=== PATIENT | female | born 1960 | race Caucasian/White ===

== ENCOUNTER 2018-11-13 16:09 | Emergency (ER) | payer MEDICARE, MEDICAID, SELFPAY ==
[2018-11-13 16:17] VITALS: BP 163/100; PULSE 113; RESP 16; TEMP 37.5; O2SAT 97
--- NOTE | 2018-11-13 16:20 | DI.CT_ITS ---
SYMPTOM/DIAGNOSIS: ABDOMINAL DISTENTION CT ABDOMEN AND PELVIS: There are no prior comparison exams. There is a large amount of ascites. The liver has a nodular, cirrhotic appearance. No liver mass or biliary dilatation is seen. The gallbladder is somewhat distended but does not show wall thickening. The spleen is mildly enlarged. The adrenals, kidneys and pancreas are unremarkable. Food is seen in the stomach. The bowel is not well evaluated without IV contrast particularly due to surrounding ascites. Small rounded high density material is seen at the cecum. The appendix appears normal. There is no evidence of bowel obstruction. Colitis and enteritis are not excluded. The uterus, ovaries and bladder are unremarkable. The lung bases are clear. There is a mild T-10 compression fracture which appears unchanged when compared with chest x-ray from 2017. IMPRESSION: Large quantity of ascites secondary to cirrhosis. The bowel is not well evaluated due to surrounding ascites and lack of oral contrast. Colitis and enteritis cannot be excluded.
--- NOTE | 2018-11-13 16:21 | ED.GENADUL_ITS ---
Discharge Plan Disposition Patient Disposition: HOME Condition: Stable Discharge Details Chief Complaint: Abd Prob Clinical Impression: Ascites Primary Care Provider: Danny Livingston ED Provider: Andrew Arenas Home Meds and New Rx's Prescriptions: No Action atenolol 25 MG tablet 25 mg PO DAILY RF: 0 dextroamphetamine-amphetamine [Adderall XR] 30 MG capsule,extended release 24hr 30 mg PO DAILY RF: 0 escitalopram oxalate [Lexapro] 10 mg Tablet 10 mg PO DAILY RF: 0 Medical Decision Making 58 yo female with hx of hep c comes in with complaints of abdominal distention worsening since July. Denies fevers, vomit, diarrhea, constipation. On exam she does have distention, no significant tenderness on exam or guarding. Denies ches tpain or sob. Given her hx of hep c could be ascites vs mass, will obtain imaging to further eval labs show elevated lfts that is chronic for her and ct shows ascites, appendix not visualizes but has absolutely no rlq pain. I recommended performing paracentesis but she declined and has capacity to make her own decisions and understands risk sof missing sbp including and disabilty and is willing to take this risk. She has no severe pain and no fevers so sbp is unlikely but discussed only way to eval for this is by parancetesis. She would rather do this as an outpatient so will refer to gerneral surgery, return precautions given. d/c instructions given on [employer] as computer went down at time of d/c Differential Diagnosis mass, ascites Imaging Data Radiologic Study: Attestation: I personally reviewed and interpreted this imaging study as follows: Imaging: CT Scan Radiologist's impression: 1. Severe ascites most likely related to cirrhosis of liver. There appear to be a few splenic varices. 2. Appendix is not visualized. The expected location is filled with ascitic fluid. If there is a clinical concern for acute appendicitis, decision must be made clinically or a repeat CT of the abdomen with oral contrast could evaluate further. This would also help evaluate the colon especially the descending colon as the hernandez difficult to separate from the ascites especially the ascending colon. Lab Data Lab results reviewed: Yes I reviewed the patient's lab results. HPI General Mode of arrival: ambulatory . Date/Time Provider Initiated Documentation: 11/13/18 16:12 . Limitations to Documentation: no limitations . Information obtained by: patient . History of Present Illness 58 year old F presents to the emergency department with the chief complaint of abdominal distention, described as moderate, Patient started experiencing this month(s) (3) and it has been constant. No relieving factors improve symptom(s), No exacerbating factors reported . Patient did receive the following treatments prior to arrival, none Related Data Home Medications Medication Instructions Recorded Confirmed atenolol 25 mg PO DAILY 09/28/16 11/13/18 dextroamphetamine-amphetamine 30 mg PO DAILY 09/28/16 11/13/18 [Adderall XR] escitalopram oxalate [Lexapro] 10 mg PO DAILY 11/13/18 11/13/18 Allergies Allergy/AdvReac Type Severity Reaction Status Date / Time sulfamethoxazole Allergy Mild Diarrhea Unverified 11/13/18 16:22 [From Bactrim] trimethoprim [From Bactrim] Allergy Mild Diarrhea Unverified 11/13/18 16:22 Review of Systems Review of Systems All systems reviewed & are unremarkable except as noted in HPI and below Constitutional Denies chills, Denies fever(s) and Denies weakness Cardiovascular Denies chest pain and Denies dyspnea Respiratory Denies cough and Denies dyspnea Gastrointestinal Denies nausea and Denies vomiting Musculoskeletal Denies joint swelling Neurologic Denies weakness Endocrine Denies cold intolerance and Denies heat intolerance PFSH Social History Smoking/Tobacco Use Status: Current every day Drug use: Never Do you feel safe in your relationship?: No Exam Const General: no acute distress Orientation: alert HENMT Head: normal to inspection Ears: external ears normal General nose exam: external nose normal Mouth: moist mucous membranes Eyes General: appearance normal, both eyes and all related structures Neck Neck: normal visual inspection Resp Effort & Inspection: normal respiratory effort and able to speak in complete sentences Cardio Rate: regular rate GI Palpation: soft Skin General skin exam: no rashes or lesions noted Neuro General: alert and oriented x3 Extrem General: normal to inspection Psych Mental Status: mental status grossly normal
[2018-11-13 16:43] LABS: Abs Immature Grans 0.02 k/cumm (0.0-0.09); Absolute Basophil Count 0.03 k/cumm (0.0-0.2); Absolute Eosinophil Count 0.05 k/cumm (0.0-0.7); Absolute Lymphocyte Count 1.09 k/cumm (1.2-3.4); Absolute Monocyte Count 0.24 k/cumm (0.11-0.7); Absolute Neutrophil Count 3.03 k/cumm (1.2-6.7); Basophils % 0.7; Eosinophils % 1.1; HCT 30.6 % (36.0-46.0); HGB 10.3 g/dL (12.0-15.5); Immature Grans % 0.4; Lymphocytes % 24.4; Mean Corp. HGB Concentration 33.7 g/dL (32.0-36.0); Mean Corpuscular Hemoglobin 32.9 pg (27.0-33.0); Mean Corpuscular Volume 97.8 fL (80-95); Mean Platelet Volume 11.8 fL (8.0-11.0); Monocytes % 5.4; RBC 3.13 m/cumm (4.00-5.20); RBC Distribution Width 18.3 % (11.7-14.6); White Blood Cell Count 4.46 k/cumm (4.4-10.8)
[2018-11-13 16:48] LABS: Platelet Count 65 x1000/uL (130-400)
[2018-11-13 16:51] LABS: Magnesium 1.5 mg/dL (1.8-2.4)
[2018-11-13 16:53] LABS: Bilirubin, Direct 1.97 mg/dL (0.00-0.20)
[2018-11-13 16:55] LABS: ALT 159 U/L (14-59); AST 372 U/L (15-37); Albumin 2.5 g/dL (3.4-5.0); Alkaline Phosphatase 169 U/L (46-116); Anion Gap 12.4 mmol/L (3-11); BUN 6 mg/dL (7-18); Bilirubin, Total 2.7 mg/dL (0.2-1.0); CO2 20.6 mmol/L (21.0-32.0); CREATININE 0.76 mg/dL (0.55-1.02); Calcium 7.9 mg/dL (8.5-10.1); Chloride 106 mmol/L (98-107); Glucose 200 mg/dL (70-100); Lipase 347 U/L (73-393); Potassium 3.6 mmol/L (3.5-5.1); Sodium 139 mmol/L (136-145); Total Protein 6.8 g/dL (6.4-8.2)
[2018-11-13 17:13] LABS: INR 1.4 (0.9-1.1); PTT Activated 29.6 sec (21.0-31.4); Prothrombin Time 14.4 sec (9.3-11.0)
[2018-11-13 17:16] LABS: Anisocytosis 1+; Macrocytosis 1+; Polychromasia Present
[2018-11-13] MEDS: Omnipaque 350 MG/ML 100 ML BTL IJ (17:27)
--- NOTE | 2018-11-13 17:48 | DI.VRAD_ITS ---
EXAM: CT Abdomen and Pelvis With Contrast EXAM DATE/TIME: 11/13/2018 4:21 PM CLINICAL HISTORY: 58 years old, female; Bloating; Patient HX: PT intoxicated TECHNIQUE: Imaging protocol: Computed tomography of the abdomen and pelvis with intravenous contrast. COMPARISON: No relevant prior studies available. FINDINGS: Lungs: There is minimal scarring at the lung bases. Liver: The liver has slightly nodular contour and is slightly smaller than usual. Gallbladder and bile ducts: The gallbladder is prominently distended there is no gallbladder wall thickening. Pancreas: Normal. No ductal dilation. Spleen: The spleen is within normal limits of size. Adrenals: Normal. No mass. Kidneys and ureters: Normal. No hydronephrosis. Stomach and bowel: There is a prominent amount residual food material in the proximal stomach. There is no dilatation of the small bowel. There is a collection of probably roughly 50 to a 3 mm calcific densities collected in the ascending colon. Appendix: The appendix is not clearly visible. Intraperitoneal space: There is a large amount of ascites around the liver spleen and throughout the mesentery as well as throughout the pelvis. The hernandez of the colon the patient a standing column is somewhat difficult to identify in view of the surrounding ascites and lack of oral contrast. Vasculature: There is minimal atherosclerosis. Lymph nodes: Normal. No enlarged lymph nodes. Bladder: Unremarkable as visualized. Reproductive: Unremarkable as visualized. Bones/joints: There are moderate degenerative changes facet joints in the lower lumbar spine. There minimal degenerative changes lumbar spine. Soft tissues: Unremarkable. IMPRESSION: 1. Severe ascites most likely related to cirrhosis of liver. There appear to be a few splenic varices. 2. Appendix is not visualized. The expected location is filled with ascitic fluid. If there is a clinical concern for acute appendicitis, decision must be made clinically or a repeat CT of the abdomen with oral contrast could evaluate further. This would also help evaluate the colon especially the descending colon as the hernandez difficult to separate from the ascites especially the ascending colon. SIGNIFICANT FINDING REPORT Dictated and Authenticated by: Andrew Monaco MD. Ordering:ROX Morales MD
--- NOTE | 2018-11-14 07:19 | NUR.NOTE ---
Referral faxed to [facility].Nursing Note:
== END 2018-11-13 18:41 | disposition home or self-care (01) ==
LOC: ER 18:54
PROVIDERS: Emergency Provider Emergency Medicine; PCP Nurse Practitioner Family
DX: R18.8 Other ascites (principal); B19.20 Unspecified viral hepatitis C without hepatic coma; Z53.29 Procedure and treatment not carried out because of patient's decision for other reasons
CPT/HCPCS: 36415; 80053; 83690; 99285; 74177; 82248; 83735; 85025; 85610; 85730; 99284

== ENCOUNTER 2018-11-26 13:46 | Outpatient (CLI) | payer MEDICARE, MEDICAID, SELFPAY ==
[2018-11-26 15:07] LABS: INR 1.4 (0.9-1.1); Prothrombin Time 14.5 sec (9.3-11.0)
[2018-11-26 15:15] LABS: Abs Immature Grans 0.01 k/cumm (0.0-0.09); Absolute Basophil Count 0.02 k/cumm (0.0-0.2); Absolute Eosinophil Count 0.08 k/cumm (0.0-0.7); Absolute Lymphocyte Count 1.44 k/cumm (1.2-3.4); Absolute Monocyte Count 0.36 k/cumm (0.11-0.7); Absolute Neutrophil Count 3.39 k/cumm (1.2-6.7); Basophils % 0.4; Eosinophils % 1.5; HCT 32.9 % (36.0-46.0); HGB 10.8 g/dL (12.0-15.5); Immature Grans % 0.2; Lymphocytes % 27.2; Mean Corp. HGB Concentration 32.8 g/dL (32.0-36.0); Mean Corpuscular Hemoglobin 32.1 pg (27.0-33.0); Mean Corpuscular Volume 97.9 fL (80-95); Mean Platelet Volume 12.5 fL (8.0-11.0); Monocytes % 6.8; Neutrophils % 63.9; RBC 3.36 m/cumm (4.00-5.20); RBC Distribution Width 17.1 % (11.7-14.6)
[2018-11-26 15:20] LABS: ALT 120 U/L (14-59); AST 231 U/L (15-37); Albumin 2.7 g/dL (3.4-5.0); Alkaline Phosphatase 187 U/L (46-116); Amylase 119 U/L (25-115); Anion Gap 8.5 mmol/L (3-11); BUN 12 mg/dL (7-18); Bilirubin, Total 2.2 mg/dL (0.2-1.0); CO2 24.5 mmol/L (21.0-32.0); CREATININE 0.64 mg/dL (0.55-1.02); Calcium 8.1 mg/dL (8.5-10.1); Chloride 108 mmol/L (98-107); Glucose 111 mg/dL (70-100); Potassium 3.9 mmol/L (3.5-5.1); Sodium 141 mmol/L (136-145); Total Protein 6.9 g/dL (6.4-8.2)
[2018-11-26 15:33] LABS: GGT 116 U/L (5-55)
[2018-11-26 16:35] LABS: Diff Comment PLT Morph Reviewed; Platelet Count 55 x1000/uL (130-400)
[2018-11-26 16:36] LABS: RBC Morphology Normal
[2018-11-26 18:39] LABS: Clarity CLEAR; Nucleated Cells 140 /MM3 (0-0); Source PERITONEAL
[2018-11-26 19:05] LABS: Mononuclear Cells 85 % (0-0); Polynuclear Cells 15 % (0-0)
[2018-11-26 21:10] LABS: Source: Peritoneal
[2018-11-27 16:51] LABS: Glucose, Fluid 117 mg/dl
[2018-11-28 12:46] LABS: Amylase, BF 47 U/L; Fluid Type PERITONEAL
[2018-11-28 13:04] LABS: Fluid Type PERITONEAL; Protein,Total, BF 0.7 g/dL
[2018-11-28 16:34] LABS: Fluid Type PERITONEAL; Lactate Dehydrogenase (LD), BF 113 U/L
== END 2018-11-26 14:06 ==
PROVIDERS: Nurse Practitioner Family; PCP Nurse Practitioner Family; Visit Provider Nurse Practitioner Family
DX: K72.10 Chronic hepatic failure without coma (principal); Z77.011 Contact with and (suspected) exposure to lead; R10.9 Unspecified abdominal pain; B18.2 Chronic viral hepatitis C; K74.60 Unspecified cirrhosis of liver; R18.8 Other ascites; G93.49 Other encephalopathy; I86.8 Varicose veins of other specified sites; Z92.29 Personal history of other drug therapy
CPT/HCPCS: 36415; 49082; 80053; 99204; 99215; 81373; 82150; 82977; 83615; 83655; 83986; 84157; 85025; 85610; 87070; 87075; 87205; 87522; 89051

== ENCOUNTER 2018-11-26 17:28 | Outpatient (REF) | payer MEDICARE, MEDICAID, SELFPAY ==
--- NOTE | 2018-11-26 17:00 | PAPNONF_PTH ---
PATIENT: SHAUN MÉNDEZ LOC: [facility] U#:[id number] AGE/SX: 58/F ROOM: RE11/26/[address]: Samia Teran : 1960 BED: DIS: 11/26/2018 SPEC #: [id number] RECD: 11/26/18 17:34 STATUS: ADELA REQ #: [id number] DARWIN: 11/26/18 17:[address]: Samia Teran DEPT: [facility] Cytology RECD BY: Maame Schaffer ENTERED: 11/26/18 17:35 SP TYPE: ISAAC ROME DR: Danny Livingston Tissues: 1 - BODY FLUID CYTO(SPUTUM/URINE)[facility] Procedures: BODY FLUID CYTO(URINE/SPUTUM) Comments: [id number] (TOTAL VOLUME = 40 ml's ~ SENT FRESH)
== END 2018-11-26 17:48 ==
LOC: LBN 17:28
PROVIDERS: PCP Nurse Practitioner Family; Visit Provider Surgery
DX: B18.2 Chronic viral hepatitis C (principal); K72.10 Chronic hepatic failure without coma
CPT/HCPCS: 88104

== ENCOUNTER 2019-04-04 10:53 | Emergency (ER) | payer MEDICARE, MEDICAID, SELFPAY ==
[2019-04-04] VITALS (7 sets, daily range): BP systolic 107–172; BP diastolic 56–93; PULSE 96–120; RESP 16–30; TEMP 36.7–37.3; O2SAT 96–100
--- NOTE | 2019-04-04 10:56 | ED.GENADUL_ITS ---
Discharge Plan Disposition Patient Disposition: HOME Condition: Improving Discharge Details Chief Complaint: Abd Prob Clinical Impression: Cirrhosis of liver with ascites Primary Care Provider: Danny Livingston ED Provider: Bowen Moraes Home Meds and New Rx's Prescriptions: Continued clonidine HCl 0.1 mg Tablet 0.1 mg PO BID RF: 0 Discharge Instructions Instructions: Ascites (ED) Additional Instructions: You will need close follow-up with your primary care provider and with a wheat inspector. Care management will work on arranging this for you. Return to the emergency department immediately if you develop any fevers, weakness, passing out, or for any other concerning or worsening symptoms at all. 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 Today she presents with what appears to be tense ascites. 8 L of yellow ascitic fluid was drained. She feels better. Her breathing has improved. I reviewed notes from [facility] Patient states that she cannot go back to see gastroenterology at [facility] She states that she has a lawsuit pending. Her history is quite difficult, possibly due to her psychiatric history. I reviewed multiple notes from [facility] including gastroenterology, psychiatry, emergency department. It was thought that her way of speaking and poor history is not due to hepatic encephalopathy. Today her ammonia level is normal. There is no indication for admission at this time. She will need to follow-up with a new wheat inspector however. Care management will help arrange for home health, gastroenterology follow-up and primary care follow-up. Patient will be provided close follow-up. She will be given return precautions and discharge instructions. She agrees with this outpatient treatment plan. Medical Records Medical records reviewed: Yes I reviewed the patient's medical records. Lab Data Lab results reviewed: Yes I reviewed the patient's lab results. HPI I am uncomfortable. This patient is a 58-year-old female who presents to the emergency department with concerned that she is swollen. About 6 months ago she was diagnosed with liver failure. She has seen gastroenterology at [facility] 2 times. She comes in today because she is concerned that she would not survive the night due to abdominal swelling. She states that it is more swollen than ever before. She denies drinking alcohol, having vomiting or diarrhea. She states she is actually slightly constipated. She complains of pain which is diffuse and throughout her abdomen. She cannot describe the pain. She states that she feels short of breath. She denies fevers. No bloody or black stool. No dysuria. Nothing has made her feel better. Moving around makes her feel worse. She has had a paracentesis a few times in the past 6 months. Her liver failure is due to a combination of hepatitis C and alcohol. She also has some psychiatric disorders for which she was seen in the emergency department at [facility] in December of last year. General Date/Time Provider Initiated Documentation: 04/04/19 10:54 . Related Data Home Medications Medication Instructions Recorded Confirmed clonidine HCl 0.1 mg PO BID 04/04/19 04/04/19 Allergies Allergy/AdvReac Type Severity Reaction Status Date / Time sulfamethoxazole Allergy Mild Diarrhea Verified 04/04/19 11:27 [From Bactrim] trimethoprim [From Bactrim] Allergy Mild Diarrhea Verified 04/04/19 11:27 General LISSA: 3 Review of Systems Narrative: Gen: no fevers. Card: no chest pain. Resp: No cough, difficulty breathing. Abd: no vomiting but does have abdominal pain and swelling.. The rest of the 10 point review of systems is negative except as described in the HPI and above in the ROS. ON LICENSE OF [facility] Medical History Ascites (Acute) Cirrhosis of liver with ascites (Acute) Cirrhosis of liver with ascites (Acute) Dental caries (Acute) Encephalopathy chronic (Acute) Fractured tooth (Acute) Hep C w/o coma, chronic (Acute) Hepatitis C (Chronic) History of hepatitis B vaccination (Acute) Poor dentition (Acute) Splenic varices (Acute) Varices of other sites (Acute) liver Social History Smoking/Tobacco Use Status: Current every day Tobacco Type: cigarettes Alcohol Intake: former Drug use: Never Substance use type: does not use Do you feel safe at home: Yes Do you feel safe in your relationship?: Yes Exam Narrative Exam Narrative: Gen: no acute distress, alert. Eyes: Pupils equal, reactive to light, EOMs intact. ENT: nose and ears normal, posterior pharynx without injection or swelling. Neck: normal ROM. Lung: Clear to auscultation bilaterally, no respiratory distress. Card: tachycardic, normal S1, S2, no M/R/G. 2+ radial pulses bilaterally. Abd: tense, firm, fluid filled abdomen. diffusely tender, no peritoneal signs. Upper extremity: no evidence of trauma. Lower extremity: 2+ pitting edema. Neuro: speech normal, no gross motor deficits. Psych: alert and oriented to person, place time, normal affect. Skin: warm, intact. Procedures Paracentesis Local Anesthetic: Lidocaine 1% Amount of anesthesia used (mL): 5 Fluid: cloudy Post Procedure Exam: awake, alert (after using chlorhexidine to clean the site, using sterile procedure, the catheter over the needle technique was used. 8 L of fluid was drained. Patient tolerated it well.) Patient Tolerated Procedure: well Complications: none
[2019-04-04 11:25] LABS: Abs Immature Grans 0.02 k/cumm (0.0-0.09); Absolute Basophil Count 0.02 k/cumm (0.0-0.2); Absolute Eosinophil Count 0.12 k/cumm (0.0-0.7); Absolute Lymphocyte Count 1.31 k/cumm (1.2-3.4); Absolute Monocyte Count 0.72 k/cumm (0.11-0.7); Absolute Neutrophil Count 3.95 k/cumm (1.2-6.7); Basophils % 0.3; HCT 28.5 % (36.0-46.0); HGB 9.4 g/dL (12.0-15.5); Immature Grans % 0.3 %; Lymphocytes % 21.3; Mean Corpuscular Hemoglobin 29.5 pg (27.0-33.0); Mean Corpuscular Volume 89.3 fL (80-95); Mean Platelet Volume 11.3 fL (8.0-11.0); Monocytes % 11.7; Neutrophils % 64.4; RBC 3.19 m/cumm (4.00-5.20); RBC Distribution Width 19.3 % (11.7-14.6); White Blood Cell Count 6.14 k/cumm (4.4-10.8)
[2019-04-04 11:33] LABS: INR 1.4 (0.9-1.1)
[2019-04-04 11:37] LABS: Ammonia 18 umol/L (11-32)
[2019-04-04 11:40] LABS: ALT 55 U/L (14-59); AST 103 U/L (15-37); Albumin 2.4 g/dL (3.4-5.0); Alkaline Phosphatase 179 U/L (46-116); Anion Gap 8.3 mmol/L (3-11); BUN 5 mg/dL (7-18); Bilirubin, Total 1.6 mg/dL (0.2-1.0); CO2 24.7 mmol/L (21.0-32.0); Calcium 7.9 mg/dL (8.5-10.1); Chloride 104 mmol/L (98-107); Glucose 94 mg/dL (74-106); Magnesium 1.5 mg/dL (1.8-2.4); Potassium 3.3 mmol/L (3.5-5.1); Sodium 137 mmol/L (136-145); Total Protein 6.6 g/dL (6.4-8.2)
--- NOTE | 2019-04-04 11:57 | NUR.NOTE ---
Paricentesis done by Dr. Moraes, pt tolerated fairly well. gross edema noted in bilateral lower extremities from torso down. pt reports edema groin area. pt is talkative, rapidly changing subject. reports she lives alone and does not have assistance.
--- NOTE | 2019-04-04 12:20 | NUR.NOTE ---
pt unable to quantify pain level at this time. reports I don't know yet.:
[2019-04-04 12:24] LABS: Diff Comment Diff Reviewed; Hypochromasia 2+; Platelet Count 92 x1000/uL (130-400); Polychromasia Present
[2019-04-04 12:25] LABS: Poikilocytes 2+
[2019-04-04] MEDS: ALBUMIN HUMAN 25 GM/100 ML BTL IV ×2 (12:41→13:05)
[2019-04-04 12:54] LABS: Source PERITONEAL
[2019-04-04 12:55] LABS: Clarity CLEAR
[2019-04-04 12:56] LABS: Nucleated Cells 69 /MM3 (0-0)
[2019-04-04 12:57] LABS: Mononuclear Cells 80 % (0-0); Polynuclear Cells 20 % (0-0)
[2019-04-04 13:16] LABS: ETHANOL BLOOD < 3.0 mg/dL (<3)
[2019-04-04] MEDS: Ibuprofen 200 MG TAB PO (13:58)
--- NOTE | 2019-04-04 19:43 | CMPROGNOTE_ITS ---
- If Service Date Differs Date of service: 04/04/19 Time of Service: 19:43 Care Management Progress Note CM was consulted to meet with Argenis while she was being treated in the ED for abdominal pain. CM verified and updated Argenis's demographics, as she moved to another apartment in her building. She reported that her phone is not reliable, but it can be called as it works some of the time. Argenis reported that she needs to take better care of herself, as she often cares for others and does not attend to her own needs. CM provided MD with HH referral worksheet for face to face encounter. CM faxed referral with demographics and documentation to for consideration. CM also faxed referral to [facility] for M[facility]. CM will contact gastroenterology at [facility] (Dr. Muniz- [phone]) on Saturday, as the office is not available for scheduling on the weekend. CM will also contact Argenis's PCP [facility] to inform them of the plan of care in the community. Argenis expressed having a good relationship with her PCP, Danny Livingston. Argenis was agreeable to the plan. She reported that her landlord will transport her home. CM will continue to follow and support discharge plan of care.
--- NOTE | 2019-04-05 22:34 | W.ED.FU ---
Date of service: 04/05/19 Time of Service: 22:35 Follow Up Plan: Patient contacted me in the emergency department at 10:35 PM. She states that she feels that the swelling is slightly increasing from when she had her paracentesis. She still does have mild abdominal pain. She is requesting recommendations. I did recommend that she contact EMS and come back in for further assessment. She states that she would rather not come back and at this time would like to stay home. I did give my recommendations for potential treatments to pain and or swelling, but that my recommendation was certainly that she come in to be reevaluated. She states that she will contact us if her symptoms worsen or continue. I made it very clear that we are always available to discuss this, and the EMS would be happy to pick her up for further evaluation. I have addressed all patient concerns at this time. The patient was made aware of what symptoms to monitor for that would warrant a return to the emergency department. Discussed the plan with the patient, they demonstrate verbal understanding and agreement with our assessment and plan at this time.
== END 2019-04-04 14:20 | disposition home or self-care (01) ==
LOC: ER 14:35
PROVIDERS: Emergency Provider Emergency Medicine; PCP Nurse Practitioner Family
DX: K74.60 Unspecified cirrhosis of liver (principal); R18.8 Other ascites
CPT/HCPCS: 49082; 80053; 96365; 99284; 80320; 82140; 83735; 85025; 85610; 87070; 87205; 89051

== ENCOUNTER 2019-04-19 13:16 | Inpatient (IN) | payer MEDICARE, MEDICAID, SELFPAY ==
[2019-04-19] VITALS (53 sets, daily range): BP systolic 133–188; BP diastolic 57–96; PULSE 90–109; RESP 13–33; TEMP 37.2–37.3; O2SAT 98–100
--- NOTE | 2019-04-19 13:47 | ED.GENADUL_ITS ---
Discharge Plan Disposition Patient Disposition: HOME Condition: Improving Discharge Details Chief Complaint: Abd Prob Clinical Impression: Ascites, S/P abdominal paracentesis Admit Date/Time: 04/19/19 18:40 Admit Provider: Melchor Jefferson Attending Provider: Melchor Jefferson Primary Care Provider: Danny Livingston ED Provider: Christiane oMbley Discharge Data Discharge Date/Time-TO BE ENTERED AT DEPARTURE: 04/19/19 19:28 Discharge Physician: Christiane Mobley Medical Decision Making 58-year-old female with a history of hepatitis C, cirrhosis, ascites with previous history of paracentesis, who presents for abdominal distention and pain for the past 2 weeks. She denies any recent alcohol use. Stopped drinking in November 2018. Patient was seen here 2 weeks ago for similar symptoms and had 8 L of fluid drained. Fluid culture was negative. Patient states her fluid returned the evening of her paracentesis here. She states she ran out of her clonidine 2 days ago. She denies any known fever. Patient had been referred to [facility] hepatology for consideration for Harvoni. H/o failed interferon treatment. Discussed with Dr. Teran and she states that they opted not to treat as they were concerned about noncompliance. Patient has life expectancy of 1-3 years. Labs obtained and note a white blood cell count of 3.76, hemoglobin at 8.3 which is down trended from baseline. Platelets 80 which is baseline. INR 1.4. Discussed with surgery Dr. Teran -agrees with plan for bedside paracentesis. Area assessed with bedside ultrasound. Patient placed in slight right decubitus position. I performed a paracentesis with catheter over needle technique and 8 L of cloudy dark yellow/brown fluid removed. Patient felt significantly better. Discussed with Dr. Teran - no indication for testing fluid at this time. [id number] -- Plan was for patient to be discharged, but just prior to discharge, patient ambulated to the commode in the room and nurse said she was extremely weak. Patient appears clinically improved. Pt states she was concerned about leaving as her landlord was at a [employer] green party. She is asking for an egg sandwich and is smiling and appears more comfortable. Patient may benefit from observation overnight with repeat labs in the morning and physical therapy evaluation with likely plan for home health outpatient. 183 --Case discussed with hospitalist -accepts patient for admission. Medical Records Medical records reviewed: Yes I reviewed the patient's medical records. Lab Data Lab results reviewed: Yes I reviewed the patient's lab results. Labs: Laboratory Tests Range/Units 04/19/19 04/19/19 04/19/19 14:25 14:25 14:25 WBC (4.4-10.8) k/cumm 3.76 L RBC (4.00-5.20) m/cumm 2.90 L Hgb (12.0-15.5) g/dL 8.3 L Hct (36.0-46.0) % 25.5 L MCV (80-95) fL 87.9 MCH (27.0-33.0) pg 28.6 MCHC (32.0-36.0) g/dL 32.5 RDW (11.7-14.6) % 19.4 H Plt Count (130-400) x1000/uL 80 L MPV (8.0-11.0) fL 11.4 H Immature Gran % % 0.5 Neutrophils % 63.9 Lymphocytes % 24.2 Monocytes % 9.6 Eosinophils % 1.3 Basophils % 0.5 Absolute Neutrophils (1.2-6.7) k/cumm 2.40 Absolute Lymphocytes (1.2-3.4) k/cumm 0.91 L Absolute Monocytes (0.11-0.7) k/cumm 0.36 Absolute Eosinophils (0.0-0.7) k/cumm 0.05 Absolute Basophils (0.0-0.2) k/cumm 0.02 Differential Comment Diff reviewed RBC Morphology See below Hypochromasia 2+ Poikilocytosis 1+ Anisocytosis 2+ PT (9.3-11.0) sec INR (0.9-1.1) APTT (21.0-31.4) sec Sodium (136-145) mmol/L 141 Potassium (3.5-5.1) mmol/L 3.6 Chloride (98-107) mmol/L 107 Carbon Dioxide (21.0-32.0) mmol/L 23.7 Anion Gap (3-11) mmol/L 10.3 BUN (7-18) mg/dL 7 Creatinine (0.55-1.02) mg/dL 0.68 Estimated GFR/1.73 m2 (mL/min/1.73m2) >= 60.00 Glucose (74-106) mg/dL 113 H Calcium (8.5-10.1) mg/dL 7.7 L Total Bilirubin (0.2-1.0) mg/dL 1.8 H AST (15-37) U/L 109 H ALT (14-59) U/L 44 Alkaline Phosphatase (46-116) U/L 182 H Ammonia (11-32) umol/L 26 Total Protein (6.4-8.2) g/dL 6.7 Albumin (3.4-5.0) g/dL 2.7 L Range/Units 04/19/19 14:25 WBC (4.4-10.8) k/cumm RBC (4.00-5.20) m/cumm Hgb (12.0-15.5) g/dL Hct (36.0-46.0) % MCV (80-95) fL MCH (27.0-33.0) pg MCHC (32.0-36.0) g/dL RDW (11.7-14.6) % Plt Count (130-400) x1000/uL MPV (8.0-11.0) fL Immature Gran % % Neutrophils % Lymphocytes % Monocytes % Eosinophils % Basophils % Absolute Neutrophils (1.2-6.7) k/cumm Absolute Lymphocytes (1.2-3.4) k/cumm Absolute Monocytes (0.11-0.7) k/cumm Absolute Eosinophils (0.0-0.7) k/cumm Absolute Basophils (0.0-0.2) k/cumm Differential Comment RBC Morphology Hypochromasia Poikilocytosis Anisocytosis PT (9.3-11.0) sec 14.1 H INR (0.9-1.1) 1.4 H APTT (21.0-31.4) sec 25.0 Sodium (136-145) mmol/L Potassium (3.5-5.1) mmol/L Chloride (98-107) mmol/L Carbon Dioxide (21.0-32.0) mmol/L Anion Gap (3-11) mmol/L BUN (7-18) mg/dL Creatinine (0.55-1.02) mg/dL Estimated GFR/1.73 m2 (mL/min/1.73m2) Glucose (74-106) mg/dL Calcium (8.5-10.1) mg/dL Total Bilirubin (0.2-1.0) mg/dL AST (15-37) U/L ALT (14-59) U/L Alkaline Phosphatase (46-116) U/L Ammonia (11-32) umol/L Total Protein (6.4-8.2) g/dL Albumin (3.4-5.0) g/dL HPI General Mode of arrival: ambulatory . Date/Time Provider Initiated Documentation: 04/19/19 13:24 . Limitations to Documentation: no limitations . Information obtained by: patient . History of Present Illness 58 year old F presents to the emergency department with the chief complaint of Abdominal pain and swelling, Quality is described as aching and sharp, and is localized to the abdomen. Patient started experiencing this week(s) (2.5) and it has been constant. No relieving factors improve symptom(s), No exacerbating factors reported . Patient notes denies fever/chills and nausea/vomiting. Related Data Home Medications Medication Instructions Recorded Confirmed clonidine HCl 0.1 mg PO BID 04/04/19 04/19/19 dextroamphetamine-amphetamine 15 mg PO DAILY 04/19/19 04/19/19 [Adderall XR] Allergies Allergy/AdvReac Type Severity Reaction Status Date / Time sulfamethoxazole Allergy Mild Diarrhea Verified 04/19/19 13:39 [From Bactrim] trimethoprim [From Bactrim] Allergy Mild Diarrhea Verified 04/19/19 13:39 General Stated Complaint: Abd Prob LISSA: 3 Review of Systems All systems reviewed & are unremarkable except as noted in HPI and below Constitutional Constitutional: Reports as per HPI, Denies chills and Denies fever(s) Eyes Eyes: Denies blurry vision ENT Ears, Nose, Mouth, and Throat: Denies dizziness, Denies sore throat and Denies throat swelling Cardiovascular Cardiovascular: Denies chest pain and Denies dyspnea Respiratory Respiratory: Denies cough and Denies dyspnea Gastrointestinal Gastrointestinal: Denies abdominal pain, Denies diarrhea and Denies vomiting Genitourinary Genitourinary: Denies hematuria and Denies dysuria Musculoskeletal Musculoskeletal: Denies back pain and Denies numbness Integumentary/Breasts Skin/Breast: Denies lesions and Denies rash Neurologic Neurologic: Denies dizziness, Denies focal weakness and Denies numbness Allergic/Immunologic Allergic/Immunologic: Denies throat swelling [facility] Medical History Ascites (Acute) Cirrhosis of liver with ascites (Acute) Cirrhosis of liver with ascites (Acute) Dental caries (Acute) Encephalopathy chronic (Acute) Fractured tooth (Acute) Hep C w/o coma, chronic (Acute) Hepatitis C (Chronic) History of hepatitis B vaccination (Acute) Poor dentition (Acute) Splenic varices (Acute) Varices of other sites (Acute) liver Social History Smoking/Tobacco Use Status: Current every day Tobacco Type: cigarettes Alcohol Intake: former Drug use: Never Substance use type: does not use Do you feel safe at home: Yes Do you feel safe in your relationship?: Yes Exam Const General: cooperative, anxious and ill appearing chronically HENMT Head: normal to inspection Face and sinus: normal facial exam Eyes General: appearance normal, both eyes and all related structures EOM: EOM intact bilaterally Neck Neck: normal visual inspection and No submandibular swelling Lymphatic: no lymphadenopathy noted Chest Chest: normal inspection of the chest and no tenderness Resp Effort & Inspection: normal respiratory effort and able to speak in complete sentences Auscultation: clear to auscultation bilaterally Cardio Rate: regular rate Rhythm: regular rhythm GI Inspection: distended Palpation: not firm, not rigid and tender (diffuse) Auscultation: hypoactive bowel sounds Skin General skin exam: no rashes or lesions noted Neuro General: alert, awake and oriented x3 Cognition: normal cognition Speech: speech normal Motor: muscle tone normal throughout Sensory Exam: no sensory deficits noted Extrem General: normal to inspection, full ROM, normal capillary refill, no calf tenderness bilaterally and no edema Psych Appearance: grossly normal Mental Status: mental status grossly normal Speech and Movement: speech and movement normal Affect: normal affect Course Vital Signs Vital signs: Vital Signs Temperature 99.1 F 04/19/19 13:32 Pulse 108 H 04/19/19 13:32 Respiratory Rate 16 04/19/19 13:32 Blood Pressure 162/92 H 04/19/19 13:32 Pulse Oximetry 100 04/19/19 13:32 Temperature 99.1 F 04/19/19 13:32 Temperature Source Temporal Artery Scan 04/19/19 13:32 Pulse 108 H 04/19/19 13:32 Respiratory Rate 16 04/19/19 13:32 Respiratory Effort Non-Labored 04/19/19 13:40 Blood Pressure 162/92 H 04/19/19 13:32 Blood Pressure Position Supine 04/19/19 13:32 Pulse Oximetry 100 04/19/19 13:32 Oxygen Delivery Method Room Air 04/19/19 13:32 Oxygen Flow Rate 0 04/19/19 13:32 Pain Level 9 04/19/19 13:32 Procedures Paracentesis Time Out Performed: Yes Local Anesthetic: Lidocaine 1% Amount of anesthesia used (mL): 10 Fluid: cloudy (8 L of cloudy yellow-brown fluid) Post Procedure Exam: awake, alert Patient Tolerated Procedure: well Complications: none
[2019-04-19 14:43] LABS: Abs Immature Grans 0.02 k/cumm (0.0-0.09); Absolute Basophil Count 0.02 k/cumm (0.0-0.2); Absolute Eosinophil Count 0.05 k/cumm (0.0-0.7); Absolute Lymphocyte Count 0.91 k/cumm (1.2-3.4); Absolute Monocyte Count 0.36 k/cumm (0.11-0.7); Basophils % 0.5; Eosinophils % 1.3; HCT 25.5 % (36.0-46.0); HGB 8.3 g/dL (12.0-15.5); Immature Grans % 0.5 %; Lymphocytes % 24.2; Mean Corp. HGB Concentration 32.5 g/dL (32.0-36.0); Mean Corpuscular Hemoglobin 28.6 pg (27.0-33.0); Mean Corpuscular Volume 87.9 fL (80-95); Mean Platelet Volume 11.4 fL (8.0-11.0); Monocytes % 9.6; Neutrophils % 63.9; RBC Distribution Width 19.4 % (11.7-14.6); White Blood Cell Count 3.76 k/cumm (4.4-10.8)
[2019-04-19 14:52] LABS: Ammonia 26 umol/L (11-32)
[2019-04-19 14:54] LABS: ALT 44 U/L (14-59); AST 109 U/L (15-37); Albumin 2.7 g/dL (3.4-5.0); Alkaline Phosphatase 182 U/L (46-116); Anion Gap 10.3 mmol/L (3-11); BUN 7 mg/dL (7-18); Bilirubin, Total 1.8 mg/dL (0.2-1.0); CO2 23.7 mmol/L (21.0-32.0); CREATININE 0.68 mg/dL (0.55-1.02); Calcium 7.7 mg/dL (8.5-10.1); Chloride 107 mmol/L (98-107); Glucose 113 mg/dL (74-106); Potassium 3.6 mmol/L (3.5-5.1); Sodium 141 mmol/L (136-145); Total Protein 6.7 g/dL (6.4-8.2)
[2019-04-19 14:58] LABS: INR 1.4 (0.9-1.1); Prothrombin Time 14.1 sec (9.3-11.0)
[2019-04-19 15:06] LABS: Platelet Count 80 x1000/uL (130-400)
[2019-04-19 15:07] LABS: Anisocytosis 2+; Diff Comment Diff Reviewed; Hypochromasia 2+
[2019-04-19 15:08] LABS: Poikilocytes 1+
[2019-04-19] MEDS: Ibuprofen 600 MG TAB (17:18)
--- NOTE | 2019-04-19 21:44 | W.PM.HP.N ---
Date of service: 04/19/19 Time of Service: 21:44 Assessment and Plan Assessment and plan (1) Cirrhosis of liver with ascites: Status: Acute Assessment and plan: Patient has decompensated hepatic cirrhosis related to history of alcohol use and chronic hepatitis C. I [place] [facility] [place] Her current Child Eduard Gray score is 10, indicating life expectancy of 1 to 3 years. Her meld score is 12. Looking back at the trends, her laboratory exams are roughly stable on today's admission. Large-volume ascites was accomplished. I agree it does not look like she has SBP at this point. I will start her on diuretics to see if we can stabilize her ascites without such frequent paracenteses. Beta-marvel not indicated with decompensated state. (2) Hep C w/o coma, chronic: Status: Acute Assessment and plan: Genotype 1a. Remote history of treatment with interferon and ribavirin that failed. Plan per gastroenterology was to treat her with new direct acting antivirals. She has not wanted to follow-up however. She is confused about hepatitis B, I try to clarify that appears she was exposed at some point but does not have an active infection. (3) Weakness generalized: Status: Acute Assessment and plan: Patient's generalized weakness and inability to ambulate safely his main reason she was kept for observation. Ordered a physical therapy consult to assess her safety. Nutritional status also is likely contributing. Will consult nutrition and emphasize adequate protein in her diet. (4) Hypertension: Status: Chronic Assessment and plan: Patient states she takes clonidine for blood pressure, though appears it may also be for her anxiety. We will continue this as her blood pressure is high. In addition of furosemide and spironolactone should also lower blood pressure. (5) Disorganized thought process: Status: Acute Assessment and plan: Appears the patient is being treated for ADHD, but there is evidence of a thought disorder. This may be also a reflection of hepatic encephalopathy, but her ammonia is not elevated. Could consider treating her lactulose to see if her mental status clears. We will continue outpatient medication, which are lower dose Adderall and clonidine. She states she will follow-up with [facility] services (6) DVT prophylaxis: Status: Acute Assessment and plan: She is at high risk for GI bleed, so we will try to get her up moving with physical therapy rather than treat her with heparin. History of Present Illness History of Present Illness Chief Complaint: Weakness, abdominal swelling Narrative: 58-year-old female with history of alcohol use disorder in remission and chronic hepatitis C with associated decompensated hepatic cirrhosis with ascites present in the emergency room today with generalized weakness and worsening of her chronic ascites. Patient had a very similar presentation on April 04 and 8 L of fluid was removed via paracentesis. Patient states that her swelling reaccumulated the next day after that paracentesis. The distention was causing enough discomfort she came back to emergency room today. Another 8 L was removed by Dr. Teran in the emergency room, which the patient did tolerate well. Previous paracentesis was sent for fluid analysis and culture, which was benign. Dr. Teran and Dr. Mobley in the emergency room did not feel that the concern was high for SBP so the fluid was not sent this time. The plan was for discharge home, but the patient was unable to walk on her own and told the staff she could not take care of herself in her current state of health. For this reason she was admitted for observation and physical therapy evaluation. Patient is not able to give me a coherent history, as she is extremely tangential when attempting to interview her. She does say she has had the ascites since about last July and has had paracentesis 4 times, most recently April 04 as above. She has been considered for hepatitis C treatment at [facility], but has not followed up. She thinks she got infected with hepatitis C as a teenager. She states she stopped drinking around last summer when she first saw Dr. Teran. Review of Systems Narrative: Review of system difficult to obtain given lack of linear thought process. She denies fever or chills. Unclear if recent weight change. She does states she has lost muscle mass. She states she needs new glasses, but no acute vision changes or double vision. She states her teeth have gotten worse, but no acute mouth sore or dental infection. No dysphagia. She is states she has a dull headache if she needs eat. No dizziness. No chest pain or palpitations. No shortness of breath or cough. She does have diffuse abdominal pain as above, improved after paracentesis. No vomiting. No blood in stool or melena. She did have a nosebleed in the past few days, as well as some blood in her urine. No dysuria currently. She is making urine. No other bleeding. No rashes or other skin changes. No focal numbness or weakness. [facility] Medical History Ascites (Acute) Cirrhosis of liver with ascites (Acute) Cirrhosis of liver with ascites (Acute) Dental caries (Acute) Encephalopathy chronic (Acute) Fractured tooth (Acute) Hep C w/o coma, chronic (Acute) Hepatitis C (Chronic) History of hepatitis B vaccination (Acute) Poor dentition (Acute) Splenic varices (Acute) Varices of other sites (Acute) liver Social History (Updated 04/19/19 @ 21:54 by Melchor Jefferson) Smoking/Tobacco Use Status: Current every day Tobacco Type: cigarettes Alcohol Intake: former Drug use: Never Substance use type: does not use Do you feel safe at home: Yes Do you feel safe in your relationship?: Yes Additional Social history: Living apartment on [address] Patient describes concern for lead and mold, but it is unclear if this is an ongoing concern. She gives a grand social history regarding status of her past and her family, but it is hard to interpret the veracity of this history. Meds Home Medications and Allergies Home Medications Medication Instructions Recorded Confirmed Type clonidine HCl 0.1 mg PO BID 04/04/19 04/19/19 History dextroamphetamine-amphetamine 15 mg PO DAILY 04/19/19 04/19/19 History [Adderall XR] Allergies Allergy/AdvReac Type Severity Reaction Status Date / Time sulfamethoxazole Allergy Mild Diarrhea Verified 04/19/19 13:39 [From Bactrim] trimethoprim [From Bactrim] Allergy Mild Diarrhea Verified 04/19/19 13:39 Exam Narrative Exam Narrative: General: Alert extremely talkative and pleasant, but tangential. See psychiatric. HEENT: Normocephalic/atraumatic. Conjunctive are clear with no icterus. Pupils equal round reactive to light with extraocular motion intact. Mucous membranes moist with no oropharyngeal lesions, poor dentition. No nasal or other bleeding noted. Neck is supple with no masses or thyromegaly. Lungs: Clear to auscultation bilaterally normal effort. Cardiovascular: Regular rate and rhythm with no murmurs gallops or rubs. Abdomen: Active bowel sounds, softly distended with some diffuse moderate tenderness palpation. She has a large pressure bandage over her mid lower abdomen that is clean dry and intact (I did not take down the bandages as she just been evaluated emergency room and by surgery) Extremities: No cyanosis or clubbing. 2+ pitting edema to the knees bilaterally. No joint redness or swelling. Skin: Purple nodule at right base of nasal bridge. Few scattered bruises and petechiae. No large bruises or other rashes. Neurologic: Cranial nerves grossly intact. Speech is rapid clear. No tremor. Psychiatric: Mood and affect somewhat elevated. Speaks constantly, difficult to question. Thought process is highly tangential. Expresses grandiose family history including mother and brother with a great deal of wealth and father being a hero in the [place] [employer]. Results Labs Result diagrams: 04/19/19 14:25 04/19/19 14:25 Labs: Laboratory Results - last 24 hr 04/19/19 04/19/19 04/19/19 14:25 14:25 14:25 WBC 3.76 L RBC 2.90 L Hgb 8.3 L Hct 25.5 L MCV 87.9 MCH 28.6 MCHC 32.5 RDW 19.4 H Plt Count 80 L MPV 11.4 H Immature Gran % 0.5 Neutrophils % 63.9 Lymphocytes % 24.2 Monocytes % 9.6 Eosinophils % 1.3 Basophils % 0.5 Absolute Neutrophils 2.40 Absolute Lymphocytes 0.91 L Absolute Monocytes 0.36 Absolute Eosinophils 0.05 Absolute Basophils 0.02 Differential Comment Diff reviewed RBC Morphology See below Hypochromasia 2+ Poikilocytosis 1+ Anisocytosis 2+ PT INR APTT Sodium 141 Potassium 3.6 Chloride 107 Carbon Dioxide 23.7 Anion Gap 10.3 BUN 7 Creatinine 0.68 Estimated GFR/1.73 m2 >= 60.00 Glucose 113 H Calcium 7.7 L Total Bilirubin 1.8 H AST 109 H ALT 44 Alkaline Phosphatase 182 H Ammonia 26 Total Protein 6.7 Albumin 2.7 L 04/19/19 14:25 WBC RBC Hgb Hct MCV MCH MCHC RDW Plt Count MPV Immature Gran % Neutrophils % Lymphocytes % Monocytes % Eosinophils % Basophils % Absolute Neutrophils Absolute Lymphocytes Absolute Monocytes Absolute Eosinophils Absolute Basophils Differential Comment RBC Morphology Hypochromasia Poikilocytosis Anisocytosis PT 14.1 H INR 1.4 H APTT 25.0 Sodium Potassium Chloride Carbon Dioxide Anion Gap BUN Creatinine Estimated GFR/1.73 m2 Glucose Calcium Total Bilirubin AST ALT Alkaline Phosphatase Ammonia Total Protein Albumin Last Vital Signs Temp 37.2 C 04/19/19 19:32 Pulse 97 H 04/19/19 19:32 Resp 22 04/19/19 19:32 BP 167/81 H 04/19/19 19:32 Pulse Ox 99 04/19/19 19:32
[2019-04-20 00:31] VITALS: BP 168/90; PULSE 98; RESP 16; TEMP 37; O2SAT 98
[2019-04-20 06:43] LABS: HCT 26.6 % (36.0-46.0); HGB 8.6 g/dL (12.0-15.5); Mean Corp. HGB Concentration 32.3 g/dL (32.0-36.0); Mean Corpuscular Hemoglobin 28.4 pg (27.0-33.0); Mean Corpuscular Volume 87.8 fL (80-95); RBC 3.03 m/cumm (4.00-5.20); RBC Distribution Width 19.6 % (11.7-14.6); White Blood Cell Count 4.18 k/cumm (4.4-10.8)
[2019-04-20 07:06] LABS: Platelet Count 74 x1000/uL (130-400)
[2019-04-20 07:56] VITALS: BP 143/81; PULSE 93; RESP 20; TEMP 37.2; O2SAT 99
[2019-04-20] MEDS: Furosemide 20 MG TAB PO (08:43)
[2019-04-20] MEDS: Spironolactone 25 MG TAB PO ×2 (08:43→19:50)
[2019-04-20] MEDS: cloNIDine 0.1 MG TAB PO ×2 (08:43→19:51)
[2019-04-20 08:51] LABS: Prothrombin Time 14.4 sec (9.3-11.0)
[2019-04-20 08:58] LABS: INR 1.4 (0.9-1.1)
[2019-04-20 09:25] LABS: Magnesium 1.8 mg/dL (1.8-2.4)
[2019-04-20] MEDS: Acetaminophen 325 MG TAB PO (09:39)
[2019-04-20] MEDS: Normal Saline Flush 10 ML SYR IVP ×2 (10:30→18:31)
[2019-04-20] MEDS: Pantoprazole 40 MG TABCR PO (10:31)
[2019-04-20] MEDS: ALBUMIN HUMAN 25 GM/100 ML BTL IV ×2 (10:32→11:08)
--- NOTE | 2019-04-20 11:41 | INITIAL_ITS ---
- If Service Date Differs Date of service: 04/20/19 Time of Service: 11:42 Care Management Initial Assess REASON FOR HOSPITALIZATION:: Cirrhosis of the liver with ascites PAST MEDICAL HISTORY/PAST SURGICAL HISTORY:: Medical History : Ascites (Acute). Cirrhosis of liver with ascites (Acute). Cirrhosis of liver with ascites (Acute). Dental caries (Acute). Encephalopathy chronic (Acute). Fractured tooth (Acute). Hep C w/o coma, chronic (Acute). Hepatitis C (Chronic). History of hepatitis B vaccination (Acute). Poor dentition (Acute). Splenic varices (Acute). Varices of other sites (Acute). liver PREVIOUS FUNCTIONAL STATUS/SOCIAL/FAMILY SUPPORTS:: Argenis lives alone in an apartment in [place].She is disabled but states shwe worked for 28 years but is unclear about what she did. She stated that she was supposd to get home health services but they went to the wrong apartment. It was difficult to follow the conversation as Argenis changes subjects and stopped mid-sentence when trying to explain things. CURRENT FUNCTIONAL STATUS:: Argenis was sitting up in bed receiving care when CM met with her. She repeatedly stated that she was tired so the conversation was limited. Another visit with CM will take place tomorrow and hopefully more information can be shared. ADVANCE DIRECTIVES:: None on file Has patient been provided with information about the portal?: No Did the patient sign up for the portal?: No CODE STATUS:: Full Code INSURANCE COVERAGE / FINANCIAL ISSUES:: Medicare. Medicaid PRIMARY CARE PHYSICIAN:: Danny Livingston POTENTIAL DISCHARGE NEEDS:: Follow up with PCP and discharge plan of care PATIENT/FAMILY EDUCATION NEEDS:: Discharge and follow up plans, limitations, Ask me Three TRANSPORTATION:: via private vehicle with friends/family PLAN:: The discharge plan for Argenis is unclear at this time; home with services vs rehab. She initially indicated that she was unable to walk however this afternoon she walked to the with 2 assist with PT. CM will continue to follow and support patient and discharge planning needs.
--- NOTE | 2019-04-20 12:17 | PT.INIE ---
Date of service: 04/20/19 Time of Service: 09:40 PT Notes Visit Reasons: GENERALIZED WEAKNESS, ASCITES, H/O CIRRHOSIS, S/P Physical Therapy Inpatient Initial Evaluation Date: 04/20/2019 Referring Doctor: Melchor Jefferson M.D. PT Orders: PT CONSULT: Safety consult for D/C Precautions: Fall. Standard. Activity as tolerated. Patient Profile/Admitting Diagnosis: Pt is a 58-year-old female that presented to the ER 04/19/2019 with abdominal distension and pain x 2 weeks. She was admitted to the hospital with diagnoses of cirrhosis of the liver with ascites, Hep C without coma, generalized weakness, disorganized thought process, and DVT prophylaxis. PMHX: Medical History Ascites (Acute) Cirrhosis of liver with ascites (Acute) Cirrhosis of liver with ascites (Acute) Dental caries (Acute) Encephalopathy chronic (Acute) Fractured tooth (Acute) Hep C w/o coma, chronic (Acute) Hepatitis C (Chronic) History of hepatitis B vaccination (Acute) Poor dentition (Acute) Splenic varices (Acute) Varices of other sites (Acute) liver Social History/Home Situation: Pt lives alone with her cat in an apartment in [facility]. She states that there are 20 steps to enter, but it is unclear if that is for her apartment in [facility] as she continued to side-track and discuss an apartment in [place]. Equipment Owned/DME: none Subjective: Pt complains of abdominal pains. She is not able to get comfortable in bed due to her pains and has to have the bed elevated. Pt reports that she is always taking care of other people and not herself. She continues to state that she is positive for lead and black mold from her apartment. Objective: General Observation: Wound dressing on abdominal area Mental Status: Pt required maximal cueing for redirection and focus to the conversation topic. Tangetial speeech with circumstantial thinking observed. She became emotional at times during the conversation. Pain: 8/10 in abdomen Vital Signs: NT ROM: Right Upper Extremity: Shoulder Flexion WFL. Shoulder abduction WFL. Elbow flexion WFL. Wrist flexion WFL. Opening and closing of hand WFL. Left Upper Extremity: Shoulder Flexion WFL. Shoulder abduction WFL. Elbow flexion WFL. Wrist flexion WFL. Opening and closing of hand WFL. Right Lower Extremity: Hip flexion WFL. Hip abduction WFL. Knee flexion WFL. Ankle dorsiflexion WFL. Ankle plantarflexion WFL. Left Lower Extremity: Hip flexion WFL. Hip abduction WFL. Knee flexion WFL. Ankle dorsiflexion WFL. Ankle plantarflexion WFL. Strength: Right Upper Extremity: Shoulder flexors 3-/5 (c/o pain in back). Shoulder abductors 3-/5. Elbow flexors 4+/5. Elbow extensors 4/5. [employer] Attendant strong. Left Upper Extremity: Shoulder flexors 3-/5 (c/o pain in back). Shoulder abductors 3-/5. Elbow flexors 4+/5. Elbow extensors 4/5. [employer] Attendant strong. Right Lower Extremity: Hip flexors 3-/5. Hip abductors 4/5. Knee flexors 3+/5. Knee extensors 4/5. Ankle dorsiflexors 3/5. Ankle plantarflexors 3/5. Left Lower Extremity: Hip flexors 3-/5. Hip abductors 4/5. Knee flexors 3+/5. Knee extensors 4/5. Ankle dorsiflexors 3/5. Ankle plantarflexors 3/5. Sensation: Intact as to pain and pressure on bilateral lower extremities. Bed Mobility/Transfers: Rolling Min A with HOB at 30 degrees Supine to sit Min A with HOB at 30 degrees Sit to supine Min A with HOB at 30 degrees Sit to stand Mod A x2 Stand to sit Mod A x2 Bed to chair unable to perform due to pain Chair to bed unable to perform due to pain Gait: Patient only tolerated about 15 seconds of semistanding position with the L LE lifted up on the second standing attempt as she complained of abdominal pain. Pt was unable to tolerate standing and take a step due to increased abdominal pain and anxiety. She states that she is afraid of her stomach draining with movement. Balance: Static Sitting: Normal Dynamic Sitting: Good Static Standing: Poor Dynamic Standing: Poor Special Tests: Mobility Limitations Standardized Measure [facility] AM-PAC 6 clicks Basic Mobility Inpatient Short Form: Raw Score: 11 CMS Score: 73% Informed Consent/Education: Patient instructed in purpose of PT consult and plan of care. Assessment: Pt is a 58-year-old female that presented to the ER 04/19/2019 with abdominal distension and pain x 2 weeks. She was admitted to the hospital with diagnoses of cirrhosis of the liver with ascites, Hep C without coma, generalized weakness, disorganized thought process, and DVT prophylaxis. On initial evaluation the pt presented to physical therapy with impairment level findings and functional limitations as listed below. The pt?s mobility is significantly limited by pain, as well as her anxiety and fear of increasing the pain, as she was unable to perform independent bed mobility or stand on the edge of the bed. She tends to be tangential and requires maximal cueing to redirect conversation, making it difficult to gather a patient history. She would continue to benefit from skilled physical therapy one time a day at this time for improved mobility, strength, and balance, and will increase to two times a day once the pt?s pain is managed and does not limit mobility. Patient presents with clinical signs and symptoms consistent with current/admitting diagnoses that have resulted to mobility limitations, gait instability, and generalized weakness as demonstrated by the following impairment level findings: 1. Decreased strength to B LE and UE major muscle groups 2. Impaired sitting/standing balance 3. Impaired activity tolerance Impairments are contributing to the following functional limitations: 1. Dependent bed mobility skills 2. Increased dependence with transfers 3. Inability to safely ambulate without assistive device and physical assistance 4. Increase completion time for mobility ADL performance 5. Increased fall risk 6. Inability to negotiate steps alone safely Patient is assessed as a 40097 high complexity based on the following: History: Pt is a 58-year-old female that presented to the ER 04/19/2019 with abdominal distension and pain x 2 weeks. She was admitted to the hospital with diagnoses of cirrhosis of the liver with ascites, Hep C without coma, generalized weakness, disorganized thought process, and DVT prophylaxis. Pt presented to physical therapy with impairment level findings and functional limitations as listed above. AM-PAC raw score of 11 with 73% deficit. Examination: Demonstrable impairment in strength, balance, and range of motion with underlying impairments and functional limitations as documented above Presentation: Evolving Decision Makin high complexity Goals: Goals X1 week 1. Supine-Sit independent 2. Sit-Supine independent 3. Sit-Stand independent 4. Stand-Sit independent 5. Bed-Chair independent 6. Chair-Bed independent 7. Independent gait on level surface with use of least restrictive device for at least 300 feet without report of pain nor dyspnea 8. Independent stair negotiation while holding onto bilateral rails for at least 20 steps without report of pain nor dyspnea 9. Independent with home exercise program 10. Good static and dynamic standing balance/tolerance Plan of Care/Treatment Plan: 1-2x/day, 7 days/week x 1 week. Plan of care has been reviewed with the LAWN SERVICE MANAGER providing the service under Physical Therapy direction. Initiate Physical Therapy intervention for strengthening, bed mobility, transfers, gait, stairs, balance training, use of assistive device. DISCHARGE RECOMMENDATIONS: Pt would benefit from a alf facility placement for continued skilled physical therapy services for improvements in mobility level, strength, and balance in preparation for a safe discharge to home. TREATMENT CODE/TIME: 00589 x 30 minutes beginning at 9:40 A.M. Thank you very much for this referral. Jing Frias, SPT Doctor of Physical Therapy Student [facility] Supervision provided by Eufemia Kulkarni PT, DPT, CLT [facility] [place], [place]
--- NOTE | 2019-04-20 14:18 | W.NUTCONSULT ---
Date of service: 04/20/19 Time of Service: 14:20 Nutritional Consult ASSESSMENT: 58 year old female admitted with end stage liver disease with ascites, cirrohosis. BMI wnl. Following low sodium diet with poor intake (about 25%). Met with Argenis today but very confused, she reports pain s/p paracentesis. Will visit again tomorrow. Labs indicate low Hgb and Low albumin. To receive IV albumin to assist with trunkal edema. At high nutritional risk. Will educate Argenis on importance of following low salt diet and to avoid excess of fluid intake, high protein foods. Estimated needs: 1400 kcal, 41 g protein- 0.8 g pro/kg in view of liver fx. Not meeting nutrient needs at this time most likely due to pain from procedure. expect improved intake soon. Will monitor. NUTRITIONAL DIAGNOSIS: anemia INTERVENTION: educate on low sodium diet, end stage liver disease MONITORING AND EVALUATION: po intake, weight, labs Time Spent in Nutritional Counseling and Treatment: 15 min spent face to face
--- NOTE | 2019-04-20 14:27 | PHARADMIT ---
Addendum entered by Jose Martin Salcido III 04/24/19 14:36: Pharmacy Note Subjective MD to call [facility] for possible transfer. (bad weather may put hold on this) Objective VS-OK, K+3.9 INR-1.6 Labs-OK Last BM 04/22 Assessment Lactulose failed, trying Rifaximin. Cefepime continues. Plan No MD notes yet.... Addendum entered by Lisa Adan 04/23/19 11:55: Pharmacy Note Subjective disorganized thoughts, ativan given at 2000 Objective VS ok, K+ 4.1, Mag 1.9, H/H 9.8/30.1, Plt 71, INR 1.6, albumin 3.4, Protein 6.3, Blood culture grew E Coli Assessment Rifaximin started today - also on cefepime day 4 - suspicion of SBP is high, developed a small bowel obstruction - was given a fleet enema and did have a bm at 2200 (occult +) Plan Awaiting bed at [facility] GI pt NPO cont to monitor INR cont protonix 80mg IV twice a day Addendum entered by Ana Tillman 04/21/19 12:16: Pharmacy Note Subjective Difficult to talk with, ?Encephalopathic vs Psych component Suspected bacterial peritonitis-did not send paracentesis to Micro for testing Objective VS ok, pain 3/1, K+ 4.2, Mag 1.6, INR 1.6, H/H down 7.4/22.9 Albumin down 2.5, Protein down 4.7, Plt down 61 Assessment Magnesium being repleted w/2gram IV x1 treating possible encephalopathy w/Lactulose....no BM's reported Waiting to heme test stool Protonix increased to 80mg IV Q12h Cefepime ordered empirically Rec'd 50gram Albumin yesterday Infusing 50gram Albumin today Only TEDS for for DVT prophylaxis-Hx of coagulopathy, varies so no anticoagulation Plan Trying to plan paracenthesis in the OR today, watch for Micro of samples Original Note: Admission Pharmacy Clinical Review generalized weakness, ascites, h/o cirrhosis, s/p Code Status Full Code Current Weight 52.8 kg Renally Cleared and Narrow Therapeutic Index Meds Crcl ~57.13 mL/min current meds okay QTc Value / Action Taken none BP Control, Fever BP 143/81 afebrile Electrolytes reviewed within normal limits DVT Prophylaxis none Opiate Usage / Scheduled Bowel Regimen Ordered no/no Plt/SCr for Heparin / Enoxaparin plt 74 SCr 0.68 INR for Warfarin n/a H/H stable, WBC/Bands h/h 8.6/26.6 wbc 4.18 Antibiotic appropriateness none Cultures and Sensitivities none Surgical ABX d/c within 24 hr n/a DM control / Insulin Dosing BG 113 none Heart Failure (Check EF%) (ROSEMARIE's, B-Block, Diuretics) furosemide, spironolactone IV to PO Switch n/a Home Meds Reviewed yes... dosing on adderall XR should be clarified as cannot give 1/2 of a capsule Home Meds Not Ordered adderall ( cancelled order) Comments
[2019-04-20 15:11] VITALS: BP 118/60; PULSE 98; RESP 16; TEMP 37.2; O2SAT 98
--- NOTE | 2019-04-20 16:07 | W.PM.PROGNOT ---
Date of Service Date of service: 04/20/19 Time of Service: 16:10 Assessment and Plan Assessment and plan (1) SBP (spontaneous bacterial peritonitis): Status: Suspected Assessment and plan: Unfortunately, no fluid is available from yesterday's paracenthesis for culture. I do think the patient's thought process is disorganized and that there is a large psychiatric component, but I cannot rule out confusion, and her abdomen is very tender. I have consulted general surgery, but paracenthesis will likely not happen until tomorrow - at this time, it is being planned to happen in the OR. Will start empiric cefepime. Continue aldactone, lasix. (2) S/P abdominal paracentesis: Status: Acute Assessment and plan: s/p albumin infusion today. Will most likely require this again tomorrow post her repeat paracenthesis. (3) Cirrhosis of liver with ascites: Status: Acute Assessment and plan: ESLD/cirrhosis due to history of alcohol use and chronic hepatitis C, with ascites, coagulopathy, encephalopathy, thrombocytopenia, varices. She is a patient of [facility] hepatology. Her current Child -Gray score is 10, indicating life expectancy of 1 to 3 years. Her meld score is 12. As above. Start low sodium diet. (4) Hep C w/o coma, chronic: Status: Acute Assessment and plan: Genotype 1a. s/p treatment with interferon and ribavirin that failed. Patient has failed to follow up for alternative treatment. (5) Weakness generalized: Status: Acute Assessment and plan: PT and nutrition consulted. (6) Hypertension: Status: Chronic Assessment and plan: Continue clonidine, lasix, aldactone. (7) Disorganized thought process: Status: Acute Assessment and plan: I do not see obvious asterexis, but agree that the patient could be encephalopathic and/or manic. I have d/c'ed adderall and started lactulose. I am attempting to get in touch with the patient's outpatient psychiatrist to get any insight on whether she could have Bipolar d/o and what her baseline looks like. Also, this could be part of SBP - treat suspected infection. (8) DVT prophylaxis: Status: Acute Assessment and plan: Avoid chemical DVT ppx due to coagulopathy, varices, thrombocytopenia. Continue TEDs. Add SCDs. Subjective Subjective Interval history since last seen: Ms Jefferson is taking a nap when I came to see her. She states that her abdomen hurts, especially suprapubically. She jumps with me touching her belly anywhere. She denies dizziness, chest pain, shortness of breath, nausea. She says her legs look better. She is very difficult to get answers from - she does not answer the questions I am asking. Exam Narrative Exam Narrative: General: Middle-aged female, A&Ox2 - I believe she is confused, disorganized thoughts, she is difficult to refocus, does not answer questions directly HEENT: EOMI, MMM Heart: RRR, no m/r/ g Lungs: Diminished breath sounds B Abdomen: very distended with tense ascites, tender diffusely, but especially suprapubically Extremities: trace edema at B feet, no c/c Objective Objective Clinical Data: Abnormal lab results 04/20/19 04/20/19 Range/Units 06:06 08:24 WBC 4.18 L (4.4-10.8) k/cumm RBC 3.03 L (4.00-5.20) m/cumm Hgb 8.6 L (12.0-15.5) g/dL Hct 26.6 L (36.0-46.0) % RDW 19.6 H (11.7-14.6) % Plt Count 74 L (130-400) x1000/uL PT 14.4 H (9.3-11.0) sec INR 1.4 H (0.9-1.1) Vital Signs Temperature 37.2 C 04/20/19 15:11 Temperature Source Temporal Artery Scan 04/20/19 15:11 Pulse 98 H 04/20/19 15:11 Pulse Rhythm Regular 04/20/19 15:18 Pulse 109 H 04/19/19 18:24 Respiratory Rate 16 04/20/19 15:11 Respiratory Effort Non-Labored 04/20/19 15:18 Respiratory Depth Normal 04/20/19 15:18 Respiratory Pattern Normal 04/20/19 15:18 Blood Pressure 118/60 04/20/19 15:11 Blood Pressure Mean 88 04/19/19 18:00 Blood Pressure Position Supine 04/19/19 13:32 Pulse Oximetry 98 04/20/19 15:11 Oxygen Delivery Method Room Air 04/20/19 15:11 Oxygen Flow Rate 0 04/20/19 15:11 Pain Level 7 04/20/19 15:11 Intake & Output 04/19/19 04/20/19 04/20/19 23:59 11:59 23:59 Intake Total Balance Weight 50.8 kg 52.8 kg Intake: IV Oral Other: Comment voids in toilet. Moves toilet hat. Voiding Methods Toilet Toilet Laboratory Results WBC 4.18 k/cumm (4.4-10.8) L 04/20/19 06:06 RBC 3.03 m/cumm (4.00-5.20) L 04/20/19 06:06 Hgb 8.6 g/dL (12.0-15.5) L 04/20/19 06:06 Hct 26.6 % (36.0-46.0) L 04/20/19 06:06 MCV 87.8 fL (80-95) 04/20/19 06:06 MCH 28.4 pg (27.0-33.0) 04/20/19 06:06 MCHC 32.3 g/dL (32.0-36.0) 04/20/19 06:06 RDW 19.6 % (11.7-14.6) H 04/20/19 06:06 Plt Count 74 x1000/uL (130-400) L 04/20/19 06:06 MPV fL (8.0-11.0) 04/20/19 06:06 Immature Gran % 0.5 % 04/19/19 14:25 Neutrophils % 63.9 04/19/19 14:25 Lymphocytes % 24.2 04/19/19 14:25 Monocytes % 9.6 04/19/19 14:25 Eosinophils % 1.3 04/19/19 14:25 Basophils % 0.5 04/19/19 14:25 Absolute Neutrophils 2.40 k/cumm (1.2-6.7) 04/19/19 14:25 Absolute Lymphocytes 0.91 k/cumm (1.2-3.4) L 04/19/19 14:25 Absolute Monocytes 0.36 k/cumm (0.11-0.7) 04/19/19 14:25 Absolute Eosinophils 0.05 k/cumm (0.0-0.7) 04/19/19 14:25 Absolute Basophils 0.02 k/cumm (0.0-0.2) 04/19/19 14:25 Differential Comment Diff reviewed 04/19/19 14:25 RBC Morphology See below 04/19/19 14:25 Hypochromasia 2+ 04/19/19 14:25 Poikilocytosis 1+ 04/19/19 14:25 Anisocytosis 2+ 04/19/19 14:25 PT 14.4 sec (9.3-11.0) H 04/20/19 08:24 INR 1.4 (0.9-1.1) H 04/20/19 08:24 APTT 25.0 sec (21.0-31.4) 04/19/19 14:25 Sodium 141 mmol/L (136-145) 04/19/19 14:25 Potassium 3.6 mmol/L (3.5-5.1) 04/19/19 14:25 Chloride 107 mmol/L (98-107) 04/19/19 14:25 Carbon Dioxide 23.7 mmol/L (21.0-32.0) 04/19/19 14:25 Anion Gap 10.3 mmol/L (3-11) 04/19/19 14:25 BUN 7 mg/dL (7-18) 04/19/19 14:25 Creatinine 0.68 mg/dL (0.55-1.02) 04/19/19 14:25 Estimated GFR/1.73 m2 >= 60.00 (mL/min/1.73m2) 04/19/19 14:25 Glucose 113 mg/dL (74-106) H 04/19/19 14:25 Calcium 7.7 mg/dL (8.5-10.1) L 04/19/19 14:25 Magnesium 1.8 mg/dL (1.8-2.4) 04/20/19 06:06 Total Bilirubin 1.8 mg/dL (0.2-1.0) H 04/19/19 14:25 AST 109 U/L (15-37) H 04/19/19 14:25 ALT 44 U/L (14-59) 04/19/19 14:25 Alkaline Phosphatase 182 U/L (46-116) H 04/19/19 14:25 Ammonia 26 umol/L (11-32) 04/19/19 14:25 Total Protein 6.7 g/dL (6.4-8.2) 04/19/19 14:25 Albumin 2.7 g/dL (3.4-5.0) L 04/19/19 14:25
--- NOTE | 2019-04-20 16:42 | PTTR_ITS ---
Date of service: 04/20/19 Time of Service: 16:02 PT Notes Visit Reasons: GENERALIZED WEAKNESS, ASCITES, H/O CIRRHOSIS, S/P Inpatient Physical Therapy Treatment Note [facility] Date: 04/20/2019 PRECAUTIONS: Standard. Fall. Activity as tolerated. SUBJECTIVE: Upon entry to the pt?s room she states that she was told to rest and wants to take a nap. She then noted that she needed to use the bathroom before. Per nurse Mcarthur, she saw the the pt walk back to the bed around 12:30 in the afternoon today. OBJECTIVE: IV line in R UE, detached from IV pump. Tangential speech continues. PAIN: Pt reports pain in her abdomen and low back BED MOBILITY/TRANSFERS Rolling Min A with HOB at 30 degrees Supine to sit Min A with HOB at 30 degrees Sit to supine Min A with HOB at 30 degrees Sit to stand Min x2 Stand to sit Min A x2 Bed to chair Min A x 2 Chair to bed Min A x2 VITALS: NT GAIT: Pt was able to ambulate 25 feet x2, from the bed to and from the bathroom, full weightbearing, without an assistive device. She required Min A x2 by PT and PT student. Pt refused use of the walker as she felt that she needed hold onto her abdomen while walking. She demonstrates and increased forward trunk lean due her need to hold her stomach while ambulating. Decreased step length and height observed. ASSESSMENT: Pt demonstrated improved mobility during her afternoon treatment session as she was able to ambulate 25 feet x 2, as compared to earlier in the day when the pt was unable to stand at the side of the bed. She continues to demonstrate tangential and circumstantial speech. Pt would continue to benefit from skilled physical therapy at this time. PLAN: Continue with established POC. TREATMENT CODE/TIME: 43739 x 23 minutes beginning at 16:02 P.M. Jing Frias, SPT Doctor of Physical Therapy Student [facility] Supervision provided by Eufemia Kulkarni PT, DPT, CLT [facility] [place], [place]
[2019-04-20] MEDS: MORPHine 2 MG/ML SYR IVP (18:31)
[2019-04-20] MEDS: CEFEPIME 2 GM in Normal Saline 100 ML IVPB (18:32)
[2019-04-20] MEDS: Lactulose 20 GM/30 ML CUP PO (19:51)
[2019-04-21] VITALS (72 sets, daily range): BP systolic 129–177; BP diastolic 68–116; PULSE 77–107; RESP 15–98; TEMP 36.5–37.1; O2SAT 96–100
[2019-04-21] MEDS: Acetaminophen 325 MG TAB PO ×2 (00:13→21:00)
[2019-04-21] MEDS: Normal Saline Flush 10 ML SYR IVP ×3 (03:00→20:59)
[2019-04-21] MEDS: CEFEPIME 2 GM in Normal Saline 100 ML IVPB ×3 (03:01→18:44)
[2019-04-21 06:48] LABS: INR 1.6 (0.9-1.1); Prothrombin Time 16.4 sec (9.3-11.0)
[2019-04-21 06:57] LABS: ALT 27 U/L (14-59); AST 67 U/L (15-37); Albumin 2.5 g/dL (3.4-5.0); Alkaline Phosphatase 115 U/L (46-116); Anion Gap 7.5 mmol/L (3-11); BUN 12 mg/dL (7-18); Bilirubin, Direct 0.84 mg/dL (0.00-0.20); Bilirubin, Total 1.3 mg/dL (0.2-1.0); CO2 23.5 mmol/L (21.0-32.0); CREATININE 0.62 mg/dL (0.55-1.02); Calcium 7.4 mg/dL (8.5-10.1); Chloride 110 mmol/L (98-107); Glucose 87 mg/dL (74-106); Magnesium 1.6 mg/dL (1.8-2.4); Potassium 4.2 mmol/L (3.5-5.1); Sodium 141 mmol/L (136-145); Total Protein 4.7 g/dL (6.4-8.2)
[2019-04-21 06:58] LABS: Abs Immature Grans 0.01 k/cumm (0.0-0.09); Absolute Basophil Count 0.02 k/cumm (0.0-0.2); Absolute Eosinophil Count 0.13 k/cumm (0.0-0.7); Absolute Lymphocyte Count 0.95 k/cumm (1.2-3.4); Absolute Monocyte Count 0.36 k/cumm (0.11-0.7); Basophils % 0.5; Eosinophils % 3.5; HCT 22.9 % (36.0-46.0); HGB 7.4 g/dL (12.0-15.5); Immature Grans % 0.3 %; Lymphocytes % 25.9; Mean Corp. HGB Concentration 32.3 g/dL (32.0-36.0); Mean Corpuscular Hemoglobin 28.8 pg (27.0-33.0); Mean Corpuscular Volume 89.1 fL (80-95); Mean Platelet Volume 10.4 fL (8.0-11.0); Monocytes % 9.8; RBC 2.57 m/cumm (4.00-5.20); RBC Distribution Width 19.5 % (11.7-14.6); White Blood Cell Count 3.67 k/cumm (4.4-10.8)
[2019-04-21 07:28] LABS: Anisocytosis 2+; Diff Comment RBC Morph Reviewed; Platelet Count 61 x1000/uL (130-400)
[2019-04-21 07:29] LABS: Polychromasia Present
[2019-04-21 07:30] LABS: Poikilocytes 2+
[2019-04-21] MEDS: Spironolactone 25 MG TAB PO ×2 (08:36→21:00)
[2019-04-21] MEDS: Lactulose 20 GM/30 ML CUP PO ×3 (08:36→20:58)
[2019-04-21] MEDS: Pantoprazole 40 MG TABCR PO (08:36)
[2019-04-21] MEDS: Furosemide 20 MG TAB PO (08:36)
[2019-04-21] MEDS: cloNIDine 0.1 MG TAB PO (08:36)
--- NOTE | 2019-04-21 10:39 | PT.INNT ---
Date of service: 04/21/19 Time of Service: 10:39 PT Notes Visit Reasons: GENERALIZED WEAKNESS, ASCITES, H/O CIRRHOSIS, S/P 04/21/2019 Pt unavailable this morning due to procedure in the OR. Grace Montgomery, ADULT EDUCATION MANAGER
[2019-04-21] MEDS: Pantoprazole 40 MG VIAL 80 MG IVP ×2 (11:28→20:58)
[2019-04-21] MEDS: MAGNESIUM SULFATE 2 GM/50 ML BAG IVPB (11:57)
[2019-04-21 12:28] LABS: HCT 23.1 % (36.0-46.0); HGB 7.4 g/dL (12.0-15.5)
[2019-04-21] MEDS: ALBUMIN HUMAN 25 GM/100 ML BTL IV ×2 (12:32→13:17)
--- NOTE | 2019-04-21 13:20 | NUR.NOTE ---
Nursing Note: PT MAONING IN PAIN. AWARE. VS STABLE. PT REFUSES PAIN MEDS.
--- NOTE | 2019-04-21 14:04 | NUR.NOTE ---
Nursing Note: PT TRANSFERRED TO ICU @ 1400 PER MD ORDER. VSS. PT MOANING IN PAIN. PT REFUSED MORPHINE FOR PAIN IT MAKES HER FEEL NAUSEATED. REPORT GIVEN TO ICU NURSE AT TIME OF TRANSFER. PT TRANSFERRED OVER IN AN ICU BED.
--- NOTE | 2019-04-21 14:26 | CMPROGNOTE_ITS ---
- If Service Date Differs Date of service: 04/21/19 Time of Service: 14:26 Care Management Progress Note S/O: Argenis was sitting up in a chair when CM met with her. She required the assistance of 2 caregivers to walk from bed to chair. Argenis's H&H continues to drop and Dr. Marks is concerned about the possibility of bleeding varices. She has contacted [facility] for possible transfer when a bed is available. At this time Argenis is being transferred to the ICU at [facility] for closer monitoring. Argenis ex pressed concern about leaving her 4 cats unattended. She shared that her landlord Srinath is currently caring for them. CM contacted Srinath at Argenis's request and confirmed that he would continue to care for the cats until she returns home. A: Argenis is a 58 year old woman admitted to [facility] on 04/20/2019 with ascites and cirrhosis. P: Argenis will likely be transferred to a tertiary care facility ([facility]) if she becomes more hemodynamically unstable. She will follow up with the providers at that facility and their discharge plan of care. CM will continue to support patient, family and discharge planning needs.
[2019-04-21 14:40] LABS: Bilirubin Negative (Negative); Blood Negative (Negative); Clarity Clear (Clear); Glucose Negative (Negative); Ketones Negative (Negative); Leukocyte Esterase Negative (Negative); Nitrite Negative (Negative); Urobilinogen 0.2 EU/dL (Up TO 0.2)
[2019-04-21] MEDS: diphenhydrAMINE 25 MG CAP PO (14:57)
[2019-04-21] MEDS: Acetaminophen 325 MG TAB 650 MG PO (14:58)
--- NOTE | 2019-04-21 15:44 | ROE_ITS ---
DATE OF PROCEDURE: April 21, 2019 PREOPERATIVE DIAGNOSIS: 1. Ascites. 2. Possible bacterial peritonitis. POSTOPERATIVE DIAGNOSIS: Same. PROCEDURE: Paracentesis. SURGEON: Tiki Deras M.D. ANESTHESIA: Local. INDICATIONS: This is a 58-year-old woman with recurrent abdominal ascites related to liver failure. The patient had eight liters removed on April 04 and also had eight liters removed on the day of admission. She did have some progressive abdominal tenderness and so was started on empiric cefepim e. PROCEDURE: The patient was taken to the procedure room and her abdomen was prepped and draped steril kaushik. A skin wheal was raised with lidocaine in the left lower quadrant. This area had been visualiz ed with ultrasound prior to prepping and did show a large volume of fluid. The abdominal wall and pe ritoneum were also infiltrated with local anesthetic. I was able to aspirate using the injection nee dle, confirming proper location. A small incision was made in the skin and the paracentesis catheter inserted over the needle while aspirating. Once fluid was obtained, the catheter was threaded into the abdomen and the needle removed. Fluid was aspirated and sent for culture. The fluid did not bryan ear unusual; it was a fairly clear straw color. The catheter was attached to the vacuum tubing, whic h was inserted into the canister. A total of 4.7 liters were removed. During the latter part of the aspiration I did reposition the catheter several times and shifted the patient onto her side and als o applied some abdominal pressure. The catheter was removed and the site dressed with a bulky dressi ng due to some persistent drainage from the aspiration site. She tolerated the procedure very well a nd was stable back to Med/Surg.
[2019-04-21] MEDS: Lidocaine 5% Patch 1 PATCH TP (16:58)
[2019-04-21] MEDS: Normal Saline 500 ML IV (18:23)
[2019-04-21] MEDS: LORazepam 2 MG/ML VIAL 0.5 MG IVP (18:36)
[2019-04-21 18:40] LABS: HCT 24.7 % (36.0-46.0); HGB 8.1 g/dL (12.0-15.5)
--- NOTE | 2019-04-21 19:37 | W.PM.PROGNOT ---
Date of Service Date of service: 04/21/19 Time of Service: 19:37 Assessment and Plan Assessment and plan (1) Acute on chronic anemia: Status: Acute Assessment and plan: The concern is that the patient could have portal gastropathy causing her to bleed. Per [facility], this is unlikely to be a variceal bleed - but portal gastropathy is likely. She is s/p 1 unit of pRBC's today. I have discussed the case with [facility] who would be willing to help take care of the patient once [facility] re-opens for admissions. At this time, the patient is on IV PPI. Monitor in the ICU. (2) Gram-negative bacteremia: Status: Acute Assessment and plan: Possibly due to SBP, but with abdominal pain and recent paracenthesis, we also need to rule out intestinal perforation - awaiting CT of the abdomen. For now, continue cefepime. Repeat blood cultures in am. (3) SBP (spontaneous bacterial peritonitis): Status: Suspected Assessment and plan: S/p repeat paracenthesis today with cultures now pending. GNR bacteremia is concerning and consistent with SBP. At this time, the patient is on emepric cefepime (day 2), which we will continue. Her mentation seems better to me today. Continue aldactone, lasix. (4) S/P abdominal paracentesis: Status: Acute Assessment and plan: Await cultures. S/p albumin infusion again today Await culture results. 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 She is a patient of [facility] hepatology, but refuses further follow up. Her current Child -Gray score is 10, indicating life expectancy of 1 to 3 years. Her meld score is 12. Continue low sodium diet. (6) Hep C w/o coma, chronic: Status: Acute Assessment and plan: Genotype 1a. s/p treatment with interferon and ribavirin that failed. Patient has failed to follow up for alternative treatment. (7) Weakness generalized: Status: Acute Assessment and plan: PT and nutrition consulted. (8) Hypertension: Status: Chronic Assessment and plan: Hold clonidine as BP's this afternoon were in 110's. Continue lasix, aldactone. (9) Coagulopathy: Status: Acute Assessment and plan: S/p FFP and vitamin K - monitor INR daily (10) Disorganized thought process: Status: Acute Assessment and plan: At this point, I do think that encephalopathy is a big factor of what we are seeing. Lactulose has not yet resulted in any BM's - will continue. Continue to treat underlying SBP. (11) DVT prophylaxis: Status: Acute Assessment and plan: Avoid chemical DVT ppx due to coagulopathy, varices, thrombocytopenia. Continue TEDs, SCD's (12) Discharge planning issues: Status: Acute Assessment and plan: Full code Will re-attempt transfer [facility] for nonemergent but inpatient EGD for presumed GI bleed once [facility] opens up for admissions. Total Critical Care Time 60 minutes. Subjective Subjective Interval history since last seen: Patient is s/p paracenthesis today - 4.7 L of fluid removed and cultured. The patient reports cramping abdominal pain. No BM yet. Denies dizziness, chest pain, shortness of breath now, but was short of breath last night. States she was nauseated earlier. Her H/H dropped to 7.4 and INR went up to 1.6 today. She received 1 unit of pRBCs, 2 units of FFP and 50 grams of albumin. I have discussed her case with GI at [facility] (the patient refuses transfer to [facility] for suspicion of a GI bleed) - the hospital is closed for admission to the hospitalist service at this time, but the GI service is willing to scope her once the service becomes open to admissions again. Exam Narrative Exam Narrative: General: Middle-aged female, A&Ox2, more alert today, very distracted HEENT: EOMI, MMM Heart: RRR, no m/r/ g Lungs: Diminished breath sounds B Abdomen: Appears to have less ascites today, still quite TTP. Extremities: +1 BLE edema Objective Objective Clinical Data: Abnormal lab results 04/21/19 04/21/19 04/21/19 Range/Units 06:25 06:25 06:25 WBC 3.67 L (4.4-10.8) k/cumm RBC 2.57 L (4.00-5.20) m/cumm Hgb 7.4 L (12.0-15.5) g/dL Hct 22.9 L (36.0-46.0) % RDW 19.5 H (11.7-14.6) % Plt Count 61 L (130-400) x1000/uL Absolute Lymphocytes 0.95 L (1.2-3.4) k/cumm PT 16.4 H (9.3-11.0) sec INR 1.6 H (0.9-1.1) Chloride 110 H (98-107) mmol/L Calcium 7.4 L (8.5-10.1) mg/dL Magnesium 1.6 L (1.8-2.4) mg/dL Total Bilirubin 1.3 H (0.2-1.0) mg/dL Conjugated Bilirubin 0.84 H (0.00-0.20) mg/dL AST 67 H (15-37) U/L Total Protein 4.7 L (6.4-8.2) g/dL Albumin 2.5 L (3.4-5.0) g/dL Crossmatch 04/21/19 04/21/19 04/21/19 Range/Units 11:14 12:20 18:07 WBC (4.4-10.8) k/cumm RBC (4.00-5.20) m/cumm Hgb 7.4 L 8.1 L (12.0-15.5) g/dL Hct 23.1 L 24.7 L (36.0-46.0) % RDW (11.7-14.6) % Plt Count (130-400) x1000/uL Absolute Lymphocytes (1.2-3.4) k/cumm PT (9.3-11.0) sec INR (0.9-1.1) Chloride (98-107) mmol/L Calcium (8.5-10.1) mg/dL Magnesium (1.8-2.4) mg/dL Total Bilirubin (0.2-1.0) mg/dL Conjugated Bilirubin (0.00-0.20) mg/dL AST (15-37) U/L Total Protein (6.4-8.2) g/dL Albumin (3.4-5.0) g/dL Crossmatch See Detail Vital Signs Temperature 37.0 C 04/21/19 18:24 Temperature Source Temporal Artery Scan 04/21/19 14:00 Pulse 94 H 02/04/20 19:15 Pulse Rhythm Regular 04/21/19 10:40 Pulse 95 H 04/21/19 19:20 Respiratory Rate 18 04/21/19 19:20 Respiratory Effort 04/21/19 14:00 Respiratory Depth Normal 04/21/19 14:00 Respiratory Pattern Normal 04/21/19 14:00 Blood Pressure 157/101 H 04/21/19 19:15 Blood Pressure Mean 115 04/21/19 19:15 Blood Pressure Position Supine 04/19/19 13:32 Pulse Oximetry 100 04/21/19 16:32 Oxygen Delivery Method Room Air 04/21/19 16:32 Oxygen Flow Rate 0 04/21/19 16:32 Pain Level 9 04/21/19 12:50 Intake & Output 04/20/19 04/21/19 04/21/19 23:59 11:59 23:59 Intake Total 700 / 910 480 / 680 200 / 680 Output Total 300 / 300 1475 / 1475 Balance 400 / 610 480 / -795 -1275 / -795 Weight 52.4 kg 52.4 kg Intake: IV 100 / 310 100 / 300 200 / 300 Oral 600 / 600 380 / 380 Output: Urine 300 / 300 1475 / 1475 Other: Urine Color Yellow Yellow Pale Yellow Urine Appearance Clear Clear Clear Urine Odor Normal Normal Comment voids in toilet. Moves toilet hat. per patient she flushed Voiding Methods Toilet Toilet Bedside Commode Laboratory Results WBC 3.67 k/cumm (4.4-10.8) L 04/21/19 06:25 RBC 2.57 m/cumm (4.00-5.20) L 04/21/19 06:25 Hgb 8.1 g/dL (12.0-15.5) L 04/21/19 18:07 Hct 24.7 % (36.0-46.0) L 04/21/19 18:07 MCV 89.1 fL (80-95) 04/21/19 06:25 MCH 28.8 pg (27.0-33.0) 04/21/19 06:25 MCHC 32.3 g/dL (32.0-36.0) 04/21/19 06:25 RDW 19.5 % (11.7-14.6) H 04/21/19 06:25 Plt Count 61 x1000/uL (130-400) L 04/21/19 06:25 MPV 10.4 fL (8.0-11.0) 04/21/19 06:25 Immature Gran % 0.3 % 04/21/19 06:25 Neutrophils % 60.0 04/21/19 06:25 Lymphocytes % 25.9 04/21/19 06:25 Monocytes % 9.8 04/21/19 06:25 Eosinophils % 3.5 04/21/19 06:25 Basophils % 0.5 04/21/19 06:25 Absolute Neutrophils 2.20 k/cumm (1.2-6.7) 04/21/19 06:25 Absolute Lymphocytes 0.95 k/cumm (1.2-3.4) L 04/21/19 06:25 Absolute Monocytes 0.36 k/cumm (0.11-0.7) 04/21/19 06:25 Absolute Eosinophils 0.13 k/cumm (0.0-0.7) 04/21/19 06:25 Absolute Basophils 0.02 k/cumm (0.0-0.2) 04/21/19 06:25 Differential Comment Rbc morph reviewed 04/21/19 06:25 RBC Morphology See below 04/21/19 06:25 Polychromasia Present 04/21/19 06:25 Hypochromasia 2+ 04/19/19 14:25 Poikilocytosis 2+ 04/21/19 06:25 Anisocytosis 2+ 04/21/19 06:25 PT 16.4 sec (9.3-11.0) H 04/21/19 06:25 INR 1.6 (0.9-1.1) H 04/21/19 06:25 APTT 25.0 sec (21.0-31.4) 04/19/19 14:25 Sodium 141 mmol/L (136-145) 04/21/19 06:25 Potassium 4.2 mmol/L (3.5-5.1) 04/21/19 06:25 Chloride 110 mmol/L (98-107) H 04/21/19 06:25 Carbon Dioxide 23.5 mmol/L (21.0-32.0) 04/21/19 06:25 Anion Gap 7.5 mmol/L (3-11) 04/21/19 06:25 BUN 12 mg/dL (7-18) 04/21/19 06:25 Creatinine 0.62 mg/dL (0.55-1.02) 04/21/19 06:25 Estimated GFR/1.73 m2 >= 60.00 (mL/min/1.73m2) 04/21/19 06:25 Glucose 87 mg/dL (74-106) 04/21/19 06:25 Calcium 7.4 mg/dL (8.5-10.1) L 04/21/19 06:25 Magnesium 1.6 mg/dL (1.8-2.4) L 04/21/19 06:25 Total Bilirubin 1.3 mg/dL (0.2-1.0) H 04/21/19 06:25 Conjugated Bilirubin 0.84 mg/dL (0.00-0.20) H 04/21/19 06:25 AST 67 U/L (15-37) H 04/21/19 06:25 ALT 27 U/L (14-59) 04/21/19 06:25 Alkaline Phosphatase 115 U/L (46-116) 04/21/19 06:25 Ammonia 26 umol/L (11-32) 04/19/19 14:25 Total Protein 4.7 g/dL (6.4-8.2) L 04/21/19 06:25 Albumin 2.5 g/dL (3.4-5.0) L 04/21/19 06:25 Urine Color Straw (Yellow) 04/21/19 14:15 Urine Clarity Clear (Clear) 04/21/19 14:15 Urine pH 7.0 (5-8) 04/21/19 14:15 Ur Specific [place] 1.010 (1.005-1.025) 04/21/19 14:15 Urine Protein Negative mg/dL (Negative) 04/21/19 14:15 Urine Ketones Negative mg/dL (Negative) 04/21/19 14:15 Urine Blood Negative (Negative) 04/21/19 14:15 Urine Nitrite Negative (Negative) 04/21/19 14:15 Urine Bilirubin Negative (Negative) 04/21/19 14:15 Urine Urobilinogen 0.2 EU/dL (Up TO 0.2) 04/21/19 14:15 Ur Leukocyte Esterase Negative (Negative) 04/21/19 14:15 Urine Glucose Negative mg/dL (Negative) 04/21/19 14:15 Patient ABO/Rh O Negative 04/21/19 11:14 Antibody Screen Negative 04/21/19 11:14 Crossmatch See Detail 04/21/19 11:14
--- NOTE | 2019-04-21 20:34 | DI.CT_ITS ---
EXAM: CT ABDOMEN PELVIS W CLINICAL HISTORY: abdominal pain TECHNIQUE: Imaging Protocol: Axial computed tomography images with coronal and sagittal reformatted images were created and reviewed CONTRAST MATERIAL: Intravenous: Omnipaque 350 Contrast volume:76 mL Oral: Yes COMPARISON: CT ABDOMEN PELVIS W from 11/13/2018 FINDINGS: ABDOMEN: Lung Bases: Scarring or atelectasis in the lung bases bilaterally. Liver: The liver has a lobulated contour with an enlarged left lobe consistent with hepatic cirrhosis . No measurable mass. Portal, Superior Mesenteric, and Splenic Veins: Unremarkable. Gallbladder and Biliary Tract: No radiodense calculus or dilation. Pancreas: Normal density, no abnormal calcifications or inflammatory process. Spleen: Normal. Adrenals: No masses seen. Kidneys: Normal size, contour and axis. No radiodense stones or obstructive uropathy. No masses seen. Abdominal Aorta: Abdominal portion non-dilated. Mild atherosclerosis. Bowel: There are dilated fluid-filled loops of small bowel measuring up to 3.3 centimeters in diamete r. The terminal ileum appears to be of normal caliber. Findings are suspicious for small bowel obst ruction. There is stool seen throughout the colon. Mild to moderately dilated loops of colon are pr esent. Appendix is unremarkable. Peritoneal Cavity: Moderate to large amount of abdominal and pelvic ascites. No pneumoperitoneum. Lymph Nodes: Within normal limits. Bones: Mild degenerative changes. Soft Tissues: Mild abdominal wall edema. PELVIS: Bladder: Symmetric distention, no gross wall thickening. Reproductive Organs: Unremarkable as visualized. Lymph Nodes: Within normal limits. Bones: Degenerative changes. IMPRESSION: 1. Distended fluid-filled loops of small bowel with a transition seen in the terminal ileal region. Findings are suspicious for small bowel obstruction. 2. Distended colon with air and stool. 3. Hepatic cirrhosis with moderate to large amount of abdominal and pelvic ascites. DATA REPOSITORY: All CT scans at this facility are submitted to the National Radiology Data Registry (NRDR) Dose Index Registry (DIR) with the [employer] (ACR). RADIATION OPTIMIZATION: All CT scans at this facility use at least one of these dose optimization te chniques: automated exposure control; mA and/or kV adjustment per patient size (includes targeted exa ms where dose is matched to clinical indication); or iterative reconstruction.
[2019-04-21] MEDS: Omnipaque 350 MG/ML 100 ML BTL IJ (20:40)
[2019-04-21] MEDS: Phytonadione 5 MG TABLET PO (20:59)
--- NOTE | 2019-04-21 21:04 | DI.VRAD_ITS ---
PROCEDURE INFORMATION: Exam: CT Abdomen And Pelvis With Contrast Exam date and time: 04/21/2019 5:46 PM Age: 58 years old Clinical indication: Abdominal pain, paracentesis x 2 TECHNIQUE: Imaging protocol: Computed tomography of the abdomen and pelvis with intravenous contrast. Contrast material: OMNIPAQUE 350; Contrast volume: 74 ml; Contrast route: IV; COMPARISON: CT ABDOMEN PELVIS W 11/13/2018 5:18 PM FINDINGS: Lungs: Bibasilar linear parenchymal scarring or subsegmental collapse / atelectasis. Liver: Lobulated liver contour indicating cirrhosis. Gallbladder and bile ducts: Normal. No calcified stones. No ductal dilation. Pancreas: Normal. No ductal dilation. Spleen: Normal. No splenomegaly. Adrenals: Normal. No mass. Kidneys and ureters: Normal. No hydronephrosis. Stomach and bowel: Multiple distended small bowel loops in the mid to lower abdomen and pelvis measuring up to 3.3 cm in caliber indicating small bowel obstruction. Transition zone in the region of the most distal ileum. Air and stool in mildly distended cecum, ascending colon, transverse colon, and descending colon. Scattered segments of the sigmoid colon are decompressed. Appendix: No evidence of appendicitis. Intraperitoneal space: Small to moderate amount of ascites. Vasculature: Unremarkable. No abdominal aortic aneurysm. Lymph nodes: Unremarkable. No enlarged lymph nodes. Bladder: Unremarkable as visualized. Reproductive: Normal uterus and ovaries for age. Bones/joints: Unremarkable. No acute fracture. Soft tissues: Small fat-containing left Bochdalek's hernia. Small left inguinal hernia containing ascites. Subcutaneous soft tissue edema. IMPRESSION: 1. Multiple distended small bowel loops in the mid to lower abdomen and pelvis measuring up to 3.3 cm in caliber indicating small bowel obstruction. Transition zone in the region of the most distal ileum. 2. Air and stool in mildly distended cecum, ascending colon, transverse colon, and descending colon. Scattered segments of the sigmoid colon are decompressed. 3. Cirrhosis. Small to moderate amount of ascites. Dictated and Authenticated by: John Haynes MD. Ordering:KENNY Bey MD
[2019-04-21] MEDS: diphenhydrAMINE 25 MG CAP 50 MG PO (22:33)
[2019-04-22] VITALS (38 sets, daily range): BP systolic 128–174; BP diastolic 75–98; PULSE 80–107; RESP 14–22; TEMP 36.7–37.8; O2SAT 96–98
[2019-04-22 01:11] LABS: HCT 23.8 % (36.0-46.0); HGB 7.9 g/dL (12.0-15.5)
[2019-04-22] MEDS: CEFEPIME 2 GM in Normal Saline 100 ML IVPB ×3 (03:32→18:55)
[2019-04-22 07:12] LABS: Abs Immature Grans 0.02 k/cumm (0.0-0.09); Absolute Basophil Count 0.02 k/cumm (0.0-0.2); Absolute Eosinophil Count 0.09 k/cumm (0.0-0.7); Absolute Lymphocyte Count 1.14 k/cumm (1.2-3.4); Absolute Monocyte Count 0.51 k/cumm (0.11-0.7); Absolute Neutrophil Count 3.77 k/cumm (1.2-6.7); Basophils % 0.4; Eosinophils % 1.6; HCT 29.9 % (36.0-46.0); HGB 9.8 g/dL (12.0-15.5); Immature Grans % 0.4 %; Lymphocytes % 20.5; Mean Corp. HGB Concentration 32.8 g/dL (32.0-36.0); Mean Corpuscular Hemoglobin 28.4 pg (27.0-33.0); Mean Corpuscular Volume 86.7 fL (80-95); Monocytes % 9.2; Neutrophils % 67.9; RBC 3.45 m/cumm (4.00-5.20); RBC Distribution Width 18.7 % (11.7-14.6); White Blood Cell Count 5.55 k/cumm (4.4-10.8)
[2019-04-22 07:23] LABS: INR 1.5 (0.9-1.1); Prothrombin Time 15.1 sec (9.3-11.0)
[2019-04-22 07:29] LABS: ALT 29 U/L (14-59); AST 67 U/L (15-37); Albumin 3.4 g/dL (3.4-5.0); Alkaline Phosphatase 118 U/L (46-116); Anion Gap 10.9 mmol/L (3-11); BUN 7 mg/dL (7-18); Bilirubin, Direct 1.09 mg/dL (0.00-0.20); Bilirubin, Total 2.3 mg/dL (0.2-1.0); CO2 22.1 mmol/L (21.0-32.0); CREATININE 0.65 mg/dL (0.55-1.02); Calcium 8.4 mg/dL (8.5-10.1); Chloride 107 mmol/L (98-107); Glucose 94 mg/dL (74-106); Magnesium 1.9 mg/dL (1.8-2.4); Potassium 3.6 mmol/L (3.5-5.1); Sodium 140 mmol/L (136-145); Total Protein 6.3 g/dL (6.4-8.2)
[2019-04-22 08:15] LABS: Platelet Count 69 x1000/uL (130-400)
[2019-04-22 08:16] LABS: Polychromasia Present
[2019-04-22 08:17] LABS: Anisocytosis 2+; Poikilocytes 1+
--- NOTE | 2019-04-22 08:52 | W.PM.PROGNOT ---
Date of Service Date of service: 04/22/19 Time of Service: 16:07 Assessment and Plan Assessment and plan (1) SBO (small bowel obstruction): Status: Acute Assessment and plan: seen on CT from last night. Discussed with surgery - ileus also possible. Make patient NPO, check acute abdominal series. I would not put an NGT in this patient for the fear of esophageal varices - nor is she having nausea/vomiting. Will give a fleets enema. Keep in ICU. (2) Acute on chronic anemia: Status: Acute Assessment and plan: Likely portal gastropathy causing her to bleed, per [facility] - unlikely to be a variceal bleed. She is s/p 1 unit of pRBC's. I have discussed the case with [facility] GI who would be willing to help take care of the patient once [facility] re-opens for admissions. At this time, the patient is on IV PPI. Monitor in the ICU. (3) Gram-negative bacteremia: Status: Acute Assessment and plan: E. coli growin in 2 bottles out of 4. Repeat blood cultures are pending. Possibly due to SBP. No evidence of perforation on CT. Continue cefepime. Repeat blood cultures in am. (4) SBP (spontaneous bacterial peritonitis): Status: Suspected Assessment and plan: S/p repeat paracenthesis, on cefepime day 3. Fluid cultures from paracenthesis yesterday are negative - however, the patient was already on antibiotics, and clinical suspicion for SBP is high. Continue cefepime. Await sensitivities. (5) S/P abdominal paracentesis: Status: Acute Assessment and plan: As above. (6) Cirrhosis of liver with ascites: Status: Acute Assessment and plan: ESLD/cirrhosis due to history of alcohol use and chronic hepatitis C, with ascites, coagulopathy, encephalopathy, thrombocytopenia, splenic and likely esophageal/gastric varices, though I cannot find records of EGD in [facility] records. She is a patient of [facility] hepatology, but refuses further follow up. Her current Child -Gray score is 10, indicating life expectancy of 1 to 3 years. Her meld score is 12. Continue low sodium diet. (7) Hep C w/o coma, chronic: Status: Acute Assessment and plan: Genotype 1a. s/p treatment with interferon and ribavirin that failed. Patient has failed to follow up for alternative treatment. (8) Weakness generalized: Status: Acute Assessment and plan: PT and nutrition consulted. (9) Hypertension: Status: Chronic Assessment and plan: Hold clonidine as BP's this afternoon were in 110's. Continue lasix, aldactone. (10) Coagulopathy: Status: Acute Assessment and plan: S/p FFP and vitamin K - monitor INR daily (11) Disorganized thought process: Status: Acute Assessment and plan: At this point, I do think that encephalopathy is a big factor of what we are seeing. Lactulose has not been effective. (12) DVT prophylaxis: Status: Acute Assessment and plan: Avoid chemical DVT ppx due to coagulopathy, varices, thrombocytopenia. Continue TEDs, SCD's (13) Discharge planning issues: Status: Acute Assessment and plan: Full code Will re-attempt transfer [facility] for nonemergent but inpatient EGD for presumed GI bleed once [facility] opens up for admissions. Total Critical Care Time 60 minutes. Subjective Subjective Interval history since last seen: Has spent most of the day somnolent. Arousable. Did not each much for breakfast or lunch. Has been refusing morphine. Only got 1 dose of ativan last night. Still no BM, but feels she is about to have one. Exam Narrative Exam Narrative: General: Lethargic, arousable Middle-aged female, A&Ox3, laying in bed, no dyspnea noted HEENT: EOMI, MMM Heart: RRR, no m/r/ g Lungs: Diminished breath sounds B Abdomen: Ascites, less tender Extremities: trace BLE edemain TEDS Objective Objective Clinical Data: Abnormal lab results 04/21/19 04/21/19 04/21/19 Range/Units 11:14 12:20 18:07 RBC (4.00-5.20) m/cumm Hgb 7.4 L 8.1 L (12.0-15.5) g/dL Hct 23.1 L 24.7 L (36.0-46.0) % RDW (11.7-14.6) % Plt Count (130-400) x1000/uL Absolute Lymphocytes (1.2-3.4) k/cumm PT (9.3-11.0) sec INR (0.9-1.1) Calcium (8.5-10.1) mg/dL Total Bilirubin (0.2-1.0) mg/dL Conjugated Bilirubin (0.00-0.20) mg/dL AST (15-37) U/L Alkaline Phosphatase (46-116) U/L Total Protein (6.4-8.2) g/dL Crossmatch See Detail 04/22/19 04/22/19 04/22/19 Range/Units 01:00 06:22 06:22 RBC 3.45 L (4.00-5.20) m/cumm Hgb 7.9 L 9.8 L (12.0-15.5) g/dL Hct 23.8 L 29.9 L D (36.0-46.0) % RDW 18.7 H (11.7-14.6) % Plt Count 69 L (130-400) x1000/uL Absolute Lymphocytes 1.14 L (1.2-3.4) k/cumm PT (9.3-11.0) sec INR (0.9-1.1) Calcium 8.4 L (8.5-10.1) mg/dL Total Bilirubin 2.3 H (0.2-1.0) mg/dL Conjugated Bilirubin 1.09 H (0.00-0.20) mg/dL AST 67 H (15-37) U/L Alkaline Phosphatase 118 H (46-116) U/L Total Protein 6.3 L (6.4-8.2) g/dL Crossmatch 04/22/19 Range/Units 06:22 RBC (4.00-5.20) m/cumm Hgb (12.0-15.5) g/dL Hct (36.0-46.0) % RDW (11.7-14.6) % Plt Count (130-400) x1000/uL Absolute Lymphocytes (1.2-3.4) k/cumm PT 15.1 H (9.3-11.0) sec INR 1.5 H (0.9-1.1) Calcium (8.5-10.1) mg/dL Total Bilirubin (0.2-1.0) mg/dL Conjugated Bilirubin (0.00-0.20) mg/dL AST (15-37) U/L Alkaline Phosphatase (46-116) U/L Total Protein (6.4-8.2) g/dL Crossmatch Vital Signs Temperature 36.7 C 04/22/19 04:14 Temperature Source Temporal Artery Scan 04/21/19 23:09 Pulse 88 04/22/19 04:14 Pulse Rhythm Regular 04/21/19 10:40 Pulse 90 04/22/19 03:17 Respiratory Rate 14 04/22/19 04:14 Respiratory Effort Non-Labored 04/22/19 03:15 Respiratory Depth Normal 04/22/19 03:15 Respiratory Pattern Normal 04/22/19 03:15 Blood Pressure 158/92 H 04/22/19 04:14 Blood Pressure Mean 102 04/22/19 03:30 Blood Pressure Position Supine 04/19/19 13:32 Pulse Oximetry 98 04/22/19 04:14 Oxygen Delivery Method Room Air 04/22/19 04:14 Oxygen Flow Rate 0 04/22/19 04:14 Pain Level 8 04/22/19 03:15 Intake & Output 04/21/19 04/21/19 04/22/19 11:59 23:59 11:59 Intake Total 480 / 1140 660 / 1140 601 / 601 Output Total 2275 / 2275 1000 / 1000 Balance 480 / -1135 -1615 / -1135 -399 / -399 Weight 52.4 kg 52.4 kg 44.6 kg Intake: IV 100 / 400 300 / 400 100 / 100 Oral 380 / 440 60 / 440 Blood Product 300 / 300 501 / 501 Frozen Plasma Unit 300 / 300 [id number]* Frozen Plasma Unit 220 / 220 [id number]* Rbc Leuko Reduced Unit 281 / 281 [id number] Output: Urine 2275 / 2275 1000 / 1000 Other: Urine Color Yellow Yellow Yellow Urine Appearance Clear Clear Clear Urine Odor Normal Normal None Comment per patient she flushed Voiding Methods Toilet Bedside Commode Bedside Commode Laboratory Results WBC 5.55 k/cumm (4.4-10.8) D 04/22/19 06:22 RBC 3.45 m/cumm (4.00-5.20) L 04/22/19 06:22 Hgb 9.8 g/dL (12.0-15.5) L 04/22/19 06:22 Hct 29.9 % (36.0-46.0) L D 04/22/19 06:22 MCV 86.7 fL (80-95) 04/22/19 06:22 MCH 28.4 pg (27.0-33.0) 04/22/19 06:22 MCHC 32.8 g/dL (32.0-36.0) 04/22/19 06:22 RDW 18.7 % (11.7-14.6) H 04/22/19 06:22 Plt Count 69 x1000/uL (130-400) L 04/22/19 06:22 MPV fL (8.0-11.0) 04/22/19 06:22 Immature Gran % 0.4 % 04/22/19 06:22 Neutrophils % 67.9 04/22/19 06:22 Lymphocytes % 20.5 04/22/19 06:22 Monocytes % 9.2 04/22/19 06:22 Eosinophils % 1.6 04/22/19 06:22 Basophils % 0.4 04/22/19 06:22 Absolute Neutrophils 3.77 k/cumm (1.2-6.7) 04/22/19 06:22 Absolute Lymphocytes 1.14 k/cumm (1.2-3.4) L 04/22/19 06:22 Absolute Monocytes 0.51 k/cumm (0.11-0.7) 04/22/19 06:22 Absolute Eosinophils 0.09 k/cumm (0.0-0.7) 04/22/19 06:22 Absolute Basophils 0.02 k/cumm (0.0-0.2) 04/22/19 06:22 Differential Comment Rbc morph reviewed 04/21/19 06:25 RBC Morphology See below 04/22/19 06:22 Polychromasia Present 04/22/19 06:22 Hypochromasia 2+ 04/19/19 14:25 Poikilocytosis 1+ 04/22/19 06:22 Anisocytosis 2+ 04/22/19 06:22 PT 15.1 sec (9.3-11.0) H 04/22/19 06:22 INR 1.5 (0.9-1.1) H 04/22/19 06:22 APTT 25.0 sec (21.0-31.4) 04/19/19 14:25 Sodium 140 mmol/L (136-145) 04/22/19 06:22 Potassium 3.6 mmol/L (3.5-5.1) 04/22/19 06:22 Chloride 107 mmol/L (98-107) 04/22/19 06:22 Carbon Dioxide 22.1 mmol/L (21.0-32.0) 04/22/19 06:22 Anion Gap 10.9 mmol/L (3-11) 04/22/19 06:22 BUN 7 mg/dL (7-18) 04/22/19 06:22 Creatinine 0.65 mg/dL (0.55-1.02) 04/22/19 06:22 Estimated GFR/1.73 m2 >= 60.00 (mL/min/1.73m2) 04/22/19 06:22 Glucose 94 mg/dL (74-106) 04/22/19 06:22 Calcium 8.4 mg/dL (8.5-10.1) L 04/22/19 06:22 Magnesium 1.9 mg/dL (1.8-2.4) 04/22/19 06:22 Total Bilirubin 2.3 mg/dL (0.2-1.0) H 04/22/19 06:22 Conjugated Bilirubin 1.09 mg/dL (0.00-0.20) H 04/22/19 06:22 AST 67 U/L (15-37) H 04/22/19 06:22 ALT 29 U/L (14-59) 04/22/19 06:22 Alkaline Phosphatase 118 U/L (46-116) H 04/22/19 06:22 Ammonia 26 umol/L (11-32) 04/19/19 14:25 Total Protein 6.3 g/dL (6.4-8.2) L 04/22/19 06:22 Albumin 3.4 g/dL (3.4-5.0) 04/22/19 06:22 Urine Color Straw (Yellow) 04/21/19 14:15 Urine Clarity Clear (Clear) 04/21/19 14:15 Urine pH 7.0 (5-8) 04/21/19 14:15 Ur Specific [place] 1.010 (1.005-1.025) 04/21/19 14:15 Urine Protein Negative mg/dL (Negative) 04/21/19 14:15 Urine Ketones Negative mg/dL (Negative) 04/21/19 14:15 Urine Blood Negative (Negative) 04/21/19 14:15 Urine Nitrite Negative (Negative) 04/21/19 14:15 Urine Bilirubin Negative (Negative) 04/21/19 14:15 Urine Urobilinogen 0.2 EU/dL (Up TO 0.2) 04/21/19 14:15 Ur Leukocyte Esterase Negative (Negative) 04/21/19 14:15 Urine Glucose Negative mg/dL (Negative) 04/21/19 14:15 Patient ABO/Rh O Negative 04/21/19 11:14 Antibody Screen Negative 04/21/19 11:14 Crossmatch See Detail 04/21/19 11:14 CT abdomen/pelvis: 1. Multiple distended small bowel loops in the mid to lower abdomen and pelvis measuring up to 3.3 cm in caliber indicating small bowel obstruction. Transition zone in the region of the most distal ileum. 2. Air and stool in mildly distended cecum, ascending colon, transverse colon, and descending colon. Scattered segments of the sigmoid colon are decompressed. 3. Cirrhosis. Small to moderate amount of ascites.
[2019-04-22] MEDS: Furosemide 20 MG TAB PO (09:38)
[2019-04-22] MEDS: Lactulose 20 GM/30 ML CUP PO (09:38)
[2019-04-22] MEDS: Spironolactone 25 MG TAB PO ×2 (09:39→20:38)
[2019-04-22] MEDS: Pantoprazole 40 MG VIAL 80 MG IVP ×2 (09:44→22:57)
[2019-04-22] MEDS: Normal Saline Flush 10 ML SYR IVP (09:45)
--- NOTE | 2019-04-22 10:12 | PDOC.CMPRO ---
- If Service Date Differs Date of service: 04/22/19 Time of Service: 10:12 Care Management Progress Note S/O: No change in the plan today anticipate Argenis will be transferred to tertiary center [facility] when bed is available. Parenthesis was done yesterday, she is being treated for spontaneous, bacterial peritonitis with IV abx. A: Argenis is a 58 year old woman admitted to [facility] on 04/20/2019 with ascites and cirrhosis. P: Argenis will likely be transferred to a tertiary care facility ([facility]). She will follow up with the providers at that facility and their discharge plan of care. CM will continue to support patient, family and discharge planning needs.
--- NOTE | 2019-04-22 10:16 | INDS_ITS ---
Date of service: 04/22/19 Time of Service: 10:19 PT Notes Visit Reasons: GENERALIZED WEAKNESS, ASCITES, H/O CIRRHOSIS, S/P PT Inpatient Discharge Summary Date: 04/22/2019 Referring Doctor: Melchor Jefferson M.D. PT Orders: PT CONSULT: Safety consult for D/C Precautions: Fall. Standard. Activity as tolerated. Patient Profile/Admitting Diagnosis: Pt is a 58-year-old female that presented to the ER 04/19/2019 with abdominal distension and pain x 2 weeks. She was admitted to the hospital with diagnoses of cirrhosis of the liver with ascites, Hep C without coma, generalized weakness, disorganized thought process, and DVT prophylaxis. PMHX: Medical History Ascites (Acute) Cirrhosis of liver with ascites (Acute) Cirrhosis of liver with ascites (Acute) Dental caries (Acute) Encephalopathy chronic (Acute) Fractured tooth (Acute) Hep C w/o coma, chronic (Acute) Hepatitis C (Chronic) History of hepatitis B vaccination (Acute) Poor dentition (Acute) Splenic varices (Acute) Varices of other sites (Acute) liver Social History/Home Situation: Pt lives alone with her cat in an apartment in [facility]. She states that there are 20 steps to enter, but it is unclear if that is for her apartment in [facility] as she continued to side-track and discuss an apartment in [place]. Equipment Owned/DME: none Subjective: NT Objective: General Observation: NT Mental Status: NT Pain: NT ROM: Right Upper Extremity: Shoulder Flexion WFL. Shoulder abduction WFL. Elbow flexion WFL. Wrist flexion WFL. Opening and closing of hand WFL. Left Upper Extremity: Shoulder Flexion WFL. Shoulder abduction WFL. Elbow flexion WFL. Wrist flexion WFL. Opening and closing of hand WFL. Right Lower Extremity: Hip flexion WFL. Hip abduction WFL. Knee flexion WFL. Ankle dorsiflexion WFL. Ankle plantarflexion WFL. Left Lower Extremity: Hip flexion WFL. Hip abduction WFL. Knee flexion WFL. Ankle dorsiflexion WFL. Ankle plantarflexion WFL. Strength: Right Upper Extremity: Shoulder flexors 3-/5 (c/o pain in back). Shoulder abductors 3-/5. Elbow flexors 4+/5. Elbow extensors 4/5. 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 Left Upper Extremity: Shoulder flexors 3-/5 (c/o pain in back). Shoulder abductors 3-/5. Elbow flexors 4+/5. Elbow extensors 4/5. 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 Right Lower Extremity: Hip flexors 3-/5. Hip abductors 4/5. Knee flexors 3+/5. Knee extensors 4/5. Ankle dorsiflexors 3/5. Ankle plantarflexors 3/5. Left Lower Extremity: Hip flexors 3-/5. Hip abductors 4/5. Knee flexors 3+/5. Knee extensors 4/5. Ankle dorsiflexors 3/5. Ankle plantarflexors 3/5. Sensation: Intact as to pain and pressure on bilateral lower extremities. Bed Mobility/Transfers: Rolling Min A with HOB at 30 degrees Supine to sit Min A with HOB at 30 degrees Sit to supine Min A with HOB at 30 degrees Sit to stand Min A x2 Stand to sit Min A x2 Bed to chair Min A x2 Chair to bed Min A x2 Gait: 20 feet x 2 with minimal hand-held assist of 2. Trunk band due to abdominal pain. Patient refused to walk walker stating that she cannot hold onto her hurting tummy if she did so. Balance: Static Sitting: Normal Dynamic Sitting: Good Static Standing: Poor Dynamic Standing: Poor Assessment: Pt is a 58-year-old female that presented to the ER 04/19/2019 with abdominal distension and pain x 2 weeks. She was admitted to the hospital with diagnoses of cirrhosis of the liver with ascites, Hep C without coma, generalized weakness, disorganized thought process, and DVT prophylaxis. On initial evaluation the pt presented to physical therapy with impairment level findings and functional limitations as listed below. The pt?s mobility is significantly limited by pain, as well as her anxiety and fear of increasing the pain, as she was unable to perform independent bed mobility or stand on the edge of the bed. She tends to be tangential and requires maximal cueing to redirect conversation, making it difficult to gather a patient history. She would continue to benefit from skilled physical therapy one time a day at this time for improved mobility, strength, and balance, and will increase to two times a day once the pt?s pain is managed and does not limit mobility. Patient presented with clinical signs and symptoms consistent with current/admitting diagnoses that have resulted to mobility limitations, gait instability, and generalized weakness as demonstrated by the following impairment level findings: 1. Decreased strength to B LE and UE major muscle groups 2. Impaired sitting/standing balance 3. Impaired activity tolerance Impairments continue to contribute to the following functional limitations: 1. Dependent bed mobility skills 2. Increased dependence with transfers 3. Inability to safely ambulate without assistive device and physical assistance 4. Increase completion time for mobility ADL performance 5. Increased fall risk 6. Inability to negotiate steps alone safely Goals: Goals X1 week 1. Supine-Sit independent NOT MET 2. Sit-Supine independent NOT MET 3. Sit-Stand independent NOT MET 4. Stand-Sit independent NOT MET 5. Bed-Chair independent NOT MET 6. Chair-Bed independent NOT MET 7. Independent gait on level surface with use of least restrictive device for at least 300 feet without report of pain nor dyspnea NOT MET 8. Independent stair negotiation while holding onto bilateral rails for at least 20 steps without report of pain nor dyspnea NOT MET 9. Independent with home exercise program NOT MET 10. Good static and dynamic standing balance/tolerance NOT MET DISCHARGE RECOMMENDATIONS: Pt would benefit from a [facility] facility placement for continued skilled physical therapy services for improvements in mobility level, strength, and balance in preparation for a safe discharge to home. TREATMENT CODE/TIME: NC. Thank you very much for this referral. Eufemia Kulkarni PT, DPT, CLT [facility] [place], [place]
[2019-04-22] MEDS: Lidocaine 5% Patch 1 PATCH TP (16:37)
--- NOTE | 2019-04-22 16:50 | DI.RAD_ITS ---
EXAM: XR ABDOMEN FLAT UPRIGHT CLINICAL HISTORY: SBO TECHNIQUE: COMPARISON: CT ABDOMEN PELVIS W from 04/21/2019 FINDINGS: Four views were obtained. There is moderate dilatation of multiple small bowel loops multiple dilate d colonic loops also noted, findings are nonspecific and may represent partial small bowel obstructio n and/or ileus. Appropriate follow-up studies requested. IMPRESSION:
[2019-04-22 16:57] LABS: Ammonia 67 umol/L (11-32)
--- NOTE | 2019-04-22 16:58 | W.SURGCON ---
Date of service: 04/22/19 Time of Service: 16:58 Assessment and Plan Assessment and plan (1) Ileus: Status: Acute Assessment and plan: A\\ 58 year old with cirrhosis and ascitis admitted with Bacteremia and potential infected peritoneal fluid CT scan is most consistent with ileus at this time as both the small and large bowel are dilated P\\ Recommend bowel rest. May have some ICE chips prn May try and enema to see if she will have some BM's History of Present Illness History of Present Illness Chief Complaint: ? SBO Narrative: Mrs. Jefferson is a 58 year old female with liver cirrhosis, splenic varices who has been seen by us for repeated Paracenthesis. She was admitted again for bacteremia and peritoneal fluid infection. She underwent a Paracenthesis on Saturday without complication. We were re-consulted today for small bowel obstruction CT scan was reviewed by me. There is dilatation of small bowel to 3.3 cm and her large bowel is also dilated to 6.5 to 7 cm. There is air, fluid and stool within the colon. Patient is tired but awakens easily. Consults Consult date: 04/22/19 Requesting physician: Maida Marks Review of Systems Constitutional Constitutional: Reports fever(s), Reports lethargy and Reports weight loss Cardiovascular Cardiovascular: Reports system reviewed and no additional complaints, except as docu Respiratory Respiratory: Reports system reviewed and no additional complaints, except as docu Gastrointestinal Gastrointestinal: Denies abdominal pain and Reports bloating [facility] Medical History Ascites (Acute) Cirrhosis of liver with ascites (Acute) Cirrhosis of liver with ascites (Acute) Dental caries (Acute) Encephalopathy chronic (Acute) Fractured tooth (Acute) Hep C w/o coma, chronic (Acute) Hepatitis C (Chronic) History of hepatitis B vaccination (Acute) Hypertension (Chronic) Poor dentition (Acute) Splenic varices (Acute) Varices of other sites (Acute) liver Social History Smoking/Tobacco Use Status: Current every day Tobacco Type: cigarettes Alcohol Intake: former Drug use: Never Substance use type: does not use Do you feel safe at home: Yes Do you feel safe in your relationship?: Yes Additional Social history: Living apartment on [facility] [address]. Patient describes concern for lead and mold, but it is unclear if this is an ongoing concern. She gives a grand social history regarding status of her past and her family, but it is hard to interpret the veracity of this history. Exam Const General: cooperative, comfortable and no acute distress Orientation: alert Resp Effort & Inspection: normal respiratory effort Auscultation: clear to auscultation bilaterally Cardio Rate: regular rate Rhythm: regular rhythm Heart Sounds: no murmurs and no rubs GI Inspection: distended Palpation: soft, hepatosplenomegaly and nontender Auscultation: high-pitched sounds Results Last Vital Signs Temp 99.1 F 04/22/19 13:50 Pulse 91 H 04/22/19 13:51 Resp 19 04/22/19 13:51 BP 158/75 H 04/22/19 13:51 Pulse Ox 96 04/22/19 13:51 Labs Result diagrams: 04/22/19 06:22 04/22/19 06:22 Labs: Laboratory Results - last 24 hr 04/21/19 04/21/19 04/22/19 11:14 18:07 01:00 WBC RBC Hgb 8.1 L 7.9 L Hct 24.7 L 23.8 L MCV MCH MCHC RDW Plt Count MPV Immature Gran % Neutrophils % Lymphocytes % Monocytes % Eosinophils % Basophils % Absolute Neutrophils Absolute Lymphocytes Absolute Monocytes Absolute Eosinophils Absolute Basophils RBC Morphology Polychromasia Poikilocytosis Anisocytosis PT INR Sodium Potassium Chloride Carbon Dioxide Anion Gap BUN Creatinine Estimated GFR/1.73 m2 Glucose Calcium Magnesium Total Bilirubin Conjugated Bilirubin AST ALT Alkaline Phosphatase Ammonia Total Protein Albumin Patient ABO/Rh O Negative Antibody Screen Negative Crossmatch See Detail 04/22/19 04/22/19 04/22/19 06:22 06:22 06:22 WBC 5.55 D RBC 3.45 L Hgb 9.8 L Hct 29.9 L D MCV 86.7 MCH 28.4 MCHC 32.8 RDW 18.7 H Plt Count 69 L MPV Immature Gran % 0.4 Neutrophils % 67.9 Lymphocytes % 20.5 Monocytes % 9.2 Eosinophils % 1.6 Basophils % 0.4 Absolute Neutrophils 3.77 Absolute Lymphocytes 1.14 L Absolute Monocytes 0.51 Absolute Eosinophils 0.09 Absolute Basophils 0.02 RBC Morphology See below Polychromasia Present Poikilocytosis 1+ Anisocytosis 2+ PT 15.1 H INR 1.5 H Sodium 140 Potassium 3.6 Chloride 107 Carbon Dioxide 22.1 Anion Gap 10.9 BUN 7 Creatinine 0.65 Estimated GFR/1.73 m2 >= 60.00 Glucose 94 Calcium 8.4 L Magnesium 1.9 Total Bilirubin 2.3 H Conjugated Bilirubin 1.09 H AST 67 H ALT 29 Alkaline Phosphatase 118 H Ammonia Total Protein 6.3 L Albumin 3.4 Patient ABO/Rh Antibody Screen Crossmatch 04/22/19 16:33 WBC RBC Hgb Hct MCV MCH MCHC RDW Plt Count MPV Immature Gran % Neutrophils % Lymphocytes % Monocytes % Eosinophils % Basophils % Absolute Neutrophils Absolute Lymphocytes Absolute Monocytes Absolute Eosinophils Absolute Basophils RBC Morphology Polychromasia Poikilocytosis Anisocytosis PT INR Sodium Potassium Chloride Carbon Dioxide Anion Gap BUN Creatinine Estimated GFR/1.73 m2 Glucose Calcium Magnesium Total Bilirubin Conjugated Bilirubin AST ALT Alkaline Phosphatase Ammonia 67 H Total Protein Albumin Patient ABO/Rh Antibody Screen Crossmatch
--- NOTE | 2019-04-22 17:03 | DI.VRAD_ITS ---
PROCEDURE INFORMATION: Exam: XR Abdomen, 2 Views Exam date and time: 04/22/2019 4:51 PM Age: 58 years old Clinical indication: Other: Sbo TECHNIQUE: Imaging protocol: XR of the abdomen. Frontal supine and upright views of the abdomen. Views: 2 Views. COMPARISON: CT ABDOMEN PELVIS W 04/21/2019 8:34 PM FINDINGS: Gastrointestinal tract: Dilated loops of bowel with air-fluid levels in the central abdomen. Air is present within the mildly distended cecum and likely visualized in the transverse large-bowel. Intraperitoneal space: Normal. No free air. Bones/joints: Unremarkable for age. IMPRESSION: Dilated loops of small bowel with air-fluid levels consistent with known small bowel obstruction. No free air. Dictated and Authenticated by: Juan Alberto Fair MD. Ordering:KENNY Bey MD
[2019-04-22] MEDS: Normal Saline 500 ML IV (18:55)
[2019-04-22] MEDS: LORazepam 2 MG/ML VIAL 0.5 MG IVP (20:36)
[2019-04-22] MEDS: Acetaminophen 325 MG TAB PO (20:36)
[2019-04-23] VITALS (19 sets, daily range): BP systolic 130–151; BP diastolic 71–86; PULSE 94–106; RESP 14–29; TEMP 37.3–39.1; O2SAT 95–99
[2019-04-23] MEDS: CEFEPIME 2 GM in Normal Saline 100 ML IVPB ×3 (02:45→18:42)
[2019-04-23] MEDS: Patch Removal LIDOCAINE 1 EACH TP (05:04)
[2019-04-23 06:53] LABS: Abs Immature Grans 0.01 k/cumm (0.0-0.09); Absolute Basophil Count 0.03 k/cumm (0.0-0.2); Absolute Eosinophil Count 0.24 k/cumm (0.0-0.7); Absolute Lymphocyte Count 1.07 k/cumm (1.2-3.4); Absolute Monocyte Count 0.48 k/cumm (0.11-0.7); Absolute Neutrophil Count 3.39 k/cumm (1.2-6.7); Basophils % 0.6; Eosinophils % 4.6; HCT 30.1 % (36.0-46.0); HGB 9.8 g/dL (12.0-15.5); Immature Grans % 0.2 %; Lymphocytes % 20.5; Mean Corp. HGB Concentration 32.6 g/dL (32.0-36.0); Mean Corpuscular Hemoglobin 28.6 pg (27.0-33.0); Mean Corpuscular Volume 87.8 fL (80-95); Mean Platelet Volume 11.6 fL (8.0-11.0); Monocytes % 9.2; Neutrophils % 64.9; RBC 3.43 m/cumm (4.00-5.20); RBC Distribution Width 19.7 % (11.7-14.6); White Blood Cell Count 5.22 k/cumm (4.4-10.8)
[2019-04-23 07:03] LABS: INR 1.6 (0.9-1.1); Prothrombin Time 15.5 sec (9.3-11.0)
[2019-04-23 07:17] LABS: BUN 16 mg/dL (7-18); CREATININE 0.84 mg/dL (0.55-1.02); Calcium 8.3 mg/dL (8.5-10.1); Chloride 110 mmol/L (98-107); Glucose 74 mg/dL (74-106); Magnesium 1.9 mg/dL (1.8-2.4); Potassium 4.1 mmol/L (3.5-5.1); Sodium 141 mmol/L (136-145)
[2019-04-23 07:24] LABS: Anisocytosis 2+; Diff Comment RBC Morph Reviewed; Platelet Count 71 x1000/uL (130-400); Polychromasia Present
[2019-04-23 07:25] LABS: Poikilocytes 2+
--- NOTE | 2019-04-23 08:31 | W.PM.PROGNOT ---
Date of Service Date of service: 04/23/19 Time of Service: 08:31 Assessment and Plan Assessment and plan (1) SBO (small bowel obstruction): Status: Resolved Assessment and plan: seen on CT. KUB from today is showing significant improvement post fleets enema/BM. Tolerating clears. Ok to transfer out of ICU. (2) Acute on chronic anemia: Status: Acute Assessment and plan: Likely portal gastropathy causing her to bleed, per [facility] - unlikely to be a variceal bleed. She is s/p 1 unit of pRBC's. I have discussed the case with [facility] who would be willing to help take care of the patient once [facility] re-opens for admissions. At this time, the patient is on IV PPI. Transfer to med surg. (3) Gram-negative bacteremia: Status: Acute Assessment and plan: E. coli growin in 2 bottles out of 4. Repeat blood cultures are pending. Given fever now, repeating them again. Possibly due to SBP. No evidence of perforation on CT. Continue cefepime. Repeat blood cultures in am. (4) SBP (spontaneous bacterial peritonitis): Status: Suspected Assessment and plan: S/p repeat paracenthesis, on cefepime day 4. Febrile again. Fluid cultures from paracenthesis are negative - however, the patient was already on antibiotics, and clinical suspicion for SBP is high Continue cefepime. Await sensitivities. Also, r/o influenza. (5) S/P abdominal paracentesis: Status: Acute Assessment and plan: As above. (6) Cirrhosis of liver with ascites: Status: Acute Assessment and plan: ESLD/cirrhosis due to history of alcohol use and chronic hepatitis C, with ascites, coagulopathy, encephalopathy, thrombocytopenia, splenic and likely esophageal/gastric varices, though I cannot find records of EGD in [facility] [place]. She is a patient of [facility] hepat[facility], but refuses further follow up. Her current Child -Gray score is 10, indicating life expectancy of 1 to 3 years. Her meld score is 12. Continue low sodium diet - clears (7) Hep C w/o coma, chronic: Status: Acute Assessment and plan: Genotype 1a. s/p treatment with interferon and ribavirin that failed. Patient has failed to follow up for alternative treatment. (8) Weakness generalized: Status: Acute Assessment and plan: PT and nutrition consulted. (9) Hypertension: Status: Chronic Assessment and plan: Hold clonidine as BP's this afternoon were in 110's. Continue lasix, aldactone. (10) Coagulopathy: Status: Acute Assessment and plan: S/p FFP and vitamin K - monitor INR daily (11) Disorganized thought process: Status: Acute Assessment and plan: At this point, I do think that encephalopathy is a big factor of what we are seeing. Lactulose has not been effective. Ammonia elevated. Has asterexis - hepatic encephalopathy. Start rifaxamin. (12) DVT prophylaxis: Status: Acute Assessment and plan: Avoid chemical DVT ppx due to coagulopathy, varices, thrombocytopenia. Continue TEDs, SCD's (13) Discharge planning issues: Status: Acute Assessment and plan: Full code Will re-attempt transfer [facility] for nonemergent but inpatient EGD for presumed GI bleed once [facility] opens up for admissions. Transfer out of ICU. Subjective Subjective Interval history since last seen: States she feels cold. BM post fleets enema. Denies dizziness, chest pain, shortness of breath, nausea, abdominal pain today. Started on clears - tolerating. Disorganized thinking, flight of thoughts, impulsive, pressured speech for nursing - but out cold occasionally, per nursing. Ativan given @2000. HR 70-90's. Occasionally 100s. Exam Narrative Exam Narrative: General: Lethargic, arousable Middle-aged female, covered in her fur coat and appears to be shivering. + asterexis. HEENT: EOMI, MMM Heart: RRR, no m/r/ g Lungs: Diminished breath sounds B Abdomen: Much less distended today; Ascites, not tender Extremities: trace BLE edemain TEDS Objective Objective Clinical Data: Abnormal lab results 04/22/19 04/23/19 04/23/19 Range/Units 16:33 06:30 06:30 RBC 3.43 L (4.00-5.20) m/cumm Hgb 9.8 L (12.0-15.5) g/dL Hct 30.1 L (36.0-46.0) % RDW 19.7 H (11.7-14.6) % Plt Count 71 L (130-400) x1000/uL MPV 11.6 H (8.0-11.0) fL Absolute Lymphocytes 1.07 L (1.2-3.4) k/cumm PT (9.3-11.0) sec INR (0.9-1.1) Chloride 110 H (98-107) mmol/L Calcium 8.3 L (8.5-10.1) mg/dL Ammonia 67 H (11-32) umol/L 04/23/19 Range/Units 06:30 RBC (4.00-5.20) m/cumm Hgb (12.0-15.5) g/dL Hct (36.0-46.0) % RDW (11.7-14.6) % Plt Count (130-400) x1000/uL MPV (8.0-11.0) fL Absolute Lymphocytes (1.2-3.4) k/cumm PT 15.5 H (9.3-11.0) sec INR 1.6 H (0.9-1.1) Chloride (98-107) mmol/L Calcium (8.5-10.1) mg/dL Ammonia (11-32) umol/L Vital Signs Temperature 37.6 C H 04/23/19 03:44 Temperature Source Temporal Artery Scan 04/22/19 13:50 Pulse 94 H 04/23/19 06:01 Pulse Rhythm Regular 04/21/19 10:40 Pulse 96 H 04/23/19 06:01 Respiratory Rate 16 04/23/19 06:01 Respiratory Effort Non-Labored 04/23/19 03:44 Respiratory Depth Normal 04/23/19 03:44 Respiratory Pattern Normal 04/23/19 03:44 Blood Pressure 134/86 04/23/19 06:01 Blood Pressure Mean 97 04/23/19 06:01 Blood Pressure Position Left Lateral 04/23/19 03:44 Pulse Oximetry 96 04/23/19 03:44 Oxygen Delivery Method Nasal Cannula 04/23/19 03:44 Oxygen Flow Rate 2 04/23/19 03:44 Pain Level 8 04/23/19 03:44 Intake & Output 04/22/19 04/22/19 04/23/19 11:59 23:59 11:59 Intake Total 796.126 / 916.126 120 / 916.126 300 / 300 Output Total 1000 / 1200 200 / 1200 Balance -203.874 / -283.874 -80 / -283.874 300 / 300 Weight 44.6 kg 46.2 kg Intake: IV 255.126 / 355.126 100 / 355.126 300 / 300 Oral 40 / 60 20 / 60 Blood Product 501 / 501 Frozen Plasma Unit 220 / 220 [id number]* Rbc Leuko Reduced Unit 281 / 281 [id number] Output: Urine 1000 / 1200 200 / 1200 Other: Urine Color Yellow Yellow Urine Appearance Clear Clear Urine Odor None None Comment Dark yellow Dark yellow Stool Occult Blood Positive Stool Characteristics Soft Formed Brown Voiding Methods Bedside Commode Bedside Commode Laboratory Results WBC 5.22 k/cumm (4.4-10.8) 04/23/19 06:30 RBC 3.43 m/cumm (4.00-5.20) L 04/23/19 06:30 Hgb 9.8 g/dL (12.0-15.5) L 04/23/19 06:30 Hct 30.1 % (36.0-46.0) L 04/23/19 06:30 MCV 87.8 fL (80-95) 04/23/19 06:30 MCH 28.6 pg (27.0-33.0) 04/23/19 06:30 MCHC 32.6 g/dL (32.0-36.0) 04/23/19 06:30 RDW 19.7 % (11.7-14.6) H 04/23/19 06:30 Plt Count 71 x1000/uL (130-400) L 04/23/19 06:30 MPV 11.6 fL (8.0-11.0) H 04/23/19 06:30 Immature Gran % 0.2 % 04/23/19 06:30 Neutrophils % 64.9 04/23/19 06:30 Lymphocytes % 20.5 04/23/19 06:30 Monocytes % 9.2 04/23/19 06:30 Eosinophils % 4.6 04/23/19 06:30 Basophils % 0.6 04/23/19 06:30 Absolute Neutrophils 3.39 k/cumm (1.2-6.7) 04/23/19 06:30 Absolute Lymphocytes 1.07 k/cumm (1.2-3.4) L 04/23/19 06:30 Absolute Monocytes 0.48 k/cumm (0.11-0.7) 04/23/19 06:30 Absolute Eosinophils 0.24 k/cumm (0.0-0.7) 04/23/19 06:30 Absolute Basophils 0.03 k/cumm (0.0-0.2) 04/23/19 06:30 Differential Comment Rbc morph reviewed 04/23/19 06:30 RBC Morphology See below 04/23/19 06:30 Polychromasia Present 04/23/19 06:30 Hypochromasia 2+ 04/19/19 14:25 Poikilocytosis 2+ 04/23/19 06:30 Anisocytosis 2+ 04/23/19 06:30 PT 15.5 sec (9.3-11.0) H 04/23/19 06:30 INR 1.6 (0.9-1.1) H 04/23/19 06:30 APTT 25.0 sec (21.0-31.4) 04/19/19 14:25 Sodium 141 mmol/L (136-145) 04/23/19 06:30 Potassium 4.1 mmol/L (3.5-5.1) 04/23/19 06:30 Chloride 110 mmol/L (98-107) H 04/23/19 06:30 Carbon Dioxide 22.0 mmol/L (21.0-32.0) 04/23/19 06:30 Anion Gap 9.0 mmol/L (3-11) 04/23/19 06:30 BUN 16 mg/dL (7-18) D 04/23/19 06:30 Creatinine 0.84 mg/dL (0.55-1.02) 04/23/19 06:30 Estimated GFR/1.73 m2 >= 60.00 (mL/min/1.73m2) 04/23/19 06:30 Glucose 74 mg/dL (74-106) 04/23/19 06:30 Calcium 8.3 mg/dL (8.5-10.1) L 04/23/19 06:30 Magnesium 1.9 mg/dL (1.8-2.4) 04/23/19 06:30 Total Bilirubin 2.3 mg/dL (0.2-1.0) H 04/22/19 06:22 Conjugated Bilirubin 1.09 mg/dL (0.00-0.20) H 04/22/19 06:22 AST 67 U/L (15-37) H 04/22/19 06:22 ALT 29 U/L (14-59) 04/22/19 06:22 Alkaline Phosphatase 118 U/L (46-116) H 04/22/19 06:22 Ammonia 67 umol/L (11-32) H 04/22/19 16:33 Total Protein 6.3 g/dL (6.4-8.2) L 04/22/19 06:22 Albumin 3.4 g/dL (3.4-5.0) 04/22/19 06:22 Urine Color Straw (Yellow) 04/21/19 14:15 Urine Clarity Clear (Clear) 04/21/19 14:15 Urine pH 7.0 (5-8) 04/21/19 14:15 Ur Specific [place] 1.010 (1.005-1.025) 04/21/19 14:15 Urine Protein Negative mg/dL (Negative) 04/21/19 14:15 Urine Ketones Negative mg/dL (Negative) 04/21/19 14:15 Urine Blood Negative (Negative) 04/21/19 14:15 Urine Nitrite Negative (Negative) 04/21/19 14:15 Urine Bilirubin Negative (Negative) 04/21/19 14:15 Urine Urobilinogen 0.2 EU/dL (Up TO 0.2) 04/21/19 14:15 Ur Leukocyte Esterase Negative (Negative) 04/21/19 14:15 Urine Glucose Negative mg/dL (Negative) 04/21/19 14:15 Patient ABO/Rh O Negative 04/21/19 11:14 Antibody Screen Negative 04/21/19 11:14 Crossmatch See Detail 04/21/19 11:14
[2019-04-23 09:00] LABS: Ammonia 52 umol/L (11-32)
--- NOTE | 2019-04-23 09:12 | W.NUTRFU ---
Date of service: 04/23/19 Time of Service: 09:12 Nutritional Follow up NOTE: Argenis now presents with SBO, NPO at this time. Will continue to monitor and advise as needed. At high nutritional risk in view of low weight, hx of ETOH abuse, anemia, varices. If NPO > than 3 days will need to consider nutrition support. Time Spent in Nutritional Counseling and Treatment: 0 time spent face to face
--- NOTE | 2019-04-23 09:13 | DI.RAD_ITS ---
EXAM: XR ABDOMEN FLAT PLATE CLINICAL HISTORY: follow up ileus vs SBO COMPARISON: XR ABDOMEN FLAT UPRIGHT from 04/22/2019 FINDINGS: Two views were obtained. Contrast material noted in urinary bladder post CT. Moderate small bowel a nd colonic distention again noted, decreased from 04/22 examination. No free intraperitoneal air is se en. IMPRESSION: Improvement in bowel gas pattern since yesterday's examination.
[2019-04-23 10:04] LABS: Procalcitonin 0.1 ng/mL
[2019-04-23] MEDS: Pantoprazole 40 MG VIAL 80 MG IVP ×2 (10:15→22:20)
[2019-04-23] MEDS: Rifaximin 550 MG TAB PO ×2 (12:40→20:50)
--- NOTE | 2019-04-23 14:13 | CMPROGNOTE_ITS ---
- If Service Date Differs Date of service: 04/23/19 Time of Service: 14:13 Care Management Progress Note S/O: Argenis was lying in bed when CM met with her. She stated that she was hungry and asked if she could just have some jello. She has been NPO on bowel rest for a suspected ileus. Yesterday she was able to have a bowel movement after an enema and abdominal xrays show improvement today so she will be restarted on a clear liquid diet. Argenis remains sleepy and dozes frequently, however she is arousable. A: Argenis is a 58 year old woman admitted to [facility] on 04/20/2019 with ascites and cirrhosis. P: Argenis will likely be discharged home with no new services as long as she remains hemodynamically stable. She will follow up with her providers and the discharge plan of care. CM will continue to support patient, family and discharge planning needs.
--- NOTE | 2019-04-23 14:37 | W.PM.PROGNOT ---
Date of Service Date of service: 04/23/19 Time of Service: 12:20 Assessment and Plan Assessment and plan (1) Ileus: Status: Acute Assessment and plan: Patient had a bowel movement yesterday after the enema. Her abdominal films today are improved, less distension. Okay to start clears. Cultures from paracentesis negative. Subjective Subjective Interval history since last seen: Denies abdominal pain Exam Narrative Exam Narrative: Arousable Abdomen distended but not tense, soft. No tenderness. Objective Objective Clinical Data: Abnormal lab results 04/22/19 04/23/19 04/23/19 Range/Units 16:33 06:30 06:30 RBC 3.43 L (4.00-5.20) m/cumm Hgb 9.8 L (12.0-15.5) g/dL Hct 30.1 L (36.0-46.0) % RDW 19.7 H (11.7-14.6) % Plt Count 71 L (130-400) x1000/uL MPV 11.6 H (8.0-11.0) fL Absolute Lymphocytes 1.07 L (1.2-3.4) k/cumm PT (9.3-11.0) sec INR (0.9-1.1) Chloride 110 H (98-107) mmol/L Calcium 8.3 L (8.5-10.1) mg/dL Ammonia 67 H (11-32) umol/L 04/23/19 04/23/19 Range/Units 06:30 08:30 RBC (4.00-5.20) m/cumm Hgb (12.0-15.5) g/dL Hct (36.0-46.0) % RDW (11.7-14.6) % Plt Count (130-400) x1000/uL MPV (8.0-11.0) fL Absolute Lymphocytes (1.2-3.4) k/cumm PT 15.5 H (9.3-11.0) sec INR 1.6 H (0.9-1.1) Chloride (98-107) mmol/L Calcium (8.5-10.1) mg/dL Ammonia 52 H (11-32) umol/L Vital Signs Temperature 99.7 F H 04/23/19 12:26 Temperature Source Temporal Artery Scan 04/23/19 12:26 Pulse 95 H 04/23/19 14:00 Pulse Rhythm Regular 04/21/19 10:40 Pulse 95 H 04/23/19 14:00 Respiratory Rate 20 04/23/19 14:00 Respiratory Effort Non-Labored 04/23/19 07:56 Respiratory Depth Shallow 04/23/19 07:56 Respiratory Pattern Normal 04/23/19 07:56 Blood Pressure 140/75 04/23/19 14:00 Blood Pressure Mean 90 04/23/19 14:00 Blood Pressure Position Supine 04/23/19 07:56 Pulse Oximetry 95 04/23/19 12:00 Oxygen Delivery Method Room Air 04/23/19 11:35 Oxygen Flow Rate 0 04/23/19 11:35 Pain Level 8 04/23/19 03:44 Intake & Output 04/22/19 04/23/19 04/23/19 23:59 11:59 23:59 Intake Total 120 / 916.126 300 / 630 330 / 630 Output Total 200 / 1200 200 / 200 Balance -80 / -283.874 100 / 430 330 / 430 Weight 101 lb 13.657 oz Intake: IV 100 / 355.126 300 / 300 Oral 20 / 60 330 / 330 Output: Urine 200 / 1200 200 / 200 Other: Urine Color Yellow Dark [place]lim[place]ia Urine Appearance Clear Clear Urine Odor None Strong Comment Dark yellow Dark yellow Stool Occult Blood Positive Stool Characteristics Soft Formed Brown Voiding Methods Bedside Commode Bedside Commode Laboratory Results WBC 5.22 k/cumm (4.4-10.8) 04/23/19 06:30 RBC 3.43 m/cumm (4.00-5.20) L 04/23/19 06:30 Hgb 9.8 g/dL (12.0-15.5) L 04/23/19 06:30 Hct 30.1 % (36.0-46.0) L 04/23/19 06:30 MCV 87.8 fL (80-95) 04/23/19 06:30 MCH 28.6 pg (27.0-33.0) 04/23/19 06:30 MCHC 32.6 g/dL (32.0-36.0) 04/23/19 06:30 RDW 19.7 % (11.7-14.6) H 04/23/19 06:30 Plt Count 71 x1000/uL (130-400) L 04/23/19 06:30 MPV 11.6 fL (8.0-11.0) H 04/23/19 06:30 Immature Gran % 0.2 % 04/23/19 06:30 Neutrophils % 64.9 04/23/19 06:30 Lymphocytes % 20.5 04/23/19 06:30 Monocytes % 9.2 04/23/19 06:30 Eosinophils % 4.6 04/23/19 06:30 Basophils % 0.6 04/23/19 06:30 Absolute Neutrophils 3.39 k/cumm (1.2-6.7) 04/23/19 06:30 Absolute Lymphocytes 1.07 k/cumm (1.2-3.4) L 04/23/19 06:30 Absolute Monocytes 0.48 k/cumm (0.11-0.7) 04/23/19 06:30 Absolute Eosinophils 0.24 k/cumm (0.0-0.7) 04/23/19 06:30 Absolute Basophils 0.03 k/cumm (0.0-0.2) 04/23/19 06:30 Differential Comment Rbc morph reviewed 04/23/19 06:30 RBC Morphology See below 04/23/19 06:30 Polychromasia Present 04/23/19 06:30 Hypochromasia 2+ 04/19/19 14:25 Poikilocytosis 2+ 04/23/19 06:30 Anisocytosis 2+ 04/23/19 06:30 PT 15.5 sec (9.3-11.0) H 04/23/19 06:30 INR 1.6 (0.9-1.1) H 04/23/19 06:30 APTT 25.0 sec (21.0-31.4) 04/19/19 14:25 Sodium 141 mmol/L (136-145) 04/23/19 06:30 Potassium 4.1 mmol/L (3.5-5.1) 04/23/19 06:30 Chloride 110 mmol/L (98-107) H 04/23/19 06:30 Carbon Dioxide 22.0 mmol/L (21.0-32.0) 04/23/19 06:30 Anion Gap 9.0 mmol/L (3-11) 04/23/19 06:30 BUN 16 mg/dL (7-18) D 04/23/19 06:30 Creatinine 0.84 mg/dL (0.55-1.02) 04/23/19 06:30 Estimated GFR/1.73 m2 >= 60.00 (mL/min/1.73m2) 04/23/19 06:30 Glucose 74 mg/dL (74-106) 04/23/19 06:30 Calcium 8.3 mg/dL (8.5-10.1) L 04/23/19 06:30 Magnesium 1.9 mg/dL (1.8-2.4) 04/23/19 06:30 Total Bilirubin 2.3 mg/dL (0.2-1.0) H 04/22/19 06:22 Conjugated Bilirubin 1.09 mg/dL (0.00-0.20) H 04/22/19 06:22 AST 67 U/L (15-37) H 04/22/19 06:22 ALT 29 U/L (14-59) 04/22/19 06:22 Alkaline Phosphatase 118 U/L (46-116) H 04/22/19 06:22 Ammonia 52 umol/L (11-32) H 04/23/19 08:30 Total Protein 6.3 g/dL (6.4-8.2) L 04/22/19 06:22 Albumin 3.4 g/dL (3.4-5.0) 04/22/19 06:22 Procalcitonin 0.1 ng/mL 04/23/19 08:30 Urine Color Straw (Yellow) 04/21/19 14:15 Urine Clarity Clear (Clear) 04/21/19 14:15 Urine pH 7.0 (5-8) 04/21/19 14:15 Ur Specific [place] 1.010 (1.005-1.025) 04/21/19 14:15 Urine Protein Negative mg/dL (Negative) 04/21/19 14:15 Urine Ketones Negative mg/dL (Negative) 04/21/19 14:15 Urine Blood Negative (Negative) 04/21/19 14:15 Urine Nitrite Negative (Negative) 04/21/19 14:15 Urine Bilirubin Negative (Negative) 04/21/19 14:15 Urine Urobilinogen 0.2 EU/dL (Up TO 0.2) 04/21/19 14:15 Ur Leukocyte Esterase Negative (Negative) 04/21/19 14:15 Urine Glucose Negative mg/dL (Negative) 04/21/19 14:15 Patient ABO/Rh O Negative 04/21/19 11:14 Antibody Screen Negative 04/21/19 11:14 Crossmatch See Detail 04/21/19 11:14
[2019-04-23] MEDS: Acetaminophen 325 MG TAB PO (16:23)
[2019-04-23] MEDS: Lidocaine 5% Patch 1 PATCH TP (16:28)
[2019-04-23] MEDS: Normal Saline Flush 10 ML SYR IVP ×2 (18:43→22:17)
[2019-04-23] MEDS: Spironolactone 25 MG TAB PO (20:49)
[2019-04-23] MEDS: Pantoprazole 40 MG TABCR PO (20:49)
[2019-04-24] VITALS (9 sets, daily range): BP systolic 118–143; BP diastolic 67–80; PULSE 91–103; RESP 17–22; TEMP 37.3–37.9; O2SAT 95–98
[2019-04-24] MEDS: Normal Saline Flush 10 ML SYR IVP ×3 (01:45→17:43)
[2019-04-24] MEDS: CEFEPIME 2 GM in Normal Saline 100 ML IVPB ×3 (01:45→17:43)
[2019-04-24] MEDS: Patch Removal LIDOCAINE 1 EACH TP (04:38)
[2019-04-24 07:41] LABS: Ammonia 45 umol/L (11-32)
[2019-04-24 07:42] LABS: ALT 45 U/L (14-59); AST 136 U/L (15-37); Abs Immature Grans 0.01 k/cumm (0.0-0.09); Absolute Basophil Count 0.02 k/cumm (0.0-0.2); Absolute Eosinophil Count 0.14 k/cumm (0.0-0.7); Absolute Lymphocyte Count 1.02 k/cumm (1.2-3.4); Absolute Monocyte Count 0.54 k/cumm (0.11-0.7); Absolute Neutrophil Count 2.11 k/cumm (1.2-6.7); Alkaline Phosphatase 124 U/L (46-116); Anion Gap 8.8 mmol/L (3-11); BUN 15 mg/dL (7-18); Basophils % 0.5; Bilirubin, Direct 1.01 mg/dL (0.00-0.20); Bilirubin, Total 1.8 mg/dL (0.2-1.0); CO2 24.2 mmol/L (21.0-32.0); CREATININE 0.84 mg/dL (0.55-1.02); Calcium 7.9 mg/dL (8.5-10.1); Chloride 106 mmol/L (98-107); Eosinophils % 3.6; Glucose 97 mg/dL (74-106); HCT 28.8 % (36.0-46.0); HGB 9.7 g/dL (12.0-15.5); Immature Grans % 0.3 %; Lymphocytes % 26.6; Magnesium 1.8 mg/dL (1.8-2.4); Mean Corp. HGB Concentration 33.7 g/dL (32.0-36.0); Mean Corpuscular Hemoglobin 29.2 pg (27.0-33.0); Mean Corpuscular Volume 86.7 fL (80-95); Mean Platelet Volume 10.3 fL (8.0-11.0); Monocytes % 14.1; Neutrophils % 54.9; Potassium 3.9 mmol/L (3.5-5.1); RBC 3.32 m/cumm (4.00-5.20); RBC Distribution Width 19.5 % (11.7-14.6); Sodium 139 mmol/L (136-145); White Blood Cell Count 3.84 k/cumm (4.4-10.8)
[2019-04-24 07:53] LABS: INR 1.6 (0.9-1.1); Prothrombin Time 15.6 sec (9.3-11.0)
[2019-04-24 08:03] LABS: Anisocytosis 2+; Diff Comment RBC Morph Reviewed; Platelet Count 63 x1000/uL (130-400); Polychromasia Present
[2019-04-24 08:04] LABS: Poikilocytes 2+
--- NOTE | 2019-04-24 08:16 | DI.RAD_ITS ---
EXAM: XR PORTABLE CHEST AP CLINICAL HISTORY: Fever TECHNIQUE: COMPARISON: CHEST 2 VIEWS PA,LAT from 08/25/2012 FINDINGS: Examination is compared with previous examination of 08/25/2012. On today's examination there is mil d elevation of the diaphragm on the right. Lungs appear predominantly clear except for some streaky radiodensities at the right lung base, the possibility of areas of atelectasis or patchy consolidatio n in the right lower lobe is raised. No gross pleural effusion on frontal film. IMPRESSION: Question right basilar patchy consolidation and/or atelectasis. PA and lateral chest may be obtained for further evaluation if clinically appropriate.
[2019-04-24] MEDS: Furosemide 20 MG TAB PO (08:35)
[2019-04-24] MEDS: Pantoprazole 40 MG TABCR PO ×2 (08:35→20:27)
[2019-04-24] MEDS: Spironolactone 25 MG TAB PO (08:36)
[2019-04-24] MEDS: Rifaximin 550 MG TAB PO ×2 (08:36→20:27)
--- NOTE | 2019-04-24 12:21 | DI.CT_ITS ---
EXAM: CT HEAD WO CT HEAD WO CLINICAL HISTORY: encephalopathy. encephalopathy TECHNIQUE: Imaging Protocol: Axial computed tomography images with coronal and sagittal reformatted images were created and reviewed COMPARISON: No exams were available for comparison FINDINGS: The ventricular system is normal in appearance. No evidence of acute intracranial hemorrhage, mass effect, or midline shift. The orbital structures are unremarkable. The temporal bone structures appear intact. Calvarium: Normal. Visualized Paranasal sinuses/Mastoids: Clear. IMPRESSION: Normal cranial CT. DATA REPOSITORY: All CT scans at this facility are submitted to the National Radiology Data Registry (NRDR) Dose Index Registry (DIR) with the [employer] (ACR). RADIATION OPTIMIZATION: All CT scans at this facility use at least one of these dose optimization te chniques: automated exposure control; mA and/or kV adjustment per patient size (includes targeted exa ms where dose is matched to clinical indication); or iterative reconstruction.
[2019-04-24] MEDS: metroNIDAZOLE 500 MG/100 ML BAG 100 MG IVPB ×2 (12:57→20:29)
--- NOTE | 2019-04-24 14:50 | PDOC.CMPRO ---
- If Service Date Differs Date of service: 04/24/19 Time of Service: 14:50 Care Management Progress Note S/O: Argenis was lying in bed when CM met with her. Per nursing, she has been saying that she wants to sign out AMA because she has no heat and her cats are freezing. COLETTE contacted her landlord Srinath who stated that she has recently gotten fuel assistance and has propane heat as well as an electric space heater. He also stated that her cats are fine and that he has been feeding them. Srinath expressed concern about Argenis coming back to her apartment. He stated that she is not well and that she really needs someone to take care of her. He suggested home health. COLETTE shared the conversation with Srinath with Argenis who stated that she could now relax knowing her cats were OK and that she has heat. A: Argenis is a 58 year old woman admitted to [facility] on 04/20/2019 with ascites and cirrhosis. P: Argenis will likely be discharged home with new home health services for nursing, PT, OT and [employer]. She will follow up with her providers and the discharge plan of care. CM will continue to support patient, family and discharge planning needs. cc:
--- NOTE | 2019-04-24 14:54 | CHAPLAIN ---
Argenis was in bed, her room was dark when I visited. She seemed tired but asked when she was going to be discharged and said she'd consider leaving AMA if she wasn't discharged soon. I told her that I didn't know about her discharge plan, and explained my role. She said she is worried about her 7 cats because they are home alone without heat. Sometimes she made sense during out conversation, other times she did not. I let her nurse know about Argenis's question about discharge and about the concerns for the cats. Her nurse said that Care Managers are aware of her home situation.
[2019-04-24 15:37] LABS: Bilirubin Negative (Negative); Blood Negative (Negative); Clarity Clear (Clear); Glucose Negative (Negative); Ketones Negative (Negative); Leukocyte Esterase Negative (Negative); Nitrite Negative (Negative); Urobilinogen 0.2 EU/dL (Up TO 0.2)
[2019-04-24] MEDS: Lidocaine 5% Patch 1 PATCH TP (16:21)
[2019-04-24] MEDS: Acetaminophen 325 MG TAB PO (16:31)
--- NOTE | 2019-04-24 16:50 | DSE_ITS ---
Date of service: 04/24/19 Time of Service: 16:50 DS: Diagnosis Discharge Diagnosis (1) SBO (small bowel obstruction): Status: Resolved (2) Acute on chronic anemia: Status: Acute (3) Gram-negative bacteremia: Status: Acute (4) SBP (spontaneous bacterial peritonitis): Status: Suspected (5) S/P abdominal paracentesis: Status: Acute (6) Cirrhosis of liver with ascites: Status: Acute (7) Hep C w/o coma, chronic: Status: Acute (8) Weakness generalized: Status: Acute (9) Hypertension: Status: Chronic (10) Coagulopathy: Status: Acute (11) Disorganized thought process: Status: Acute Discharge Plan Disposition Patient Disposition: [facility] Condition: Fair Discharge Details Chief Complaint: Abd Prob Clinical Impression: Ascites, S/P abdominal paracentesis Reason For Visit: GENERALIZED WEAKNESS, ASCITES, H/O CIRRHOSIS, S/P Admit Date/Time: 04/20/19 16:50 Admit Provider: Melchor Jefferson Attending Provider: Melchor Jefferson Primary Care Provider: Danny Livingston ED Provider: Christiane Mobley Hospital Course Hospital Course: Ms Smith is a 58 year old female with PMHx of hepatic cirrhosis due to hepatitis C and alcohol abuse in the past, with known h/o encephalopathy, splenic varices, coagulopathy, thrombocytopenia, suspected portal hypertension, not on any medications for her hepatic disease as outpatient, as well as h/o ADHD, on Adderall, who was admitted to [facility] hospitalist service on 04/19/2019 after presented to the ED complaining of abdominal distention, having a large volume paracenthesis, and feeling too weak to ambulate to go home. The fluid from the original paracenthesis was not sent for laboratory studies/cultures. The patient was initiated on aldactone and lasix. On hospital day 2, she was noted to have severe abdominal pain with peritoneal signs. Surgery consult for paracenthesis was placed, but because the patient appeared clinically sick, she was initiated on antibiotics (cefepime) prior to her second paracenthesis. It was done on 04/21/2019 - studies were not consistent with SBP, but the patient was on antibiotics at that time. Her blood culture (/) done on hospital day 2, however, grew E. coli. She did receive albumin following the 2nd paracenthesis. The patient's hemoglobin dropped from 8.6 to 7.4 on hospital day 3. Case was discussed with [facility], who did not feel that this was a variceal bleed due to absence of massive bleeding, but portal gastropathy was felt to be likely. She was moved to the ICU for closer monitoring as the patient is high risk for bleeding with her coagulopathy and thrombocytopenia, started on IV PPI, given FFP, vitamin K, and did receive 1 unit pRBC's. Since then her hemoglobin had remained stable. Her abdominal pain worsened, warranting a CT of the abdomen - this revealed an ileus vs SBO. General surgery was consulted, felt this was more of an SBO picture and recommended a fleets enema. The patient did have a large bowel movement following this with resolution of gaseous distention of her intestine. The patient has tolerated advancement of diet to full liquid. At the same time, she did get more encephalopathic - she did not respond to lactulose, but is showing improvement with rifaximin therapy. CT of the head without contrast was negative. On 04/23/2019, she spiked a fever - workup reveals a RLL infiltrate vs atelectasis. Rapid flu test was negative. Metronidazole was added to cefepime. No further fevers have been documented. As far as patient's psychiatric condition, while pressured speech was reported on presenation, the patient was on adderall, which was held. Since then, she appears to act more as hepatic encephalopathy, although there is no question that there is underlying disordered thinking. It is felt, however, that the patient is not manic and is able to make her own decisions at this time. Due to overall patient's complexity, need for further optimization and testing by GI (such as a non-emergent EGD) and high likelihood that the patient would not follow up as outpatient, the patient is accepted at [facility] in transfer (pending available bed) by Dr Tovar with Dr Cabezas consulting (she refused transfer to [facility]). She is medically stable for transfer and agrees to transfer. Care for patient as well as preparation of her transfer summary on day of transfer took 1 hour. Home Meds and New Rx's Prescriptions: Discontinued clonidine HCl 0.1 mg Tablet 0.1 mg PO BID RF: 0 dextroamphetamine-amphetamine [Adderall XR] 30 mg Capsule,Extended Release 24hr 15 mg PO DAILY RF: 0 Discharge Instructions Instructions: Ascites (ED) Activity:: Activity as Tolerated Equipment/Supplies:: No Equipment Needed Diet:: Low Sodium Discharge Orders Discharge Orders: Discharge Order (Routine); Ordered 04/24/19 Ordered By: Maida Marks DS: Summary Status at Discharge Functional status at discharge: independent ambulation Overall status at discharge: patient is progressing back to baseline Mental Status: other Speech and Movement: restless Mood: other Affect: anxious affect Exam Narrative Exam Narrative: General: awake Middle-aged female, covered in her fur coat, not shivering today, A&Ox3, no asterexis today HEENT: EOMI, MMM Heart: RRR, no m/r/ g Lungs: Diminished breath sounds B Abdomen: Much less distended today; Ascites, not tender Extremities: trace BLE edema in TEDS Psych Mental Status: other Speech and Movement: restless Mood: other Affect: anxious affect DS: Data Vitals/I&O Vitals and I&O: Vital Signs Temperature 37.3 C 04/24/19 15:59 Temperature Source Temporal Artery Scan 04/24/19 15:59 Pulse 98 H 04/24/19 15:59 Pulse Rhythm Regular 04/24/19 08:10 Pulse 103 H 04/23/19 16:13 Respiratory Rate 22 04/24/19 15:59 Respiratory Effort 04/24/19 08:10 Respiratory Depth Normal 04/24/19 08:10 Respiratory Pattern Normal 04/24/19 08:10 Blood Pressure 128/73 04/24/19 15:59 Blood Pressure Mean 86 04/23/19 16:12 Blood Pressure Position Supine 04/23/19 16:37 Pulse Oximetry 98 04/24/19 15:59 Oxygen Delivery Method Room Air 04/24/19 15:59 Oxygen Flow Rate 0 04/24/19 15:59 Pain Level 7 04/24/19 16:31 Comment 04/24/19 15:59 Intake & Output 04/23/19 04/24/19 04/24/19 23:59 11:59 23:59 Intake Total 430 / 830 490 / 980 490 / 980 Output Total 775 / 775 Balance 430 / 630 490 / 205 -285 / 205 Weight 46.4 kg Intake: IV 100 / 500 100 / 100 Oral 330 / 330 390 / 880 490 / 880 Output: Urine 775 / 775 Other: Urine Color Dark [place] Yellow Urine Appearance Clear Clear Urine Odor Strong Normal Voiding Methods Toilet Toilet Toilet Data Completed and Pending Completed studies during hospitalization [Text1]: CT abdomen/pelvis 04/21/2019: 1. Distended fluid-filled loops of small bowel with a transition seen in the terminal ileal region. Findings are suspicious for small bowel obstruction. 2. Distended colon with air and stool. 3. Hepatic cirrhosis with moderate to large amount of abdominal and pelvic ascites. XR abdomen flat/upright 04/21/2019: Four views were obtained. There is moderate dilatation of multiple small bowel loops multiple dilated colonic loops also noted, findings are nonspecific and may represent partial small bowel obstruction and/or ileus. Appropriate follow-up studies requested. XR abdomen flat 04/23/2019: Improvement in bowel gas pattern since yesterday's ex amination. CXR 04/24/2019: Question right basilar patchy consolidation and/or atelectasis. PA and lateral chest may be obtained for further evaluation if clinically appropriate. CT head without contrast 04/24/2019: Normal cranial CT. Labs on day of discharge: Labs from last 24 hours 04/24/19 04/24/19 04/24/19 14:30 07:18 07:18 WBC 3.84 L RBC 3.32 L Hgb 9.7 L Hct 28.8 L MCV 86.7 MCH 29.2 MCHC 33.7 RDW 19.5 H Plt Count 63 L MPV 10.3 Immature Gran % 0.3 Neutrophils % 54.9 Lymphocytes % 26.6 Monocytes % 14.1 Eosinophils % 3.6 Basophils % 0.5 Absolute Neutrophils 2.11 Absolute Lymphocytes 1.02 L Absolute Monocytes 0.54 Absolute Eosinophils 0.14 Absolute Basophils 0.02 Differential Comment Rbc morph reviewed RBC Morphology See below Polychromasia Present Poikilocytosis 2+ Anisocytosis 2+ PT 15.6 H INR 1.6 H Sodium Potassium Chloride Carbon Dioxide Anion Gap BUN Creatinine Estimated GFR/1.73 m2 Glucose Calcium Magnesium Total Bilirubin Conjugated Bilirubin AST ALT Alkaline Phosphatase Ammonia Total Protein Albumin Urine Color Yellow Urine Clarity Clear Urine pH 7.0 Ur Specific [place] 1.010 Urine Protein Negative Urine Ketones Negative Urine Blood Negative Urine Nitrite Negative Urine Bilirubin Negative Urine Urobilinogen 0.2 Ur Leukocyte Esterase Negative Urine Glucose Negative 04/24/19 04/24/19 07:18 07:18 WBC RBC Hgb Hct MCV MCH MCHC RDW Plt Count MPV Immature Gran % Neutrophils % Lymphocytes % Monocytes % Eosinophils % Basophils % Absolute Neutrophils Absolute Lymphocytes Absolute Monocytes Absolute Eosinophils Absolute Basophils Differential Comment RBC Morphology Polychromasia Poikilocytosis Anisocytosis PT INR Sodium 139 Potassium 3.9 Chloride 106 Carbon Dioxide 24.2 Anion Gap 8.8 BUN 15 Creatinine 0.84 Estimated GFR/1.73 m2 >= 60.00 Glucose 97 Calcium 7.9 L Magnesium 1.8 Total Bilirubin 1.8 H Conjugated Bilirubin 1.01 H AST 136 H ALT 45 Alkaline Phosphatase 124 H Ammonia 45 H Total Protein 6.0 L Albumin 3.0 L Urine Color Urine Clarity Urine pH Ur Specific [place] Urine Protein Urine Ketones Urine Blood Urine Nitrite Urine Bilirubin Urine Urobilinogen Ur Leukocyte Esterase Urine Glucose 04/23/19 16:00 Blood Blood Culture - Pending Preliminary micro results at discharge 04/22/19 06:34 Blood Culture - Preliminary Blood NO GROWTH 48 HOURS 04/22/19 06:22 Blood Culture - Preliminary Blood NO GROWTH 48 HOURS 04/21/19 10:12 Body Fluid Culture - Preliminary Peritoneal 04/20/19 17:10 Blood Culture - Preliminary Blood Gram Positive [place] 04/23/19 16:00 Blood Culture - Pending Blood 04/21/19 10:12 Anaerobic Culture - Preliminary Peritoneal [facility] Medical History Ascites (Acute) Cirrhosis of liver with ascites (Acute) Cirrhosis of liver with ascites (Acute) Dental caries (Acute) Encephalopathy chronic (Acute) Fractured tooth (Acute) Hep C w/o coma, chronic (Acute) Hepatitis C (Chronic) History of hepatitis B vaccination (Acute) Hypertension (Chronic) Poor dentition (Acute) Splenic varices (Acute) Varices of other sites (Acute) liver Social History Smoking/Tobacco Use Status: Current every day Tobacco Type: cigarettes Alcohol Intake: former Drug use: Never Substance use type: does not use Do you feel safe at home: Yes Do you feel safe in your relationship?: Yes Additional Social history: Living apartment on [address] Patient describes concern for lead and mold, but it is unclear if this is an ongoing concern. She gives a grand social history regarding status of her past and her family, but it is hard to interpret the veracity of this history.
[2019-04-24] MEDS: Spironolactone 25 MG TAB 50 MG PO (20:27)
[2019-04-25] MEDS: CEFEPIME 2 GM in Normal Saline 100 ML IVPB ×2 (02:43→09:53)
[2019-04-25] MEDS: Normal Saline Flush 10 ML SYR IVP ×2 (02:43→11:08)
[2019-04-25] MEDS: metroNIDAZOLE 500 MG/100 ML BAG 100 MG IVPB ×2 (03:44→11:08)
[2019-04-25] MEDS: Patch Removal LIDOCAINE 1 EACH TP (03:45)
[2019-04-25 03:57] VITALS: BP 133/74; PULSE 94; RESP 18; TEMP 37; O2SAT 98
[2019-04-25 06:43] LABS: INR 1.6 (0.9-1.1); Prothrombin Time 16.1 sec (9.3-11.0)
[2019-04-25 06:48] LABS: Abs Immature Grans 0.01 k/cumm (0.0-0.09); Absolute Basophil Count 0.02 k/cumm (0.0-0.2); Absolute Eosinophil Count 0.11 k/cumm (0.0-0.7); Absolute Lymphocyte Count 0.94 k/cumm (1.2-3.4); Basophils % 0.6; Eosinophils % 3.4; HCT 28.8 % (36.0-46.0); HGB 9.6 g/dL (12.0-15.5); Immature Grans % 0.3 %; Lymphocytes % 28.7; Mean Corp. HGB Concentration 33.3 g/dL (32.0-36.0); Mean Corpuscular Hemoglobin 29.2 pg (27.0-33.0); Mean Corpuscular Volume 87.5 fL (80-95); Monocytes % 9.1; Neutrophils % 57.9; RBC 3.29 m/cumm (4.00-5.20); RBC Distribution Width 19.4 % (11.7-14.6); White Blood Cell Count 3.28 k/cumm (4.4-10.8)
[2019-04-25 07:00] LABS: Ammonia < 10 umol/L (11-32)
[2019-04-25 07:08] LABS: ALT 42 U/L (14-59); AST 120 U/L (15-37); Albumin 2.9 g/dL (3.4-5.0); Alkaline Phosphatase 123 U/L (46-116); Anion Gap 8.8 mmol/L (3-11); BUN 10 mg/dL (7-18); Bilirubin, Direct 0.92 mg/dL (0.00-0.20); Bilirubin, Total 1.7 mg/dL (0.2-1.0); CO2 25.2 mmol/L (21.0-32.0); CREATININE 0.86 mg/dL (0.55-1.02); Calcium 7.4 mg/dL (8.5-10.1); Chloride 106 mmol/L (98-107); Glucose 181 mg/dL (74-106); Magnesium 1.7 mg/dL (1.8-2.4); Potassium 3.6 mmol/L (3.5-5.1); Sodium 140 mmol/L (136-145); Total Protein 5.8 g/dL (6.4-8.2)
[2019-04-25 07:14] LABS: Anisocytosis 2+; Diff Comment Diff Reviewed; Hypochromasia 2+; Platelet Count 54 x1000/uL (130-400)
[2019-04-25 07:15] LABS: Poikilocytes 2+
[2019-04-25] MEDS: Furosemide 20 MG TAB PO (08:16)
[2019-04-25] MEDS: Rifaximin 550 MG TAB PO (08:17)
[2019-04-25] MEDS: Spironolactone 25 MG TAB 50 MG PO (08:17)
[2019-04-25] MEDS: Pantoprazole 40 MG TABCR PO (08:17)
[2019-04-25 10:36] VITALS: BP 130/77; PULSE 86; RESP 24; TEMP 37; O2SAT 99
[2019-04-25] MEDS: Acetaminophen 325 MG TAB PO (13:34)
[2019-04-25 15:34] VITALS: BP 172/89; PULSE 110; RESP 18; TEMP 37.2; O2SAT 97
[2019-04-25] MEDS: Lidocaine 5% Patch 1 PATCH TP (15:34)
== END 2019-04-25 17:16 | DRG 432 ==
LOC: ER 19:24 → MS 19:27 → ICU 04-23 15:45 → MS 04-23 19:06 → ICU 04-27 10:37
PROVIDERS: Internal Medicine; Surgery; Admitting Provider Family Medicine; Emergency Provider Physician Assistant; PCP Nurse Practitioner Family; Visit Provider Family Medicine
PROC: 0W9G3ZZ Drainage of Peritoneal Cavity, Percutaneous Approach (ICD-10-PCS; CPT 49082; principal; 2019-04-21 10:15)
DX: K74.69 Other cirrhosis of liver (principal); K65.2 Spontaneous bacterial peritonitis; R18.8 Other ascites; D68.9 Coagulation defect, unspecified; R78.81 Bacteremia; K56.609 Unspecified intestinal obstruction, unspecified as to partial versus complete obstruction; K92.2 Gastrointestinal hemorrhage, unspecified; D62 Acute posthemorrhagic anemia; B18.2 Chronic viral hepatitis C; F10.21 Alcohol dependence, in remission; R47.89 Other speech disturbances; F90.9 Attention-deficit hyperactivity disorder, unspecified type; R53.1 Weakness; D69.6 Thrombocytopenia, unspecified; I10 Essential (primary) hypertension; R41.89 Other symptoms and signs involving cognitive functions and awareness; B96.20 Unspecified Escherichia coli [E. coli] as the cause of diseases classified elsewhere; R10.9 Unspecified abdominal pain; K31.89 Other diseases of stomach and duodenum; F17.210 Nicotine dependence, cigarettes, uncomplicated
CPT/HCPCS: 36410; 36415; 36416; 36430; 49083; 80048; 80053; 80076; 84145; 85027; 86850; 86900; 86901; 86920; 87040; 87077; 87449; 97163; 97530; 99219; 99222; 99231; 99232; 99239; 99253; 99285; 99291; 70450; 71045; 74018; 74019; 74177; 81003; 82140; 83735; 85014; 85018; 85025; 85610; 85730; 87070; 87075; 87086; 87186; 87205; G0378; J2060; J2270; J3490; P9016; P9059

== ENCOUNTER 2019-05-10 15:05 | Outpatient (REF) | payer MEDICARE, MEDICAID, SELFPAY ==
[2019-05-10 15:30] LABS: Abs Immature Grans 0.01 k/cumm (0.0-0.09); Absolute Basophil Count 0.05 k/cumm (0.0-0.2); Absolute Eosinophil Count 0.07 k/cumm (0.0-0.7); Absolute Lymphocyte Count 0.81 k/cumm (1.2-3.4); Basophils % 1.3; Eosinophils % 1.8; HCT 30.8 % (36.0-46.0); HGB 10.4 g/dL (12.0-15.5); Immature Grans % 0.3 %; Lymphocytes % 20.5; Mean Corp. HGB Concentration 33.8 g/dL (32.0-36.0); Mean Corpuscular Volume 85.8 fL (80-95); Mean Platelet Volume 11.5 fL (8.0-11.0); Monocytes % 12.7; Neutrophils % 63.4; RBC 3.59 m/cumm (4.00-5.20); RBC Distribution Width 20.3 % (11.7-14.6); White Blood Cell Count 3.95 k/cumm (4.4-10.8)
[2019-05-10 15:43] LABS: ALT 60 U/L (14-59); AST 68 U/L (15-37); Albumin 3.7 g/dL (3.4-5.0); Alkaline Phosphatase 216 U/L (46-116); Anion Gap 9.3 mmol/L (3-11); BUN 36 mg/dL (7-18); Bilirubin, Total 1.7 mg/dL (0.2-1.0); CO2 26.7 mmol/L (21.0-32.0); CREATININE 0.99 mg/dL (0.55-1.02); Chloride 99 mmol/L (98-107); Estimated GFR 57.41 (mL/min/1.73m2); Glucose 101 mg/dL (74-106); Potassium 3.9 mmol/L (3.5-5.1); Sodium 135 mmol/L (136-145); Total Protein 8.2 g/dL (6.4-8.2)
[2019-05-10 16:01] LABS: Platelet Count 95 x1000/uL (130-400)
[2019-05-10 16:02] LABS: Anisocytosis 2+
[2019-05-10 16:03] LABS: Poikilocytes 1+; Polychromasia Present
== END 2019-05-10 15:25 ==
LOC: NCHCN 15:05
PROVIDERS: PCP Nurse Practitioner Family; Visit Provider Nurse Practitioner Family
DX: K70.31 Alcoholic cirrhosis of liver with ascites (principal)
CPT/HCPCS: 80053; 85025

== ENCOUNTER 2019-06-26 15:22 | Outpatient (REF) | payer MEDICARE, MEDICAID, SELFPAY ==
[2019-06-26 16:20] LABS: ALT 94 U/L (14-59); AST 160 U/L (15-37); Albumin 3.1 g/dL (3.4-5.0); Alkaline Phosphatase 221 U/L (46-116); Anion Gap 8.9 mmol/L (3-11); BUN 38 mg/dL (7-18); Bilirubin, Total 2.7 mg/dL (0.2-1.0); CO2 24.1 mmol/L (21.0-32.0); CREATININE 1.57 mg/dL (0.55-1.02); Calcium 9.4 mg/dL (8.5-10.1); Chloride 98 mmol/L (98-107); Estimated GFR 33.72 (mL/min/1.73m2); Glucose 107 mg/dL (74-106); Potassium 4.8 mmol/L (3.5-5.1); Sodium 131 mmol/L (136-145); Total Protein 7.5 g/dL (6.4-8.2)
[2019-06-26 16:34] LABS: Mean Corp. HGB Concentration 35.3 g/dL (32.0-36.0); Mean Corpuscular Hemoglobin 29.9 pg (27.0-33.0); Mean Corpuscular Volume 84.6 fL (80-95); RBC 4.02 m/cumm (4.00-5.20); RBC Distribution Width 22.8 % (11.7-14.6); White Blood Cell Count 5.05 k/cumm (4.4-10.8)
[2019-06-26 16:49] LABS: Platelet Count 88 x1000/uL (130-400)
== END 2019-06-26 15:42 ==
LOC: NCHCN 15:22
PROVIDERS: PCP Nurse Practitioner Family; Visit Provider Family Medicine
DX: R78.81 Bacteremia (principal); G93.40 Encephalopathy, unspecified; K70.31 Alcoholic cirrhosis of liver with ascites; R63.4 Abnormal weight loss; M85.80 Other specified disorders of bone density and structure, unspecified site
CPT/HCPCS: 80053; 85027; 82140

== ENCOUNTER 2019-06-29 12:52 | Outpatient (REF) | payer MEDICARE, MEDICAID, SELFPAY ==
[2019-06-29 13:31] LABS: Ammonia 80 umol/L (11-32)
== END 2019-06-29 13:12 ==
LOC: LBN 12:52
PROVIDERS: PCP Nurse Practitioner Family; Visit Provider Family Medicine
DX: K74.69 Other cirrhosis of liver (principal); K72.10 Chronic hepatic failure without coma
CPT/HCPCS: 82140

== ENCOUNTER 2019-06-30 11:03 | Inpatient (IN) | payer MEDICARE, MEDICAID, SELFPAY ==
[2019-06-30] VITALS (42 sets, daily range): BP systolic 106–132; BP diastolic 51–87; PULSE 84–102; RESP 11–27; TEMP 36.8–37.5; O2SAT 86–100
--- NOTE | 2019-06-30 11:17 | W.ED.GENAD ---
Discharge Plan Disposition Patient Disposition: [facility] INPATIENT Condition: Serious Discharge Details Chief Complaint: GenMedical Clinical Impression: Adult failure to thrive, Cirrhosis of liver, Generalized weakness, Acute hepatic encephalopathy Admit Date/Time: 06/30/19 13:31 Admit Provider: Maida Marks Attending Provider: Maida Marks Primary Care Provider: Danny Livingston ED Provider: Kimo Salas Discharge Data Discharge Date/Time-TO BE ENTERED AT DEPARTURE: 06/30/19 15:01 Medical Decision Making [id number] --58-year-old female with multiple medical problems including hepatitis C cirrhosis, here with generalized weakness, failing to thrive at home, concern by PCP for electrolyte abnormalities. Hemodynamically stable. Patient is confused which may be related to hepatic encephalopathy. Plan to obtain ECG and will check labs to assess for electrolyte abnormalities. I will attempt to obtain outside hospital records from recent admission. at [facility] [id number] --labs reviewed and revealed no significant electrolyte abnormalities. She does have acute kidney injury with an elevated BUN and I suspect is secondary to hypovolemia. Liver function tests are mildly elevated and bilirubin is mildly elevated from her baseline. Ammonia is slightly elevated at 40. I called and spoke with the patient's primary care nurse practitioner who notes significant concern with living situation and that patient is failing to thrive at home. It is unsafe for patient be discharged home at this time. Patient will be admitted to the hospital. Patient would likely benefit from palliative care consultation. Screening ECG was reviewed and interpreted by me: Sinus rhythm 92 bpm, short RI with RI interval of 118, normal axis, bilateral atrial enlargement noted, nondiagnostic. Chest x-ray was reviewed and interpreted by radiology: No acute pulmonary findings. --Patient is lacking decisional making capacity. She is quite tangential in her thought process. I suspect this is secondary to hepatic encephalopathy. Patient continues to complain of left hip and low back pain. Consider fracture - will obtain xray. I spoke with Odalys in care management who assessed the patient and spoke with home health. She agrees that patient cannot safely return to current home environment with current outpatient resources in place. . I called and spoke with grails web application developer hospitalist, Dr. Marks who will admit the patient. Care transitioned to Dr. Marks. --X-ray imaging was resulted after patient admitted. Left hip x-ray interpreted by radiology as negative for fracture. Lumbar spine x-ray was interpreted by radiology as: 1. Compression deformity of the L4 vertebral body with loss of approximately 50 percent of the height of the vertebral body. There does appear to be mild retropulsion. The deformity was not present on the most recent examination from April 2019. CT scan should be considered for further evaluation. Differential considerations include fracture and infection. Please correlate clinically. 2. Mild compression deformity of the inferior endplate of L3. This was not present on the prior examination. -- Spoke with Klarissa Scott NP about imaging result. She is ordering additional imaging. HPI General Mode of arrival: EMS. Date/Time Provider Initiated Documentation: 06/30/19 11:16. Limitations to Documentation: altered mental status. Information obtained by: EMS. HPI Narrative: 58-year-old female with multiple medical problems including history listed of COPD, anemia, coagulopathy, hypertension, hepatitis C with cirrhosis of the liver, ascites, spontaneous bacterial peritonitis, referred to the ER by PCP Yara who notes failing at home, recent admission last month to [facility]. Patient notes generalized weakness that is severe and persistent. No modifiers. No associated chest pain or abdominal pain. Related Data Home Medications Medication Instructions Recorded Confirmed acetaminophen 500 mg tablet 500 mg PO BID 06/16/19 06/30/19 clonidine HCl 0.1 mg tablet 0.1 mg PO BID 06/16/19 06/30/19 dextroamphetamine-amphetamine ER 15 mg PO DAILY 06/16/19 06/30/19 15 mg 24hr capsule,extend release lidocaine 4 % topical patch 1 patch TP DAILY PRN 06/16/19 06/30/19 furosemide 20 mg PO TID 06/30/19 06/30/19 lactulose 45 ml PO BID PRN PRN 06/30/19 06/30/19 spironolactone 50 mg PO TID 06/30/19 06/30/19 Allergies Allergy/AdvReac Type Severity Reaction Status Date / Time sulfamethoxazole Allergy Mild Diarrhea Verified 06/30/19 11:12 [From Bactrim] trimethoprim [From Bactrim] Allergy Mild Diarrhea Verified 06/30/19 11:12 General Stated Complaint: GenMedical LISSA: 2 Review of Systems All systems reviewed & are unremarkable except as noted in HPI and below Constitutional Constitutional: Denies fever(s) Respiratory Respiratory: Denies cough Gastrointestinal Gastrointestinal: Denies nausea and Denies vomiting Musculoskeletal Musculoskeletal: Reports back pain (low) [facility] Medical History Ascites (Acute) Bacteremia (Acute) Cirrhosis of liver with ascites (Acute) 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 COPD (chronic obstructive pulmonary disease) (Chronic) Dental caries (Acute) Emphysema of lung (Acute) Encephalopathy chronic (Acute) Fractured tooth (Acute) Hep C w/o coma, chronic (Acute) Hepatitis C (Chronic) History of hepatitis B vaccination (Acute) Hypertension (Chronic) Nicotine dependence (Acute) Palliative care patient (Acute) Poor dentition (Acute) PTSD (post-traumatic stress disorder) (Acute) Raynaud's disease without gangrene (Acute) Splenic varices (Acute) Varices of other sites (Acute) liver Social History Smoking/Tobacco Use Status: Current every day Tobacco Type: cigarettes Alcohol Intake: former Drug use: Never Substance use type: does not use Do you feel safe at home: Yes Do you feel safe in your relationship?: Yes Additional Social history: Living apartment on [address] and [place]. Patient describes concern for lead and mold, but it is unclear if this is an ongoing concern. She gives a grand social history regarding status of her past and her family, but it is hard to interpret the veracity of this history. Exam Const General: cooperative and no acute distress Nutritional Appearance: cachectic and malnourished Orientation: alert, awake, oriented to person, oriented to place and confused [facility] Mouth: mucous membranes dry Eyes Conjunctivae: normal conjunctivae Sclera: normal sclerae Neck Neck: trachea midline and supple Resp Auscultation: clear to auscultation bilaterally, no rales, no rhonchi and no wheezes Cardio Jugular venous pressure: no JVD Rate: regular rate and not tachycardic Rhythm: regular rhythm GI Palpation: soft, not firm, no guarding, no masses, not rigid and nontender Back/Spine/Pelvis Thoracic/Lumbar Spine: other (Mild redness lower lumbar spine suspect early decubitus) Skin Rashes: rashes noted (See back exam) Wounds: no wounds Neuro General: patient alert, patient awake and tone normal Cognition: abnormal cognition Speech: speech normal Motor: other (Generalized weakness with no focal deficit) Sensory Exam: no sensory deficits noted and other Extrem General: no edema Left lower extremity: hip/thigh Details: abnormal ROM (pain with active ROM ext rotation ) Psych Appearance: grossly normal Course Vital Signs Vital signs: Vital Signs Temperature 37 C 06/30/19 11:03 Pulse 98 H 06/30/19 11:03 Respiratory Rate 17 06/30/19 11:03 Blood Pressure 111/76 06/30/19 11:03 Pulse Oximetry 100 06/30/19 11:03 Temperature 37 C 06/30/19 11:03 Temperature Source Temporal Artery Scan 06/30/19 11:03 Pulse 98 H 06/30/19 11:08 Pulse 98 H 06/30/19 11:08 Respiratory Rate 14 06/30/19 11:08 Respiratory Effort Non-Labored 06/30/19 11:15 Blood Pressure 111/76 06/30/19 11:08 Blood Pressure Mean 81 06/30/19 11:08 Blood Pressure Position Supine 06/30/19 11:03 Pulse Oximetry 86 L 06/30/19 11:08 Oxygen Delivery Method Room Air 06/30/19 11:03 Oxygen Flow Rate 0 06/30/19 11:03
[2019-06-30] MEDS: Normal Saline 1,000 ML 150 ML IV ×2 (11:28→18:04)
[2019-06-30 11:30] LABS: Abs Immature Grans 0.02 k/cumm (0.0-0.09); Absolute Basophil Count 0.01 k/cumm (0.0-0.2); Absolute Eosinophil Count 0.03 k/cumm (0.0-0.7); Absolute Lymphocyte Count 0.85 k/cumm (1.2-3.4); Absolute Monocyte Count 0.21 k/cumm (0.11-0.7); Absolute Neutrophil Count 3.44 k/cumm (1.2-6.7); Basophils % 0.2; Eosinophils % 0.7; HCT 37.4 % (36.0-46.0); HGB 12.8 g/dL (12.0-15.5); Immature Grans % 0.4 %; Lymphocytes % 18.6; Mean Corp. HGB Concentration 34.2 g/dL (32.0-36.0); Mean Corpuscular Hemoglobin 29.6 pg (27.0-33.0); Mean Corpuscular Volume 86.6 fL (80-95); Mean Platelet Volume 9.9 fL (8.0-11.0); Monocytes % 4.6; Neutrophils % 75.5; RBC 4.32 m/cumm (4.00-5.20); RBC Distribution Width 23.7 % (11.7-14.6); White Blood Cell Count 4.56 k/cumm (4.4-10.8)
[2019-06-30 11:41] LABS: Ammonia 40 umol/L (11-32)
[2019-06-30 11:46] LABS: Diff Comment RBC Morph Reviewed; Platelet Count 94 x1000/uL (130-400)
[2019-06-30 11:47] LABS: ALT 88 U/L (14-59); AST 174 U/L (15-37); Albumin 3.3 g/dL (3.4-5.0); Alkaline Phosphatase 249 U/L (46-116); Anion Gap 9.3 mmol/L (3-11); Anisocytosis 3+; BUN 45 mg/dL (7-18); CO2 25.7 mmol/L (21.0-32.0); CREATININE 1.63 mg/dL (0.55-1.02); Calcium 9.7 mg/dL (8.5-10.1); Chloride 98 mmol/L (98-107); Estimated GFR 32.29 (mL/min/1.73m2); Glucose 148 mg/dL (74-106); Magnesium 2.3 mg/dL (1.8-2.4); Poikilocytes 1+; Polychromasia Present; Potassium 4.3 mmol/L (3.5-5.1); Sodium 133 mmol/L (136-145); Target Cells 2+; Total Protein 8.2 g/dL (6.4-8.2); Troponin I < 0.05 ng/Ml (<0.06)
[2019-06-30 11:53] LABS: INR 1.3 (0.9-1.1); Prothrombin Time 12.7 sec (9.3-11.0)
[2019-06-30] MEDS: Lidocaine 5% Patch 1 PATCH TP (11:53)
[2019-06-30 11:55] LABS: TSH (W/Ref FT4) 0.79 uIU/mL (0.36-3.74)
--- NOTE | 2019-06-30 11:59 | DI.RAD_ITS ---
EXAM: XR PORTABLE CHEST AP CLINICAL HISTORY: weakness TECHNIQUE: 2D digital imaging was performed. COMPARISON: XR PORTABLE CHEST AP from 04/24/2019 FINDINGS: MEDIASTINUM: Normal. HEART: Normal. PULMONARY VASCULATURE: Normal. LUNGS: Clear. PLEURAL SPACE: No pleural effusion or pneumothorax. BONE:Normal. OTHER FINDINGS:Normal. IMPRESSION: No acute pulmonary findings. DATA REPOSITORY: RADIATION DOSE DELIVERED:
--- NOTE | 2019-06-30 13:00 | DI.RAD_ITS ---
EXAM: XR HIP LT COMPLETE AP PELVIS CLINICAL HISTORY: pain. TECHNIQUE: 2D digital imaging was performed. COMPARISON: No exams were available for comparison FINDINGS: BONES: No acute fracture is present. No bony destructive lesion is seen. JOINTS: No dislocation present. There are mild degenerative changes of the hips bilaterally. SOFT TISSUE: Normal. IMPRESSION: No acute abnormality. Mild degenerative changes of the hips bilaterally. DATA REPOSITORY: RADIATION DOSE DELIVERED:
--- NOTE | 2019-06-30 13:00 | DI.RAD_ITS ---
EXAM: XR LUMBAR SPINE COMPLETE CLINICAL HISTORY: pain. TECHNIQUE: 2D digital imaging was performed. COMPARISON: CT ABDOMEN PELVIS W from 04/21/2019 XR ABDOMEN FLAT PLATE from 04/23/2019 FINDINGS: BONES: There is a new compression deformity of the L4 vertebral body. There is loss of 50 percent of the height of the vertebral body anteriorly. There does appear to be mild retropulsion. There is a lso a new compression deformity of the inferior endplate of L3. There is loss of 10-20 percent of th e height of the vertebral body. There are degenerative changes of the facets and endplates at multip le levels of the lumbar spine. DISKS: Intervertebral disc spaces are maintained. ALIGNMENT: There is straightening of the normal lumbar lordosis. No spondylolysis is seen. SOFT TISSUE: Normal. IMPRESSION: 1. Compression deformity of the L4 vertebral body with loss of approximately 50 percent of the height of the vertebral body. There does appear to be mild retropulsion. The deformity was not present on the most recent examination from April 2019. CT scan should be considered for further evaluation . Differential considerations include fracture and infection. Please correlate clinically. 2. Mild compression deformity of the inferior endplate of L3. This was not present on the prior exam ination. DATA REPOSITORY: RADIATION DOSE DELIVERED:
--- NOTE | 2019-06-30 15:27 | W.PM.HP.N ---
Date of service: 06/30/19 Time of Service: 15:27 Assessment and Plan Assessment and plan (1) Back pain at L4-L5 level: Status: Acute Assessment and plan: new compression deformity of the L4 vertebral body noted on plain film, will obtain CT scan to further evaluate, MR tomorrow when available. pain management. lidocaine patch. (2) Acute kidney injury: Status: Acute Assessment and plan: hold diuretic today, give gentle IV fluids, monitor I&O, avoid nephrotoxic drugs, renal dose medication, follow kidney function closely (3) Adult failure to thrive: Status: Acute Assessment and plan: PT consult, case management following. (4) Cirrhosis of liver: Status: Acute (5) COPD (chronic obstructive pulmonary disease): Status: Chronic Assessment and plan: stable (6) DVT prophylaxis: Status: Acute Assessment and plan: no chemical in setting of liver dysfunction (7) Hypertension: Status: Chronic Assessment and plan: continue clonidine, monitor blood pressure and adjust as needed. (8) Discharge planning issues: Status: Acute Assessment and plan: case management following. patient does not have capacity for decision making, likely d/t her chronic liver dysfunction and encephalopathy. she demonstrates an inability to care for herself. she was reportedly found in filth and covered in feces and urine. her weight is 32 KG. she reports sharing her one senior [employer] meals with her cats. History of Present Illness presented to the ED with generalized weakness, failing to thrive at home, concern by PCP for electrolyte abnormalities. Hemodynamically stable. Patient is confused which may be related to hepatic encephalopathy. work up shows acute renal failure, likely pre-renal from dehydration/diuretic therapy. will admit to med/surg for further management and treatment. Review of Systems Constitutional Constitutional: Reports anorexia, Reports body ache(s), Reports fatigue, Reports malaise, Reports poor appetite, Reports weakness and Reports weight loss ENT Ears, Nose, Mouth, and Throat: Reports dry mouth and Denies sore throat Cardiovascular Cardiovascular: Denies chest pain Respiratory Respiratory: Denies cough Gastrointestinal Gastrointestinal: Denies abdominal pain Musculoskeletal Musculoskeletal: Reports abnormal gait, Reports back pain and Reports myalgias Neurologic Neurologic: Reports abnormal gait, Reports confusion and Reports weakness Psychiatric Psychiatric: Reports change in appetite and Reports confusion Endocrine Endocrine: Reports fatigue [facility] Medical History Ascites (Acute) Bacteremia (Acute) Cirrhosis of liver with ascites (Acute) 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 COPD (chronic obstructive pulmonary disease) (Chronic) Dental caries (Acute) Emphysema of lung (Acute) Encephalopathy chronic (Acute) Fractured tooth (Acute) Hep C w/o coma, chronic (Acute) Hepatitis C (Chronic) History of hepatitis B vaccination (Acute) Hypertension (Chronic) Nicotine dependence (Acute) Palliative care patient (Acute) Poor dentition (Acute) PTSD (post-traumatic stress disorder) (Acute) Raynaud's disease without gangrene (Acute) Splenic varices (Acute) Varices of other sites (Acute) liver Social History Smoking/Tobacco Use Status: Current every day Tobacco Type: cigarettes Alcohol Intake: former Drug use: Never Substance use type: does not use Do you feel safe at home: Yes Do you feel safe in your relationship?: Yes Additional Social history: Living apartment on [address] and [place]. Patient describes concern for lead and mold, but it is unclear if this is an ongoing concern. She gives a grand social history regarding status of her past and her family, but it is hard to interpret the veracity of this history. Meds Home Medications and Allergies Home Medications Medication Instructions Recorded Confirmed Type acetaminophen 500 mg tablet 500 mg PO BID 06/16/19 06/30/19 History clonidine HCl 0.1 mg tablet 0.1 mg PO BID 06/16/19 06/30/19 History dextroamphetamine-amphetamine ER 15 mg PO DAILY 06/16/19 06/30/19 History 15 mg 24hr capsule,extend release lidocaine 4 % topical patch 1 patch TP DAILY PRN 06/16/19 06/30/19 History furosemide 20 mg PO TID 06/30/19 06/30/19 History lactulose 45 ml PO BID PRN PRN 06/30/19 06/30/19 History spironolactone 50 mg PO TID 06/30/19 06/30/19 History Allergies Allergy/AdvReac Type Severity Reaction Status Date / Time sulfamethoxazole Allergy Mild Diarrhea Verified 06/30/19 11:12 [From Bactrim] trimethoprim [From Bactrim] Allergy Mild Diarrhea Verified 06/30/19 11:12 Exam Const General: cooperative, comfortable, frail appearing and ill appearing chronically Nutritional Appearance: cachectic and malnourished Orientation: alert, awake and oriented to person [facility] Mouth: moist mucous membranes abnormal (dry) Resp Effort & Inspection: normal respiratory effort Auscultation: clear to auscultation bilaterally, diminished lung sounds and no wheezes Cardio Rate: regular rate Rhythm: regular rhythm GI Inspection: normal to inspection and distended (slightly) Skin General skin exam: no rashes or lesions noted Neuro General: patient alert and patient awake Speech: speech normal Extrem General: normal to inspection, full ROM and no pedal edema Results Labs Result diagrams: 07/01/19 06:20 07/01/19 07:05 Labs: Laboratory Results - last 24 hr 06/30/19 06/30/19 06/30/19 11:23 11:23 11:23 WBC 4.56 RBC 4.32 Hgb 12.8 Hct 37.4 MCV 86.6 MCH 29.6 MCHC 34.2 RDW 23.7 H Plt Count 94 L MPV 9.9 Immature Gran % 0.4 Neutrophils % 75.5 Lymphocytes % 18.6 Monocytes % 4.6 Eosinophils % 0.7 Basophils % 0.2 Absolute Neutrophils 3.44 Absolute Lymphocytes 0.85 L Absolute Monocytes 0.21 Absolute Eosinophils 0.03 Absolute Basophils 0.01 Differential Comment Rbc morph reviewed RBC Morphology See below Polychromasia Present Poikilocytosis 1+ Anisocytosis 3+ Target Cells 2+ PT INR Sodium 133 L Potassium 4.3 Chloride 98 Carbon Dioxide 25.7 Anion Gap 9.3 BUN 45 H Creatinine 1.63 H Estimated GFR/1.73 m2 32.29 Glucose 148 H Calcium 9.7 Magnesium 2.3 Total Bilirubin 3.0 H AST 174 H ALT 88 H Alkaline Phosphatase 249 H Ammonia 40 H Troponin I < 0.05 Total Protein 8.2 Albumin 3.3 L TSH 06/30/19 06/30/19 11:23 11:23 WBC RBC Hgb Hct MCV MCH MCHC RDW Plt Count MPV Immature Gran % Neutrophils % Lymphocytes % Monocytes % Eosinophils % Basophils % Absolute Neutrophils Absolute Lymphocytes Absolute Monocytes Absolute Eosinophils Absolute Basophils Differential Comment RBC Morphology Polychromasia Poikilocytosis Anisocytosis Target Cells PT 12.7 H INR 1.3 H Sodium Potassium Chloride Carbon Dioxide Anion Gap BUN Creatinine Estimated GFR/1.73 m2 Glucose Calcium Magnesium Total Bilirubin AST ALT Alkaline Phosphatase Ammonia Troponin I Total Protein Albumin TSH 0.79 Last Vital Signs Temp 36.8 C 06/30/19 15:02 Pulse 88 06/30/19 15:02 Resp 16 06/30/19 15:02 BP 132/77 06/30/19 15:02 Pulse Ox 99 06/30/19 15:02 COVID-19 Screening Traveled to [place] from one of the affected countries or regions?: NO Recent travel in the [facility] within the last 8 weeks?: No Recent out of the country travel within the last 8 weeks?: No Exposure or possible exposure to illness during travel?: No Had IN PERSON contact w/suspected or confirmed C-19 person: No Have you had the following symptoms in the past few days?: No Symptoms noted since travel?: No Symptoms
[2019-06-30 16:04] LABS: Bilirubin Negative (Negative); Blood Negative (Negative); Clarity Clear (Clear); Glucose Negative (Negative); Ketones Negative (Negative); Leukocyte Esterase Negative (Negative); Nitrite Negative (Negative); pH 6.5 (5-8)
[2019-06-30] MEDS: Lactulose 20 GM/30 ML CUP PO ×2 (16:16→20:35)
--- NOTE | 2019-06-30 18:29 | DI.CT_ITS ---
EXAM: CT LUMBAR SPINE WO CLINICAL HISTORY: new compression deformity of the L4 vertebral body. TECHNIQUE: Imaging Protocol: Axial computed tomography images with coronal and sagittal reformatted images were created and reviewed CONTRAST MATERIAL: Intravenous: Omnipaque 350 Contrast volume:0 mL contrast route:IV - Oral: No COMPARISON: XR LUMBAR SPINE COMPLETE from 06/30/2019 FINDINGS: L5: There is a mild compression deformity of the L5 vertebral body. There is less than 10 percent lo ss of height of the vertebral body noted. There does appear to be mild retropulsion but no significa nt central spinal canal stenosis. L4: There is an acute compression fracture of the L4 vertebral body. There is loss of approximately 50 percent of the height of the vertebral body. There is retropulsion with mild narrowing of the charles tral spinal canal. L3: There is an acute compression fracture of the L3 vertebral body. There is loss of approximately 30 percent of the height of the vertebral body. There is mild retropulsion but no significant centra l spinal canal stenosis. L2: No acute compression fracture. L1: No acute compression fracture. Bones: There is diffuse osteopenia present. Multilevel degenerative changes are present throughout t he lumbar spine. Soft tissues: There is a small amount of free fluid in the pelvis. IMPRESSION: Acute appearing fractures involving the L3, L4 and L5 vertebral bodies as described above. These wer e not present on the most recent examinations of this area in April 2019. RADIATION DOSE DELIVERED: DATA REPOSITORY: All CT scans at this facility are submitted to the National Radiology Data Registry (NRDR) Dose Index Registry (DIR) with the [employer] ([employer]). RADIATION OPTIMIZATION: All CT scans at this facility use at least one of these dose optimization te chniques: automated exposure control; mA and/or kV adjustment per patient size (includes targeted exa ms where dose is matched to clinical indication); or iterative reconstruction.
--- NOTE | 2019-06-30 18:59 | DI.VRAD_ITS ---
PROCEDURE INFORMATION: Exam: CT Lumbar Spine Without Contrast Exam date and time: 06/30/2019 6:30 PM Age: 58 years old Clinical indication: Other: New compression deformity of the l4 vertebral body TECHNIQUE: Imaging protocol: Computed tomography images of the lumbar spine without contrast. Radiation optimization: All CT scans at this facility use at least one of these dose optimization techniques: automated exposure control; mA and/or kV adjustment per patient size (includes targeted exams where dose is matched to clinical indication); or iterative reconstruction. COMPARISON: 1. CR XR LUMBAR SPINE COMPLETE 06/30/2019 1:[address] ABDOMEN PELVIS W 04/21/2019 8:34:54 PM FINDINGS: Vertebrae: There is L3 compression deformity with mild to moderate loss of height and minimal retropulsion. There is L4 compression deformity with moderate loss of height, mild retropulsion and mild canal stenosis. There is L5 compression deformity with mild loss of height no significant retropulsion. These were not present on the prior CT. No subluxation. Discs/Spinal canal/Neural foramina: There are mild multilevel degenerative changes. Other bones/joints: There is generalized osteopenia. No bone destruction is seen. Intraperitoneal space: Tiny amount of free fluid in the pelvis. Soft tissues: Possible small sacral decubitus ulcer in the left paramidline region. IMPRESSION: Acute appearing fractures of the L3, L4 and L5 vertebral bodies. Dictated and Authenticated by: Harman Monge MD. Ordering:MIRI Cyr MD
[2019-06-30] MEDS: cloNIDine 0.1 MG TAB PO (20:35)
--- NOTE | 2019-06-30 22:50 | CMPROGNOTE_ITS ---
- If Service Date Differs Date of service: 06/30/19 Time of Service: 15:00 Care Management Progress Note S/O: CM met with Argenis in the Emergency Department at the request of provider. Argenis is talkative, she is alert, however she has difficulty answering questions and reflects on her past instead of the concerns at hand. Argenis reports that she has been unable to walk at home due to severe lower left back pain and left hip pain. She states she has had no food in the home, she states she has been sharing one home delivery meal with her four cats once a day. She reports no money to care for the animals or herself. Argenis states she has been disabled since 2002. Her income she reports is SSDI and she uses the majority of that to pay her rent. Per EMS and Home Health report that she is living in extremely poor conditions including an apartment filled with cat feces and urine. EMS per report was unable to go into the home due to the odor. CM contacted [facility] and spoke with triage nurse. Per RN report Argenis has nursing services and social work going into the home. She often refuses to let them in the apartment. Home health states Argenis should not return to her home as it is not safe and she is unable to care for herself. . CM spoke with Argenis at length r/t SNF facility unt il she is able to recover and for PT and OT. Argenis declines she states I just need my back fixed and then I can go home. Argenis is not able to report her medication accurate, she is fixated on her Adderol which she states her provider refilled today. Argenis does not appear to understand the depth of her illness, weight loss, inability to care for herself and living conditions. She has no family locally and reports minimal supports. 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 Argenis adamantly refuses SNF referral. Due to concerns that Argenis is not able to care for herself, her capacity to make safe decisions related to her care, and lack of insight to the risk to her health CM is assisting provider in requesting emergency guardianship from the court. Once the forms are complete CM will bring them to the Court to be filed and request an emergency guardian be appointment through office of public guardian. Per report from home health the cats have been fed and watered by the nurse. It is unclear how long will check on the cats. Anticipate that CM will need to assist Argenis is finding care for the animals. P> Argenis will be admitted to the medical surgical unit. CM to complete and file emergency guardianship paperwork. Argenis is having an MRI of her back. Anticipate she is going to need placement and will not be able to return home.
[2019-07-01] MEDS: Patch Removal 1 EACH TP (00:37)
[2019-07-01] MEDS: Normal Saline 1,000 ML 150 ML IV ×2 (01:01→08:32)
[2019-07-01 07:27] LABS: Abs Immature Grans 0.03 k/cumm (0.0-0.09); Absolute Basophil Count 0.02 k/cumm (0.0-0.2); Absolute Eosinophil Count 0.06 k/cumm (0.0-0.7); Absolute Monocyte Count 0.68 k/cumm (0.11-0.7); Absolute Neutrophil Count 3.97 k/cumm (1.2-6.7); Basophils % 0.3; HCT 30.2 % (36.0-46.0); HGB 10.1 g/dL (12.0-15.5); Immature Grans % 0.5 %; Lymphocytes % 18.8; Mean Corp. HGB Concentration 33.4 g/dL (32.0-36.0); Mean Corpuscular Hemoglobin 29.9 pg (27.0-33.0); Mean Corpuscular Volume 89.3 fL (80-95); Monocytes % 11.6; Neutrophils % 67.8; RBC 3.38 m/cumm (4.00-5.20); RBC Distribution Width 24.1 % (11.7-14.6); White Blood Cell Count 5.86 k/cumm (4.4-10.8)
[2019-07-01 07:30] LABS: INR 1.4 (0.9-1.1); Prothrombin Time 13.8 sec (9.3-11.0)
[2019-07-01 07:33] LABS: ALT 68 U/L (14-59); AST 147 U/L (15-37); Albumin 2.4 g/dL (3.4-5.0); Alkaline Phosphatase 166 U/L (46-116); Anion Gap 7.8 mmol/L (3-11); BUN 20 mg/dL (7-18); Bilirubin, Total 2.2 mg/dL (0.2-1.0); CO2 21.2 mmol/L (21.0-32.0); CREATININE 0.78 mg/dL (0.55-1.02); Calcium 8.2 mg/dL (8.5-10.1); Chloride 106 mmol/L (98-107); Glucose 99 mg/dL (74-106); Magnesium 1.8 mg/dL (1.8-2.4); Potassium 5.1 mmol/L (3.5-5.1); Sodium 135 mmol/L (136-145); Total Protein 6.2 g/dL (6.4-8.2)
[2019-07-01 07:40] VITALS: BP 125/74; PULSE 84; RESP 18; TEMP 38.3; O2SAT 98
--- NOTE | 2019-07-01 08:00 | DI.MRI_ITS ---
EXAM: MR LUMBAR SPINE WO CLINICAL HISTORY: new compression deformity of the L4 vertebral body. TECHNIQUE: Multiplanar multisequence MRI was performed. COMPARISON: No exams were available for comparison FINDINGS: At L5-S1, there is no focal disc herniation, central spinal canal or neural foraminal stenosis. Ther e is a mild compression fracture deformity of L5. No significant central spinal canal or neural fora ang stenosis is present. At L4-L5, there is an acute compression fracture deformity of L4. There is loss of approximately 50 percent of the height of the vertebral body. There is mild retropulsion but it causes no significant central spinal canal stenosis. There is a mild diffuse disc bulge and hypertrophic changes of the f acets and ligamentum flavum causing mild narrowing of the central spinal canal and minimal narrowing of the neural foramen bilaterally. At L3-L4, there is an acute compression fracture of L4. There is loss of approximately 30 percent of the height of the vertebral body. At L3-L4 there is a mild diffuse disc bulge with hypertrophy of t he facets and ligamentum flavum. These all contribute to cause mild narrowing of the central spinal canal. There is mild bilateral neural foraminal narrowing. At L2-L3, there is no focal disc herniation, central spinal canal or neural foraminal stenosis. At L1-L2, there is no focal disc herniation, central spinal canal or neural foraminal stenosis. The conus medullaris has a normal appearance and location. IMPRESSION: 1. Acute compression fractures of L3, L4 and L5 as described above. 2. Multilevel degenerative changes in the lumbar spine causing central spinal canal and neural forami nal stenosis as described above. DATA REPOSITORY:
[2019-07-01] MEDS: cloNIDine 0.1 MG TAB PO ×2 (08:07→19:46)
[2019-07-01] MEDS: Lactulose 20 GM/30 ML CUP PO ×2 (08:08→19:45)
[2019-07-01 08:09] LABS: Diff Comment RBC Morph Reviewed; Platelet Count 72 x1000/uL (130-400)
[2019-07-01 08:10] LABS: Anisocytosis 3+; Poikilocytes 2+; Polychromasia Present; Target Cells 2+
[2019-07-01 08:52] VITALS: TEMP 37.7
--- NOTE | 2019-07-01 08:56 | W.PM.PROGNOT ---
Date of Service Date of service: 07/01/19 Time of Service: 08:57 Assessment and Plan Assessment and plan (1) Fever: Status: Acute Assessment and plan: no source of infection identified. MRI does not demonstrate infection, urine negative, respiratory status stable. white count normal with no left shift. no rashes or lesions. has history of SBP so low threshold for paracentesis if ongoing. her abdominal discomfort is improved after moving bowels today. will continue to closely monitor. no antibiotics at this time. (2) Cirrhosis of liver with ascites: Status: Acute Assessment and plan: moderate ascities by ultrasound. abdominal pain and distention improved after having a large BM today. continue lactulose, will consult surgery for paracentesis if ongoing fevers or suspicion of SBP. (3) Compression fracture of lumbar vertebra: Status: Acute Assessment and plan: will continue with pain management. add benguay today and tramadol. MRI shows Acute compression fractures of L3, L4 and L5 PT/OT (4) Acute kidney injury: Status: Acute Assessment and plan: resolved with IV fluids (5) Acute hepatic encephalopathy: Status: Acute Assessment and plan: continue safety precautions. continue lactulose, ammonia level improving. (6) Generalized weakness: Status: Acute Assessment and plan: PT/OT, fall precautions. (7) Adult failure to thrive: Status: Acute Assessment and plan: case management following. palliative care consult placed (8) DVT prophylaxis: Status: Acute Assessment and plan: teds, scds, no chemical in setting of liver dysfunction (9) Discharge planning issues: Status: Acute Assessment and plan: will likely need placement. guardianship paperwork pending. Subjective Subjective Patient reports: still having pain and no bowel movement Interval history since last seen: patient with fever overnight, max temp 38.3, no longer febrile today. c/o constipation. increased distention. no nausea or vomiting. Exam Narrative Exam Narrative: Mouth: moist mucous membranes abnormal (dry) Resp Effort & Inspection: normal respiratory effort Auscultation: clear to auscultation bilaterally, diminished lung sounds and no wheezes Cardio Rate: regular rate Rhythm: regular rhythm GI Inspection:distended firm, non tender, positive bowel sounds. Skin General skin exam: no rashes or lesions noted Neuro General: patient alert and patient awake Speech: speech normal Extrem General: normal to inspection, full ROM and no pedal edema Const General: no acute distress, frail appearing and ill appearing chronically Nutritional Appearance: cachectic Orientation: alert, awake and confused Objective Objective Clinical Data: Abnormal lab results 06/30/19 06/30/19 06/30/19 Range/Units 11:23 11:23 11:23 RBC (4.00-5.20) m/cumm Hgb (12.0-15.5) g/dL Hct (36.0-46.0) % RDW 23.7 H (11.7-14.6) % Plt Count 94 L (130-400) x1000/uL Absolute Lymphocytes 0.85 L (1.2-3.4) k/cumm PT (9.3-11.0) sec INR (0.9-1.1) Sodium 133 L (136-145) mmol/L BUN 45 H (7-18) mg/dL Creatinine 1.63 H (0.55-1.02) mg/dL Glucose 148 H (74-106) mg/dL Calcium (8.5-10.1) mg/dL Total Bilirubin 3.0 H (0.2-1.0) mg/dL AST 174 H (15-37) U/L ALT 88 H (14-59) U/L Alkaline Phosphatase 249 H (46-116) U/L Ammonia 40 H (11-32) umol/L Total Protein (6.4-8.2) g/dL Albumin 3.3 L (3.4-5.0) g/dL Urine Urobilinogen (Up TO 0.2) EU/dL 06/30/19 06/30/19 07/01/19 Range/Units 11:23 15:20 06:20 RBC 3.38 L (4.00-5.20) m/cumm Hgb 10.1 L D (12.0-15.5) g/dL Hct 30.2 L (36.0-46.0) % RDW 24.1 H (11.7-14.6) % Plt Count 72 L (130-400) x1000/uL Absolute Lymphocytes 1.10 L (1.2-3.4) k/cumm PT 12.7 H (9.3-11.0) sec INR 1.3 H (0.9-1.1) Sodium (136-145) mmol/L BUN (7-18) mg/dL Creatinine (0.55-1.02) mg/dL Glucose (74-106) mg/dL Calcium (8.5-10.1) mg/dL Total Bilirubin (0.2-1.0) mg/dL AST (15-37) U/L ALT (14-59) U/L Alkaline Phosphatase (46-116) U/L Ammonia (11-32) umol/L Total Protein (6.4-8.2) g/dL Albumin (3.4-5.0) g/dL Urine Urobilinogen 1.0 H (Up TO 0.2) EU/dL 07/01/19 07/01/19 Range/Units 07:05 07:05 RBC (4.00-5.20) m/cumm Hgb (12.0-15.5) g/dL Hct (36.0-46.0) % RDW (11.7-14.6) % Plt Count (130-400) x1000/uL Absolute Lymphocytes (1.2-3.4) k/cumm PT 13.8 H (9.3-11.0) sec INR 1.4 H (0.9-1.1) Sodium 135 L (136-145) mmol/L BUN 20 H D (7-18) mg/dL Creatinine (0.55-1.02) mg/dL Glucose (74-106) mg/dL Calcium 8.2 L (8.5-10.1) mg/dL Total Bilirubin 2.2 H (0.2-1.0) mg/dL AST 147 H (15-37) U/L ALT 68 H (14-59) U/L Alkaline Phosphatase 166 H (46-116) U/L Ammonia (11-32) umol/L Total Protein 6.2 L (6.4-8.2) g/dL Albumin 2.4 L (3.4-5.0) g/dL Urine Urobilinogen (Up TO 0.2) EU/dL Vital Signs Temperature 37.7 C H 07/01/19 08:52 Temperature Source Temporal Artery Scan 07/01/19 08:52 Pulse 84 07/01/19 07:40 Pulse Rhythm Regular 07/01/19 03:55 Pulse 89 06/30/19 14:40 Respiratory Rate 18 04/15/20 07:40 Respiratory Effort Non-Labored 07/01/19 03:55 Respiratory Depth Normal 07/01/19 03:55 Respiratory Pattern Normal 07/01/19 03:55 Blood Pressure 125/74 07/01/19 07:40 Blood Pressure Mean 72 06/30/19 14:06 Blood Pressure Position Supine 06/30/19 11:03 Pulse Oximetry 98 07/01/19 07:40 Oxygen Delivery Method Room Air 07/01/19 07:40 Oxygen Flow Rate 0 07/01/19 07:40 Pain Level 0 07/01/19 07:40 Intake & Output 06/30/19 06/30/19 07/01/19 11:59 23:59 11:59 Intake Total 1090 / 1090 Output Total 600 / 600 400 / 400 Balance 490 / 490 1572.5 / 1572.5 Weight 32.659 kg 32.659 kg Intake: IV 990 / 990 Oral 100 / 100 Output: Urine 600 / 600 400 / 400 Other: Urine Color Yellow Yellow Urine Appearance Clear Clear Voiding Methods Bedside Commode Bedside Commode Laboratory Results WBC 5.86 k/cumm (4.4-10.8) 07/01/19 06:20 RBC 3.38 m/cumm (4.00-5.20) L 07/01/19 06:20 Hgb 10.1 g/dL (12.0-15.5) L D 07/01/19 06:20 Hct 30.2 % (36.0-46.0) L 07/01/19 06:20 MCV 89.3 fL (80-95) 07/01/19 06:20 MCH 29.9 pg (27.0-33.0) 07/01/19 06:20 MCHC 33.4 g/dL (32.0-36.0) 07/01/19 06:20 RDW 24.1 % (11.7-14.6) H 07/01/19 06:20 Plt Count 72 x1000/uL (130-400) L 07/01/19 06:20 MPV fL (8.0-11.0) 07/01/19 06:20 Immature Gran % 0.5 % 04/15/20 06:20 Neutrophils % 67.8 07/01/19 06:20 Lymphocytes % 18.8 07/01/19 06:20 Monocytes % 11.6 07/01/19 06:20 Eosinophils % 1.0 07/01/19 06:20 Basophils % 0.3 07/01/19 06:20 Absolute Neutrophils 3.97 k/cumm (1.2-6.7) 07/01/19 06:20 Absolute Lymphocytes 1.10 k/cumm (1.2-3.4) L 07/01/19 06:20 Absolute Monocytes 0.68 k/cumm (0.11-0.7) 07/01/19 06:20 Absolute Eosinophils 0.06 k/cumm (0.0-0.7) 07/01/19 06: Absolute Basophils 0.02 k/cumm (0.0-0.2) 07/01/19 06:20 Differential Comment Rbc morph reviewed 07/01/19 06:20 RBC Morphology See below 07/01/19 06:20 Polychromasia Present 07/01/19 06:20 Poikilocytosis 2+ 07/01/19 06:20 Anisocytosis 3+ 07/01/19 06:20 Target Cells 2+ 07/01/19 06:20 PT 13.8 sec (9.3-11.0) H 07/01/19 07:05 INR 1.4 (0.9-1.1) H 07/01/19 07:05 Sodium 135 mmol/L (136-145) L 07/01/19 07:05 Potassium 5.1 mmol/L (3.5-5.1) 07/01/19 07:05 Chloride 106 mmol/L (98-107) 07/01/19 07:05 Carbon Dioxide 21.2 mmol/L (21.0-32.0) 07/01/19 07:05 Anion Gap 7.8 mmol/L (3-11) 07/01/19 07:05 BUN 20 mg/dL (7-18) H D 07/01/19 07:05 Creatinine 0.78 mg/dL (0.55-1.02) D 07/01/19 07:05 Estimated GFR/1.73 m2 >= 60.00 (mL/min/1.73m2) 07/01/19 07:05 Glucose 99 mg/dL (74-106) 07/01/19 07:05 Calcium 8.2 mg/dL (8.5-10.1) L 07/01/19 07:05 Magnesium 1.8 mg/dL (1.8-2.4) 07/01/19 07:05 Total Bilirubin 2.2 mg/dL (0.2-1.0) H 07/01/19 07:05 AST 147 U/L (15-37) H 07/01/19 07:05 ALT 68 U/L (14-59) H 07/01/19 07:05 Alkaline Phosphatase 166 U/L (46-116) H 07/01/19 07:05 Ammonia 40 umol/L (11-32) H 06/30/19 11:23 Troponin I < 0.05 ng/Ml (<0.06) 06/30/19 11:23 Total Protein 6.2 g/dL (6.4-8.2) L 07/01/19 07:05 Albumin 2.4 g/dL (3.4-5.0) L 07/01/19 07:05 TSH 0.79 uIU/mL (0.36-3.74) 06/30/19 11:23 Urine Color Yellow (Yellow) 06/30/19 15:20 Urine Clarity Clear (Clear) 06/30/19 15:20 Urine pH 6.5 (5-8) 06/30/19 15:20 Ur Specific [place] 1.020 (1.005-1.025) 06/30/19 15:20 Urine Protein Negative mg/dL (Negative) 06/30/19 15:20 Urine Ketones Negative mg/dL (Negative) 06/30/19 15:20 Urine Blood Negative (Negative) 06/30/19 15:20 Urine Nitrite Negative (Negative) 06/30/19 15:20 Urine Bilirubin Negative (Negative) 06/30/19 15:20 Urine Urobilinogen 1.0 EU/dL (Up TO 0.2) H 06/30/19 15:20 Ur Leukocyte Esterase Negative (Negative) 06/30/19 15:20 Urine Glucose Negative mg/dL (Negative) 06/30/19 15:20
--- NOTE | 2019-07-01 09:24 | PDOC.CMIN ---
- If Service Date Differs Date of service: 07/01/19 Time of Service: 09:24 Care Management Initial Assess REASON FOR HOSPITALIZATION:: Back pain PAST MEDICAL HISTORY/PAST SURGICAL HISTORY:: Medical History : Ascites (Acute). Cirrhosis of liver with ascites (Acute). Cirrhosis of liver with ascites (Acute). Dental caries (Acute). Encephalopathy chronic (Acute). Fractured tooth (Acute). Hep C w/o coma, chronic (Acute). Hepatitis C (Chronic). History of hepatitis B vaccination (Acute). Poor dentition (Acute). Splenic varices (Acute). Varices of other sites (Acute). liver PREVIOUS FUNCTIONAL STATUS/SOCIAL/FAMILY SUPPORTS:: Argenis lives alone in an apartment in [facility]. She has been receiving home health nursing and [employer] TE[employer]. Per HH and EMS her apartment in in deplorable condition and Argenis has not been eating or feeding her cats. Argenis is not willing to accept SNF placement and does not appear to comprehend how seriously her health is being affected. CM will pursue emergency guardianship for Argenis as she does not appear to have the ability to make safe decisions regarding her health and living conditions. CURRENT FUNCTIONAL STATUS:: Argenis was lying in bed when CM met with her. She had just returned from having an MRI and was rambling and jumping from topic to topic without completing a thought or sentence. Argenis spoke about her landlord Srinath and indicated that he was failing to do his job since her apartment was in disrepair. Argenis also talked about past illnesses and hospitalizations but it was impossible to follow her train of thought or understand the sequence of events. She did say she was in pain but would not take morphine. Has patient been provided with information about the portal?: No Did the patient sign up for the portal?: No CODE STATUS:: Full Code INSURANCE COVERAGE / FINANCIAL ISSUES:: Medicare. Medicaid CURRENT HOME/COMMUNITY SERVICES/EQUIPMENT:: nursing and [employer] TE[employer] OFFICER. PRIMARY CARE PHYSICIAN:: Danny Livingston POTENTIAL DISCHARGE NEEDS:: Argenis will likely need placement PATIENT/FAMILY EDUCATION NEEDS:: Discharge plan, limitations, Ask Me Three ANTICIPATED BARRIERS TO DISCHARGE:: Obtaining emergency guardianship and securing placement TRANSPORTATION:: to be determined by final discharge plan PLAN:: Argenis will likely need placement or an increase in services and care in the home. She is currently refusing to consider a SNF and emergency guardianship is being pursued. CM will continue to support patient and her discharge planning needs.
[2019-07-01] MEDS: Normal Saline Flush 10 ML SYR IVP ×2 (10:04→18:12)
--- NOTE | 2019-07-01 11:06 | OT.INNT ---
Date of service: 07/01/19 Time of Service: 11:06 Occupational Therapy Notes 07/01/19 OT consult received and pts chart was reviewed. OT attempted to see pt earlier who was out of room for MRI. OT will attempt consult tomorrow. Honey Laurent OTR/[facility]
[2019-07-01] MEDS: traMADol 50 MG TAB PO (11:39)
--- NOTE | 2019-07-01 13:22 | CHAPLAIN ---
Argenis was in bed when I visited. She spoke to be for about 25 minutes. Much of it was a rambling conversation and I could only understand bits of it. Her father was a WWII vet whom she admired and he was kind to her. Her brother and mother have not been kind to Argenis, she said. She mentioned a daughter who graduated recently, but it was unclear to me where her daughter is. Argenis talked about having four cats. She said her teeth fell out. She told me that her mother does not believe in an afterlife, but Argenis said she does. She was teary at times, telling me she almost once, but I was not clear on what that situation was. she mentioned a fall and that xrays are negative but said that she is in a great deal of pain. She thanked me for listening. It was difficult for me to comment much because I wasn't able to follow her thoughts or stories very well. I will continue to visit.
[2019-07-01] MEDS: Bisacodyl 10 MG SUPP PR (13:24)
[2019-07-01 13:27] VITALS: TEMP 37.2
--- NOTE | 2019-07-01 13:31 | IN_ITS ---
Date of service: 07/01/19 Time of Service: 13:15 PT Notes Visit Reasons: DEYDRATION Inpatient Physical Therapy Evaluation Date: July 01, 2019 Referring Doctor: Klarissa Jha PT Orders: PT CONSULT: Eval and treat Precautions: Standard, Falls Patient Profile/Admitting Diagnosis: Argenis is a 58 year old female admitted with generalized weakness, failing to thrive at home, concern by PCP for electrolyte abnormalities, confusion which may be related to hepatic encephalopathy and back pain. PMHX: Ascites (Acute) Bacteremia (Acute) Cirrhosis of liver with ascites (Acute) 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 COPD (chronic obstructive pulmonary disease) (Chronic) Dental caries (Acute) Emphysema of lung (Acute) Encephalopathy chronic (Acute) Fractured tooth (Acute) Hep C w/o coma, chronic (Acute) Hepatitis C (Chronic) History of hepatitis B vaccination (Acute) Hypertension (Chronic) Nicotine dependence (Acute) Palliative care patient (Acute) Poor dentition (Acute) PTSD (post-traumatic stress disorder) (Acute) Raynaud's disease without gangrene (Acute) Splenic varices (Acute) Varices of other sites (Acute) liver Social History/Home Situation: Argenis prior to admission was living alone in an apartment with her 4 cats in [facility]. She had been receiving home health nursing and [employer]. She notes that she was sharing her meals with her cats. Current Functional Limitations: Back pain limited her functional mobility and gait. Equipment Owned/DME: None Subjective: Argenis reports that she is having a lot of discomfort in her abdomen. She notes of a golf ball size growth on her left sided lower abdomen which she has not noticed before. Objective: General Observation: IV access, patient continues to reposition in supine with HOB elevated drawing her legs into her chest and abdomen secondary to pain. Nursing in room during time of PT consult to give patient suppository. Mental Status: Alert and oriented x3. Pain: 8/10 in her lower abdomen ROM: Right Upper Extremity: Demonstrates WNL AROM of the right UE Left Upper Extremity: Demonstrates WNL AROM of the left UE Right Lower Extremity: Hip flexion 120 degrees, knee flexion 140 degrees, knee extension 0 degrees, WNL ankle DF/PF Left Lower Extremity: Hip flexion 120 degrees, knee flexion 140 degrees, knee extension 0 degrees, WNL ankle DF/PF Strength: Right Upper Extremity: Shoulder flexion 4/5, abduction 4/5, bicep/tricep 5/5. Good functional grasp Left Upper Extremity: Shoulder flexion 4/5, abduction 4/5, bicep/tricep 5/5. Good functional grasp Right Lower Extremity: Unable to access hip flexion, knee extension, knee flexion due to back and abdominal pain. Unable to hold a SLR actively. DF/PF 5/5 Left Lower Extremity: Unable to access hip flexion, knee extension, knee flexion due to back and abdominal pain. Patient able to actively SLR without extension lag. DF/PF 5/5 Sensation: N/T Bed Mobility/Transfers: Patient refused mobility assessment due to back and abdominal pain. Per Nursing patient has been crawling onto the bedside commode. Otherwise has needed assistance with all transfers. Gait: Patient refused mobility assessment due to back and abdominal pain. Balance: Static Sitting: N/T Dynamic Sitting: N/T Static Standing: N/T Dynamic Standing: N/T Special Tests: Mobility Limitations Standardized Measure [facility] AM-PAC 6 clicks Basic Mobility Inpatient Short Form: Raw Score: 12 CMS Score: 68.66% Informed Consent/Education: Patient instructed in purpose of PT consult and plan of care. Assessment: Patient is a 58 year old female referred to physical therapy services with the diagnosis of generalized weakness, failing to thrive at home, concern by PCP for electrolyte abnormalities, confusion which may be related to hepatic encephalopathy and back pain. Limited evaluation today due to level of patients pain. Unable to assess functional transfers and mobility. Patient presents with clinical signs and symptoms consistent with current/admitting diagnoses that have resulted to mobility limitations, gait instability, and generalized weakness as demonstrated by the following impairment level findings: 1. Decreased strength to B LE major muscle groups 2. Impaired sitting/standing balance 3. Impaired activity tolerance Impairments are contributing to the following functional limitations: 1. Increased dependence with transfers 2. Inability to safely ambulate without assistive device and physical assistance 3. Increase completion time for mobility ADL performance 4. Increased fall risk 5. Inability to negotiate steps alone safely Patient is assessed as a Moderate [id number] complexity based on the following: History: As above Examination: As above Presentation: Evolving Decision Making: Moderate Goals: Goals X1 week 1. Supine-Sit independent 2. Sit-Supine independent 3. Sit-Stand independent 4. Stand-Sit independent 5. Bed-Chair independent 6. Chair-Bed independent 7. Independent gait on level surface with use of least restrictive device for at least 300 feet without report of pain nor dyspnea 8. Independent stair negotiation while holding onto bilateral rails for at least 20 steps without report of pain nor dyspnea 9. Independent with home exercise program 10. Good static and dynamic standing balance/tolerance Plan of Care/Treatment Plan: 1-2x/day, 7 days/week x 1 week. Plan of care has been reviewed with the RESERVE OFFICER providing the service under Physical Therapy direction. Initiate Physical Therapy intervention for strengthening, bed mobility, transfers, gait, stairs, balance training, use of assistive device. DISCHARGE RECOMMENDATIONS: Pt would benefit from a nursing home facility placement for continued skilled physical/occupational therapy services for improvements in mobility level, strength, and balance in preparation for a safe discharge to home. TREATMENT CODE/TIME: 69318 x 15 minutes beginning at 13:15 PM Thank you for this referral. Renata Liu, MPT [facility]
--- NOTE | 2019-07-01 14:00 | DI.US_ITS ---
TECHNIQUE: Ultrasound abdomen performed using standard protocol. COMPARISON: No exams were available for comparison FINDINGS: ABDOMINAL AORTA AND IVC: Visualized portions normal caliber. PANCREAS: Normal where visualized. LIVER: The liver has a coarsened echotexture. There is a nodular contour of the liver. The findings are suspicious for hepatic cirrhosis. Hepatopedal flow in the Portal Vein. GALLBLADDER: No evidence of cholelithiasis. No evidence of wall thickening. No pericholecystic fluid identified. There is gallbladder sludge present. BILIARY SYSTEM: Common bile duct measures 3.9 mm. No intrahepatic biliary ductal dilation. BOONE'S SIGN: Negative. KIDNEYS: Kidneys are symmetric in size. No evidence of renal calculi. No evidence of hydronephrosis. No renal mass or cyst identified. SPLEEN: Not enlarged. ASCITES: There is a moderate amount of ascites. IMPRESSION: 1. Findings suggestive of hepatic cirrhosis. 2. Gallbladder sludge. No cholelithiasis or biliary ductal dilatation. 3. Moderate amount of abdominal ascites. DATA REPOSITORY:
--- NOTE | 2019-07-01 14:39 | NS.NUTBLAN_ITS ---
Date of service: 07/01/19 Time of Service: 14:39 Nutritional Consult ASSESSMENT: 58 year old female familiar to facility from previous admissions. PMH: end stage liver dx with ascites, adult failure to thrive, cirrohsis of liver, hepatic encephalopathy, renal failure, compression fracture of lumbar vertebrae, malnutrition/underweight. Argenis has lost 30 lbs in last 8 weeks per medical chart, BMI 13. She was admitted to [facility] in 2019 for SMO then returned home. Labs indicate elevated ammonia, liver enzymes, low albumin. Unclear when most recent paracentesis occurred. Appears severely malnourished with loss of subcutaneous fat and diminished functional status. Reports she received meals on wheels when home, and ate once daily- often sharing meal with her cats. State applying for guardianship due to poor living conditions prior to hospitalization. Following Regular Diet with adequate intake (50%). Recommend Low salt diet to minimize fluid accumulation. At high risk for refeeding syndrome in view of malnourished state. NUTRITIONAL DIAGNOSIS: Severe malnutritionin context of chronic illness and environmental circumstances Liver and Renal Failure INTERVENTION: Low salt diet MONITORING AND EVALUATION: weight, po intake, labs Time Spent in Nutritional Counseling and Treatment: 30 min spent face to face
[2019-07-01] MEDS: Spironolactone 50 MG TAB PO (15:24)
[2019-07-01] MEDS: Furosemide 20 MG TAB PO (15:25)
--- NOTE | 2019-07-01 16:03 | PHA.REVIEW ---
Pharmacy Admission Review - Admission Clinical Review (Last Reviewed 06/30/19 @ 11:22 by Kimo Salas MD) Compression fracture of lumbar vertebra (Acute) Acute kidney injury (Acute) Back pain at L4-L5 level (Acute) Adult failure to thrive (Acute) Cirrhosis of liver (Acute) Generalized weakness (Acute) Acute hepatic encephalopathy (Acute) Discharge planning issues (Acute) DVT prophylaxis (Acute) sulfamethoxazole [From Bactrim] Allergy (Mild, Verified 06/30/19 11:12) Diarrhea trimethoprim [From Bactrim] Allergy (Mild, Verified 06/30/19 11:12) Diarrhea Height 5 ft 1 in Weight 32.659 kg - Renal Dosing Renal Dosing: BUN 20 mg/dL (7-18) H D 07/01/19 07:05 Creatinine 0.78 mg/dL (0.55-1.02) D 07/01/19 07:05 Medications needing adjustments: Reviewed (CrCl ~39ml/min) - Anticoagulation Anticoagulation: Hgb 10.1 g/dL (12.0-15.5) L D 07/01/19 06:20 Hct 30.2 % (36.0-46.0) L 07/01/19 06:20 Plt Count 72 x1000/uL (130-400) L 07/01/19 06:20 INR 1.4 (0.9-1.1) H 07/01/19 07:05 Creatinine 0.78 mg/dL (0.55-1.02) D 07/01/19 07:05 DVT Prohphylaxis: N/A (TEDs) - Opiate Usage Evaluate Pain Scale/Pains Meds: Reviewed Scheduled Bowel Reg ordered if on Opiates?: Yes (PRN) - Relevant Labs Sodium 135 mmol/L (136-145) L 07/01/19 07:05 Potassium 5.1 mmol/L (3.5-5.1) 07/01/19 07:05 Chloride 106 mmol/L (98-107) 07/01/19 07:05 Magnesium 1.8 mg/dL (1.8-2.4) 07/01/19 07:05 Electrolytes, C-Reactive P, ESR: Reviewed (Watch K+ (on spironolactone)) - DM Control DM Control: Glucose 99 mg/dL (74-106) 07/01/19 07:05 Insulin Dosing: N/A - Heart Failure/MO Heart Failure/MO: Troponin I < 0.05 ng/Ml (<0.06) 06/30/19 11:23 EF%, ROSEMARIE's, B-Blockers, Diuretics: Reviewed (Furosemide 20mg BID, Clonidine 0.1mg BID,) - BP Control BP Control: Blood Pressure 125/74 If elevated: N/A - Qtc Review If Elevated: Reviewed - IV to PO Switch IV Medications: Reviewed - Home Meds Home Med List reviewed: Reviewed - Current meds Current Medication Order Review: Reviewed - Comments Comments/Follow Ups: Fever over night -- concern for SBP, ascites. If cannot rule out fever source may need to do COVID swab. MRI today
[2019-07-01 16:07] VITALS: BP 135/77; PULSE 99; RESP 19; TEMP 36.9; O2SAT 99
[2019-07-01] MEDS: cefTRIAXone 1 GM/50 ML BAG IVPB (18:12)
--- NOTE | 2019-07-01 18:47 | W.PALLCONSUL ---
Date of service: 07/01/19 Time of Service: 18:48 History of Present Illness History of Present Illness Chief Complaint: Back pain Narrative: Argenis Jefferson is a pleasant 58 year old female with a past medical history significant for hepatitis C, cirrhosis with ascites, acute hepatic encephalopathy, former alcohol abuse, PTSD, tobacco abuse, COPD, HTN, currently admitted to the inpatient unit at [facility] with back pain and found to have acute compression fracutres at L3, L4 and L5 on imaging. She has been encephalopathic and was difficult to maintain a conversation with. She reports back pain and states she has not been taking pain medications although she has tramadol ordered. She states that she has not been able to rest for 10 minutes today. She goes off on tangents and looses track of the conversation easily. She endorses weight loss, she currently weighs about 72 pounds, this is down from 116 pounds during her last hospital stay in 04/2019 (2 months ago). At the time of her admission, she was found to be covered in urine and feces and her apartment was unkempt with cat urine and feces scattered about the apartment (according to reports). She has 4 cats and has been sharing her meals on wheels with her cats. It has been determined, at this time, that she is not capable of caring for herself and emergency guardianship is being sought. An attempt was made to discuss goals of care. She reports that she moved to [place] 5 years ago from [place]. When questioned about family, she states, I just cannot go there right now. When questioned who she has for support, she states that she has been connected with Hospice and names Argenis Houston as her support person. She is not currently on hospice, however, she likely sees Argenis as a social sciences instructor for home health. In an attempt to further discuss hospice as an option, we briefly talked about her CODE status. She is currently a FULL code. She could not engage in a conversation about what that means and stated, I don't even want to go there right now. She then continued to talk about several different topics, changing topics frequently. Assessment and Plan Assessment and plan (1) Palliative care patient: Status: Acute Assessment and plan: Argenis was agreeable to palliative care but was not able to engage completely in the visit today. She has acute hepatic encephalopathy. Her mental status has improved since admission. She remains a FULL code, she will benefit from ongoing discussion of code status. She could be considered for hospice if she chooses to go in that direction, however, she is not going to be able to go home and does not have support people in her life to care for her. She has had a significant weight loss over the last 2 months, she is down to 72 pounds at present. This is her second hospital admission in 2 months, during the last admission, she was transferred to [facility] for higher level of care. She has visited the [facility] ER 4 times over the last 3 months. Will follow up in 2 days to further discuss goals of care. Review of Systems Narrative: Reports that she has not been able to get any sleep or rest since she has been in the hospital. Had low grade fever 38.3 this morning, down to 36.9 this afternoon. Her biggest complaint is back pain, she cannot get comfortable. She denies CP, pressure, palpitations, SOB, coughing or wheezing. She feels bloated after eating. Had a bowel movement after getting suppository, she reports this is the first BM in 2 weeks. Denies dysuia. [facility] Medical History Ascites (Acute) Bacteremia (Acute) Cirrhosis of liver with ascites (Acute) 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 COPD (chronic obstructive pulmonary disease) (Chronic) Dental caries (Acute) Emphysema of lung (Acute) Encephalopathy chronic (Acute) Fractured tooth (Acute) Hep C w/o coma, chronic (Acute) Hepatitis C (Chronic) History of hepatitis B vaccination (Acute) Hypertension (Chronic) Nicotine dependence (Acute) Palliative care patient (Acute) Poor dentition (Acute) PTSD (post-traumatic stress disorder) (Acute) Raynaud's disease without gangrene (Acute) Splenic varices (Acute) Varices of other sites (Acute) liver Social History Smoking/Tobacco Use Status: Current every day Tobacco Type: cigarettes Alcohol Intake: former Drug use: Never Substance use type: does not use Do you feel safe at home: Yes Do you feel safe in your relationship?: Yes Additional Social history: Living apartment on [address] Patient describes concern for lead and mold, but it is unclear if this is an ongoing concern. She gives a grand social history regarding status of her past and her family, but it is hard to interpret the veracity of this history. Exam Narrative Exam Narrative: General: Very thin, middle aged female, laying sideways in bed, her room is dark with shades closed. HEENT: normocephalic, atraumatic, pupils equal and round, EOMI, poor dentition, MMM. Neck: supple, no JVD. Cardiovascular: Heart has regular rate and rhythm, no murmur appreciated. Respiratory: Respirations even and unlabored, lung sounds clear bilaterally. GI: Abdomen round, distended, slightly firm, +bowel sounds, nontender on gentle palpation. Extremities: thin, muscle atrophy, no edema. Results Last Vital Signs Temp 36.9 C 07/01/19 16:07 Pulse 99 H 07/01/19 16:07 Resp 19 07/01/19 16:07 BP 135/77 07/01/19 16:07 Pulse Ox 99 07/01/19 16:07 Labs Result diagrams: 07/02/19 06:30 07/02/19 06:30 Labs: Laboratory Results - last 24 hr 07/01/19 07/01/19 07/01/19 06:20 07:05 07:05 WBC 5.86 RBC 3.38 L Hgb 10.1 L D Hct 30.2 L MCV 89.3 MCH 29.9 MCHC 33.4 RDW 24.1 H Plt Count 72 L MPV Immature Gran % 0.5 Neutrophils % 67.8 Lymphocytes % 18.8 Monocytes % 11.6 Eosinophils % 1.0 Basophils % 0.3 Absolute Neutrophils 3.97 Absolute Lymphocytes 1.10 L Absolute Monocytes 0.68 Absolute Eosinophils 0.06 Absolute Basophils 0.02 Differential Comment Rbc morph reviewed RBC Morphology See below Polychromasia Present Poikilocytosis 2+ Anisocytosis 3+ Target Cells 2+ PT 13.8 H INR 1.4 H Sodium 135 L Potassium 5.1 Chloride 106 Carbon Dioxide 21.2 Anion Gap 7.8 BUN 20 H D Creatinine 0.78 D Estimated GFR/1.73 m2 >= 60.00 Glucose 99 Calcium 8.2 L Magnesium 1.8 Total Bilirubin 2.2 H AST 147 H ALT 68 H Alkaline Phosphatase 166 H Total Protein 6.2 L Albumin 2.4 L
[2019-07-01 22:35] VITALS: BP 124/69; PULSE 89; RESP 18; TEMP 37.1; O2SAT 97
[2019-07-02 06:43] LABS: Abs Immature Grans 0.02 k/cumm (0.0-0.09); Absolute Basophil Count 0.04 k/cumm (0.0-0.2); Absolute Eosinophil Count 0.15 k/cumm (0.0-0.7); Absolute Lymphocyte Count 1.52 k/cumm (1.2-3.4); Absolute Monocyte Count 0.63 k/cumm (0.11-0.7); Basophils % 0.6; Eosinophils % 2.4; HCT 30.6 % (36.0-46.0); HGB 10.1 g/dL (12.0-15.5); Immature Grans % 0.3 %; Lymphocytes % 24.7; Mean Corpuscular Hemoglobin 29.5 pg (27.0-33.0); Mean Corpuscular Volume 89.5 fL (80-95); Monocytes % 10.2; Neutrophils % 61.8; Platelet Count 69 x1000/uL (130-400); RBC 3.42 m/cumm (4.00-5.20); RBC Distribution Width 23.8 % (11.7-14.6); White Blood Cell Count 6.16 k/cumm (4.4-10.8)
[2019-07-02 07:00] LABS: Ammonia 11 umol/L (11-32)
[2019-07-02 07:01] LABS: ALT 71 U/L (14-59); AST 167 U/L (15-37); Albumin 2.3 g/dL (3.4-5.0); Alkaline Phosphatase 168 U/L (46-116); Anion Gap 5.7 mmol/L (3-11); BUN 12 mg/dL (7-18); Bilirubin, Total 2.1 mg/dL (0.2-1.0); CO2 23.3 mmol/L (21.0-32.0); CREATININE 0.67 mg/dL (0.55-1.02); Calcium 8.4 mg/dL (8.5-10.1); Chloride 103 mmol/L (98-107); Glucose 110 mg/dL (74-106); Potassium 4.9 mmol/L (3.5-5.1); Sodium 132 mmol/L (136-145); Total Protein 6.1 g/dL (6.4-8.2)
[2019-07-02 08:00] VITALS: BP 132/84; PULSE 81; RESP 18; TEMP 37.1; O2SAT 99
[2019-07-02] MEDS: cloNIDine 0.1 MG TAB PO ×2 (08:17→20:13)
[2019-07-02] MEDS: Spironolactone 50 MG TAB PO ×2 (08:17→16:03)
[2019-07-02] MEDS: Furosemide 20 MG TAB PO ×2 (08:18→16:03)
[2019-07-02] MEDS: Lactulose 20 GM/30 ML CUP PO ×2 (08:18→20:13)
[2019-07-02] MEDS: Lidocaine 5% Patch 1 PATCH TP (10:38)
[2019-07-02 11:16] LABS: Vitamin D 25 Total 19.1 ng/ml (30-100)
--- NOTE | 2019-07-02 11:26 | OT.INIE ---
Occupational Therapy Notes Inpatient Occupational Therapy Evaluation Date: 07/02/19 Referring Doctor:Klarissa Jha NP OT Orders: Non Urgent Precautions: Fall, Standard, FULL PATIENT PROFILE/ADMITTING DIAGNOSIS: Pt is a 58 year old female who presented to the ER on 06/30/19 for clinical impression of Adult failure to thrive, Cirrhosis of liver, Generalized weakness, Acute hepatic encephalopathy. Pt was admitted to the [facility] S[facility] floor and is currently being seen for (1) Fever, (2) Cirrhosis of liver with ascites, (3) Compression fracture of lumbar vertebra, (4) Acute hepatic encephalopathy, (5) Adult failure to thrive,(6) DVT prophylaxis. Pt was seen for OT consultation for assessment of pts current functional abilities and (I) in self care activities with discharge planning recommendation. Past Medical History- Medical History Ascites (Acute) Cirrhosis of liver with ascites (Acute) Cirrhosis of liver with ascites (Acute) Dental caries (Acute) Encephalopathy chronic (Acute) Fractured tooth (Acute) Hep C w/o coma, chronic (Acute) Hepatitis C (Chronic) History of hepatitis B vaccination (Acute) Poor dentition (Acute) Splenic varices (Acute) Varices of other sites (Acute) liver Social History/Home Situation: Pt reports that she lives in an apartment with her four cats. She does not utilize an (A) device and reports that her landlord Srinath who she mentions multiple times throughout session (A) when she is in the hospital but is not wanting him in her apartment at this time. She states that she came to [place] years ago to take care of her Ex's father who . She went to return home when her brother and mother had sold all of her belongings and she states that she had no where to go and stayed in [place]. She reports that she is tired and that she has no money to pay for food. She was getting meals on Wheels which was 1-2 meals per day. She states that she did not have money for her cats food so she would split her meals between her and the cats so that they could eat too. When asked about shower and dressing she does report that she is (I) at baseline. She was receiving services at one point. She does not go grocery shopping she reports because she has minimal money. She states My apartment is full of black mold and lead. She was unable to provide information on her shower set up or home as this was very emotional for her. Equipment owned/DME: Unable to assess. SUBJECTIVE: Pt was sitting in bed attempting to get washed up when OT arrived. She was anxious and emotional. She was very talkative and kept telling OT that she was very tired and felt run down. She had tears in her eyes talking about her cats. This is an emotional stress on her. She reports that her pain is very severe and that if someone could just fix her hip she would feel better. She notes that her life has not been an easy road and she is stressed to be in the hospital and she is stressed that she is so skinny. OBJECTIVE: General Observation: IV (R) UE not connected, she is a frail woman who exhibits pain behaviors with any functional ROM. She is emotional and anxious. Mental Status: Alert to name and place Pain: c/o pain in hips/back and legs ROM: RUE AROM WFL L UE AROM WFL STRENGTH: RUE Shoulder flexion 3/5, bicep 4/5, tricep 4/5, spa manager is strong and symmetrical LUE Shoulder flexion 3/5, bicep 3/5, tricep 4/5, spa manager is strong and symmetrical FUNCTIONAL MOBILITY/ADLS: Transfers Supine-sit (I) with pain behaviors Sit-supine (I) with pain behaviors BATHING Sitting in bed with max (A) set up Bathing UE (I) face, (B) UE, abdomen, max (A) back and mod vc to keep pt on track with ADL routine Bathing LE (I) Erin area and (B) LE with mod vc to keep pt on track with ADL routine DRESSING Sitting in bed Dressing UE (I) don and doffing [facility] gown Dressing LE (I) don and doffing (B) socks with min VC GROOMING NT TOILETING NT EATING Pt had food on her tray in her room and reports that she is too exhausted to eat at this time. She states that prepping her food takes everything out of her. BALANCE: Static sitting Good Dynamic Sitting Fair-Good SPECIAL TESTS: Daily Activity Limitations Standardized Measure [facility] AM -PAC ?6 clicks? Daily Activity Inpatient Short Form: Raw score: 18 INFORMED CONSENT/EDUCATION: Pt instructed in purpose of OT Consult and plan of care. ASSESSMENT: Patient is a 58-year-old female referred to occupational therapy services with diagnosis of (1) Fever, (2) Cirrhosis of liver with ascites, (3) Compression fracture of lumbar vertebra, (4) Acute hepatic encephalopathy, (5) Adult failure to thrive,(6) DVT prophylaxis. Patient presents with clinical signs and symptoms consistent with dx, as demonstrated by the following impairment level findings: Pain in low back, (B) hips and (B) LE, decreased functional activity tolerance, decreased functional mobility, decreased functional (I) in ADL/IADLs, Anxiety with high limiting factor in performance of ADLs, Failure to Thrive adult in home setting, decreased ability to perform standing ADLs, decreased social supports limiting pts success to return to home environment. Impairments are contributing to the following functional limitations: Unable to (I) perform bathing, grooming, toileting routine without increased pain, decreased functional activity tolerance, decreased functional mobility required for performance of ADLs/IADLs. AMPAC score 18 Patient is assessed as a Moderate 42878 complexity based on the following: History: See Above Examination: See Above Presentation: Evolving Decision Making: AMPAC score 18 GOALS Goals x1 week 1. Transfers with LRD (S) 2. Grooming- pt will be able to stand at the sink with LRD and perform teeth brushing with ideal technique 3. Bathing- Sitting on side of bed pt will be (I) with bathing routine 4. Toileting- on toilet (I) 5. Eating- Sitting on side of bed (I) PLAN OF CARE/TREATMENT PLAN: 1x/day, 5 days/ week x 1week Initiate Occupational Therapy Services for bathing, dressing, grooming, toileting, eating, transfer training. DISCHARGE RECOMMENDATIONS SNF when medically cleared per MD. If pt refuses SNF, OT does feel that pt is high risk for readmission and would need HH services in order to return into her home environment at this time. TREATMENT TIME/MINUTES/CODES [id number], [id number], 37 minutes (10:50) [facility]
--- NOTE | 2019-07-02 13:06 | PDOC.CMPRO ---
- If Service Date Differs Date of service: 07/02/19 Time of Service: 13:06 Care Management Progress Note S/O:Argenis was sitting up in bed when CM came to meet with her. She stated that she is having a lot of pain in her left hip and thigh. A Lidocaine patch has been applied but she states it is not helping. She uses [facility] at home which she states relieves her pain. Argenis was more coherent today and was able to complete some thoughts and sentences. She is aware that placement in a skilled facility has been recommended by her provider and others but feels she can return home if her landlord gets her a new stove and fixes the things that are broken. She also shared that she is concerned about the significant weight loss she has experienced in the past few months. A: Argenis is a 58 year old woman admitted to [facility] on 06/30/19 with dehydration P: Argenis will likely need placement or an increase in services and care in the home. She is currently refusing to consider a SNF and emergency guardianship is being pursued. CM will continue to support patient and her discharge planning needs.
--- NOTE | 2019-07-02 14:21 | PGE_ITS ---
Date of Service Date of service: 07/02/19 Time of Service: 14:21 Assessment and Plan Assessment and plan (1) Fever: Status: Acute Assessment and plan: no further fevers, cultures pending. is on ceftriaxone 1 gm daily day 2 to treat possible SBP, (2) Cirrhosis of liver with ascites: Status: Acute Assessment and plan: moderate ascities by ultrasound. abdominal pain and distention improved after having a large BM today. continue lactulose, will consult surgery for paracentesis if ongoing fevers or suspicion of SBP. (3) Compression fracture of lumbar vertebra: Status: Acute Assessment and plan: will continue with pain management. add benguay today and tramadol. MRI shows Acute compression fractures of L3, L4 and L5 (4) Acute hepatic encephalopathy: Status: Acute Assessment and plan: continue safety precautions. continue lactulose, ammonia level normalized (5) Adult failure to thrive: Status: Acute Assessment and plan: case management following. palliative care consult placed, nutrition consult placed (6) DVT prophylaxis: Status: Acute Assessment and plan: teds, scds, no chemical in setting of liver dysfunction (7) Discharge planning issues: Status: Acute Assessment and plan: will likely need placement. guardianship paperwork pending. Subjective Subjective Patient reports: no new complaints, tolerating liquids well and no bowel movement Interval history since last seen: patient with left groin swelling and tenderness. soft and easily reducible. no fevers, has no new c/o, taking some PO intake. Exam Const General: disheveled, frail appearing and ill appearing chronically Nutritional Appearance: cachectic and malnourished [facility] Mouth: moist mucous membranes abnormal Resp Effort & Inspection: normal respiratory effort Auscultation: clear to auscultation bilaterally Cardio Rate: regular rate Rhythm: regular rhythm GI Inspection: normal to inspection Palpation: firm, hernia other (left inguinal, soft, reducible. ) and ascites Skin General skin exam: no rashes or lesions noted Extrem General: normal to inspection and full ROM Objective Objective Clinical Data: Abnormal lab results 07/01/19 07/02/19 07/02/19 Range/Units 07:05 06:30 06:30 RBC 3.42 L (4.00-5.20) m/cumm Hgb 10.1 L (12.0-15.5) g/dL Hct 30.6 L (36.0-46.0) % RDW 23.8 H (11.7-14.6) % Plt Count 69 L (130-400) x1000/uL Sodium 132 L (136-145) mmol/L Glucose 110 H (74-106) mg/dL Calcium 8.4 L (8.5-10.1) mg/dL Total Bilirubin 2.1 H (0.2-1.0) mg/dL AST 167 H (15-37) U/L ALT 71 H (14-59) U/L Alkaline Phosphatase 168 H (46-116) U/L Total Protein 6.1 L (6.4-8.2) g/dL Albumin 2.3 L (3.4-5.0) g/dL 25-OH Vitamin D Total 19.1 L (30-100) ng/ml Vital Signs Temperature 37.1 C 07/02/19 08:00 Temperature Source Temporal Artery Scan 07/02/19 08:00 Pulse 81 07/02/19 08:00 Pulse Rhythm Regular 07/02/19 08:20 Pulse 89 06/30/19 14:40 Respiratory Rate 18 07/02/19 08:00 Respiratory Effort Non-Labored 07/02/19 08:20 Respiratory Depth Normal 07/02/19 08:20 Respiratory Pattern Normal 07/02/19 08:20 Blood Pressure 132/84 07/02/19 08:00 Blood Pressure Mean 72 06/30/19 14:06 Blood Pressure Position Supine 06/30/19 11:03 Pulse Oximetry 99 07/02/19 08:00 Oxygen Delivery Method Room Air 07/02/19 08:00 Oxygen Flow Rate 0 07/02/19 08:00 Pain Level 4 07/01/19 22:35 Intake & Output 07/01/19 07/02/19 07/02/19 23:59 11:59 23:59 Intake Total 300 / 2892.5 Output Total 300 / 300 Balance 300 / 2492.5 -300 / -300 Intake: Oral 300 / 550 Output: Urine 300 / 300 Other: Urine Color Light [place] Straw Urine Appearance Clear Clear Urine Odor Strong Strong Stool Size Copious Stool Characteristics Soft Formed Brown Voiding Methods Bedside Commode Bedside Commode Laboratory Results WBC 6.16 k/cumm (4.4-10.8) 07/02/19 06:30 RBC 3.42 m/cumm (4.00-5.20) L 07/02/19 06:30 Hgb 10.1 g/dL (12.0-15.5) L 07/02/19 06:30 Hct 30.6 % (36.0-46.0) L 07/02/19 06:30 MCV 89.5 fL (80-95) 07/02/19 06:30 MCH 29.5 pg (27.0-33.0) 07/02/19 06:30 MCHC 33.0 g/dL (32.0-36.0) 07/02/19 06:30 RDW 23.8 % (11.7-14.6) H 07/02/19 06:30 Plt Count 69 x1000/uL (130-400) L 07/02/19 06:30 MPV fL (8.0-11.0) 07/02/19 06:30 Immature Gran % 0.3 % 07/02/19 06:30 Neutrophils % 61.8 07/02/19 06:30 Lymphocytes % 24.7 07/02/19 06:30 Monocytes % 10.2 07/02/19 06:30 Eosinophils % 2.4 07/02/19 06:30 Basophils % 0.6 07/02/19 06:30 Absolute Neutrophils 3.80 k/cumm (1.2-6.7) 07/02/19 06:30 Absolute Lymphocytes 1.52 k/cumm (1.2-3.4) 07/02/19 06:30 Absolute Monocytes 0.63 k/cumm (0.11-0.7) 07/02/19 06:30 Absolute Eosinophils 0.15 k/cumm (0.0-0.7) 07/02/19 06:30 Absolute Basophils 0.04 k/cumm (0.0-0.2) 07/02/19 06:30 Differential Comment Rbc morph reviewed 07/01/19 06:20 RBC Morphology See below 07/01/19 06:20 Polychromasia Present 07/01/19 06:20 Poikilocytosis 2+ 07/01/19 06:20 Anisocytosis 3+ 07/01/19 06:20 Target Cells 2+ 07/01/19 06:20 PT 13.8 sec (9.3-11.0) H 07/01/19 07:05 INR 1.4 (0.9-1.1) H 07/01/19 07:05 Sodium 132 mmol/L (136-145) L 07/02/19 06:30 Potassium 4.9 mmol/L (3.5-5.1) 07/02/19 06:30 Chloride 103 mmol/L (98-107) 07/02/19 06:30 Carbon Dioxide 23.3 mmol/L (21.0-32.0) 07/02/19 06:30 Anion Gap 5.7 mmol/L (3-11) 07/02/19 06:30 BUN 12 mg/dL (7-18) D 07/02/19 06:30 Creatinine 0.67 mg/dL (0.55-1.02) 07/02/19 06:30 Estimated GFR/1.73 m2 >= 60.00 (mL/min/1.73m2) 07/02/19 06:30 Glucose 110 mg/dL (74-106) H 07/02/19 06:30 Calcium 8.4 mg/dL (8.5-10.1) L 07/02/19 06:30 Magnesium 1.8 mg/dL (1.8-2.4) 07/01/19 07:05 Total Bilirubin 2.1 mg/dL (0.2-1.0) H 07/02/19 06:30 AST 167 U/L (15-37) H 07/02/19 06:30 ALT 71 U/L (14-59) H 07/02/19 06:30 Alkaline Phosphatase 168 U/L (46-116) H 07/02/19 06:30 Ammonia 11 umol/L (11-32) 07/02/19 06:30 Troponin I < 0.05 ng/Ml (<0.06) 06/30/19 11:23 Total Protein 6.1 g/dL (6.4-8.2) L 07/02/19 06:30 Albumin 2.3 g/dL (3.4-5.0) L 07/02/19 06:30 25-OH Vitamin D Total 19.1 ng/ml (30-100) L 07/01/19 07:05 TSH 0.79 uIU/mL (0.36-3.74) 06/30/19 11:23 Urine Color Yellow (Yellow) 06/30/19 15:20 Urine Clarity Clear (Clear) 06/30/19 15:20 Urine pH 6.5 (5-8) 06/30/19 15:20 Ur Specific [place] 1.020 (1.005-1.025) 06/30/19 15:20 Urine Protein Negative mg/dL (Negative) 06/30/19 15:20 Urine Ketones Negative mg/dL (Negative) 06/30/19 15:20 Urine Blood Negative (Negative) 06/30/19 15:20 Urine Nitrite Negative (Negative) 06/30/19 15:20 Urine Bilirubin Negative (Negative) 06/30/19 15:20 Urine Urobilinogen 1.0 EU/dL (Up TO 0.2) H 06/30/19 15:20 Ur Leukocyte Esterase Negative (Negative) 06/30/19 15:20 Urine Glucose Negative mg/dL (Negative) 06/30/19 15:20
--- NOTE | 2019-07-02 15:17 | W.NUTCONSULT ---
Date of service: 07/02/19 Time of Service: 15:18 Nutritional Consult ASSESSMENT: 58 y/o F w/ hx hepatic encephalopathy,cirrhosis, malnutrition. Intake at breakfast meal 100% per documentation. Nursing reports good appetite and that she enjoys snacks and sweets between meals. She is confused about Low Na diet. Noted Na 135 (L) on 06/30. Explained to her that added soduim in her diet will exacerbate hyponatremia r/t cirrhosis and hx acites because it will cause her to retain more water. Has had hx weight loss some of which is due to hx diuresis r/t ascites. She is currently 32.6kg ( 68.2% IBW) w/ BMI 13.6 indicating severe malnutrition. CDM and RD collaborated to recommend Ensure 237 ml BID @ 10a + 2p to help with weight gain and nutrient density. Labs and meds reviewed. Patient has ABN LFT's, Total Pro, Alb. Noted: Patient is on dextroamphetamine which may increase BMR leading to further weight loss. Enc intake as toni. Monitor weights. NUTRITIONAL DIAGNOSIS: Malnutrition INTERVENTION: Ensure 237 ml BID @ 10a+2p, Educated on and benefits of Low Na diet compliance MONITORING AND EVALUATION: monitor weights, PO intake, monitor % consumed supplement Time Spent in Nutritional Counseling and Treatment: 10 minutes
--- NOTE | 2019-07-02 15:32 | CHAPLAIN ---
After a long conversation with Argenis yesterday, this afternoon, she said she wanted to have her soup and crackers and not talk. It was about 2 pm when I visited but Argenis said she was just getting to have her lunch. I will visit again tomorrow.
[2019-07-02 15:47] VITALS: BP 134/76; PULSE 100; RESP 17; TEMP 36.7; O2SAT 99
--- NOTE | 2019-07-02 16:50 | PT.INNT ---
Date of service: 07/02/19 Time of Service: 16:50 PT Notes Visit Reasons: DEYDRATION Attempted twice today to initiate session with patient but did not want to engage. She states she has a lot going on and that she has not rested since she came in. Will try again tomorrow and will reassess appropriateness of patient for continued skilled PT.
[2019-07-02] MEDS: cefTRIAXone 1 GM/50 ML BAG IVPB (17:42)
[2019-07-02] MEDS: Normal Saline Flush 10 ML SYR IVP (17:42)
[2019-07-02] MEDS: Bisacodyl 10 MG SUPP PR (17:49)
[2019-07-02 23:52] VITALS: BP 137/80; PULSE 90; RESP 22; TEMP 37.2; O2SAT 97
[2019-07-03 07:38] VITALS: BP 129/73; PULSE 92; RESP 16; TEMP 36.7; O2SAT 98
[2019-07-03] MEDS: Lactulose 20 GM/30 ML CUP PO ×3 (08:15→20:09)
[2019-07-03] MEDS: cloNIDine 0.1 MG TAB PO ×2 (08:16→20:14)
[2019-07-03] MEDS: Furosemide 20 MG TAB PO ×2 (08:16→15:40)
[2019-07-03] MEDS: Spironolactone 50 MG TAB PO ×2 (08:16→15:40)
--- NOTE | 2019-07-03 10:08 | OT.INNT ---
Date of service: 07/03/19 Time of Service: 09:40 Occupational Therapy Notes 07/03/19 OT attempted to see pt for OT services and it was recommended per Nursing to hold on pt at this time as pt has requested no one in her room. OT will attempt to resume Skilled OT services on Saturday. Honey Laurent OTR/[facility]
--- NOTE | 2019-07-03 11:39 | PGE_ITS ---
Date of Service Date of service: 07/03/19 Time of Service: 11:40 Assessment and Plan Assessment and plan (1) Fever: Status: Acute Assessment and plan: no further fevers, cultures pending. is on ceftriaxone 1 gm daily day 3/ to treat possible SBP, (2) Compression fracture of lumbar vertebra: Status: Acute Assessment and plan: MRI shows Acute compression fractures of L3, L4 and L5. will continue to offer pain management, she has been refusing everything except topical. continue benguay and lidocaine patch, prn tramadol if needed. . (3) Adult failure to thrive: Status: Acute Assessment and plan: case management following. palliative care consult placed, nutrition consult placed (4) Cirrhosis of liver: Status: Acute Assessment and plan: moderate ascities by ultrasound. abdominal pain and distention improved after having a large BM today. continue lactulose, follow liver functions, avoid hepatotoxic drugs (5) Generalized weakness: Status: Acute Assessment and plan: PT, fall precautions (6) Palliative care patient: Status: Acute Assessment and plan: consult today, (7) DVT prophylaxis: Status: Acute Assessment and plan: teds, scds, no chemical in setting of liver dysfunction (8) Discharge planning issues: Status: Acute Assessment and plan: will likely need placement. guardianship paperwork pending. Subjective Subjective Patient reports: still having pain Interval history since last seen: hemdynamically stable with no fevers. c/o back, abdominal pain but refuses to take pain medication. no BM overnight. remains disorganized. taking minimal PO intake Exam Const General: anxious, disheveled, frail appearing and ill appearing chronically Nutritional Appearance: cachectic and malnourished Orientation: alert, awake and confused [facility] Head: normal to inspection, normocephalic and atraumatic Mouth: oral mucosa abnormal (dry) Resp Effort & Inspection: normal respiratory effort Auscultation: diminished lung sounds Cardio Rate: regular rate Rhythm: regular rhythm GI Inspection: distended Palpation: firm, no guarding, tender (minimal, improved after BM) and ascites Skin General skin exam: no rashes or lesions noted Psych Appearance: well kempt and disheveled Mental Status: other (disorganzed) Speech and Movement: pressured speech and restless Mood: anxious mood and other (disorganzed) Affect: anxious affect Attitude: guarded Thought Process: flight of ideas and perseverating Insight: poor Judgment: poor Objective Objective Clinical Data: Vital Signs Temperature 36.7 C 07/03/19 07:38 Temperature Source Temporal Artery Scan 07/03/19 07:38 Pulse 92 H 07/03/19 07:38 Pulse Rhythm Regular 07/03/19 11:18 Pulse 89 06/30/19 14:40 Respiratory Rate 16 07/03/19 07:38 Respiratory Effort Non-Labored 07/03/19 11:18 Respiratory Depth Normal 07/03/19 11:18 Respiratory Pattern Normal 07/03/19 11:18 Blood Pressure 129/73 07/03/19 07:38 Blood Pressure Mean 72 06/30/19 14:06 Blood Pressure Position Supine 06/30/19 11:03 Pulse Oximetry 98 07/03/19 07:38 Oxygen Delivery Method Room Air 07/03/19 07:38 Oxygen Flow Rate 0 07/03/19 07:38 Pain Level 10 07/03/19 07:38 Intake & Output 07/02/19 07/02/19 07/03/19 11:59 23:59 11:59 Intake Total 300 / 650 350 / 650 510 / 510 Output Total 300 / 400 100 / 400 Balance 0 / 250 250 / 250 510 / 510 Intake: IV 10 Oral 300 / 650 350 / 650 500 / 500 Output: Urine 300 / 400 100 / 400 Other: Urine Color Straw Yellow Yellow Urine Appearance Clear Clear Clear Urine Odor Strong Normal None Stool Size Copious Stool Characteristics Soft Brown Voiding Methods Bedside Commode Bedside Commode Bedside Commode Laboratory Results WBC 6.16 k/cumm (4.4-10.8) 07/02/19 06:30 RBC 3.42 m/cumm (4.00-5.20) L 07/02/19 06:30 Hgb 10.1 g/dL (12.0-15.5) L 07/02/19 06:30 Hct 30.6 % (36.0-46.0) L 07/02/19 06:30 MCV 89.5 fL (80-95) 07/02/19 06:30 MCH 29.5 pg (27.0-33.0) 07/02/19 06:30 MCHC 33.0 g/dL (32.0-36.0) 07/02/19 06:30 RDW 23.8 % (11.7-14.6) H 07/02/19 06:30 Plt Count 69 x1000/uL (130-400) L 07/02/19 06:30 MPV fL (8.0-11.0) 07/02/19 06:30 Immature Gran % 0.3 % 07/02/19 06:30 Neutrophils % 61.8 07/02/19 06:30 Lymphocytes % 24.7 07/02/19 06:30 Monocytes % 10.2 07/02/19 06:30 Eosinophils % 2.4 07/02/19 06:30 Basophils % 0.6 07/02/19 06:30 Absolute Neutrophils 3.80 k/cumm (1.2-6.7) 07/02/19 06:30 Absolute Lymphocytes 1.52 k/cumm (1.2-3.4) 07/02/19 06:30 Absolute Monocytes 0.63 k/cumm (0.11-0.7) 07/02/19 06:30 Absolute Eosinophils 0.15 k/cumm (0.0-0.7) 07/02/19 06:30 Absolute Basophils 0.04 k/cumm (0.0-0.2) 07/02/19 06:30 Differential Comment Rbc morph reviewed 07/01/19 06:20 RBC Morphology See below 07/01/19 06:20 Polychromasia Present 07/01/19 06:20 Poikilocytosis 2+ 07/01/19 06:20 Anisocytosis 3+ 07/01/19 06:20 Target Cells 2+ 07/01/19 06:20 PT 13.8 sec (9.3-11.0) H 07/01/19 07:05 INR 1.4 (0.9-1.1) H 07/01/19 07:05 Sodium 132 mmol/L (136-145) L 07/02/19 06:30 Potassium 4.9 mmol/L (3.5-5.1) 07/02/19 06:30 Chloride 103 mmol/L (98-107) 07/02/19 06:30 Carbon Dioxide 23.3 mmol/L (21.0-32.0) 07/02/19 06:30 Anion Gap 5.7 mmol/L (3-11) 07/02/19 06:30 BUN 12 mg/dL (7-18) D 07/02/19 06:30 Creatinine 0.67 mg/dL (0.55-1.02) 07/02/19 06:30 Estimated GFR/1.73 m2 >= 60.00 (mL/min/1.73m2) 07/02/19 06:30 Glucose 110 mg/dL (74-106) H 07/02/19 06:30 Calcium 8.4 mg/dL (8.5-10.1) L 07/02/19 06:30 Magnesium 1.8 mg/dL (1.8-2.4) 07/01/19 07:05 Total Bilirubin 2.1 mg/dL (0.2-1.0) H 07/02/19 06:30 AST 167 U/L (15-37) H 07/02/19 06:30 ALT 71 U/L (14-59) H 07/02/19 06:30 Alkaline Phosphatase 168 U/L (46-116) H 07/02/19 06:30 Ammonia 11 umol/L (11-32) 07/02/19 06:30 Troponin I < 0.05 ng/Ml (<0.06) 06/30/19 11:23 Total Protein 6.1 g/dL (6.4-8.2) L 07/02/19 06:30 Albumin 2.3 g/dL (3.4-5.0) L 07/02/19 06:30 25-OH Vitamin D Total 19.1 ng/ml (30-100) L 07/01/19 07:05 TSH 0.79 uIU/mL (0.36-3.74) 06/30/19 11:23 Urine Color Yellow (Yellow) 06/30/19 15:20 Urine Clarity Clear (Clear) 06/30/19 15:20 Urine pH 6.5 (5-8) 06/30/19 15:20 Ur Specific [place] 1.020 (1.005-1.025) 06/30/19 15:20 Urine Protein Negative mg/dL (Negative) 06/30/19 15:20 Urine Ketones Negative mg/dL (Negative) 06/30/19 15:20 Urine Blood Negative (Negative) 06/30/19 15:20 Urine Nitrite Negative (Negative) 06/30/19 15:20 Urine Bilirubin Negative (Negative) 06/30/19 15:20 Urine Urobilinogen 1.0 EU/dL (Up TO 0.2) H 06/30/19 15:20 Ur Leukocyte Esterase Negative (Negative) 06/30/19 15:20 Urine Glucose Negative mg/dL (Negative) 06/30/19 15:20
--- NOTE | 2019-07-03 12:46 | NT_ITS ---
Date of service: 07/03/19 Time of Service: 12:46 PT Notes Visit Reasons: DEYDRATION Patient is refusing all services at this time. She remains to be in pain but would not take any pain medications per nurse. Will continue to offer skilled services again to patient this afternoon. Thank you very much for this referral. Eufemia Kulkarni PT, DPT, CLT [facility]
[2019-07-03] MEDS: Bisacodyl 10 MG SUPP PR (13:57)
--- NOTE | 2019-07-03 14:59 | CMPROGNOTE_ITS ---
- If Service Date Differs Date of service: 07/03/19 Time of Service: 14:59 Care Management Progress Note S/O:CM met with Argenis in the room, she was unable to articulate her needs, she continues to feel if she could just have her hip fixed she could return home. Argenis has lost over 30 pounds since her last admission in April, she states she has been unable to prepare her own meals or care for herself. She feels this is all pain related however she will not take the medication needed to lower her ammonia levels at home, and has not been able to care for herself due to encephalapathy. She can not get to the store to buy food and she denies any local support system. She has been unable to bathe or take her medications. CM discussed guardianship with her today, she states she does not want guardianship and feels that she could care for herself. Argenis is unable to describe what caring for her self looks like. CM will reach out to [place] [facility] to see what services could be put in to place to improve safety at home, although I am not sure there will be enough support to her safe. CM contacted local authority to remove the cats from the home, as they are home alone and she does not have anyone to care for them. CM left a voicemail for [place] [employer] at [phone] and left a voicemail. The cats do have food per home health however they cannot remain in the home without care. Palliative care did meet with patient today and completed the COLST. Provider will meet with Argenis again early next week if she remains inpatient. CM has requested Argenis consider rehab placement as an alternative to guardianship for rehabilitation to gain weight and become stronger prior to returning to the community. A: Argenis is a 58 year old woman admitted to [facility] on 06/30/19 with dehydration P: Anticipate that Argenis will not be able to return home and will need Skilled level of care. CM will continue to support patient and her discharge planning needs.
--- NOTE | 2019-07-03 15:29 | CHAPLAIN ---
Argenis was just finishing up a conversation with the reliability technicians when I visited. Argenis was in bed, the lights were off and her window shade was pulled down. Argenis told me about sharing her MOW food with her cats because she was unable to get out to the store. Again today, she had difficult staying on one topic and her thinking was not linear at all. She was upset about feeling constipated and not being able to have [facility] [employer] for pain relief. I left when SHARRON Yanez from Palliative Care arrived.
[2019-07-03 15:30] VITALS: BP 143/84; PULSE 98; RESP 20; TEMP 37.1; O2SAT 100
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
[2019-07-03] MEDS: cefTRIAXone 1 GM/50 ML BAG IVPB (17:23)
[2019-07-03 18:55] VITALS: BP 142/78; PULSE 107; RESP 18; TEMP 37.4; O2SAT 99
[2019-07-04 07:30] VITALS: BP 107/68; PULSE 93; RESP 19; TEMP 37.1; O2SAT 98
[2019-07-04 07:37] LABS: Abs Immature Grans 0.02 k/cumm (0.0-0.09); Absolute Basophil Count 0.04 k/cumm (0.0-0.2); Absolute Eosinophil Count 0.19 k/cumm (0.0-0.7); Absolute Lymphocyte Count 1.34 k/cumm (1.2-3.4); Absolute Monocyte Count 0.98 k/cumm (0.11-0.7); Absolute Neutrophil Count 4.52 k/cumm (1.2-6.7); Basophils % 0.6; Eosinophils % 2.7; HCT 28.2 % (36.0-46.0); HGB 9.5 g/dL (12.0-15.5); Immature Grans % 0.3 %; Lymphocytes % 18.9; Mean Corp. HGB Concentration 33.7 g/dL (32.0-36.0); Mean Corpuscular Hemoglobin 30.4 pg (27.0-33.0); Mean Corpuscular Volume 90.1 fL (80-95); Mean Platelet Volume 10.5 fL (8.0-11.0); Monocytes % 13.8; Neutrophils % 63.7; RBC 3.13 m/cumm (4.00-5.20); RBC Distribution Width 24.1 % (11.7-14.6); White Blood Cell Count 7.09 k/cumm (4.4-10.8)
[2019-07-04 07:52] LABS: ALT 73 U/L (14-59); AST 182 U/L (15-37); Albumin 2.3 g/dL (3.4-5.0); Alkaline Phosphatase 166 U/L (46-116); Anion Gap 6.6 mmol/L (3-11); BUN 14 mg/dL (7-18); CO2 23.4 mmol/L (21.0-32.0); CREATININE 0.67 mg/dL (0.55-1.02); Calcium 8.4 mg/dL (8.5-10.1); Chloride 102 mmol/L (98-107); Glucose 84 mg/dL (74-106); Potassium 4.6 mmol/L (3.5-5.1); Sodium 132 mmol/L (136-145); Total Protein 6.1 g/dL (6.4-8.2)
[2019-07-04 07:57] LABS: Anisocytosis 2+; Diff Comment RBC Morph Reviewed; Platelet Count 78 x1000/uL (130-400); Polychromasia Present; Target Cells 2+
--- NOTE | 2019-07-04 08:29 | PDOC.CMPRO ---
- If Service Date Differs Date of service: 07/04/19 Time of Service: 08:29 Care Management Progress Note S/O:Argenis was reviewed at interdisciplinary rounds, and CM reviewed her clinical chart. Surgical consult in place she will have a parencentesis today, she continue on IV abx. Review of her labs her Ammonia levels have normalized she continues to be have difficulty making decisions. She is complaining about pain however she refuses to take pain medication that could improve her mobility. PT is consulting, level of care to be determined however at this point Argenis is unable to care for herself safely at home related to her condition, pain and weakness. Argenis has not agreed to a penitentiary referral at this time. A: Argenis is a 58 year old woman admitted to [facility] on 06/30/19 with dehydration P: Anticipate that Argenis will not be able to return home and will need Skilled level of care. Guardianship is being sought however. CM will continue to support patient and her discharge planning needs.
[2019-07-04] MEDS: Spironolactone 50 MG TAB PO ×2 (09:33→15:15)
[2019-07-04] MEDS: cloNIDine 0.1 MG TAB PO ×2 (09:33→20:37)
[2019-07-04] MEDS: Lactulose 20 GM/30 ML CUP PO ×3 (09:33→20:37)
[2019-07-04] MEDS: Furosemide 20 MG TAB PO ×2 (09:34→15:15)
--- NOTE | 2019-07-04 10:15 | W.PM.PROGNOT ---
Date of Service Date of service: 07/04/19 Time of Service: 10:16 Assessment and Plan Assessment and plan (1) Fever: Start date: 07/04/19 Start time: 10:23 Status: Acute Assessment and plan: Afebrile since 06/30. Continue Ceftriaxone for questionable SBP day 06/20. Cultures with no growth to date. (2) Compression fracture of lumbar vertebra: Start date: 07/04/19 Start time: 10:24 Status: Acute Assessment and plan: MRI with acute compression fx of l3-l5. Continue to offer tramadol, though she is refusing to take, bengay, and lidocaine patch, minimal relief. (3) Adult failure to thrive: Start date: 07/04/19 Start time: 10:26 Status: Acute Assessment and plan: Wt loss of 40lbs in 2 months. Eating only one meal a day and sharing with four cats. Nutrition consult, palliative care consult placed. Encourage PO intake (4) Cirrhosis of liver: Start date: 07/04/19 Start time: 10:27 Status: Acute Assessment and plan: Moderate ascities found on u/s. Abd round distended, spoke with Dr. Teran will perform paracentesis, today. (5) Alcoholic hepatitis with ascites: Start date: 07/04/19 Start time: 10:31 Status: Acute Assessment and plan: Moderate ascities. See above. (6) Generalized weakness: Start date: 07/04/19 Start time: 10:28 Status: Acute Assessment and plan: PT/OT, fall precautions. (7) Acute hepatic encephalopathy: Start date: 07/04/19 Start time: 10:28 Status: Acute Assessment and plan: Ammonia level on admission 80, continue lactulose. (8) Palliative care patient: Start date: 07/04/19 Start time: 10:29 Status: Acute Assessment and plan: Followed by palliative care, current DNI, will continue patient (9) Back pain at L4-L5 level: Start date: 07/04/19 Start time: 10:29 Status: Acute Assessment and plan: From compression fx. See above, continue pain management. (10) Discharge planning issues: Start date: 07/04/19 Start time: 10:30 Status: Acute Assessment and plan: Patient does not appear competent to care for self, guardianship paperwork pending. Will likely need placement. Subjective Subjective Patient reports: still having pain Interval history since last seen: Continues to have pain. Refusing to take tramadol, can not get a reason why, she will start to answer questions then go off on a tangent. She continues to talk about her pain and home and trying to go to supermarket but unable to get out of bed. She does remember previous conversations from yesterday with palliative and hospitalist. Ammonia level on 07/01 10 her encephalopathy appears improved, continue with lactulose. Exam Narrative Exam Narrative: General: Very thin, middle aged female, sitting up in bed, her room is dark with shades closed. HEENT: normocephalic, atraumatic, pupils equal and round, EOMI, poor dentition, MMM. Neck: supple, no JVD. Cardiovascular: Heart has regular rate and rhythm, no murmur appreciated. Respiratory: Respirations even and unlabored, lung sounds clear bilaterally. GI: Abdomen round, distended, slightly firm, +bowel sounds, nontender on gentle palpation. Extremities: thin, muscle atrophy, no edema. Objective Objective Clinical Data: Abnormal lab results 07/04/19 07/04/19 Range/Units 06:55 06:55 RBC 3.13 L (4.00-5.20) m/cumm Hgb 9.5 L (12.0-15.5) g/dL Hct 28.2 L (36.0-46.0) % RDW 24.1 H (11.7-14.6) % Plt Count 78 L (130-400) x1000/uL Absolute Monocytes 0.98 H (0.11-0.7) k/cumm Sodium 132 L (136-145) mmol/L Calcium 8.4 L (8.5-10.1) mg/dL Total Bilirubin 2.0 H (0.2-1.0) mg/dL AST 182 H (15-37) U/L ALT 73 H (14-59) U/L Alkaline Phosphatase 166 H (46-116) U/L Total Protein 6.1 L (6.4-8.2) g/dL Albumin 2.3 L (3.4-5.0) g/dL Vital Signs Temperature 37.1 C 07/04/19 07:30 Temperature Source Temporal Artery Scan 07/04/19 07:30 Pulse 93 H 07/04/19 07:30 Pulse Rhythm Regular 07/04/19 05:52 Pulse 89 06/30/19 14:40 Respiratory Rate 19 07/04/19 07:30 Respiratory Effort Non-Labored 07/04/19 05:52 Respiratory Depth Normal 07/04/19 05:52 Respiratory Pattern Normal 07/04/19 05:52 Blood Pressure 107/68 07/04/19 07:30 Blood Pressure Mean 72 06/30/19 14:06 Blood Pressure Position Supine 06/30/19 11:03 Pulse Oximetry 98 07/04/19 07:30 Oxygen Delivery Method Room Air 07/04/19 07:30 Oxygen Flow Rate 0 07/04/19 07:30 Pain Level 10 07/04/19 07:30 Intake & Output 07/03/19 07/03/19 07/04/19 11:59 23:59 11:59 Intake Total 510 / 560 50 / 560 Output Total 225 / 225 75 / 75 Balance 510 / 335 -175 / 335 -75 / -75 Intake: IV 10 60 50 / 60 Oral 500 / 500 Output: Urine 225 / 225 75 / 75 Other: Urine Color Yellow Yellow Yellow Urine Appearance Clear Clear Clear Urine Odor None None Comment MOST OF URINE ABSORBED INTO TISSUE. AMOUNT IS AN ESTIMATE. Stool Occult Blood Negative Stool Size Large Stool Characteristics Liquid Brown Voiding Methods Bedside Commode Bedside Commode Bedside Commode Laboratory Results WBC 7.09 k/cumm (4.4-10.8) 07/04/19 06:55 RBC 3.13 m/cumm (4.00-5.20) L 07/04/19 06:55 Hgb 9.5 g/dL (12.0-15.5) L 07/04/19 06:55 Hct 28.2 % (36.0-46.0) L 07/04/19 06:55 MCV 90.1 fL (80-95) 07/04/19 06:55 MCH 30.4 pg (27.0-33.0) 07/04/19 06:55 MCHC 33.7 g/dL (32.0-36.0) 07/04/19 06:55 RDW 24.1 % (11.7-14.6) H 07/04/19 06:55 Plt Count 78 x1000/uL (130-400) L 07/04/19 06:55 MPV 10.5 fL (8.0-11.0) 07/04/19 06:55 Immature Gran % 0.3 % 07/04/19 06:55 Neutrophils % 63.7 07/04/19 06:55 Lymphocytes % 18.9 07/04/19 06:55 Monocytes % 13.8 07/04/19 06:55 Eosinophils % 2.7 07/04/19 06:55 Basophils % 0.6 07/04/19 06:55 Absolute Neutrophils 4.52 k/cumm (1.2-6.7) 07/04/19 06:55 Absolute Lymphocytes 1.34 k/cumm (1.2-3.4) 07/04/19 06:55 Absolute Monocytes 0.98 k/cumm (0.11-0.7) H 07/04/19 06:55 Absolute Eosinophils 0.19 k/cumm (0.0-0.7) 07/04/19 06:55 Absolute Basophils 0.04 k/cumm (0.0-0.2) 07/04/19 06:55 Differential Comment Rbc morph reviewed 07/04/19 06:55 RBC Morphology See below 07/04/19 06:55 Polychromasia Present 07/04/19 06:55 Poikilocytosis 2+ 07/01/19 06:20 Anisocytosis 2+ 07/04/19 06:55 Target Cells 2+ 07/04/19 06:55 PT 13.8 sec (9.3-11.0) H 07/01/19 07:05 INR 1.4 (0.9-1.1) H 07/01/19 07:05 Sodium 132 mmol/L (136-145) L 07/04/19 06:55 Potassium 4.6 mmol/L (3.5-5.1) 07/04/19 06:55 Chloride 102 mmol/L (98-107) 07/04/19 06:55 Carbon Dioxide 23.4 mmol/L (21.0-32.0) 07/04/19 06:55 Anion Gap 6.6 mmol/L (3-11) 07/04/19 06:55 BUN 14 mg/dL (7-18) 07/04/19 06:55 Creatinine 0.67 mg/dL (0.55-1.02) 07/04/19 06:55 Estimated GFR/1.73 m2 >= 60.00 (mL/min/1.73m2) 07/04/19 06:55 Glucose 84 mg/dL (74-106) 07/04/19 06:55 Calcium 8.4 mg/dL (8.5-10.1) L 07/04/19 06:55 Magnesium 1.8 mg/dL (1.8-2.4) 07/01/19 07:05 Total Bilirubin 2.0 mg/dL (0.2-1.0) H 07/04/19 06:55 AST 182 U/L (15-37) H 07/04/19 06:55 ALT 73 U/L (14-59) H 07/04/19 06:55 Alkaline Phosphatase 166 U/L (46-116) H 07/04/19 06:55 Ammonia 11 umol/L (11-32) 07/02/19 06:30 Troponin I < 0.05 ng/Ml (<0.06) 06/30/19 11:23 Total Protein 6.1 g/dL (6.4-8.2) L 07/04/19 06:55 Albumin 2.3 g/dL (3.4-5.0) L 07/04/19 06:55 25-OH Vitamin D Total 19.1 ng/ml (30-100) L 07/01/19 07:05 TSH 0.79 uIU/mL (0.36-3.74) 06/30/19 11:23 Urine Color Yellow (Yellow) 06/30/19 15:20 Urine Clarity Clear (Clear) 06/30/19 15:20 Urine pH 6.5 (5-8) 06/30/19 15:20 Ur Specific [place] 1.020 (1.005-1.025) 06/30/19 15:20 Urine Protein Negative mg/dL (Negative) 06/30/19 15:20 Urine Ketones Negative mg/dL (Negative) 06/30/19 15:20 Urine Blood Negative (Negative) 06/30/19 15:20 Urine Nitrite Negative (Negative) 06/30/19 15:20 Urine Bilirubin Negative (Negative) 06/30/19 15:20 Urine Urobilinogen 1.0 EU/dL (Up TO 0.2) H 06/30/19 15:20 Ur Leukocyte Esterase Negative (Negative) 06/30/19 15:20 Urine Glucose Negative mg/dL (Negative) 06/30/19 15:20
--- NOTE | 2019-07-04 12:02 | PTTR_ITS ---
Date of service: 07/04/19 Time of Service: 12:02 PT Notes Visit Reasons: DEHYDRATION Patient was seen today and was found to be agreeable with working with PT. However, she did not want to move out of bed to be seated on chair for lunch nor did she want to do anything in bed despite several attempts at redirection. F[employer] RATE ANALYST Anastasiia Amanda notified. Patient is not appropriate for skilled services at this time and has refused for three consecutive days as of today. Will let care management aware of plan to discharge patient from skilled services tomorrow. Thank you very much for this referral. Eufemia Kulkarni PT, DPT, CLT [facility]
--- NOTE | 2019-07-04 15:08 | W.SURGCON ---
Date of service: 07/04/19 Time of Service: 15:08 Assessment and Plan Assessment and plan (1) Cirrhosis of liver: Status: Acute Assessment and plan: s/p paracentisis. fluid sent for C/S but she has been on abx since admission. minimal fluid abdominal- there is no discrete pocket to remove fluid. pt is in end stage liver Dx. She is in denial about her condition. at this point i don't think she is competent to make decisions. And she is certainly not able to live independently anymore. MELD score is 17. prognosis is poor. She is not a candidate for liver transplant. hx of untreated Hep C and ETOH abuse (2) Adult failure to thrive: Status: Acute (3) Hep C w/o coma, chronic: Status: Acute (4) Encephalopathy chronic: Status: Acute (5) Splenic varices: Status: Acute (6) Manic behavior: Status: Acute (7) Protein calorie malnutrition: Status: Chronic (8) Severely underweight adult: Status: Acute History of Present Illness Narrative: pt is well known to me. She is a very unreliable historian. Hx of liver failure secondary to ETOH and Hep C that are contributing. She also has bipolar/schizophrenia w/ psychosis. She refuses to take medication for this. She was done to [facility] hepatology clinic last fall. Because of her mental illness, they did not think that she could be treated for the Hep C b/c she is not reliable. Her liver dx continues to progress w/ profound muscle wasting. Also, I don't know if she is eating or taking her medicatons. She does complian of abdominal pain. US show there is asscites, but it is minimal. There is not a lg discrete pocket. She also has a left inguinal hernia. This is soft and reducible. She did have e coli assoc. SBP this winter and was at [facility] for that. MELD score 17 Consults Consult date: 07/04/19 Review of Systems Unobtainable due to mental condition [facility] Medical History (Updated 07/04/19 @ 17:44 by Alfreda Duenas MD) Ascites (Acute) Bacteremia (Acute) Cirrhosis of liver with ascites (Acute) 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 COPD (chronic obstructive pulmonary disease) (Chronic) Dental caries (Acute) DNI (do not intubate) (Acute) DNR (do not resuscitate) (Acute) Emphysema of lung (Acute) Encephalopathy chronic (Acute) Encounter for hospice care discussion (Acute) Fractured tooth (Acute) Hep C w/o coma, chronic (Acute) Hepatitis C (Chronic) History of hepatitis B vaccination (Acute) Hypertension (Chronic) Manic behavior (Acute) pressured speech, tangential disordered thoughts Nicotine dependence (Acute) Palliative care patient (Acute) POLST (Physician Orders for Life-Sustaining Treatment) (Acute) Poor dentition (Acute) Protein calorie malnutrition (Chronic) PTSD (post-traumatic stress disorder) (Acute) Raynaud's disease without gangrene (Acute) Severely underweight adult (Acute) Splenic varices (Acute) Varices of other sites (Acute) liver Social History Smoking/Tobacco Use Status: Current every day Tobacco Type: cigarettes Alcohol Intake: former Drug use: Never Substance use type: does not use Do you feel safe at home: Yes Do you feel safe in your relationship?: Yes Additional Social history: Living [address] Patient describes concern for lead and mold, but it is unclear if this is an ongoing concern. She gives a grand social history regarding status of her past and her family, but it is hard to interpret the veracity of this history. Exam Const General: cooperative, disheveled and frail appearing Nutritional Appearance: cachectic Orientation: oriented to person [facility] Mouth: oral mucosae normal Teeth and gingiva: caries and poor dentition Eyes Sclera: scleral abnormality Pupils: PERRL Other: temporal muscle wasting. appears chronically ill adn is she is not sleeping. Resp Effort & Inspection: able to speak in complete sentences and labored Other: signif muscle wasting. abdom distended from ascites and enlarged liver. Unfortunately, on US there is not a large pocket of fluid to drain. mild diffuse tenderness. L inguinal hernia. soft and reducible. Neuro General: patient alert, moves all extremities and no focal motor deficits Psych Appearance: disheveled Speech and Movement: pressured speech and restless Mood: expansive Affect: euphoric affect Attitude: cooperative Thought Process: confabulating, flight of ideas and tangential Insight: poor Judgment: poor Other: not sure if she is able to make decsions for herself. Her behavior has been the same since I first say her 18m ago. This is not from hepatic encephalopathy. Results Last Vital Signs Temp 37.1 C 07/04/19 07:30 Pulse 93 H 07/04/19 07:30 Resp 19 07/04/19 07:30 BP 107/68 07/04/19 07:30 Pulse Ox 98 07/04/19 07:30 Labs Result diagrams: 07/04/19 06:55 07/04/19 06:55 Labs: Laboratory Results - last 24 hr 07/04/19 07/04/19 06:55 06:55 WBC 7.09 RBC 3.13 L Hgb 9.5 L Hct 28.2 L MCV 90.1 MCH 30.4 MCHC 33.7 RDW 24.1 H Plt Count 78 L MPV 10.5 Immature Gran % 0.3 Neutrophils % 63.7 Lymphocytes % 18.9 Monocytes % 13.8 Eosinophils % 2.7 Basophils % 0.6 Absolute Neutrophils 4.52 Absolute Lymphocytes 1.34 Absolute Monocytes 0.98 H Absolute Eosinophils 0.19 Absolute Basophils 0.04 Differential Comment Rbc morph reviewed RBC Morphology See below Polychromasia Present Anisocytosis 2+ Target Cells 2+ Sodium 132 L Potassium 4.6 Chloride 102 Carbon Dioxide 23.4 Anion Gap 6.6 BUN 14 Creatinine 0.67 Estimated GFR/1.73 m2 >= 60.00 Glucose 84 Calcium 8.4 L Total Bilirubin 2.0 H AST 182 H ALT 73 H Alkaline Phosphatase 166 H Total Protein 6.1 L Albumin 2.3 L Procedures Paracentesis Time out performed: Yes Indication: possible spontaneous bacterial peritonitis Procedure: diagnostic paracentesis Location: RLQ Local anesthetic used: with Epi Amount of anesthesia used (ml): 15 Bedside ultrasound used: yes, Ascites confirmed and location marked Preparation: sterile prep and drape Amount of fluid obtained (ml): 50 Fluid: cloudy Post procedure exam: awake, alert and normal BP Patient tolerated procedure: well Complications: none
--- NOTE | 2019-07-04 15:19 | ROE_ITS ---
Date of service: 07/04/19 Time of Service: 15:19 Operative Note Operative Note DATE OF PROCEDURE: 07/04/19 PRE-OP DIAGNOSIS: end stage liver dx secondary to ETOH & HEP C POST-OP DIAGNOSIS: other PROCEDURE: paracentisis and US SURGEON: Samia Teran ANESTHESIA: local ESTIMATED BLOOD LOSS: 1 PATHOLOGY: other COMPLICATIONS: None Patient was transported to: floor Patient's condition: stable Procedure Description: HISTORY: Informed consent is obtained, explaining risks and benefits of the procedure including but not limited to bleeding, infection, damage to internal organs and persistent leakage. PROCEDURE: The patient is brought to the procedure room and placed in the supine position. Placement chosen on top in the right upper quadrant. A time- out is done. Ultrasound is used to localize the pocket. The area is prepped and draped in the usual sterile fashion using a ChloraPrep scrub solution. 20 cc's of 1% Lidocaine with epinephrine is used for local anesthetization. The abdomen is punctured and the catheter is inserted. 200cc of light yellow fluid is evacuated today. Fluid is sent for culture. The catheter is removed. Pressure dressing is applied. The patient tolerated the procedure well without complication.
[2019-07-04 15:20] VITALS: BP 128/82; PULSE 110; RESP 20; TEMP 36.8; O2SAT 98
[2019-07-04] MEDS: traMADol 50 MG TAB PO (15:29)
--- NOTE | 2019-07-04 15:52 | PGE_ITS ---
Date of Service Date of service: 07/04/19 Time of Service: 15:52 Subjective Subjective Interval history since last seen: Patient called provider back to discuss code status and life choices. She has decided after being informed her disease has a poor prognosis and her outcome is not favorable that she would like to go home on hospice. Dr. Duenas contacted regarding patients wishes and will see her today. Objective Objective Clinical Data: Abnormal lab results 07/04/19 07/04/19 Range/Units 06:55 06:55 RBC 3.13 L (4.00-5.20) m/cumm Hgb 9.5 L (12.0-15.5) g/dL Hct 28.2 L (36.0-46.0) % RDW 24.1 H (11.7-14.6) % Plt Count 78 L (130-400) x1000/uL Absolute Monocytes 0.98 H (0.11-0.7) k/cumm Sodium 132 L (136-145) mmol/L Calcium 8.4 L (8.5-10.1) mg/dL Total Bilirubin 2.0 H (0.2-1.0) mg/dL AST 182 H (15-37) U/L ALT 73 H (14-59) U/L Alkaline Phosphatase 166 H (46-116) U/L Total Protein 6.1 L (6.4-8.2) g/dL Albumin 2.3 L (3.4-5.0) g/dL Vital Signs Temperature 37.1 C 07/04/19 07:30 Temperature Source Temporal Artery Scan 07/04/19 07:30 Pulse 93 H 07/04/19 07:30 Pulse Rhythm Regular 07/04/19 05:52 Pulse 89 06/30/19 14:40 Respiratory Rate 19 07/04/19 07:30 Respiratory Effort Non-Labored 07/04/19 10:41 Respiratory Depth Normal 07/04/19 10:41 Respiratory Pattern Normal 07/04/19 10:41 Blood Pressure 107/68 07/04/19 07:30 Blood Pressure Mean 72 06/30/19 14:06 Blood Pressure Position Supine 06/30/19 11:03 Pulse Oximetry 98 07/04/19 07:30 Oxygen Delivery Method Room Air 07/04/19 07:30 Oxygen Flow Rate 0 07/04/19 07:30 Pain Level 7 07/04/19 15:29 Intake & Output 07/03/19 07/04/19 07/04/19 23:59 11:59 23:59 Intake Total 50 / 560 250 / 250 Output Total 225 / 225 75 / 75 Balance -175 / 335 175 / 175 Intake: IV 50 / 60 Oral 250 / 250 Output: Urine 225 / 225 75 / 75 Other: Urine Color Yellow Yellow Urine Appearance Clear Clear Urine Odor None Comment MOST OF URINE ABSORBED INTO TISSUE. AMOUNT IS AN ESTIMATE. Stool Occult Blood Negative Stool Size Large Large Stool Characteristics Liquid Soft Brown Voiding Methods Bedside Commode Bedside Commode Laboratory Results WBC 7.09 k/cumm (4.4-10.8) 07/04/19 06:55 RBC 3.13 m/cumm (4.00-5.20) L 07/04/19 06:55 Hgb 9.5 g/dL (12.0-15.5) L 07/04/19 06:55 Hct 28.2 % (36.0-46.0) L 07/04/19 06:55 MCV 90.1 fL (80-95) 07/04/19 06:55 MCH 30.4 pg (27.0-33.0) 07/04/19 06:55 MCHC 33.7 g/dL (32.0-36.0) 07/04/19 06:55 RDW 24.1 % (11.7-14.6) H 07/04/19 06:55 Plt Count 78 x1000/uL (130-400) L 07/04/19 06:55 MPV 10.5 fL (8.0-11.0) 07/04/19 06:55 Immature Gran % 0.3 % 07/04/19 06:55 Neutrophils % 63.7 07/04/19 06:55 Lymphocytes % 18.9 07/04/19 06:55 Monocytes % 13.8 07/04/19 06:55 Eosinophils % 2.7 07/04/19 06:55 Basophils % 0.6 07/04/19 06:55 Absolute Neutrophils 4.52 k/cumm (1.2-6.7) 07/04/19 06:55 Absolute Lymphocytes 1.34 k/cumm (1.2-3.4) 07/04/19 06:55 Absolute Monocytes 0.98 k/cumm (0.11-0.7) H 07/04/19 06:55 Absolute Eosinophils 0.19 k/cumm (0.0-0.7) 07/04/19 06:55 Absolute Basophils 0.04 k/cumm (0.0-0.2) 07/04/19 06:55 Differential Comment Rbc morph reviewed 07/04/19 06:55 RBC Morphology See below 07/04/19 06:55 Polychromasia Present 07/04/19 06:55 Poikilocytosis 2+ 07/01/19 06:20 Anisocytosis 2+ 07/04/19 06:55 Target Cells 2+ 07/04/19 06:55 PT 13.8 sec (9.3-11.0) H 07/01/19 07:05 INR 1.4 (0.9-1.1) H 07/01/19 07:05 Sodium 132 mmol/L (136-145) L 07/04/19 06:55 Potassium 4.6 mmol/L (3.5-5.1) 07/04/19 06:55 Chloride 102 mmol/L (98-107) 07/04/19 06:55 Carbon Dioxide 23.4 mmol/L (21.0-32.0) 07/04/19 06:55 Anion Gap 6.6 mmol/L (3-11) 07/04/19 06:55 BUN 14 mg/dL (7-18) 07/04/19 06:55 Creatinine 0.67 mg/dL (0.55-1.02) 07/04/19 06:55 Estimated GFR/1.73 m2 >= 60.00 (mL/min/1.73m2) 07/04/19 06:55 Glucose 84 mg/dL (74-106) 07/04/19 06:55 Calcium 8.4 mg/dL (8.5-10.1) L 07/04/19 06:55 Magnesium 1.8 mg/dL (1.8-2.4) 07/01/19 07:05 Total Bilirubin 2.0 mg/dL (0.2-1.0) H 07/04/19 06:55 AST 182 U/L (15-37) H 07/04/19 06:55 ALT 73 U/L (14-59) H 07/04/19 06:55 Alkaline Phosphatase 166 U/L (46-116) H 07/04/19 06:55 Ammonia 11 umol/L (11-32) 07/02/19 06:30 Troponin I < 0.05 ng/Ml (<0.06) 06/30/19 11:23 Total Protein 6.1 g/dL (6.4-8.2) L 07/04/19 06:55 Albumin 2.3 g/dL (3.4-5.0) L 07/04/19 06:55 25-OH Vitamin D Total 19.1 ng/ml (30-100) L 07/01/19 07:05 TSH 0.79 uIU/mL (0.36-3.74) 06/30/19 11:23 Urine Color Yellow (Yellow) 06/30/19 15:20 Urine Clarity Clear (Clear) 06/30/19 15:20 Urine pH 6.5 (5-8) 06/30/19 15:20 Ur Specific [place] 1.020 (1.005-1.025) 06/30/19 15:20 Urine Protein Negative mg/dL (Negative) 06/30/19 15:20 Urine Ketones Negative mg/dL (Negative) 06/30/19 15:20 Urine Blood Negative (Negative) 06/30/19 15:20 Urine Nitrite Negative (Negative) 06/30/19 15:20 Urine Bilirubin Negative (Negative) 06/30/19 15:20 Urine Urobilinogen 1.0 EU/dL (Up TO 0.2) H 06/30/19 15:20 Ur Leukocyte Esterase Negative (Negative) 06/30/19 15:20 Urine Glucose Negative mg/dL (Negative) 06/30/19 15:20
--- NOTE | 2019-07-04 17:27 | PCPN_ITS ---
Date of service: 07/04/19 Time of Service: 17:27 Assessment and Plan Assessment and plan (1) Encounter for hospice care discussion: Status: Acute Assessment and plan: I tried several times to explain to Argenis that she needed a reliable caregiver if she were to go on hospice. She said that Home [facility] would take care of her. I explained that she needed to have someone who could be with her when she was not able to get OOB and who could make sure she was taking her medications properly, which she had not been prior to this admission. I offered her going to Rehab to get stronger and see if she could regain some self-care skills. She said if she only has 5 months to live (Dr Teran reported told her this; Anastasiia Amanda NP who saw her today also supported this; I would say she has <6 months, certainly a lot less if she continues with poor self-care.) At this point in time, she would only be able to come on hospice IF she were in a community snf or in a Rehab. Not sure if she would be open to a [facility] OR if [facility] in our area are equipped to deal with her level of need. (2) POLST (Physician Orders for Life-Sustaining Treatment): Status: Acute Assessment and plan: This was done prior to my coming to see Argenis. I think being DNR/DNI is in her best interest. (3) Alcoholic hepatitis with ascites: Status: Chronic Assessment and plan: Argenis tells me she trusts Dr Teran absolutely. She did not like going to [facility] for treatment. She has had multiple taps of her ascites. Unfortunately, her ascites rapidly reaccumulates. She says she is taking spiranolactone at home sometimes, but she is convinced that it is making her confused. (4) Protein calorie malnutrition: Status: Chronic Assessment and plan: Her BMI is in the cachectic range at <14. Her protein/calorie malnutrition alone would qualify her for hospice. She says if she eats what people want her to eat she gets nauseated. (5) Severely underweight adult: Status: Acute Subjective Subjective Patient reports: nausea and shortness of breath Interval history since last seen: Argenis is usually seen by Renata Kimble NP for palliative care. I was asked by care management to evaluate her for hospice. She is hospice eligible medically, but she has no caregiver and no safe place to live. She tells me many things, some based in reality, some not. 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 She talked about toxic vampires making her life difficult at home. She said she had to go home because she has 4 cats and they are being traumatized. She cannot tell me how long she has lived in [place]. She says she originally came to take care of her ex-boyfriend's father, Tommy. She wouldn't tell me his last name. She says he is now. She says her usual weight is 110 lbs, and now she weighs 72 lbs. She doesn't understand how that could have happened. I asked her several times if she would go to rehab to get stronger. She said if she is dying she wants to at home. I told her I thought she still had some time before she , and she said she wanted to be home then. She said [facility] will help her with all she needs. She says Home Health will take care of her and her cats. She did sign a COLST form earlier, and is a DNR/DNI. She said I don't want to be Mandie Em. Exam Narrative Exam Narrative: General: Very thin, middle aged female, sitting up in bed, her room is dark with shades closed. HEENT: normocephalic, atraumatic, EOMI, poor dentition, MMM, hearing intact Neck: no JVD. Cardiovascular: Heart has regular rate and rhythm, no murmur appreciated. Respiratory: dyspneic with exertion of talking, increased RR GI: Abdomen round, distended Extremities: thin, muscle atrophy, no edema neuro: oriented to self and hospital. moving all extremities psych: pressured speech, disordered thinking, tangential content skin spider angioms, not jaundiced Objective Objective Clinical Data: Abnormal lab results 07/04/19 07/04/19 Range/Units 06:55 06:55 RBC 3.13 L (4.00-5.20) m/cumm Hgb 9.5 L (12.0-15.5) g/dL Hct 28.2 L (36.0-46.0) % RDW 24.1 H (11.7-14.6) % Plt Count 78 L (130-400) x1000/uL Absolute Monocytes 0.98 H (0.11-0.7) k/cumm Sodium 132 L (136-145) mmol/L Calcium 8.4 L (8.5-10.1) mg/dL Total Bilirubin 2.0 H (0.2-1.0) mg/dL AST 182 H (15-37) U/L ALT 73 H (14-59) U/L Alkaline Phosphatase 166 H (46-116) U/L Total Protein 6.1 L (6.4-8.2) g/dL Albumin 2.3 L (3.4-5.0) g/dL Vital Signs Temperature 98.2 F 07/04/19 15:20 Temperature Source Tympanic 07/04/19 15:20 Pulse 110 H 07/04/19 15:20 Pulse Rhythm Regular 07/04/19 05:52 Pulse 89 06/30/19 14:40 Respiratory Rate 20 07/04/19 15:20 Respiratory Effort Non-Labored 07/04/19 10:41 Respiratory Depth Normal 07/04/19 10:41 Respiratory Pattern Normal 07/04/19 10:41 Blood Pressure 128/82 07/04/19 15:20 Blood Pressure Mean 72 06/30/19 14:06 Blood Pressure Position Supine 06/30/19 11:03 Pulse Oximetry 98 07/04/19 15:20 Oxygen Delivery Method Room Air 07/04/19 15:20 Oxygen Flow Rate 0 07/04/19 15:20 Pain Level 7 07/04/19 15:29 Intake & Output 07/03/19 07/04/19 07/04/19 23:59 11:59 23:59 Intake Total 50 / 560 250 / 250 Output Total 225 / 225 75 / 75 Balance -175 / 335 175 / 175 Intake: IV 50 / 60 Oral 250 / 250 Output: Urine 225 / 225 75 / 75 Other: Urine Color Yellow Yellow Urine Appearance Clear Clear Urine Odor None Comment MOST OF URINE ABSORBED INTO TISSUE. AMOUNT IS AN ESTIMATE. Stool Occult Blood Negative Stool Size Large Large Stool Characteristics Liquid Soft Brown Voiding Methods Bedside Commode Bedside Commode Laboratory Results WBC 7.09 k/cumm (4.4-10.8) 07/04/19 06:55 RBC 3.13 m/cumm (4.00-5.20) L 07/04/19 06:55 Hgb 9.5 g/dL (12.0-15.5) L 07/04/19 06:55 Hct 28.2 % (36.0-46.0) L 07/04/19 06:55 MCV 90.1 fL (80-95) 07/04/19 06:55 MCH 30.4 pg (27.0-33.0) 07/04/19 06:55 MCHC 33.7 g/dL (32.0-36.0) 07/04/19 06:55 RDW 24.1 % (11.7-14.6) H 07/04/19 06:55 Plt Count 78 x1000/uL (130-400) L 07/04/19 06:55 MPV 10.5 fL (8.0-11.0) 07/04/19 06:55 Immature Gran % 0.3 % 07/04/19 06:55 Neutrophils % 63.7 07/04/19 06:55 Lymphocytes % 18.9 07/04/19 06:55 Monocytes % 13.8 07/04/19 06:55 Eosinophils % 2.7 07/04/19 06:55 Basophils % 0.6 07/04/19 06:55 Absolute Neutrophils 4.52 k/cumm (1.2-6.7) 07/04/19 06:55 Absolute Lymphocytes 1.34 k/cumm (1.2-3.4) 07/04/19 06:55 Absolute Monocytes 0.98 k/cumm (0.11-0.7) H 07/04/19 06:55 Absolute Eosinophils 0.19 k/cumm (0.0-0.7) 07/04/19 06:55 Absolute Basophils 0.04 k/cumm (0.0-0.2) 07/04/19 06:55 Differential Comment Rbc morph reviewed 07/04/19 06:55 RBC Morphology See below 07/04/19 06:55 Polychromasia Present 07/04/19 06:55 Poikilocytosis 2+ 07/01/19 06:20 Anisocytosis 2+ 07/04/19 06:55 Target Cells 2+ 07/04/19 06:55 PT 13.8 sec (9.3-11.0) H 07/01/19 07:05 INR 1.4 (0.9-1.1) H 07/01/19 07:05 Sodium 132 mmol/L (136-145) L 07/04/19 06:55 Potassium 4.6 mmol/L (3.5-5.1) 07/04/19 06:55 Chloride 102 mmol/L (98-107) 07/04/19 06:55 Carbon Dioxide 23.4 mmol/L (21.0-32.0) 07/04/19 06:55 Anion Gap 6.6 mmol/L (3-11) 07/04/19 06:55 BUN 14 mg/dL (7-18) 07/04/19 06:55 Creatinine 0.67 mg/dL (0.55-1.02) 07/04/19 06:55 Estimated GFR/1.73 m2 >= 60.00 (mL/min/1.73m2) 07/04/19 06:55 Glucose 84 mg/dL (74-106) 07/04/19 06:55 Calcium 8.4 mg/dL (8.5-10.1) L 07/04/19 06:55 Magnesium 1.8 mg/dL (1.8-2.4) 07/01/19 07:05 Total Bilirubin 2.0 mg/dL (0.2-1.0) H 07/04/19 06:55 AST 182 U/L (15-37) H 07/04/19 06:55 ALT 73 U/L (14-59) H 07/04/19 06:55 Alkaline Phosphatase 166 U/L (46-116) H 07/04/19 06:55 Ammonia 11 umol/L (11-32) 07/02/19 06:30 Troponin I < 0.05 ng/Ml (<0.06) 06/30/19 11:23 Total Protein 6.1 g/dL (6.4-8.2) L 07/04/19 06:55 Albumin 2.3 g/dL (3.4-5.0) L 07/04/19 06:55 25-OH Vitamin D Total 19.1 ng/ml (30-100) L 07/01/19 07:05 TSH 0.79 uIU/mL (0.36-3.74) 06/30/19 11:23 Urine Color Yellow (Yellow) 06/30/19 15:20 Urine Clarity Clear (Clear) 06/30/19 15:20 Urine pH 6.5 (5-8) 06/30/19 15:20 Ur Specific [place] 1.020 (1.005-1.025) 06/30/19 15:20 Urine Protein Negative mg/dL (Negative) 06/30/19 15:20 Urine Ketones Negative mg/dL (Negative) 06/30/19 15:20 Urine Blood Negative (Negative) 06/30/19 15:20 Urine Nitrite Negative (Negative) 06/30/19 15:20 Urine Bilirubin Negative (Negative) 06/30/19 15:20 Urine Urobilinogen 1.0 EU/dL (Up TO 0.2) H 06/30/19 15:20 Ur Leukocyte Esterase Negative (Negative) 06/30/19 15:20 Urine Glucose Negative mg/dL (Negative) 06/30/19 15:20
[2019-07-04] MEDS: cefTRIAXone 1 GM/50 ML BAG IVPB (18:26)
[2019-07-04] MEDS: Normal Saline Flush 10 ML SYR IVP (18:38)
[2019-07-04 19:08] VITALS: BP 134/80; PULSE 95; RESP 22; TEMP 37.4; O2SAT 99
[2019-07-04 23:30] VITALS: BP 131/78; PULSE 92; RESP 19; TEMP 37; O2SAT 97
[2019-07-05 07:10] LABS: Abs Immature Grans 0.02 k/cumm (0.0-0.09); Absolute Basophil Count 0.03 k/cumm (0.0-0.2); Absolute Monocyte Count 0.86 k/cumm (0.11-0.7); Absolute Neutrophil Count 3.67 k/cumm (1.2-6.7); Basophils % 0.5; Eosinophils % 3.3; HCT 31.5 % (36.0-46.0); HGB 10.4 g/dL (12.0-15.5); Immature Grans % 0.3 %; Lymphocytes % 21.4; Mean Corpuscular Hemoglobin 29.8 pg (27.0-33.0); Mean Corpuscular Volume 90.3 fL (80-95); Mean Platelet Volume 10.2 fL (8.0-11.0); Monocytes % 14.1; Neutrophils % 60.4; RBC 3.49 m/cumm (4.00-5.20); RBC Distribution Width 24.5 % (11.7-14.6); White Blood Cell Count 6.08 k/cumm (4.4-10.8)
[2019-07-05 07:14] LABS: Anion Gap 6.8 mmol/L (3-11); BUN 17 mg/dL (7-18); CO2 25.2 mmol/L (21.0-32.0); CREATININE 0.79 mg/dL (0.55-1.02); Calcium 8.8 mg/dL (8.5-10.1); Chloride 100 mmol/L (98-107); Glucose 91 mg/dL (74-106); Magnesium 1.8 mg/dL (1.8-2.4); Potassium 5.2 mmol/L (3.5-5.1); Sodium 132 mmol/L (136-145)
[2019-07-05 07:27] LABS: Anisocytosis 2+; Diff Comment RBC Morph Reviewed; Platelet Count 86 x1000/uL (130-400); Target Cells 2+
[2019-07-05 07:38] LABS: Ammonia < 10 umol/L (11-32)
[2019-07-05 07:42] VITALS: BP 121/77; PULSE 90; RESP 17; TEMP 37; O2SAT 99
[2019-07-05] MEDS: Lactulose 20 GM/30 ML CUP PO ×3 (09:03→19:46)
[2019-07-05] MEDS: cloNIDine 0.1 MG TAB PO ×2 (09:04→19:47)
[2019-07-05] MEDS: Spironolactone 50 MG TAB PO ×2 (09:04→16:46)
[2019-07-05] MEDS: Furosemide 20 MG TAB PO ×2 (09:04→16:46)
--- NOTE | 2019-07-05 10:50 | PGE_ITS ---
Date of Service Date of service: 07/05/19 Time of Service: 10:50 Assessment and Plan Assessment and plan (1) Fever: Start date: 07/05/19 Start time: 10:53 Status: Resolved Assessment and plan: Afebrile since 06/30. Continue Ceftriaxone for questionable SBP day 07/20. Cultures with no growth to date. (2) Compression fracture of lumbar vertebra: Start date: 07/05/19 Start time: 10:54 Status: Acute Assessment and plan: MRI with acute compression fx of l3-l5. Continue to offer tramadol, though she is refusing to take, bengay, and lidocaine patch, minimal relief. (3) Adult failure to thrive: Start date: 07/05/19 Start time: 10:54 Status: Acute Assessment and plan: Wt loss of 40lbs in 2 months. Eating only one meal a day and sharing with four cats. Encourage PO intake She would like to be discharged with hospice (4) Cirrhosis of liver: Start date: 07/05/19 Start time: 10:54 Status: Acute Assessment and plan: Moderate ascities found on u/s. MELD score 17, poor prognosis. Dr. Teran attempted paracentesis, however little fluid when aspirating. Abd distension likely secondary to muscle wasting. (5) Alcoholic hepatitis with ascites: Start date: 07/05/19 Start time: 10:57 Status: Chronic Assessment and plan: Moderate ascities. See above. (6) Generalized weakness: Start date: 07/05/19 Start time: 10:57 Status: Acute Assessment and plan: PT/OT, fall precautions. States she wants to get up but unwilling to work with PT (7) Acute hepatic encephalopathy: Start date: 07/05/19 Start time: 10:58 Status: Resolved Assessment and plan: Resolved. Ammonia level less than 10. History of bipolar/schizo not on medication (8) Palliative care patient: Start date: 07/05/19 Start time: 10:59 Status: Acute Assessment and plan: Followed by palliative care after conversation regarding prognosis she has decided to become DNR/DNI with hospice. Per Dr. Duenas she is hospice eligible with fewer than 6 months to live. (9) Back pain at L4-L5 level: Start date: 07/05/19 Start time: 11:00 Status: Acute Assessment and plan: From compression fx. See above, continue pain management. (10) Anxiety: Start date: 07/05/19 Start time: 11:01 Status: Chronic Assessment and plan: Hx of schizo/bipolar per Dr. Albert note, does not take medications. She is increasingly anxious today due to her cats being removed. Will try low dose atarax for anxiety. (11) Discharge planning issues: Start date: 07/05/19 Start time: 11:00 Status: Acute Assessment and plan: She has agreed to rehab where she will go on hospice. Subjective Subjective Patient reports: still having pain Interval history since last seen: Ms. Alvarez continues to be hard to focus. Her mentation is at baseline she is aware of what is going on but continues to have poor insight. She is agreeable to rehab. She would like to go on hospice as she knows she has likely less than 6 months to live. She does sound anxious today because she is losing her cats. Will trial small po dose atarax. She denies CP, SOB, NVD. Exam Narrative Exam Narrative: General: Very thin, middle aged female, sitting up in bed, her room is dark with shades closed. HEENT: normocephalic, atraumatic, pupils equal and round, EOMI, poor dentition, MMM. Neck: supple, no JVD. Cardiovascular: Heart has regular rate and rhythm, no murmur appreciated. Respiratory: Respirations even and unlabored, lung sounds clear bilaterally. GI: Abdomen round, distended, slightly firm, +bowel sounds, nontender on gentle palpation. Extremities: thin, muscle atrophy, no edema. Objective Objective Clinical Data: Abnormal lab results 07/05/19 07/05/19 07/05/19 Range/Units 06:45 06:45 06:45 RBC 3.49 L (4.00-5.20) m/cumm Hgb 10.4 L (12.0-15.5) g/dL Hct 31.5 L (36.0-46.0) % RDW 24.5 H (11.7-14.6) % Plt Count 86 L (130-400) x1000/uL Absolute Monocytes 0.86 H (0.11-0.7) k/cumm Sodium 132 L (136-145) mmol/L Potassium 5.2 H (3.5-5.1) mmol/L Ammonia < 10 L (11-32) umol/L Vital Signs Temperature 37.0 C 07/05/19 07:42 Temperature Source Tympanic 07/05/19 07:42 Pulse 90 07/05/19 07:42 Pulse Rhythm Regular 07/04/19 20:00 Pulse 89 06/30/19 14:40 Respiratory Rate 17 07/05/19 07:42 Respiratory Effort Non-Labored 07/04/19 20:00 Respiratory Depth Normal 07/04/19 20:00 Respiratory Pattern Normal 07/04/19 20:00 Blood Pressure 121/77 07/05/19 07:42 Blood Pressure Mean 72 06/30/19 14:06 Blood Pressure Position Supine 06/30/19 11:03 Pulse Oximetry 99 07/05/19 07:42 Oxygen Delivery Method Room Air 07/05/19 07:42 Oxygen Flow Rate 0 07/05/19 07:42 Pain Level 10 07/05/19 07:42 Intake & Output 07/04/19 07/04/19 07/05/19 11:59 23:59 11:59 Intake Total 250 / 490 240 / 490 Output Total 75 / 250 175 / 250 450 / 450 Balance 175 / 240 65 / 240 -450 / -450 Intake: Oral 250 / 490 240 / 490 Output: Urine 75 / 250 175 / 250 450 / 450 Other: Urine Color Yellow Dark [place] Yellow Urine Appearance Clear Clear Clear Urine Odor None Strong Comment MOST OF URINE ABSORBED INTO TISSUE. AMOUNT IS AN ESTIMATE. Stool Size Large Moderate Stool Characteristics Soft Soft Formed Voiding Methods Bedside Commode Bedside Commode Bedside Commode Laboratory Results WBC 6.08 k/cumm (4.4-10.8) 07/05/19 06:45 RBC 3.49 m/cumm (4.00-5.20) L 07/05/19 06:45 Hgb 10.4 g/dL (12.0-15.5) L 07/05/19 06:45 Hct 31.5 % (36.0-46.0) L 07/05/19 06:45 MCV 90.3 fL (80-95) 07/05/19 06:45 MCH 29.8 pg (27.0-33.0) 07/05/19 06:45 MCHC 33.0 g/dL (32.0-36.0) 07/05/19 06:45 RDW 24.5 % (11.7-14.6) H 07/05/19 06:45 Plt Count 86 x1000/uL (130-400) L 07/05/19 06:45 MPV 10.2 fL (8.0-11.0) 07/05/19 06:45 Immature Gran % 0.3 % 07/05/19 06:45 Neutrophils % 60.4 07/05/19 06:45 Lymphocytes % 21.4 07/05/19 06:45 Monocytes % 14.1 07/05/19 06:45 Eosinophils % 3.3 07/05/19 06:45 Basophils % 0.5 07/05/19 06:45 Absolute Neutrophils 3.67 k/cumm (1.2-6.7) 07/05/19 06:45 Absolute Lymphocytes 1.30 k/cumm (1.2-3.4) 07/05/19 06:45 Absolute Monocytes 0.86 k/cumm (0.11-0.7) H 07/05/19 06:45 Absolute Eosinophils 0.20 k/cumm (0.0-0.7) 07/05/19 06:45 Absolute Basophils 0.03 k/cumm (0.0-0.2) 07/05/19 06:45 Differential Comment Rbc morph reviewed 07/05/19 06:45 RBC Morphology See below 07/05/19 06:45 Polychromasia Present 07/04/19 06:55 Poikilocytosis 2+ 07/01/19 06:20 Anisocytosis 2+ 07/05/19 06:45 Target Cells 2+ 07/05/19 06:45 PT 13.8 sec (9.3-11.0) H 07/01/19 07:05 INR 1.4 (0.9-1.1) H 07/01/19 07:05 Sodium 132 mmol/L (136-145) L 07/05/19 06:45 Potassium 5.2 mmol/L (3.5-5.1) H 07/05/19 06:45 Chloride 100 mmol/L (98-107) 07/05/19 06:45 Carbon Dioxide 25.2 mmol/L (21.0-32.0) 07/05/19 06:45 Anion Gap 6.8 mmol/L (3-11) 07/05/19 06:45 BUN 17 mg/dL (7-18) 07/05/19 06:45 Creatinine 0.79 mg/dL (0.55-1.02) 07/05/19 06:45 Estimated GFR/1.73 m2 >= 60.00 (mL/min/1.73m2) 07/05/19 06:45 Glucose 91 mg/dL (74-106) 07/05/19 06:45 Calcium 8.8 mg/dL (8.5-10.1) 07/05/19 06:45 Magnesium 1.8 mg/dL (1.8-2.4) 07/05/19 06:45 Total Bilirubin 2.0 mg/dL (0.2-1.0) H 07/04/19 06:55 AST 182 U/L (15-37) H 07/04/19 06:55 ALT 73 U/L (14-59) H 07/04/19 06:55 Alkaline Phosphatase 166 U/L (46-116) H 07/04/19 06:55 Ammonia < 10 umol/L (11-32) L 07/05/19 06:45 Troponin I < 0.05 ng/Ml (<0.06) 06/30/19 11:23 Total Protein 6.1 g/dL (6.4-8.2) L 07/04/19 06:55 Albumin 2.3 g/dL (3.4-5.0) L 07/04/19 06:55 25-OH Vitamin D Total 19.1 ng/ml (30-100) L 07/01/19 07:05 TSH 0.79 uIU/mL (0.36-3.74) 06/30/19 11:23 Urine Color Yellow (Yellow) 06/30/19 15:20 Urine Clarity Clear (Clear) 06/30/19 15:20 Urine pH 6.5 (5-8) 06/30/19 15:20 Ur Specific [place] 1.020 (1.005-1.025) 06/30/19 15:20 Urine Protein Negative mg/dL (Negative) 06/30/19 15:20 Urine Ketones Negative mg/dL (Negative) 06/30/19 15:20 Urine Blood Negative (Negative) 06/30/19 15:20 Urine Nitrite Negative (Negative) 06/30/19 15:20 Urine Bilirubin Negative (Negative) 06/30/19 15:20 Urine Urobilinogen 1.0 EU/dL (Up TO 0.2) H 06/30/19 15:20 Ur Leukocyte Esterase Negative (Negative) 06/30/19 15:20 Urine Glucose Negative mg/dL (Negative) 06/30/19 15:20
[2019-07-05] MEDS: hydrOXYzine HCL 25 MG TAB PO (10:59)
--- NOTE | 2019-07-05 11:13 | PDOC.CMPRO ---
- If Service Date Differs Date of service: 07/05/19 Time of Service: 11:13 Care Management Progress Note S/O:Argenis was reviewed at interdisciplinary rounds, and CM reviewed her clinical chart. CM did contact Vianney Santos who is going to the home on Saturday to medicinal plant picker the four cats. Argenis is aware and very tearful she states she just wants to be home with her cats. She is unable to care for herself at this time, and there is no one to care for the cats in the home. Argenis believes that the [place] [facility] will care for the animals while she is here however that is not accurate. CM has outreached Home health and they state they are not able to care for the animals. Argenis herself has stated that her landlord did not care for the cats when she was last in the hospital and that she returned home feces and urine through out the apartment. Argenis is not able to articulate how she could care for herself safely at home nor the four cats. She is unable to ambulate due to pain, weakness and malnutrition. She continues to refuse senior living facility referral. Guardianship paperwork is complete and request for emergency guardianship to be submitted on Saturday to [place] [address]. Palliative care has met with Argenis twice during her stay, she did change her code status. Argenis feels that if she is a DNR and DNI she could return home alone to be with her cats. Argenis is unable to identify a support person in the community and due to her hepatic encephalapathy, end stage liver disease, she is unable to provide her own safe care at home. Argenis needs a guardian who could assist her in making safe decisions when she is unable to. A: Argenis is a 58 year old woman admitted to [facility] on 06[facility]19 with dehydration P: Anticipate that Argenis will not be able to return home and will need Skilled level of care. Guardianship is being sought. She is now a DNR, DNI. CM will continue to support patient and her discharge planning needs.
--- NOTE | 2019-07-05 11:30 | NUR.NOTE ---
Nursing Note: Patient was told that she could not go home and that her cats were given away for the protection of the animals. Patient lives in squaller, cat and human feces throughout the apartment. Patient was advised that she could not return to the apartment as she was no longer able to provide adequate care for herself and the animals. Patient upset and irate, she is experiencing denial. she strongly feels that her rights have been violated. she wants to exit building to have a cigarette. It is explained to patient she is at an acute level of care, staff and facility are responsible for her safety, and while at an acute level of care, she cannot leave the floor unsupervised, and with the current situation due to covid, that taking her off the unit was impractical, and would not happen. Twenty minutes of deescalation before patient would sit down. Care mgt to follow up with patient as patient started to accept that she would need to go to the next lstep in her journeyto the endo of life. Patient was give Atarax to help relax.
--- NOTE | 2019-07-05 15:10 | W.PM.PROGNOT ---
Date of Service Date of service: 07/05/19 Time of Service: 15:10 Assessment and Plan Assessment and plan (1) Severely underweight adult: Status: Acute Assessment and plan: nutritional support (2) Protein calorie malnutrition: Status: Chronic (3) Manic behavior: Status: Acute (4) COPD (chronic obstructive pulmonary disease): Status: Chronic Assessment and plan: pt refuses to stop at this point it is comforting for her. and prob not going to contribute to her overall decline. culture is negative x 24hrs (5) Nicotine dependence: Status: Acute (6) Coagulopathy: Status: Acute (7) Hep C w/o coma, chronic: Status: Acute Subjective Subjective Interval history since last seen: pt ws not seen today be the request of nursing. Pt was informed that her cats were removed from her apt and that she cannot return to her home. She was not eating- and giving her meals on wheels food to her cats- if she goes into SNF- she might do better b/c she would be eating. She is so week she cannot walk currently. Her liver is doing very poorly, but some of her over all poor nutrition may be just do from starvation rather than liver Dx. Her over all liver dx is not doing well. Her ammonia is <10. She has no friends or family in the area and no one to help her at home. It is not clear if she is competent, and guardianship is being pursed, to make her a dominique of [place]. She has significant underlying mental health problems- bipolar vs schozophrenia. I don't think she has been competent do to mental health issues, let alone from her liver failure. Pt was informed of all of this this am, and has been distraught all am. She finally took some atarax and is sleeping. nursing noted there is no bleeding/leakage/bruising from the puncture sight. labs are stable will follow Objective Objective Clinical Data: Abnormal lab results 07/05/19 07/05/19 07/05/19 Range/Units 06:45 06:45 06:45 RBC 3.49 L (4.00-5.20) m/cumm Hgb 10.4 L (12.0-15.5) g/dL Hct 31.5 L (36.0-46.0) % RDW 24.5 H (11.7-14.6) % Plt Count 86 L (130-400) x1000/uL Absolute Monocytes 0.86 H (0.11-0.7) k/cumm Sodium 132 L (136-145) mmol/L Potassium 5.2 H (3.5-5.1) mmol/L Ammonia < 10 L (11-32) umol/L Vital Signs Temperature 37.0 C 07/05/19 07:42 Temperature Source Tympanic 07/05/19 07:42 Pulse 90 07/05/19 07:42 Pulse Rhythm Regular 07/05/19 11:42 Pulse 89 06/30/19 14:40 Respiratory Rate 17 07/05/19 07:42 Respiratory Effort 07/05/19 11:42 Respiratory Depth Normal 07/05/19 11:42 Respiratory Pattern Normal 07/05/19 11:42 Blood Pressure 121/77 07/05/19 07:42 Blood Pressure Mean 72 06/30/19 14:06 Blood Pressure Position Supine 06/30/19 11:03 Pulse Oximetry 99 07/05/19 07:42 Oxygen Delivery Method Room Air 07/05/19 07:42 Oxygen Flow Rate 0 07/05/19 07:42 Pain Level 10 07/05/19 07:42 Intake & Output 07/04/19 07/05/19 07/05/19 23:59 11:59 23:59 Intake Total 240 / 490 250 / 250 Output Total 175 / 250 650 / 725 75 / 725 Balance 65 / 240 -400 / -475 -75 / -475 Intake: Oral 240 / 490 250 / 250 Output: Urine 175 / 250 650 / 725 75 / 725 Other: Urine Color Dark [place] Yellow Yellow Urine Appearance Clear Clear Urine Odor None None Stool Size Moderate Stool Characteristics Soft Formed Voiding Methods Bedside Commode Bedside Commode Bedside Commode Laboratory Results WBC 6.08 k/cumm (4.4-10.8) 07/05/19 06:45 RBC 3.49 m/cumm (4.00-5.20) L 07/05/19 06:45 Hgb 10.4 g/dL (12.0-15.5) L 07/05/19 06:45 Hct 31.5 % (36.0-46.0) L 07/05/19 06:45 MCV 90.3 fL (80-95) 07/05/19 06:45 MCH 29.8 pg (27.0-33.0) 07/05/19 06:45 MCHC 33.0 g/dL (32.0-36.0) 07/05/19 06:45 RDW 24.5 % (11.7-14.6) H 07/05/19 06:45 Plt Count 86 x1000/uL (130-400) L 07/05/19 06:45 MPV 10.2 fL (8.0-11.0) 07/05/19 06:45 Immature Gran % 0.3 % 07/05/19 06:45 Neutrophils % 60.4 07/05/19 06:45 Lymphocytes % 21.4 07/05/19 06:45 Monocytes % 14.1 07/05/19 06:45 Eosinophils % 3.3 07/05/19 06:45 Basophils % 0.5 07/05/19 06:45 Absolute Neutrophils 3.67 k/cumm (1.2-6.7) 07/05/19 06:45 Absolute Lymphocytes 1.30 k/cumm (1.2-3.4) 07/05/19 06:45 Absolute Monocytes 0.86 k/cumm (0.11-0.7) H 07/05/19 06:45 Absolute Eosinophils 0.20 k/cumm (0.0-0.7) 07/05/19 06:45 Absolute Basophils 0.03 k/cumm (0.0-0.2) 07/05/19 06:45 Differential Comment Rbc morph reviewed 07/05/19 06:45 RBC Morphology See below 07/05/19 06:45 Polychromasia Present 07/04/19 06:55 Poikilocytosis 2+ 07/01/19 06:20 Anisocytosis 2+ 07/05/19 06:45 Target Cells 2+ 07/05/19 06:45 PT 13.8 sec (9.3-11.0) H 07/01/19 07:05 INR 1.4 (0.9-1.1) H 07/01/19 07:05 Sodium 132 mmol/L (136-145) L 07/05/19 06:45 Potassium 5.2 mmol/L (3.5-5.1) H 07/05/19 06:45 Chloride 100 mmol/L (98-107) 07/05/19 06:45 Carbon Dioxide 25.2 mmol/L (21.0-32.0) 07/05/19 06:45 Anion Gap 6.8 mmol/L (3-11) 07/05/19 06:45 BUN 17 mg/dL (7-18) 07/05/19 06:45 Creatinine 0.79 mg/dL (0.55-1.02) 07/05/19 06:45 Estimated GFR/1.73 m2 >= 60.00 (mL/min/1.73m2) 07/05/19 06:45 Glucose 91 mg/dL (74-106) 07/05/19 06:45 Calcium 8.8 mg/dL (8.5-10.1) 07/05/19 06:45 Magnesium 1.8 mg/dL (1.8-2.4) 07/05/19 06:45 Total Bilirubin 2.0 mg/dL (0.2-1.0) H 07/04/19 06:55 AST 182 U/L (15-37) H 07/04/19 06:55 ALT 73 U/L (14-59) H 07/04/19 06:55 Alkaline Phosphatase 166 U/L (46-116) H 07/04/19 06:55 Ammonia < 10 umol/L (11-32) L 07/05/19 06:45 Troponin I < 0.05 ng/Ml (<0.06) 06/30/19 11:23 Total Protein 6.1 g/dL (6.4-8.2) L 07/04/19 06:55 Albumin 2.3 g/dL (3.4-5.0) L 07/04/19 06:55 25-OH Vitamin D Total 19.1 ng/ml (30-100) L 07/01/19 07:05 TSH 0.79 uIU/mL (0.36-3.74) 06/30/19 11:23 Urine Color Yellow (Yellow) 06/30/19 15:20 Urine Clarity Clear (Clear) 06/30/19 15:20 Urine pH 6.5 (5-8) 06/30/19 15:20 Ur Specific [place] 1.020 (1.005-1.025) 06/30/19 15:20 Urine Protein Negative mg/dL (Negative) 06/30/19 15:20 Urine Ketones Negative mg/dL (Negative) 06/30/19 15:20 Urine Blood Negative (Negative) 06/30/19 15:20 Urine Nitrite Negative (Negative) 06/30/19 15:20 Urine Bilirubin Negative (Negative) 06/30/19 15:20 Urine Urobilinogen 1.0 EU/dL (Up TO 0.2) H 06/30/19 15:20 Ur Leukocyte Esterase Negative (Negative) 06/30/19 15:20 Urine Glucose Negative mg/dL (Negative) 06/30/19 15:20
[2019-07-05 16:51] VITALS: BP 149/71; PULSE 107; RESP 20; TEMP 37.9; O2SAT 98
--- NOTE | 2019-07-05 17:00 | INDS_ITS ---
Date of service: 07/05/19 PT Notes Visit Reasons: DEHYDRATION Physical Therapy Inpatient Discharge Summary Date: July 05, 2019 Referring Doctor: Klarissa Jha NP PT Orders: PT CONSULT: Eval and treat Precautions: Standard, Falls This is a clinical summary of care provided on the duration of dates listed above. No charge was made in the completion of this documentation. Patient Profile/Admitting Diagnosis: Argenis is a 58 year old female admitted with generalized weakness, failing to thrive at home, concern by PCP for electrolyte abnormalities, confusion which may be related to hepatic encephalopathy and back pain. PMHX: Medical History Ascites (Acute) Bacteremia (Acute) Cirrhosis of liver with ascites (Acute) 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 COPD (chronic obstructive pulmonary disease) (Chronic) Dental caries (Acute) Emphysema of lung (Acute) Encephalopathy chronic (Acute) Fractured tooth (Acute) Hep C w/o coma, chronic (Acute) Hepatitis C (Chronic) History of hepatitis B vaccination (Acute) Hypertension (Chronic) Nicotine dependence (Acute) Palliative care patient (Acute) Poor dentition (Acute) PTSD (post-traumatic stress disorder) (Acute) Raynaud's disease without gangrene (Acute) Splenic varices (Acute) Varices of other sites (Acute) liver Social History/Home Situation: Argenis prior to admission was living alone in an apartment with her 4 cats in [facility]. She had been receiving home health nursing and [employer]. She notes that she was sharing her meals with her cats. Current Functional Limitations: Back pain limited her functional mobility and gait. Equipment Owned/DME: None Subjective: NT Objective: General Observation: NT Mental Status: NT Pain: NT ROM: (On initial evalaution) Right Upper Extremity: Demonstrates WNL AROM of the right UE Left Upper Extremity: Demonstrates WNL AROM of the left UE Right Lower Extremity: Hip flexion 120 degrees, knee flexion 140 degrees, knee extension 0 degrees, WNL ankle DF/PF Left Lower Extremity: Hip flexion 120 degrees, knee flexion 140 degrees, knee extension 0 degrees, WNL ankle DF/PF Strength: (On initial evalaution) Right Upper Extremity: Shoulder flexion 4/5, abduction 4/5, bicep/tricep 5/5. Good functional grasp Left Upper Extremity: Shoulder flexion 4/5, abduction 4/5, bicep/tricep 5/5. Good functional grasp Right Lower Extremity: Unable to access hip flexion, knee extension, knee flexion due to back and abdominal pain. Unable to hold a SLR actively. DF/PF 5/5 Left Lower Extremity: Unable to access hip flexion, knee extension, knee flexion due to back and abdominal pain. Patient able to actively SLR without extension lag. DF/PF 5/5 Bed Mobility/Transfers: Patient refused mobility assessment due to back and abdominal pain. Per Nursing patient has been crawling onto the bedside commode. Otherwise has needed assistance with all transfers. Gait: Patient refused mobility assessment due to back and abdominal pain. Balance: Static Sitting: N/T Dynamic Sitting: N/T Static Standing: N/T Dynamic Standing: N/T Assessment: Patient has refused skilled physical therapy services despite several attempts at offering said services. On 07/04/2019, patient was finally agreeable to participating in physical therapy but when asked to initiate mobility training and low intensity exercises, patient did not want to move due to discomfort, fatigue, and continued lack of sleep. Redirection had been futile as patient had been unable to focus and went on endless verbalization of past unrelated unpleasant as well as traumatic experiences. Patient is not appropriate for continued services at this time. Patient continues to present with clinical signs and symptoms consistent with current/admitting diagnoses that have resulted to mobility limitations, gait instability, and generalized weakness as demonstrated by the following impairment level findings: 1. Decreased strength to B LE major muscle groups 2. Impaired sitting/standing balance 3. Impaired activity tolerance Impairments are continuing to contributeto the following functional limitations: 1. Increased dependence with transfers 2. Inability to safely ambulate without assistive device and physical assistance 3. Increase completion time for mobility ADL performance 4. Increased fall risk 5. Inability to negotiate steps alone safely Goals: Goals X1 week 1. Supine-Sit independent NOT MET 2. Sit-Supine independent NOT MET 3. Sit-Stand independent NOT MET 4. Stand-Sit independent NOT MET 5. Bed-Chair independent NOT MET 6. Chair-Bed independent NOT MET 7. Independent gait on level surface with use of least restrictive device for at least 300 feet without report of pain nor dyspnea NOT MET 8. Independent stair negotiation while holding onto bilateral rails for at least 20 steps without report of pain nor dyspnea NOT MET 9. Independent with home exercise program NOT MET 10. Good static and dynamic standing balance/tolerance NOT MET DISCHARGE RECOMMENDATIONS: SNF placement. TREATMENT CODE/TIME: NC. Thank you very much for this referral. Eufemia Kulkarni PT, DPT, CLT [facility] Inpatient PT at [place], [place]
[2019-07-05] MEDS: Lidocaine 5% Patch 1 PATCH TP (20:14)
[2019-07-05 23:52] VITALS: BP 114/69; PULSE 98; RESP 17; TEMP 37.6; O2SAT 98
[2019-07-06 04:15] VITALS: BP 108/67; PULSE 99; RESP 19; TEMP 37.4; O2SAT 98
[2019-07-06 06:59] LABS: Abs Immature Grans 0.02 k/cumm (0.0-0.09); Absolute Basophil Count 0.05 k/cumm (0.0-0.2); Absolute Lymphocyte Count 1.47 k/cumm (1.2-3.4); Absolute Monocyte Count 1.12 k/cumm (0.11-0.7); Absolute Neutrophil Count 3.11 k/cumm (1.2-6.7); Basophils % 0.8; Eosinophils % 3.4; HCT 27.9 % (36.0-46.0); HGB 9.4 g/dL (12.0-15.5); Immature Grans % 0.3 %; Lymphocytes % 24.6; Mean Corp. HGB Concentration 33.7 g/dL (32.0-36.0); Mean Corpuscular Hemoglobin 30.5 pg (27.0-33.0); Mean Corpuscular Volume 90.6 fL (80-95); Mean Platelet Volume 10.7 fL (8.0-11.0); Monocytes % 18.8; Neutrophils % 52.1; RBC 3.08 m/cumm (4.00-5.20); RBC Distribution Width 24.7 % (11.7-14.6); White Blood Cell Count 5.97 k/cumm (4.4-10.8)
[2019-07-06 07:00] LABS: Anion Gap 5.8 mmol/L (3-11); BUN 21 mg/dL (7-18); CO2 24.2 mmol/L (21.0-32.0); CREATININE 0.75 mg/dL (0.55-1.02); Calcium 8.5 mg/dL (8.5-10.1); Chloride 100 mmol/L (98-107); Glucose 101 mg/dL (74-106); Potassium 4.9 mmol/L (3.5-5.1); Sodium 130 mmol/L (136-145)
[2019-07-06 07:28] LABS: Anisocytosis 2+; Diff Comment Diff Reviewed; Platelet Count 99 x1000/uL (130-400)
[2019-07-06 07:29] LABS: Hypochromasia 1+; Poikilocytes 1+; Polychromasia Present
[2019-07-06 07:39] VITALS: BP 122/76; PULSE 98; RESP 18; TEMP 37; O2SAT 97
[2019-07-06] MEDS: cloNIDine 0.1 MG TAB PO ×2 (08:38→19:54)
[2019-07-06] MEDS: Lactulose 20 GM/30 ML CUP PO ×3 (08:38→19:53)
[2019-07-06] MEDS: Furosemide 20 MG TAB PO ×2 (08:38→15:20)
[2019-07-06] MEDS: Spironolactone 50 MG TAB PO ×2 (08:38→15:20)
--- NOTE | 2019-07-06 10:51 | PGE_ITS ---
Date of Service Date of service: 07/06/19 Time of Service: 10:51 Assessment and Plan Assessment and plan (1) Fever: Start date: 07/06/19 Start time: 10:54 Status: Resolved Assessment and plan: Afebrile since 06/30. resolved. Finished course ceftrixone. (2) Compression fracture of lumbar vertebra: Start date: 07/06/19 Start time: 10:54 Status: Acute Assessment and plan: MRI with acute compression fx of l3-l5. Continue to offer tramadol, though she is refusing to take, bengay, and lidocaine patch, minimal relief. Refusing to walk with PT/OT. (3) Adult failure to thrive: Start date: 07/06/19 Start time: 10:54 Status: Acute Assessment and plan: Wt loss of 40lbs in 2 months. Eating only one meal a day and sharing with four cats. Encourage PO intake She would like to be discharged with hospice (4) Cirrhosis of liver: Start date: 07/06/19 Start time: 10:55 Status: Acute Assessment and plan: Moderate ascities found on u/s. MELD score 17, poor prognosis. Dr. Teran attempted paracentesis, however little fluid when aspirating. Abd distension likely secondary to muscle wasting. (5) Alcoholic hepatitis with ascites: Start date: 07/06/19 Start time: 10:55 Status: Chronic Assessment and plan: Moderate ascities. See above. (6) Generalized weakness: Start date: 07/06/19 Start time: 10:55 Status: Acute Assessment and plan: PT/OT, fall precautions. continues to be unwilling to work with PT (7) Acute hepatic encephalopathy: Start date: 07/06/19 Start time: 10:55 Status: Resolved Assessment and plan: Resolved. Ammonia level less than 10. History of bipolar/schizo not on medication (8) Palliative care patient: Start date: 07/06/19 Start time: 10:56 Status: Acute Assessment and plan: Followed by palliative care after conversation regarding prognosis she has decided to become DNR/DNI with hospice. Per Dr. Duenas she is hospice eligible with fewer than 6 months to live. (9) Back pain at L4-L5 level: Start date: 07/06/19 Start time: 10:56 Status: Acute Assessment and plan: From compression fx. See above, continue pain management. (10) Anxiety: Start date: 07/06/19 Start time: 10:56 Status: Chronic Assessment and plan: Hx of schizo/bipolar per Dr. Albert note, does not take medications. She is increasingly anxious today due to her cats being removed.Low dose atarax helpful with anxiety and sleeping. Continue hs dosing. (11) Discharge planning issues: Start date: 07/06/19 Start time: 10:56 Status: Acute Assessment and plan: She has agreed to rehab where she will go on hospice. Above case discussed with Dr. Hayward who is in agreement. Subjective Subjective Patient reports: no new complaints Interval history since last seen: Continues to be upset about cats being removed. Atarax was helpful with anxiety and sleep. Will order dose for tonight. Awaiting placement at this time. Sophy CP, SOB, N/V/D Exam Narrative Exam Narrative: General: Very thin, middle aged female, sitting up in bed, her room is dark with shades closed. HEENT: normocephalic, atraumatic, pupils equal and round, EOMI, poor dentition, MMM. Neck: supple, no JVD. Cardiovascular: Heart has regular rate and rhythm, no murmur appreciated. Respiratory: Respirations even and unlabored, lung sounds clear bilaterally. GI: Abdomen round, distended, slightly firm, +bowel sounds, nontender on gentle palpation. Extremities: thin, muscle atrophy, no edema. Objective Objective Clinical Data: Abnormal lab results 07/06/19 07/06/19 Range/Units 06:15 06:15 RBC 3.08 L (4.00-5.20) m/cumm Hgb 9.4 L (12.0-15.5) g/dL Hct 27.9 L (36.0-46.0) % RDW 24.7 H (11.7-14.6) % Plt Count 99 L (130-400) x1000/uL Absolute Monocytes 1.12 H (0.11-0.7) k/cumm Sodium 130 L (136-145) mmol/L BUN 21 H (7-18) mg/dL Vital Signs Temperature 37.0 C 07/06/19 07:39 Temperature Source Temporal Artery Scan 07/06/19 07:39 Pulse 98 H 07/06/19 07:39 Pulse Rhythm Regular 07/06/19 08:59 Pulse 89 06/30/19 14:40 Respiratory Rate 18 07/06/19 07:39 Respiratory Effort 07/06/19 08:59 Respiratory Depth Normal 07/06/19 08:59 Respiratory Pattern Normal 07/06/19 08:59 Blood Pressure 122/76 07/06/19 07:39 Blood Pressure Mean 72 06/30/19 14:06 Blood Pressure Position Supine 06/30/19 11:03 Pulse Oximetry 97 07/06/19 07:39 Oxygen Delivery Method Room Air 07/06/19 07:39 Oxygen Flow Rate 0 07/06/19 07:39 Pain Level 10 07/06/19 07:39 Intake & Output 07/05/19 07/05/19 07/06/19 11:59 23:59 11:59 Intake Total 250 / 590 340 / 590 Output Total 650 / 1000 350 / 1000 550 / 550 Balance -400 / -410 -10 / -410 -550 / -550 Intake: Oral 250 / 590 340 / 590 Output: Urine 650 / 1000 350 / 1000 550 / 550 Other: Urine Color Yellow Yellow Yellow Urine Appearance Clear Clear Clear Urine Odor None Normal Strong Comment urine together with stool Stool Size Moderate Large Copious Stool Characteristics Soft Soft Soft Formed Formed Liquid Voiding Methods Bedside Commode Bedside Commode Bedside Commode Laboratory Results WBC 5.97 k/cumm (4.4-10.8) 07/06/19 06:15 RBC 3.08 m/cumm (4.00-5.20) L 07/06/19 06:15 Hgb 9.4 g/dL (12.0-15.5) L 07/06/19 06:15 Hct 27.9 % (36.0-46.0) L 07/06/19 06:15 MCV 90.6 fL (80-95) 07/06/19 06:15 MCH 30.5 pg (27.0-33.0) 07/06/19 06:15 MCHC 33.7 g/dL (32.0-36.0) 07/06/19 06:15 RDW 24.7 % (11.7-14.6) H 07/06/19 06:15 Plt Count 99 x1000/uL (130-400) L 07/06/19 06:15 MPV 10.7 fL (8.0-11.0) 07/06/19 06:15 Immature Gran % 0.3 % 07/06/19 06:15 Neutrophils % 52.1 07/06/19 06:15 Lymphocytes % 24.6 07/06/19 06:15 Monocytes % 18.8 07/06/19 06:15 Eosinophils % 3.4 07/06/19 06:15 Basophils % 0.8 07/06/19 06:15 Absolute Neutrophils 3.11 k/cumm (1.2-6.7) 07/06/19 06:15 Absolute Lymphocytes 1.47 k/cumm (1.2-3.4) 07/06/19 06:15 Absolute Monocytes 1.12 k/cumm (0.11-0.7) H 07/06/19 06:15 Absolute Eosinophils 0.20 k/cumm (0.0-0.7) 07/06/19 06:15 Absolute Basophils 0.05 k/cumm (0.0-0.2) 07/06/19 06:15 Differential Comment Diff reviewed 07/06/19 06:15 RBC Morphology See below 07/06/19 06:15 Polychromasia Present 07/06/19 06:15 Hypochromasia 1+ 07/06/19 06:15 Poikilocytosis 1+ 07/06/19 06:15 Anisocytosis 2+ 07/06/19 06:15 Target Cells 2+ 07/05/19 06:45 PT 13.8 sec (9.3-11.0) H 07/01/19 07:05 INR 1.4 (0.9-1.1) H 07/01/19 07:05 Sodium 130 mmol/L (136-145) L 07/06/19 06:15 Potassium 4.9 mmol/L (3.5-5.1) 07/06/19 06:15 Chloride 100 mmol/L (98-107) 07/06/19 06:15 Carbon Dioxide 24.2 mmol/L (21.0-32.0) 07/06/19 06:15 Anion Gap 5.8 mmol/L (3-11) 07/06/19 06:15 BUN 21 mg/dL (7-18) H 07/06/19 06:15 Creatinine 0.75 mg/dL (0.55-1.02) 07/06/19 06:15 Estimated GFR/1.73 m2 >= 60.00 (mL/min/1.73m2) 07/06/19 06:15 Glucose 101 mg/dL (74-106) 07/06/19 06:15 Calcium 8.5 mg/dL (8.5-10.1) 07/06/19 06:15 Magnesium 1.8 mg/dL (1.8-2.4) 07/05/19 06:45 Total Bilirubin 2.0 mg/dL (0.2-1.0) H 07/04/19 06:55 AST 182 U/L (15-37) H 07/04/19 06:55 ALT 73 U/L (14-59) H 07/04/19 06:55 Alkaline Phosphatase 166 U/L (46-116) H 07/04/19 06:55 Ammonia < 10 umol/L (11-32) L 07/05/19 06:45 Troponin I < 0.05 ng/Ml (<0.06) 06/30/19 11:23 Total Protein 6.1 g/dL (6.4-8.2) L 07/04/19 06:55 Albumin 2.3 g/dL (3.4-5.0) L 07/04/19 06:55 25-OH Vitamin D Total 19.1 ng/ml (30-100) L 07/01/19 07:05 TSH 0.79 uIU/mL (0.36-3.74) 06/30/19 11:23 Urine Color Yellow (Yellow) 06/30/19 15:20 Urine Clarity Clear (Clear) 06/30/19 15:20 Urine pH 6.5 (5-8) 06/30/19 15:20 Ur Specific [place] 1.020 (1.005-1.025) 06/30/19 15:20 Urine Protein Negative mg/dL (Negative) 06/30/19 15:20 Urine Ketones Negative mg/dL (Negative) 06/30/19 15:20 Urine Blood Negative (Negative) 06/30/19 15:20 Urine Nitrite Negative (Negative) 06/30/19 15:20 Urine Bilirubin Negative (Negative) 06/30/19 15:20 Urine Urobilinogen 1.0 EU/dL (Up TO 0.2) H 06/30/19 15:20 Ur Leukocyte Esterase Negative (Negative) 06/30/19 15:20 Urine Glucose Negative mg/dL (Negative) 06/30/19 15:20
--- NOTE | 2019-07-06 10:53 | NT_ITS ---
Date of service: 07/06/19 Time of Service: 10:45 Occupational Therapy Notes 07/06/19 OT attempted to see pt who reports that she is too stressed to perform any therapy today. She notes that she was given only 5 months to live and is not sure what the point is anymore. She reports that she needs to call animal con trol as soon as possible to speak with them about her cats which are being picked up today. She states that she is overwhelmed with emotion at this time and is not sure what she will do. OT will attempt to resume OT services tomorrow. Honey Laurent, OTR/L [facility]
--- NOTE | 2019-07-06 11:28 | CMPROGNOTE_ITS ---
- If Service Date Differs Date of service: 07/06/19 Time of Service: 11:28 Care Management Progress Note S/O:Argenis was sitting up in bed when CM met with her. She shared her sorrow over losing her cats and the recent news that she probably only has a few months to live because of her end stage liver disease and malnutrition. Argenis acknowledged that she is very weak and needs a lot of help. She admitted that she knows she cannot care for herself and her cats but that she still wishes she could just go home. At times she was teary in the recounting of the past few days and the decisions that had been made on her behalf. Emergency Guardianship is being pursued through the court system. The paperwork has been comp-leted and will be delivered by CM to the courthouse today. A: Argenis is a 58 year old woman admitted to [facility] on 06/30/19 with dehydration P: Anticipate that Argenis will not be able to return home and will need Skilled level of care. Guardianship is being sought. She is now a DNR, DNI. CM will continue to support Argenis and her discharge planning needs.
--- NOTE | 2019-07-06 13:07 | W.NUTRFU ---
Date of service: 07/06/19 Time of Service: 13:08 Nutritional Follow up NOTE: Argenis continues on Low Sodium Diet with Ensure 240 ml BID. Currently meeting 100% nutrient and fluids at this time. Able to choose appropriate menus daily. Continues to be at high nutritional risk and at risk for further nutritional decline, skin breakdown. Hospice consult pending. Will continue to follow and provide meals/supplements as ordered. Time Spent in Nutritional Counseling and Treatment: 15 min spent face to face
--- NOTE | 2019-07-06 15:21 | CHAPLAIN ---
Argenis was in bed, her room was dark and the window shade was pulled down. She talked about her apartment and her cats and realizing she wouldn't likely be able to return to her apartment and will have to turn her cats over to the humane society, she said. Argenis also told me that she learned this weekend that she has a prognosis of about 5 months. When I asked more about this news, and how she is absorbing it, she changed the topic and began telling me about her apartment and what bad shape it is in and how her landlord has never taken good care of it. As in my past conversations with Argenis, she changed topics frequently. She doesn't not have family or friends that she relies on for support. I will continue to visit.
[2019-07-06 15:30] VITALS: BP 123/85; PULSE 101; RESP 22; TEMP 36.9; O2SAT 99
[2019-07-06 19:39] VITALS: BP 129/82; PULSE 108; RESP 19; TEMP 37.3; O2SAT 98
[2019-07-06] MEDS: Lidocaine 5% Patch 1 PATCH TP (19:54)
[2019-07-06] MEDS: hydrOXYzine HCL 25 MG TAB PO (21:13)
[2019-07-07 00:30] VITALS: BP 105/68; PULSE 102; RESP 20; TEMP 36.9; O2SAT 98
[2019-07-07] MEDS: Lactulose 20 GM/30 ML CUP PO ×2 (07:56→13:32)
[2019-07-07] MEDS: Furosemide 20 MG TAB PO ×2 (07:57→16:40)
[2019-07-07] MEDS: Spironolactone 50 MG TAB PO ×2 (07:57→16:40)
[2019-07-07] MEDS: cloNIDine 0.1 MG TAB PO ×2 (07:57→19:44)
[2019-07-07 08:01] VITALS: BP 117/74; PULSE 100; RESP 19; TEMP 37.1; O2SAT 98
--- NOTE | 2019-07-07 09:43 | CMPROGNOTE_ITS ---
- If Service Date Differs Date of service: 07/07/19 Time of Service: 09:43 Care Management Progress Note S/O:Argenis was siting up in bed when CM met with her. She stated that she was nauseated from the lactulose she is receiving. She also shared that she is really tired because she is not sleeping. Argenis became teary when she began to talk about her cats. She stated that she spoke with Vianney Santos yesterday and the cats were to be picked up at 8:30 this morning. They will go to a no kill s helter or be fostered. She shared that she is heart broken to lose her pets. Referrals were sent to [facility] and the [facility] yesterday for placement for Argenis. Today [facility] offered her a bed. A covid-19 screening will be done and as long as it is negative, she will likely be able to go later this week. A: Argenis is a 58 year old woman admitted to [facility] on 06/30/19 with dehydration P: Argenis will not be able to return home at this time. She has been accepted at [facility] with the hopes that with good nursing care, PT and nutritional support, she may be able to resume care for herself in time. Guardianship is being sought and the necessary documents were filed by CM with the [address] yesterday. She is now a DNR, DNI. CM will continue to support Argensi and her discharge planning needs.
--- NOTE | 2019-07-07 10:32 | OTTR_ITS ---
Date of service: 07/07/19 Time of Service: 09:25 Occupational Therapy Notes Occupational Therapy Inpatient Treatment Note Date: 07/07/19 PRECAUTIONS: Fall, Standard, DNR/DNI SUBJECTIVE: Pt was sitting in bed with the lights off in her room. She states that she is tired and in pain. She reports that she would like to rest as she is bloated and unable to have a bowel movement. OBJECTIVE: PAIN:c/o pain in hips, abdomen BATHING: Sitting in bed Upper Body: (I) with washing face and (B) UE- she states that she will wash up everything else later. She requires min vc and vc for task performance due to emotional state at todays session. EATING: Pt was able to eat minimal food. She has fine and gross motor control of her (B) UE to be able to open containers. She is (I) with food to mouth. ASSESSMENT/PLAN: Pt is tired, weak and emotional. OT and pt discuss the importance of performance of ADLS. Pt is receptive to this and willing to perform minimal ADLs at todays session. TREATMENT CODES/TIME: 21398, 10 minutes (09:25) Honey Laurent OTR/L [facility]
--- NOTE | 2019-07-07 12:17 | PGE_ITS ---
Date of Service Date of service: 07/07/19 Time of Service: 10:30 Assessment and Plan Assessment and plan (1) Compression fracture of lumbar vertebra: Status: Acute Assessment and plan: MRI with acute compression fx of l3-l5. Continue to offer tramadol, though she is refusing to take, bengay, and lidocaine patch, minimal relief. Refusing to walk with PT/OT. (2) Alcoholic hepatitis with ascites: Status: Chronic Assessment and plan: Moderate ascities found on u/s. MELD score 17, poor prognosis continue lactulose, follow liver functions, avoid hepatotoxic drugs (3) Adult failure to thrive: Status: Acute Assessment and plan: case management following. palliative care consult placed, nutrition consult placed (4) Palliative care patient: Status: Acute Assessment and plan: palliative care following (5) Discharge planning issues: Status: Acute Assessment and plan: will likely need placement. patient may not agree to it, guardianship paperwork pending. Cats have been placed. Subjective Subjective Patient reports: still having pain, voiding w/o difficulty and no bowel movement (reports constipation); denies nausea and vomiting Exam Narrative Exam Narrative: Const General: anxious, disheveled, frail appearing and ill appearing chronically Nutritional Appearance: cachectic and malnourished Orientation: alert, awake and disorganized HENMT Head: normal to inspection, normocephalic and atraumatic Mouth: oral mucosa abnormal (dry) Resp Effort & Inspection: normal respiratory effort Auscultation: diminished lung sounds Cardio Rate: regular rate Rhythm: regular rhythm GI Inspection: distended Palpation: firm, no guarding, tender and ascites Skin General skin exam: no rashes or lesions noted Psych Appearance disheveled Mental Status: other (disorganized) Speech and Movement: pressured speech and restless Mood: anxious mood and other (disorganized) Affect: anxious affect Attitude: guarded Thought Process: flight of ideas and perseverating Insight: poor Judgment: poor Objective Objective Clinical Data: Vital Signs Temperature 37.1 C 07/07/19 08:01 Temperature Source Temporal Artery Scan 07/07/19 08:01 Pulse 100 H 07/07/19 08:01 Pulse Rhythm Regular 07/07/19 10:27 Pulse 89 06/30/19 14:40 Respiratory Rate 19 07/07/19 08:01 Respiratory Effort Non-Labored 07/07/19 10:27 Respiratory Depth Normal 07/07/19 10:27 Respiratory Pattern Normal 07/07/19 10:27 Blood Pressure 117/74 07/07/19 08:01 Blood Pressure Mean 72 06/30/19 14:06 Blood Pressure Position Supine 06/30/19 11:03 Pulse Oximetry 98 07/07/19 08:01 Oxygen Delivery Method Room Air 07/07/19 08:01 Oxygen Flow Rate 0 07/07/19 08:01 Pain Level 10 07/07/19 08:01 Intake & Output 07/06/19 07/07/19 07/07/19 23:59 11:59 23:59 Output Total 275 / 825 250 / 250 Balance -275 / -825 -250 / -250 Output: Urine 275 / 825 250 / 250 Other: Urine Color Straw Yellow Urine Appearance Clear Clear Urine Odor Strong Normal Stool Size Moderate Stool Characteristics Soft Formed Brown Voiding Methods Bedside Commode Laboratory Results WBC 5.97 k/cumm (4.4-10.8) 07/06/19 06:15 RBC 3.08 m/cumm (4.00-5.20) L 07/06/19 06:15 Hgb 9.4 g/dL (12.0-15.5) L 07/06/19 06:15 Hct 27.9 % (36.0-46.0) L 07/06/19 06:15 MCV 90.6 fL (80-95) 07/06/19 06:15 MCH 30.5 pg (27.0-33.0) 07/06/19 06:15 MCHC 33.7 g/dL (32.0-36.0) 07/06/19 06:15 RDW 24.7 % (11.7-14.6) H 07/06/19 06:15 Plt Count 99 x1000/uL (130-400) L 07/06/19 06:15 MPV 10.7 fL (8.0-11.0) 07/06/19 06:15 Immature Gran % 0.3 % 07/06/19 06:15 Neutrophils % 52.1 07/06/19 06:15 Lymphocytes % 24.6 07/06/19 06:15 Monocytes % 18.8 07/06/19 06:15 Eosinophils % 3.4 07/06/19 06:15 Basophils % 0.8 07/06/19 06:15 Absolute Neutrophils 3.11 k/cumm (1.2-6.7) 07/06/19 06:15 Absolute Lymphocytes 1.47 k/cumm (1.2-3.4) 07/06/19 06:15 Absolute Monocytes 1.12 k/cumm (0.11-0.7) H 07/06/19 06:15 Absolute Eosinophils 0.20 k/cumm (0.0-0.7) 07/06/19 06:15 Absolute Basophils 0.05 k/cumm (0.0-0.2) 07/06/19 06:15 Differential Comment Diff reviewed 07/06/19 06:15 RBC Morphology See below 07/06/19 06:15 Polychromasia Present 07/06/19 06:15 Hypochromasia 1+ 07/06/19 06:15 Poikilocytosis 1+ 07/06/19 06:15 Anisocytosis 2+ 07/06/19 06:15 Target Cells 2+ 07/05/19 06:45 PT 13.8 sec (9.3-11.0) H 07/01/19 07:05 INR 1.4 (0.9-1.1) H 07/01/19 07:05 Sodium 130 mmol/L (136-145) L 07/06/19 06:15 Potassium 4.9 mmol/L (3.5-5.1) 07/06/19 06:15 Chloride 100 mmol/L (98-107) 07/06/19 06:15 Carbon Dioxide 24.2 mmol/L (21.0-32.0) 07/06/19 06:15 Anion Gap 5.8 mmol/L (3-11) 07/06/19 06:15 BUN 21 mg/dL (7-18) H 07/06/19 06:15 Creatinine 0.75 mg/dL (0.55-1.02) 07/06/19 06:15 Estimated GFR/1.73 m2 >= 60.00 (mL/min/1.73m2) 07/06/19 06:15 Glucose 101 mg/dL (74-106) 07/06/19 06:15 Calcium 8.5 mg/dL (8.5-10.1) 07/06/19 06:15 Magnesium 1.8 mg/dL (1.8-2.4) 07/05/19 06:45 Total Bilirubin 2.0 mg/dL (0.2-1.0) H 07/04/19 06:55 AST 182 U/L (15-37) H 07/04/19 06:55 ALT 73 U/L (14-59) H 07/04/19 06:55 Alkaline Phosphatase 166 U/L (46-116) H 07/04/19 06:55 Ammonia < 10 umol/L (11-32) L 07/05/19 06:45 Troponin I < 0.05 ng/Ml (<0.06) 06/30/19 11:23 Total Protein 6.1 g/dL (6.4-8.2) L 07/04/19 06:55 Albumin 2.3 g/dL (3.4-5.0) L 07/04/19 06:55 25-OH Vitamin D Total 19.1 ng/ml (30-100) L 07/01/19 07:05 TSH 0.79 uIU/mL (0.36-3.74) 06/30/19 11:23 Urine Color Yellow (Yellow) 06/30/19 15:20 Urine Clarity Clear (Clear) 06/30/19 15:20 Urine pH 6.5 (5-8) 06/30/19 15:20 Ur Specific [place] 1.020 (1.005-1.025) 06/30/19 15:20 Urine Protein Negative mg/dL (Negative) 06/30/19 15:20 Urine Ketones Negative mg/dL (Negative) 06/30/19 15:20 Urine Blood Negative (Negative) 06/30/19 15:20 Urine Nitrite Negative (Negative) 06/30/19 15:20 Urine Bilirubin Negative (Negative) 06/30/19 15:20 Urine Urobilinogen 1.0 EU/dL (Up TO 0.2) H 06/30/19 15:20 Ur Leukocyte Esterase Negative (Negative) 06/30/19 15:20 Urine Glucose Negative mg/dL (Negative) 06/30/19 15:20
--- NOTE | 2019-07-07 14:58 | CHAPLAIN ---
I had a short visit with Argenis this afternoon. She was getting ready to take a nap. She said she didn't sleep well last night and wasn't able to nap this morning. She started to talk about her cats, but then said, I don't want to talk about that now, it will upset me. At one point in our conversation, she said she doesn't believe she will live 5 months. That was the prognosis she said she was given by the hospice medical claims assistant. Argenis said she can just tell I won't live 5 more months. She is happy to have [place] cream with her to apply whenever she wants. I will visit with her tomorrow.
[2019-07-07 15:58] VITALS: BP 118/77; PULSE 68; RESP 18; TEMP 37.2; O2SAT 95
[2019-07-07] MEDS: Polyethylene Glycol 3350 17 GM PACKET PO (17:20)
[2019-07-07] MEDS: Bisacodyl 10 MG SUPP PR (17:21)
[2019-07-07 19:20] VITALS: BP 118/72; PULSE 90; RESP 19; TEMP 37; O2SAT 100
[2019-07-07] MEDS: Lidocaine 5% Patch 1 PATCH TP (19:43)
[2019-07-07] MEDS: hydrOXYzine HCL 25 MG TAB PO (21:55)
[2019-07-07 23:51] VITALS: BP 131/80; PULSE 102; RESP 18; TEMP 37.5; O2SAT 99
[2019-07-08 07:35] VITALS: BP 124/77; PULSE 91; RESP 18; TEMP 37; O2SAT 100
[2019-07-08] MEDS: Furosemide 20 MG TAB PO (09:32)
[2019-07-08] MEDS: Spironolactone 50 MG TAB PO (09:32)
[2019-07-08] MEDS: Lactulose 20 GM/30 ML CUP PO (09:33)
[2019-07-08] MEDS: Polyethylene Glycol 3350 17 GM PACKET PO (09:33)
[2019-07-08] MEDS: cloNIDine 0.1 MG TAB PO (09:33)
--- NOTE | 2019-07-08 10:02 | NT_ITS ---
Date of service: 07/08/19 Time of Service: 09:30 Occupational Therapy Notes 07/08/19 OT attempted to see pt who reports that she just cannot shower right now. She states that she wants to and this makes pt anxious. OT attempts to reassure pt that we will attempt to shower again tomorrow. OT will attempt to see pt in the later morning. This will hopefully give pt time to rest. Due to pt refusal, no OT services were provided at todays session. OT did ask pt if she would like to perform bathing sitting in bed which she also refused. Honey Laurent, OTR/[facility]
[2019-07-08 10:20] LABS: COVID-19 RT-PCR Result Negative (Negative)
--- NOTE | 2019-07-08 12:22 | W.PM.DS.N ---
Date of service: 07/08/19 Time of Service: 12:34 DS: Diagnosis Discharge Diagnosis (1) Compression fracture of lumbar vertebra: Status: Acute (2) Alcoholic hepatitis with ascites: Status: Chronic (3) Adult failure to thrive: Status: Acute (4) Palliative care patient: Status: Acute Discharge Plan Disposition Patient Disposition: SNF (LEVEL 1) [facility] Condition: Poor Discharge Details Chief Complaint: GenMedical Clinical Impression: Adult failure to thrive, Cirrhosis of liver, Generalized weakness, Acute hepatic encephalopathy Reason For Visit: DEHYDRATION Admit Date/Time: 06/30/19 13:31 Admit Provider: Maida Marks Attending Provider: Maida Marks Primary Care Provider: Danny Livingston ED Provider: Kimo Salas Hospital Course Hospital Course: This is a 58 year old female well known to the hospitalist service who presented to the ED with generalized weakness, failing to thrive at home, concern by PCP for electrolyte abnormalities concern by piano case maker and community support is that she can not manage at home. Hemodynamically stable. Patient was confused related to hepatic encephalopathy, this improved with treatment and now her ammonia level is normalized and she is at baseline. work up also showed acute renal failure, likely pre-renal from dehydration/diuretic therapy, which resolved with IV hydration. she was started back on her diuretics and has been stable. We did obtain a palliative care consult, and case management has sent referrals for rehabilitation. Her work up also showed compression fractures of L3-5 and pain was managed with topical lidocaine patch and benguay. she refused any oral pain medications. She also had a fever first night of admission with no source of infection identified, it was thought it could be d/t SBP and she was treated with 5 days of ceftriaxone. she had no further fever and labs and cultures remained unremarkable. She has been resistive to care and any recommendations and perseverates and has disorganized thoughts which inhibits her ability to care for herself. Her course was complicated with constipation which resolved with aggressive bowel management. she also had a surgical consult for paracentesis which was unsuccessful. she has been tolerating PO and voiding well, she has had no fevers and hemodynamically stable. Home Meds and New Rx's Prescriptions: [place] Greaseless 15-10 % Cream 1 applic topical PRN PRNQty: 0 RF: 0 polyethylene glycol 3350 17 gram Powder In Packet 17 g PO BID Qty: 0 RF: 0 Continued acetaminophen 500 mg tablet 500 mg PO BID RF: 0 lidocaine 4 % adhesive patch,medicated 1 patch TP DAILY PRNRF: 0 dextroamphetamine-amphetamine [Adderall XR] 15 mg capsule,extended release 24hr 15 mg PO DAILY RF: 0 clonidine HCl 0.1 mg tablet 0.1 mg PO BID RF: 0 lactulose 10 gram/15 mL solution 45 ml PO BID PRN PRNRF: 0 Changed furosemide 20 mg tablet 20 mg PO BID Qty: 0 RF: 0 spironolactone 50 mg tablet 50 mg PO BID Qty: 0 RF: 0 Discharge Instructions Instructions: Vertebral Compression Fracture (DC), Ascites (DC), Low-Sodium Diet (DC) Stand Alone Forms: Nursing Discharge Form Activity:: Activity as Tolerated Equipment/Supplies:: No Equipment Needed Diet:: Low Sodium Discharge Orders Discharge Orders: Discharge Order (Routine); Ordered 07/08/19 Ordered By: Klarissa Jha Discharge Data Discharge Date/Time-TO BE ENTERED AT DEPARTURE: 07/08/19 13:49 DS: Summary Status at Discharge Functional status at discharge: uses cane/walker Overall status at discharge: patient is not back to baseline Mental Status: other (anxious, perseverating, ) Speech and Movement: pressured speech Mood: anxious mood and other (anxious, perseverating, ) Affect: anxious affect Exam Const General: anxious, disheveled, frail appearing and ill appearing chronically Nutritional Appearance: cachectic Orientation: alert and awake HENMT Head: normal to inspection, normocephalic and atraumatic Resp Effort & Inspection: normal respiratory effort Auscultation: clear to auscultation bilaterally Cardio Rate: regular rate Rhythm: regular rhythm GI Inspection: distended Palpation: firm, no guarding and hernia (inguinal, soft reducible ) Neuro General: patient alert, patient awake and moves all extremities Extrem General: normal to inspection and full ROM Psych Appearance: disheveled Mental Status: other (anxious, perseverating, ) Speech and Movement: pressured speech Mood: anxious mood and other (anxious, perseverating, ) Affect: anxious affect Thought Process: flight of ideas and perseverating Thought Content: obsessions Insight: poor Judgment: poor DS: Data Vitals/I&O Vitals and I&O: Vital Signs Temperature 37.0 C 07/08/19 07:35 Temperature Source Temporal Artery Scan 07/08/19 07:35 Pulse 91 H 07/08/19 07:35 Pulse Rhythm Regular 07/08/19 09:46 Pulse 89 06/30/19 14:40 Respiratory Rate 18 07/08/19 07:35 Respiratory Effort 07/08/19 09:46 Respiratory Depth Normal 07/08/19 09:46 Respiratory Pattern Normal 07/08/19 09:46 Blood Pressure 124/77 07/08/19 07:35 Blood Pressure Mean 72 06/30/19 14:06 Blood Pressure Position Supine 06/30/19 11:03 Pulse Oximetry 100 07/08/19 07:35 Oxygen Delivery Method Room Air 07/08/19 07:35 Oxygen Flow Rate 0 07/08/19 07:35 Pain Level 10 07/08/19 07:35 Intake & Output 07/07/19 07/08/19 07/08/19 23:59 11:59 23:59 Intake Total 50 / 50 240 / 240 Output Total 75 / 325 Balance -25 / -275 240 / 240 Intake: IV 50 / 50 Oral 240 / 240 Output: Urine 75 / 325 Other: Urine Color Dark Olimpia Dark Olimpia Urine Appearance Clear Clear Urine Odor Strong Strong Comment mix w/ stools pt up to bsc, urine mixed with toilet paper Stool Size Large Stool Characteristics Soft Voiding Methods Bedside Commode Bedside Commode Data Completed and Pending Labs on day of discharge: Labs from last 24 hours 07/07/19 16:50 Nasopharyn COVID-19 PCR Negative Preliminary micro results at discharge 07/04/19 15:23 Body Fluid Culture - Preliminary Peritoneal [facility] Medical History (Updated 07/05/19 @ 11:01 by Anastasiia Amanda NP) Ascites (Acute) Bacteremia (Acute) Cirrhosis of liver with ascites (Acute) 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 COPD (chronic obstructive pulmonary disease) (Chronic) Dental caries (Acute) DNI (do not intubate) (Acute) DNR (do not resuscitate) (Acute) Emphysema of lung (Acute) Encephalopathy chronic (Acute) Encounter for hospice care discussion (Acute) Fractured tooth (Acute) Hep C w/o coma, chronic (Acute) Hepatitis C (Chronic) History of hepatitis B vaccination (Acute) Hypertension (Chronic) Manic behavior (Acute) pressured speech, tangential disordered thoughts Nicotine dependence (Acute) Palliative care patient (Acute) POLST (Physician Orders for Life-Sustaining Treatment) (Acute) Poor dentition (Acute) Protein calorie malnutrition (Chronic) PTSD (post-traumatic stress disorder) (Acute) Raynaud's disease without gangrene (Acute) Severely underweight adult (Acute) 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 Patient describes concern for lead and mold, but it is unclear if this is an ongoing concern. She gives a grand social history regarding status of her past and her family, but it is hard to interpret the veracity of this history.
--- NOTE | 2019-07-08 12:36 | PDOC.CMDIS ---
- If Service Date Differs Date of service: 07/08/19 Time of Service: 12:36 LACE Index Scoring Tool - Questions: Length of Stay (in days): 7 - 13 Acuity (Admit via E.D.?): Yes Comorbidities: Chronic Pulmonary Disease E.D. Visits: 4 - Answers: Total Score: 14 Risk of Readmission: High Risk Care Management Discharge Reason for Hospitalization: Back pain Discharge Plan: Argenis is discharged to the [facility] for a short-term stay. The hope is that after receiving nursing care, PT and nutritional support for a period of time, she will be able to resume care for herself. Argenis will follow up with her PCP and palliative care on an outpatient basis. [facility] providing transport via wheelchair van. Patient/Family Education Needs: Nursing will review discharge instructions with Argenis re medications and activity level. Argenis is able to verbalize reason for hospitalization and how to manage care. Services Needed at Discharge: Senior Care Facility ([facility])
--- NOTE | 2019-07-09 07:18 | OT.INDS ---
Date of service: 07/09/19 Time of Service: 07:18 Occupational Therapy Notes Occupational Therapy Inpatient Discharge Summary Date: 07/09/19 Dates of Service: 07/02/19-07/09/19 Referring Doctor:Klarissa Jha NP OT Orders: Non Urgent Precautions: Fall, Standard, DNR/DNI PATIENT PROFILE/ADMITTING DIAGNOSIS: Pt is a 58 year old female who presented to the ER on 06/30/19 for clinical impression of Adult failure to thrive, Cirrhosis of liver, Generalized weakness, Acute hepatic encephalopathy. Pt was admitted to the Med Surg floor and is currently being seen for (1) Fever, (2) Cirrhosis of liver with ascites, (3) Compression fracture of lumbar vertebra, (4) Acute hepatic encephalopathy, (5) Adult failure to thrive,(6) DVT prophylaxis. Pt was seen for OT consultation for assessment of pts current functional abilities and (I) in self care activities with discharge planning recommendation. Past Medical History- Medical History Ascites (Acute) Cirrhosis of liver with ascites (Acute) Cirrhosis of liver with ascites (Acute) Dental caries (Acute) Encephalopathy chronic (Acute) Fractured tooth (Acute) Hep C w/o coma, chronic (Acute) Hepatitis C (Chronic) History of hepatitis B vaccination (Acute) Poor dentition (Acute) Splenic varices (Acute) Varices of other sites (Acute) liver Social History/Home Situation: Pt reports that she lives in an apartment with her four cats. She does not utilize an (A) device and reports that her landlord Srinath who she mentions multiple times throughout session (A) when she is in the hospital but is not wanting him in her apartment at this time. She states that she came to [place] years ago to take care of her Ex's father who . She went to return home when her brother and mother had sold all of her belongings and she states that she had no where to go and stayed in [place]. She reports that she is tired and that she has no money to pay for food. She was getting meals on Wheels which was 1-2 meals per day. She states that she did not have money for her cats food so she would split her meals between her and the cats so that they could eat too. When asked about shower and dressing she does report that she is (I) at baseline. She was receiving HH services at one point. She does not go grocery shopping she reports because she has minimal money. She states My apartment is full of black mold and lead. She was unable to provide information on her shower set up or home as this was very emotional for her. Equipment owned/DME: Unable to assess. SUBJECTIVE: NT OBJECTIVE: *This document serves as a summary of care, no skilled OT services were provided for this documentation. ROM: RUE AROM WFL L UE AROM WFL STRENGTH: RUE Shoulder flexion 3/5, bicep 4/5, tricep 4/5, glass or mirror inspector is strong and symmetrical LUE Shoulder flexion 3/5, bicep 3/5, tricep 4/5, glass or mirror inspector is strong and symmetrical FUNCTIONAL MOBILITY/ADLS: Transfers Supine-sit (I) with pain behaviors Sit-supine (I) with pain behaviors BATHING Sitting in bed with max (A) set up pt demonstrated the following throughout her time at [facility] Bathing UE (I) face, (B) UE, abdomen, max (A) back and mod vc to keep pt on track with ADL routine Bathing LE (I) Erin area and (B) LE with mod vc to keep pt on track with ADL routine DRESSING Sitting in bed Dressing UE (I) don and doffing hospital gown Dressing LE (I) don and doffing (B) socks with min VC GROOMING Sitting in bed (I) with brushing hair TOILETING should slide on to bedside commode with (S) and pain behaviors noted. EATING Pt had food on her tray in her room and reports that she is too exhausted to eat at this time. She states that prepping her food takes everything out of her. BALANCE: Static sitting Good Dynamic Sitting Fair-Good ASSESSMENT: Patient is a 58-year-old female referred to occupational therapy services with diagnosis of (1) Fever, (2) Cirrhosis of liver with ascites, (3) Compression fracture of lumbar vertebra, (4) Acute hepatic encephalopathy, (5) Adult failure to thrive,(6) DVT prophylaxis. Patient presents with clinical signs and symptoms consistent with dx, as demonstrated by the following impairment level findings: Pain in low back, (B) hips and (B) LE, decreased functional activity tolerance, decreased functional mobility, decreased functional (I) in ADL/IADLs, Anxiety with high limiting factor in performance of ADLs, Failure to Thrive adult in home setting, decreased ability to perform standing ADLs, decreased social supports limiting pts success to return to home environment. Impairments are contributing to the following functional limitations: Unable to (I) perform bathing, grooming, toileting routine without increased pain, decreased functional activity tolerance, decreased functional mobility required for performance of ADLs/IADLs. Pt was seen since 07/02/19 she had multiple refusals for OT care and was not receptive to performance of her ADLs. She is anxious and requires multiple vc throughout session to keep her on track with performance of tasks. Functionally her performance in her ADL/IADL is demonstrating her lack of ability to care for herself in her home setting. She is weak and is unable to recall when she performed her last bathing routine at home. She states she has no running water or working stove in her apartment. This significantly declines pts functional (I) in the home setting. GOALS- not met as OT was unable to assess due to pt's multiple refusals of care and anxiety. 1. Transfers with LRD (S) 2. Grooming- pt will be able to stand at the sink with LRD and perform teeth brushing with ideal technique 3. Bathing- Sitting on side of bed pt will be (I) with bathing routine 4. Toileting- on toilet (I) 5. Eating- Sitting on side of bed (I) PLAN OF CARE/TREATMENT PLAN: Discharge from skilled OT services at this time as pt was transitioned to SNF on 07/08/19. DISCHARGE RECOMMENDATIONS SNF when medically cleared per MD. If pt refuses SNF, OT does feel that pt is high risk for readmission and would need HH services in order to return into her home environment at this time. TREATMENT TIME/MINUTES/CODES N/A Honey Laurent OTR/L [facility]
== END 2019-07-08 13:49 | disposition skilled nursing facility (03) | DRG 945 ==
LOC: ER 13:55 → MS 15:01
PROVIDERS: Nurse Practitioner Acute Care; Nurse Practitioner Family; Admitting Provider Internal Medicine; Emergency Provider Student in an Organized Health Care Education/Training Program; PCP Nurse Practitioner Family; Visit Provider Internal Medicine
DX: R53.1 Weakness (principal); Z68.1 Body mass index [BMI] 19.9 or less, adult; E46 Unspecified protein-calorie malnutrition; N17.9 Acute kidney failure, unspecified; M48.56XA Collapsed vertebra, not elsewhere classified, lumbar region, initial encounter for fracture; E72.20 Disorder of urea cycle metabolism, unspecified; F30.9 Manic episode, unspecified; D68.9 Coagulation defect, unspecified; R62.7 Adult failure to thrive; Z60.2 Problems related to living alone; K70.40 Alcoholic hepatic failure without coma; K70.11 Alcoholic hepatitis with ascites; F10.20 Alcohol dependence, uncomplicated; R50.9 Fever, unspecified; E86.0 Dehydration; Z51.5 Encounter for palliative care; Z91.19 Patient's noncompliance with other medical treatment and regimen; K59.00 Constipation, unspecified; B18.2 Chronic viral hepatitis C; F17.210 Nicotine dependence, cigarettes, uncomplicated; J44.9 Chronic obstructive pulmonary disease, unspecified; I10 Essential (primary) hypertension; Z71.89 Other specified counseling; I86.8 Varicose veins of other specified sites; F41.9 Anxiety disorder, unspecified
CPT/HCPCS: 36410; 36415; 49083; 80048; 80053; 82306; 87040; 93005; 97162; 97166; 97535; 99222; 99223; 99231; 99233; 99239; 99252; 99285; NC; U0003; 71045; 72110; 72131; 72148; 73502; 76700; 81003; 82140; 83735; 84443; 84484; 85025; 85610; 87070; 87205; 93010; J0696; J3490

== ENCOUNTER 2019-07-10 17:13 | Outpatient (REF) | payer MEDICARE, MEDICAID, SELFPAY ==
[2019-07-10 17:28] LABS: Abs Immature Grans 0.03 k/cumm (0.0-0.09); Absolute Basophil Count 0.02 k/cumm (0.0-0.2); Absolute Eosinophil Count 0.05 k/cumm (0.0-0.7); Absolute Lymphocyte Count 1.21 k/cumm (1.2-3.4); Absolute Monocyte Count 0.67 k/cumm (0.11-0.7); Absolute Neutrophil Count 3.93 k/cumm (1.2-6.7); Basophils % 0.3; Eosinophils % 0.8; HCT 21.6 % (36.0-46.0); HGB 7.3 g/dL (12.0-15.5); Immature Grans % 0.5 %; Lymphocytes % 20.5; Mean Corp. HGB Concentration 33.8 g/dL (32.0-36.0); Mean Corpuscular Hemoglobin 31.5 pg (27.0-33.0); Mean Corpuscular Volume 93.1 fL (80-95); Mean Platelet Volume 11.4 fL (8.0-11.0); Monocytes % 11.3; Neutrophils % 66.6; Platelet Count 122 x1000/uL (130-400); RBC 2.32 m/cumm (4.00-5.20); RBC Distribution Width 25.8 % (11.7-14.6); White Blood Cell Count 5.91 k/cumm (4.4-10.8)
== END 2019-07-10 17:33 ==
LOC: LBN 17:13
PROVIDERS: PCP Nurse Practitioner Family; Visit Provider Nurse Practitioner Adult Health
DX: I95.9 Hypotension, unspecified (principal); K62.5 Hemorrhage of anus and rectum; K74.60 Unspecified cirrhosis of liver
CPT/HCPCS: 85025

== ENCOUNTER 2019-07-10 17:39 | Inpatient (IN) | payer MEDICARE, MEDICAID, SELFPAY ==
[2019-07-10] VITALS (55 sets, daily range): BP systolic 82–130; BP diastolic 23–98; PULSE 69–101; RESP 11–30; TEMP 36.6–37; O2SAT 95–100
--- NOTE | 2019-07-10 17:50 | ED.GENADUL_ITS ---
Discharge Plan Disposition Patient Disposition: [facility] INPATIENT Condition: Serious Discharge Details Chief Complaint: GI Bleed Clinical Impression: Acute GI bleeding, Hemorrhagic shock Primary Care Provider: Danny Livingston ED Provider: Khadar Lynn Home Meds and New Rx's Prescriptions: No Action acetaminophen 500 mg tablet 500 mg PO BID RF: 0 lidocaine 4 % adhesive patch,medicated 1 patch TP DAILY PRNRF: 0 clonidine HCl 0.1 mg tablet 0.1 mg PO BID RF: 0 lactulose 10 gram/15 mL solution 45 ml PO DAILY RF: 0 polyethylene glycol 3350 17 gram Powder In Packet 17 g PO BID Qty: 0 RF: 0 furosemide 20 mg tablet 20 mg PO BID Qty: 0 RF: 0 spironolactone 50 mg tablet 50 mg PO BID Qty: 0 RF: 0 dextroamphetamine-amphetamine [Adderall XR] 15 mg capsule,extended release 24hr 15 mg PO DAILY Qty: 7 RF: 0 bisacodyl [Dulcolax (bisacodyl)] 10 mg Suppository 10 mg UT DAILY PRNRF: 0 Bengay Greaseless 15-10 % cream 1 applic topical DAILY RF: 0 Medical Decision Making Upon my evaluation, this patient had a high probability of imminent or life- threatening deterioration, which required my direct attention, intervention, and personal management. I have personally provided 45 minutes of critical care time exclusive of time spent on separately billable procedures. Time includes review of laboratory data, radiology results, discussion with consultants, and monitoring for potential decompensation. Interventions were performed as documented. 58-year-old female with a past medical history of alcoholic liver disease, cirrhosis, who presents for GI bleed. This afternoon at [facility] she was noted to have bloody stools, large clots, pressures notably dropped to the 70s systolic. She was brought to the ER for further evaluation. EOMI, PERRL, Peripheral vision intact. No nystagmus. No external signs of preseptal cellulitis, no redness around the eye, no proptosis. No hyphema, no signs of trauma around the eye, no periorbital emphysema.Here in the ED demonstrates a thin cachectic female. No active bleeding at this time. With the patient's request to avoid any surgical interventions, and no evidence of an acute surgical abdomen I see no indication for CT imaging at this time. Initial pressures were soft. IVs were started, 1 L fluid was given, 2 units of PRBCs were ordered and started. Exam demonstrates no significant abdominal tenderness, no evidence of significant encephalopathy. Laboratory work-up shows notably low hemoglobin at 5.7 which is actually lower than the blood that was drawn just a few hours ago. Platelets are stable. INR is 1.6, PT and PTT are s lightly elevated. Sodium low at 124, potassium slightly high at 5.6. Renal function stable. Bilirubin is elevated but near patient's previous normals. Ammonia negative. I did discuss with the patient her CODE STATUS which is chest compressions allowed, intubation not allowed. She does agree with this. She is stated specifically to me that she does not want surgery or procedures to help with this bleed. She does want medical management as tolerated. Out of concern for esophageal varices bleeding, or upper GI bleed we have started Protonix bolus and infusion followed by octreotide infusion. She is getting her 2 units of blood right now and her pressure is stabilizing. Current blood pressure is in the low 100s systolic. Did discuss the case with Dr. Trujillo, he agrees with the assessment and plan continued medical management for GI bleed. Patient will be admitted to the ICU. I have extensively reviewed the treatment plan with the patient. I have addressed all patient concerns at this time. I have also discussed the plan with the admitting physician and they agree with the current assessment and plan and have agreed to assume responsibility for the patient. All parties demonstrate verbal understanding and agreement with our assessment and plan at this time. HPI General Date/Time Provider Initiated Documentation: 07/10/19 17:44 . HPI Narrative: This is a 58-year-old female with a past medical history of alcoholic cirrhosis, hypertension, hepatitis C, previous encephalopathy, COPD, ascites, who presents today for evaluation of rectal/GI bleed. She was recently discharged from the hospital for 3 days ago for hepatic encephalopathy, cirrho sis, and ascites. She was [facility] to [facility]. Today she noticed a significant amount of bloody stool that was bright red in color in conjunction with clots. This started early this afternoon per [facility] and re[facility]. She did have diarrhea day before but there was no blood at that time. She denies any new abdominal pain chest pain or shortness of breath. [facility] and re[facility] reported that the patient's blood pressure was initially 70 systolic and then on recheck was 60 systolic. EMS was contacted and she was brought to the ER for further evaluation. Patient's CODE STATUS is no compressions but she does want intubation. COLST form is for limited interventions. Related Data Home Medications Medication Instructions Recorded Confirmed acetaminophen 500 mg tablet 500 mg PO BID 06/16/19 07/10/19 clonidine HCl 0.1 mg tablet 0.1 mg PO BID 06/16/19 07/10/19 lidocaine 4 % topical patch 1 patch TP DAILY PRN 06/16/19 07/10/19 lactulose 45 ml PO DAILY 06/30/19 07/10/19 furosemide 20 mg PO BID #0 tab 07/08/19 07/10/19 polyethylene glycol 3350 17 g PO BID #0 each 07/08/19 07/10/19 spironolactone 50 mg PO BID #0 tab 07/08/19 07/10/19 dextroamphetamine-amphetamine 15 mg PO DAILY #7 cap 07/09/19 07/10/19 [Adderall XR] bisacodyl [Dulcolax (bisacodyl)] 10 mg UT DAILY PRN 07/10/19 07/10/19 methyl salicylate-menthol [Bengay 1 applic TOPICAL DAILY 07/10/19 07/10/19 Greaseless] Previous Rx's Medication Instructions Recorded furosemide 20 mg PO BID #0 tab 07/08/19 polyethylene glycol 3350 17 g PO BID #0 each 07/08/19 spironolactone 50 mg PO BID #0 tab 07/08/19 dextroamphetamine-amphetamine 15 mg PO DAILY #7 cap 07/09/19 [Adderall XR] Allergies Allergy/AdvReac Type Severity Reaction Status Date / Time sulfamethoxazole Allergy Mild Diarrhea Verified 06/30/19 11:12 [From Bactrim] trimethoprim [From Bactrim] Allergy Mild Diarrhea Verified 06/30/19 11:12 General Stated Complaint: GI Bleed LISSA: 2 Review of Systems All systems reviewed & are unremarkable except as noted in HPI and below PFSH Medical History (Updated 07/10/19 @ 19:46 by Khadar Lynn DO) Ascites (Acute) Bacteremia (Acute) Cirrhosis of liver with ascites (Acute) 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 COPD (chronic obstructive pulmonary disease) (Chronic) Dental caries (Acute) DNI (do not intubate) (Acute) DNR (do not resuscitate) (Acute) Emphysema of lung (Acute) Encephalopathy chronic (Acute) Encounter for hospice care discussion (Acute) Fractured tooth (Acute) Hep C w/o coma, chronic (Acute) Hepatitis C (Chronic) History of hepatitis B vaccination (Acute) Hypertension (Chronic) Manic behavior (Acute) pressured speech, tangential disordered thoughts Nicotine dependence (Acute) Palliative care patient (Acute) POLST (Physician Orders for Life-Sustaining Treatment) (Acute) Poor dentition (Acute) Protein calorie malnutrition (Chronic) PTSD (post-traumatic stress disorder) (Acute) Raynaud's disease without gangrene (Acute) Severely underweight adult (Acute) Splenic varices (Acute) Varices of other sites (Acute) liver Social History Smoking/Tobacco Use Status: Current every day Tobacco Type: cigarettes Alcohol Intake: former Drug use: Never Substance use type: does not use Do you feel safe at home: Yes Do you feel safe in your relationship?: Yes Additional Social history: Living [address] on [address]. Patient describes concern for lead and mold, but it is unclear if this is an ongoing concern. She gives a grand social history regarding status of her past and her family, but it is hard to interpret the veracity of this history. Exam Narrative Exam Narrative: 1.Const: Thin, elderly, cachectic 2.Eyes: PERRL, no conjunctival injection, and symmetrical lids. 3.ENT: Atraumatic external nose and ears. Moist MM. Neck: Symmetric, trachea midline, No thyromegaly. 4.CVS: +S1/S2, No murmurs or gallops. Peripheral pulses 2+ and equal in all extremities. Brisk capillary refill in all extremities. 5.RESP: Unlabored respiratory effort. Clear to auscultation bilaterally. No wheezes rales or rhonchi 6.GI: Soft, Nontender/Nondistended, No hepatosplenomegaly. No guarding or rebound. 7.MSK: Normocephalic/Atraumatic, Extremities w/o deformity or ttp No cyanosis or clubbing, Normal movement of all extremities 8.Skin: Warm, Dry. No rashes or lesions. 9.Neuro: psychology technician II-XII grossly intact. Sensation grossly intact, no focal ne urologic deficits. 10.Psych: (AAO) x3. Appropriate mood and affect Course Vital Signs Vital signs: Vital Signs Temperature 37 C 07/10/19 17:37 Pulse 99 H 07/10/19 17:37 Respiratory Rate 18 07/10/19 17:37 Blood Pressure 117/98 H 07/10/19 17:37 Pulse Oximetry 100 07/10/19 17:37 Temperature 37 C 07/10/19 17:37 Temperature Source Skin 07/10/19 17:37 Pulse 99 H 07/10/19 17:37 Respiratory Rate 18 07/10/19 17:37 Blood Pressure 117/98 H 07/10/19 17:37 Blood Pressure Position Supine 07/10/19 17:37 Pulse Oximetry 100 07/10/19 17:37 Oxygen Delivery Method Room Air 07/10/19 17:37 Oxygen Flow Rate 0 07/10/19 17:37 Lab/Test Results Lab/Test Results: Laboratory Tests Range/Units 07/10/19 17:47 Crossmatch See Detail
[2019-07-10] MEDS: PANTOPRAZOLE 80 MG in Normal Saline 100 ML 10 MG IV (18:15)
[2019-07-10] MEDS: Normal Saline 1,000 ML 1000 ML IV (18:15)
[2019-07-10] MEDS: Pantoprazole 40 MG VIAL IVP (18:15)
[2019-07-10] MEDS: Ondansetron 4 MG/2 ML VIAL IVP (18:30)
[2019-07-10 18:39] LABS: ALT 96 U/L (14-59); AST 249 U/L (15-37); Albumin 1.9 g/dL (3.4-5.0); Alkaline Phosphatase 156 U/L (46-116); BUN 32 mg/dL (7-18); CREATININE 1.07 mg/dL (0.55-1.02); Calcium 8.1 mg/dL (8.5-10.1); Chloride 98 mmol/L (98-107); Estimated GFR 52.49 (mL/min/1.73m2); Glucose 120 mg/dL (74-106); Potassium 5.6 mmol/L (3.5-5.1); Total Protein 4.9 g/dL (6.4-8.2)
[2019-07-10 18:41] LABS: Ammonia < 10 umol/L (11-32)
[2019-07-10 18:44] LABS: Sodium 124 mmol/L (136-145)
[2019-07-10 18:45] LABS: Abs Immature Grans 0.03 k/cumm (0.0-0.09); Absolute Basophil Count 0.01 k/cumm (0.0-0.2); Absolute Eosinophil Count 0.03 k/cumm (0.0-0.7); Absolute Lymphocyte Count 1.18 k/cumm (1.2-3.4); Absolute Monocyte Count 0.71 k/cumm (0.11-0.7); Absolute Neutrophil Count 3.94 k/cumm (1.2-6.7); Basophils % 0.2; Eosinophils % 0.5; Immature Grans % 0.5 %; Mean Corp. HGB Concentration 33.1 g/dL (32.0-36.0); Mean Corpuscular Volume 93.5 fL (80-95); Mean Platelet Volume 11.3 fL (8.0-11.0); Neutrophils % 66.8; Platelet Count 106 x1000/uL (130-400); RBC 1.84 m/cumm (4.00-5.20); RBC Distribution Width 25.7 % (11.7-14.6)
[2019-07-10 18:48] LABS: HGB 5.7 g/dL (12.0-15.5)
[2019-07-10 18:49] LABS: HCT 17.2 % (36.0-46.0)
[2019-07-10 18:52] LABS: Anisocytosis 3+; Diff Comment RBC Morph Reviewed; Hypochromasia 2+; Macrocytosis 1+; Polychromasia Present
[2019-07-10 19:35] LABS: INR 1.6 (0.9-1.1); PTT Activated 34.5 sec (21.0-31.4); Prothrombin Time 15.7 sec (9.3-11.0)
--- NOTE | 2019-07-10 19:47 | W.PM.HP.N ---
Date of service: 07/10/19 Time of Service: 19:47 Assessment and Plan Assessment and plan (1) Acute GI bleeding: Start date: 07/10/19 Status: Acute Assessment and plan: This is a 58-year-old lady with cirrhosis of the liver secondary to alcohol and hep C who was just recently discharged after a long hospital course for encephalopathy. She presented with bright red blood per rectum and blood clots with possibility of lower GI bleed but also upper GI bleed though no melena. It is unknown by review of records whether she has esophageal varices and she does not want surgical intervention at this time. She was given IV Protonix and octreotide in the ED. She is now on IV Protonix infusion and will continue monitoring hemoglobin is status post transfusion with 2 units of packed red blood cells. She will stay on clear fluids. Her blood pressure has stabilized and will continue to observe adjusting IV fluid rate accordingly. She is a DNR/DNI with modified wishes of some chest compressions which seems to be a moving target with her decision making. Palliative care consult may be appropriate. (2) Acute blood loss anemia: Start date: 07/10/19 Status: Acute Assessment and plan: Stabilize status post transfusion with 2 units packed red blood cells. Follow-up lab in the morning. She has high risk for rebleeding with cirrhosis and possible varices of the esophagus as well as elevated PT/INR and low platelet count. (3) Cirrhosis of liver with ascites: Status: Chronic Assessment and plan: Continue usual meds with oral diuretics the patient have a Vasquez catheter in place. Lactulose will be held until her bloody diarrhea has stopped. Qualifiers: Hepatic cirrhosis type: alcoholic cirrhosis Qualified Code(s): K70.31 - Alcoholic cirrhosis of liver with ascites History of Present Illness History of Present Illness Chief Complaint: Bloody stool with low blood pressure Narrative: This is a 58-year-old lady was recently discharged from a [facility] after hospitalization for hepatic encephalopathy with alcoholic cirrhosis and ascites. She was at a local rehab center when she noted blood in his stool today and then did drop her blood pressure prompting transfer to ED for evaluation. She did receive 2 units of packed red blood cells and IV fluids with her blood pressure stabilized and repeat hemoglobin revealing an increase of about 3 g/dL which is near her baseline. She did drop her hemoglobin below 6 g/dL and after transfusion she is above 9 g/dL. Her blood pressure is stabilized with systolic above 100 and she is slow down on her bloody stools. She is very talkative and wanders in conversation with no complaints of abdominal pain but is concerned that her abdomen is bloating again as she has with ascites in the past. She also is concerned about gaining back weight which is come off with diuresis. She does have chronic hep C and alcoholic cirrhosis and also has a history of COPD. She also has a history of hypertension. She has been in the hospital several weeks and has not had alcohol recently. She was living alone in an apartment but it is unlikely she can live alone with compression fractures in her back and limited mobility. She was admitted for observation of her GI bleed but does not want surgical intervention and she is a modified DNR/DNI. We could consider patient of care consultation. Review of Systems Narrative: 13 point review of systems otherwise unrevealing or stable. [facility] Medical History Ascites (Acute) Bacteremia (Acute) Cirrhosis of liver with ascites (Acute) 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 COPD (chronic obstructive pulmonary disease) (Chronic) Dental caries (Acute) DNI (do not intubate) (Acute) DNR (do not resuscitate) (Acute) Emphysema of lung (Acute) Encephalopathy chronic (Acute) Encounter for hospice care discussion (Acute) Fractured tooth (Acute) Hep C w/o coma, chronic (Acute) Hepatitis C (Chronic) History of hepatitis B vaccination (Acute) Hypertension (Chronic) Manic behavior (Acute) pressured speech, tangential disordered thoughts Nicotine dependence (Acute) Palliative care patient (Acute) POLST (Physician Orders for Life-Sustaining Treatment) (Acute) Poor dentition (Acute) Protein calorie malnutrition (Chronic) PTSD (post-traumatic stress disorder) (Acute) Raynaud's disease without gangrene (Acute) Severely underweight adult (Acute) Splenic varices (Acute) Varices of other sites (Acute) liver Social History Smoking/Tobacco Use Status: Current every day Tobacco Type: cigarettes Alcohol Intake: former Drug use: Never Substance use type: does not use Do you feel safe at home: Yes Do you feel safe in your relationship?: Yes Additional Social history: Living apartment on [address]. Patient describes concern for lead and mold, but it is unclear if this is an ongoing concern. She gives a grand social history regarding status of her past and her family, but it is hard to interpret the veracity of this history. Meds Home Medications and Allergies Home Medications Medication Instructions Recorded Confirmed Type acetaminophen 500 mg tablet 500 mg PO BID 06/16/19 07/10/19 History clonidine HCl 0.1 mg tablet 0.1 mg PO BID 06/16/19 07/10/19 History lidocaine 4 % topical patch 1 patch TP DAILY PRN 06/16/19 07/10/19 History lactulose 45 ml PO DAILY 06/30/19 07/10/19 History furosemide 20 mg PO BID #0 tab 07/08/19 07/10/19 Rx polyethylene glycol 3350 17 g PO BID #0 each 07/08/19 07/10/19 Rx spironolactone 50 mg PO BID #0 tab 07/08/19 07/10/19 Rx dextroamphetamine-amphetamine 15 mg PO DAILY #7 cap 07/09/19 07/10/19 Rx [Adderall XR] bisacodyl [Dulcolax (bisacodyl)] 10 mg [place] DAILY PRN 07/10/19 07/10/19 History methyl salicylate-menthol [Bengay 1 applic TOPICAL DAILY 07/10/19 07/10/19 History Greaseless] Allergies Allergy/AdvReac Type Severity Reaction Status Date / Time sulfamethoxazole Allergy Mild Diarrhea Verified 06/30/19 11:12 [From Bactrim] trimethoprim [From Bactrim] Allergy Mild Diarrhea Verified 06/30/19 11:12 Exam Narrative Exam Narrative: General: Patient appears older than stated age, she is very talkative but wanders in conversation and has tangential thought processes which are difficult to follow at times. She is alert and oriented at least to person place. She appears in no acute distress. HEENT: Normocephalic, eyes with pupils equal and reactive to light symmetrically with sclera slightly icteric, oropharynx with dry oral mucosa. Neck: Supple without JVD. Back: Kyphotic with tenderness over the lumbar spine diffusely with a history of multiple compression fractures, decreased range of motion and no CVA tenderness. Lungs: Fair aeration with bronchovesicular breath sound diffusely and clear to auscultation. No adventitious sounds auscultated. Breast: Exam deferred. Heart: Regular rate and rhythm with no appreciable murmurs or gallops. Abdomen: Protuberant and soft with no focalizing tenderness or palpable hepatosplenomegaly. Positive fluid wave. Bowel sounds are positive but decreased in all quadrants. Genitalia/rectal: Exam deferred. Extremities: Muscle atrophy diffusely with decreased range of motion of all joints but no joint swelling, no pitting edema, cyanosis or clubbing. Skin: Pale, lightly icteric and dry. No rashes noted. Neuro: Cranial nerves II through XII grossly intact, motor with decreased strength diffusely but without focalizing deficits. Psych: Attention deficit with pressured speech and wandering conversation. Thought processes are difficult to assess. Remote and recent memory appear to be grossly intact. Results Labs Result diagrams: 07/10/19 23:00 07/10/19 18:10 Labs: Laboratory Results - last 24 hr 07/10/19 07/10/19 07/10/19 17:54 18:10 18:10 WBC 5.90 RBC 1.84 L Hgb 5.7 L* Hct 17.2 L* D MCV 93.5 MCH 31.0 MCHC 33.1 RDW 25.7 H Plt Count 106 L MPV 11.3 H Immature Gran % 0.5 Neutrophils % 66.8 Lymphocytes % 20.0 Monocytes % 12.0 Eosinophils % 0.5 Basophils % 0.2 Absolute Neutrophils 3.94 Absolute Lymphocytes 1.18 L Absolute Monocytes 0.71 H Absolute Eosinophils 0.03 Absolute Basophils 0.01 Differential Comment Rbc morph reviewed RBC Morphology See below Polychromasia Present Hypochromasia 2+ Anisocytosis 3+ Macrocytosis 1+ PT INR APTT Sodium 124 L* Potassium 5.6 H Chloride 98 Carbon Dioxide 18.0 L Anion Gap 8.0 BUN 32 H Creatinine 1.07 H Estimated GFR/1.73 m2 52.49 Glucose 120 H Calcium 8.1 L Total Bilirubin 3.0 H AST 249 H ALT 96 H Alkaline Phosphatase 156 H Ammonia Total Protein 4.9 L Albumin 1.9 L Patient ABO/Rh O Negative Antibody Screen Negative Crossmatch See Detail 07/10/19 07/10/19 18:10 18:10 WBC RBC Hgb Hct MCV MCH MCHC RDW Plt Count MPV Immature Gran % Neutrophils % Lymphocytes % Monocytes % Eosinophils % Basophils % Absolute Neutrophils Absolute Lymphocytes Absolute Monocytes Absolute Eosinophils Absolute Basophils Differential Comment RBC Morphology Polychromasia Hypochromasia Anisocytosis Macrocytosis PT 15.7 H INR 1.6 H APTT 34.5 H Sodium Potassium Chloride Carbon Dioxide Anion Gap BUN Creatinine Estimated GFR/1.73 m2 Glucose Calcium Total Bilirubin AST ALT Alkaline Phosphatase Ammonia < 10 L Total Protein Albumin Patient ABO/Rh Antibody Screen Crossmatch Last Vital Signs Temp 36.6 C 07/10/19 19:30 Pulse 95 H 07/10/19 19:30 Resp 16 07/10/19 19:30 BP 93/54 L 07/10/19 19:30 Pulse Ox 100 07/10/19 19:30 COVID-19 Screening Traveled to [place] from one of the affected countries or regions?: NO Recent travel in the [place] within the last 14 days?: No Recent out of the country travel within the last 14 days?: No Exposure or possible exposure to illness during travel?: No Had IN PERSON contact w/suspected or confirmed C-19 person: No Have you had the following symptoms in the past few days?: No Symptoms noted since travel?: No Symptoms
[2019-07-10 23:13] LABS: HCT 28.1 % (36.0-46.0); HGB 9.5 g/dL (12.0-15.5); Mean Corp. HGB Concentration 33.8 g/dL (32.0-36.0); Mean Corpuscular Hemoglobin 29.3 pg (27.0-33.0); Mean Corpuscular Volume 86.7 fL (80-95); RBC 3.24 m/cumm (4.00-5.20); RBC Distribution Width 21.5 % (11.7-14.6); White Blood Cell Count 5.81 k/cumm (4.4-10.8)
[2019-07-10 23:26] LABS: Platelet Count 77 x1000/uL (130-400)
[2019-07-10] MEDS: Normal Saline 1,000 ML 125 ML IV (23:59)
[2019-07-11] VITALS (66 sets, daily range): BP systolic 110–148; BP diastolic 40–93; PULSE 73–98; RESP 12–34; TEMP 36.5–36.9; O2SAT 97–100
[2019-07-11] MEDS: Lidocaine 5% Patch 1 PATCH TD (00:04)
[2019-07-11 06:35] LABS: HCT 27.8 % (36.0-46.0); HGB 9.8 g/dL (12.0-15.5); Mean Corp. HGB Concentration 35.3 g/dL (32.0-36.0); Mean Corpuscular Hemoglobin 29.9 pg (27.0-33.0); Mean Corpuscular Volume 84.8 fL (80-95); RBC 3.28 m/cumm (4.00-5.20); RBC Distribution Width 21.8 % (11.7-14.6); White Blood Cell Count 6.87 k/cumm (4.4-10.8)
[2019-07-11 06:50] LABS: ALT 112 U/L (14-59); AST 267 U/L (15-37); Alkaline Phosphatase 154 U/L (46-116); Anion Gap 8.7 mmol/L (3-11); BUN 35 mg/dL (7-18); Bilirubin, Total 5.1 mg/dL (0.2-1.0); CO2 17.3 mmol/L (21.0-32.0); CREATININE 1.15 mg/dL (0.55-1.02); Calcium 7.9 mg/dL (8.5-10.1); Chloride 99 mmol/L (98-107); Glucose 83 mg/dL (74-106); Potassium 5.3 mmol/L (3.5-5.1); Sodium 125 mmol/L (136-145)
[2019-07-11 06:57] LABS: Platelet Count 83 x1000/uL (130-400)
[2019-07-11] MEDS: Normal Saline Flush 10 ML SYR IVP (08:27)
[2019-07-11] MEDS: Furosemide 20 MG TAB PO (08:27)
[2019-07-11] MEDS: Pantoprazole 40 MG VIAL IVP (08:27)
[2019-07-11] MEDS: Spironolactone 50 MG TAB PO (08:27)
[2019-07-11] MEDS: cloNIDine 0.1 MG TAB PO (08:27)
--- NOTE | 2019-07-11 10:28 | PHA.REVIEW ---
Pharmacy Admission Review - Admission Clinical Review (Last Reviewed 07/10/19 @ 19:47 by Len Trujillo) Acute blood loss anemia (Acute) Acute GI bleeding (Acute) Hemorrhagic shock (Acute) Height 5 ft 1 in Weight 41.4 kg - Renal Dosing Renal Dosing: BUN 35 mg/dL (7-18) H 07/11/19 06:15 Creatinine 1.15 mg/dL (0.55-1.02) H 07/11/19 06:15 Medications needing adjustments: Reviewed (CRCL ~34ML/MIN) - Anticoagulation Anticoagulation: Hgb 9.8 g/dL (12.0-15.5) L 07/11/19 06:15 Hct 27.8 % (36.0-46.0) L 07/11/19 06:15 Plt Count 83 x1000/uL (130-400) L 07/11/19 06:15 INR 1.6 (0.9-1.1) H 07/10/19 18:10 Creatinine 1.15 mg/dL (0.55-1.02) H 07/11/19 06:15 DVT Prohphylaxis: N/A (none INR 1.6(not on warfarin), PLT 83) - Relevant Labs Sodium 125 mmol/L (136-145) L 07/11/19 06:15 Potassium 5.3 mmol/L (3.5-5.1) H 07/11/19 06:15 Chloride 99 mmol/L (98-107) 07/11/19 06:15 Electrolytes, C-Reactive P, ESR: Reviewed (NS boluses overnight) - DM Control DM Control: Glucose 83 mg/dL (74-106) 07/11/19 06:15 - BP Control BP Control: Blood Pressure 121/41 Blood Pressure 126/68 Blood Pressure 127/63 Blood Pressure 116/58 Blood Pressure 114/81 Blood Pressure 110/58 Blood Pressure 116/62 Blood Pressure 130/63 Blood Pressure 114/59 Blood Pressure 110/67 Blood Pressure 112/61 Blood Pressure 125/61 Blood Pressure 148/40 Blood Pressure 103/23 Blood Pressure 125/79 Blood Pressure 117/60 Blood Pressure 124/61 Blood Pressure 104/74 If elevated: N/A - Qtc Review If Elevated: Reviewed (454) - IV to PO Switch IV Medications: Reviewed (IV pantoprazole) - Home Meds Home Med List reviewed: Reviewed (all ordered except lactulose) - Current meds Current Medication Order Review: Reviewed - Comments Comments/Follow Ups: watch Na, sending up 1 adderall xr 15mg cap daily
[2019-07-11] MEDS: Phytonadione 5 MG TABLET 10 MG PO (10:38)
--- NOTE | 2019-07-11 12:01 | DSE_ITS ---
Date of service: 07/11/19 Time of Service: 12:02 DS: Diagnosis Discharge Diagnosis (1) Hemorrhagic shock: Status: Resolved (2) Acute GI bleeding: Status: Acute Asessment and Plan: Upper, DDx: portal gastropathy, ulcer, less likely acute variceal hemorrhage (3) Acute blood loss anemia: Status: Acute Asessment and Plan: s/p transfusion 2 units pRBCs (4) End stage liver disease: Status: Chronic (5) Hep C w/o coma, chronic: Status: Chronic (6) Encephalopathy chronic: Status: Chronic (7) Ascites: Status: Chronic (8) Splenic varices: Status: Chronic (9) Cirrhosis of liver: Status: Chronic (10) Compression fracture of lumbar vertebra: Status: Chronic (11) Anxiety: Status: Chronic (12) Thrombocytopenia: Status: Chronic (13) Coagulopathy: Status: Chronic Asessment and Plan: INR 1.6, s/p Vitamin K PO Discharge Plan Disposition Patient Disposition: [facility] Condition: Serious Discharge Details Chief Complaint: GI Bleed Clinical Impression: Acute GI bleeding, Hemorrhagic shock Reason For Visit: ACUTE GI BLEED WITH BLOOD LOSS ANEMIA, HYPOTENSION Admit Date/Time: 07/10/19 19:18 Admit Provider: Len Trujillo Attending Provider: Len Trujillo Primary Care Provider: Danny Livingston ED Provider: Khadar Lynn Hospital Course Hospital Course: Ms Jefferson is a 58 year old female with PMHx of end-stage liver disease with suspected esophageal/gastric varices, though no recent EGD, prior episode of GI bleeding, prior episodes of SBP, hepatic encephalopathy, chronic thrombocytopenia and coagulopathy, who was admitted to [facility] ICU on 07/10/2019 under the hospitalist service on IV protonix and octreotide infusion having presented complaining of bright red blood per rectum with clots, found to be in hemorrhagic shock/with symptomatic anemia, Hgb of 5.7 (baseline closer to 9.5- 10). She initially refused surgical intervention and had DNR/DNI paperwork on file, therefore she stayed at our facility. Throughout the night, her stool became more dark/melanotic, and esequiel blood was no longer seen. BP stabilized. Hgb improved to 9.8 this morning after receiving 2 units of pRBCs. The patient met with palliative care, indicating that she was interested in aggressive care. In her conversation with me, she reversed her code status decision to full code and expressed she was interested in a transfer to a tertiary care facility (specifically [facility]; the patient refused transfer to [facility]) if that were indicated. The case was discussed with [facility] GI (Dr Yang), who felt that the patient would benefit from a transfer to a tertiary care facility where a high risk EGD could be performed on inpatient basis (we are not able to do this at [facility]). He also recommended continuing the patient on IV protonix (40 mg IV BID), continuing octreotide infusion, and starting her on prophylactic ceftriaxone. The patient is in agreement with transfer and is hemodynamically ready for transfer to [facility] today. She was accepted on the hospitalist service at [facility] by Dr Tovar. Total Critical Care Time as well as completion of her discharge summary on day of transfer took 1 hour. Home Meds and New Rx's Prescriptions: New ceftriaxone in dextrose,iso-os 1 gram/50 mL Piggyback 1 g IVPB Q24H Qty: 0 RF: 0 lidocaine [Lidoderm] 5 % Adhesive Patch,Medicated 1 patch transdermal DAILY PRN PRNQty: 0 RF: 0 pantoprazole [Protonix] 40 mg Recon Soln 40 mg IVP Q12H Qty: 0 RF: 0 Continued acetaminophen 500 mg tablet 500 mg PO BID RF: 0 lidocaine 4 % adhesive patch,medicated 1 patch TP DAILY PRNRF: 0 clonidine HCl 0.1 mg tablet 0.1 mg PO BID RF: 0 lactulose 10 gram/15 mL solution 45 ml PO DAILY RF: 0 polyethylene glycol 3350 17 gram Powder In Packet 17 g PO BID Qty: 0 RF: 0 furosemide 20 mg tablet 20 mg PO BID Qty: 0 RF: 0 spironolactone 50 mg tablet 50 mg PO BID Qty: 0 RF: 0 dextroamphetamine-amphetamine [Adderall XR] 15 mg capsule,extended release 24hr 15 mg PO DAILY Qty: 7 RF: 0 bisacodyl [Dulcolax (bisacodyl)] 10 mg Suppository 10 mg VT DAILY PRNRF: 0 Bengay Greaseless 15-10 % cream 1 applic topical DAILY RF: 0 Discharge Instructions Referrals: Danny Livingston NP [Primary Care Provider] - Alfreda Duenas MD [ [facility] STAFF PHYSICIAN] - Activity:: OOB to chair with assist Equipment/Supplies:: No Equipment Needed Diet:: NPO Discharge Orders Discharge Orders: Discharge Order (Routine); Ordered 07/11/19 Ordered By: Maida Marks DS: Summary Status at Discharge Functional status at discharge: independent ambulation Overall status at discharge: patient is back to baseline Mental Status: mental status grossly normal Speech and Movement: speech and movement normal Mood: congruent mood Affect: normal affect Exam Narrative Exam Narrative: General: Anxious middle-aged female, A&Ox3, no evidence of asterexis HEENT: EOMI, MMM Heart: RRR, no m/r/g Lungs: CTAB Abdomen: +ascites Extremities: +1 BLE edema Psych Mental Status: mental status grossly normal Speech and Movement: speech and movement normal Mood: congruent mood Affect: normal affect DS: Data Vitals/I&O Vitals and I&O: Vital Signs Temperature 36.6 C 07/11/19 12:00 Temperature Source Temporal Artery Scan 07/11/19 12:00 Pulse 82 07/11/19 08:01 Pulse 86 07/11/19 08:01 Respiratory Rate 12 07/11/19 08:01 Respiratory Effort 07/11/19 08:00 Respiratory Depth Normal 07/11/19 08:00 Respiratory Pattern Normal 07/11/19 08:00 Blood Pressure 121/41 L 07/11/19 08:01 Blood Pressure Mean 47 07/11/19 08:01 Blood Pressure Position Supine 07/10/19 17:37 Pulse Oximetry 100 07/11/19 08:01 Oxygen Delivery Method Room Air 07/10/19 20:55 Oxygen Flow Rate 0 07/10/19 20:55 Pain Level 10 07/11/19 00:24 Intake & Output 07/10/19 07/11/19 07/11/19 23:59 11:59 23:59 Intake Total 896.334 / 705.092 1719.833 / 2292.833 Output Total 100 / 100 150 / 150 Balance 796.334 / 791.505 3562.833 / 2142.833 Weight 41.4 kg Intake: IV 246.334 / 234.921 3727.833 / 1052.833 Oral 1240 / 1240 Blood Product 650 / 650 Rbc Leuko Reduced Unit 325 / 325 [id number] Rbc Leuko Reduced Unit 325 / 325 [id number] Output: Urine 100 / 100 150 / 150 Other: Urine Color Yellow [place] Urine Appearance Clear Clear Urine Odor None Comment Indwelling Vasquez. Yelow urine in collection bag. Stool Occult Blood Positive Stool Size Moderate Stool Characteristics Soft Black Emesis Description None Voiding Methods Bedside Commode Data Completed and Pending Labs on day of discharge: Labs from last 24 hours 07/11/19 07/11/19 07/11/19 09:15 06:15 06:15 WBC 6.87 RBC 3.28 L Hgb 9.8 L Hct 27.8 L MCV 84.8 MCH 29.9 MCHC 35.3 RDW 21.8 H Plt Count 83 L MPV 11.0 Immature Gran % Neutrophils % Lymphocytes % Monocytes % Eosinophils % Basophils % Absolute Neutrophils Absolute Lymphocytes Absolute Monocytes Absolute Eosinophils Absolute Basophils Differential Comment RBC Morphology Polychromasia Hypochromasia Anisocytosis Macrocytosis PT INR APTT Sodium 125 L Potassium 5.3 H Chloride 99 Carbon Dioxide 17.3 L Anion Gap 8.7 BUN 35 H Creatinine 1.15 H Estimated GFR/1.73 m2 48.30 Glucose 83 Calcium 7.9 L Total Bilirubin 5.1 H AST 267 H ALT 112 H Alkaline Phosphatase 154 H Ammonia Total Protein 5.0 L Albumin 2.0 L COVID-19 PCR Pending Nasopharyn COVID-19 PCR Pending Ref Test Perform Site Pending Patient ABO/Rh Antibody Screen Crossmatch 07/10/19 07/10/19 07/10/19 23:00 18:10 18:10 WBC 5.81 RBC 3.24 L Hgb 9.5 L D Hct 28.1 L D MCV 86.7 D MCH 29.3 MCHC 33.8 RDW 21.5 H Plt Count 77 L MPV Immature Gran % Neutrophils % Lymphocytes % Monocytes % Eosinophils % Basophils % Absolute Neutrophils Absolute Lymphocytes Absolute Monocytes Absolute Eosinophils Absolute Basophils Differential Comment RBC Morphology Polychromasia Hypochromasia Anisocytosis Macrocytosis PT 15.7 H INR 1.6 H APTT 34.5 H Sodium Potassium Chloride Carbon Dioxide Anion Gap BUN Creatinine Estimated GFR/1.73 m2 Glucose Calcium Total Bilirubin AST ALT Alkaline Phosphatase Ammonia < 10 L Total Protein Albumin COVID-19 PCR Nasopharyn COVID-19 PCR Ref Test Perform Site Patient ABO/Rh Antibody Screen Crossmatch 07/10/19 07/10/19 07/10/19 18:10 18:10 17:54 WBC 5.90 RBC 1.84 L Hgb 5.7 L* Hct 17.2 L* D MCV 93.5 MCH 31.0 MCHC 33.1 RDW 25.7 H Plt Count 106 L MPV 11.3 H Immature Gran % 0.5 Neutrophils % 66.8 Lymphocytes % 20.0 Monocytes % 12.0 Eosinophils % 0.5 Basophils % 0.2 Absolute Neutrophils 3.94 Absolute Lymphocytes 1.18 L Absolute Monocytes 0.71 H Absolute Eosinophils 0.03 Absolute Basophils 0.01 Differential Comment Rbc morph reviewed RBC Morphology See below Polychromasia Present Hypochromasia 2+ Anisocytosis 3+ Macrocytosis 1+ PT INR APTT Sodium 124 L* Potassium 5.6 H Chloride 98 Carbon Dioxide 18.0 L Anion Gap 8.0 BUN 32 H Creatinine 1.07 H Estimated GFR/1.73 m2 52.49 Glucose 120 H Calcium 8.1 L Total Bilirubin 3.0 H AST 249 H ALT 96 H Alkaline Phosphatase 156 H Ammonia Total Protein 4.9 L Albumin 1.9 L COVID-19 PCR Nasopharyn COVID-19 PCR Ref Test Perform Site Patient ABO/Rh O Negative Antibody Screen Negative Crossmatch See Detail [facility] Medical History Ascites (Acute) Bacteremia (Acute) Cirrhosis of liver with ascites (Acute) 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 COPD (chronic obstructive pulmonary disease) (Chronic) Dental caries (Acute) DNI (do not intubate) (Acute) DNR (do not resuscitate) (Acute) Emphysema of lung (Acute) Encephalopathy chronic (Acute) Encounter for hospice care discussion (Acute) Fractured tooth (Acute) Hep C w/o coma, chronic (Acute) Hepatitis C (Chronic) History of hepatitis B vaccination (Acute) Hypertension (Chronic) Manic behavior (Acute) pressured speech, tangential disordered thoughts Nicotine dependence (Acute) Palliative care patient (Acute) POLST (Physician Orders for Life-Sustaining Treatment) (Acute) Poor dentition (Acute) Protein calorie malnutrition (Chronic) PTSD (post-traumatic stress disorder) (Acute) Raynaud's disease without gangrene (Acute) Severely underweight adult (Acute) Splenic varices (Acute) Varices of other sites (Acute) liver Social History Smoking/Tobacco Use Status: Current every day Tobacco Type: cigarettes Alcohol Intake: former Drug use: Never Substance use type: does not use Do you feel safe at home: Yes Do you feel safe in your relationship?: Yes Additional Social history: Living apartment on [address]. Patient describes concern for lead and mold, but it is unclear if this is an ongoing concern. She gives a grand social history regarding status of her past and her family, but it is hard to interpret the veracity of this history.
[2019-07-11] MEDS: cefTRIAXone 1 GM/50 ML BAG IVPB (13:10)
--- NOTE | 2019-07-11 13:42 | PCNE_ITS ---
Date of service: 07/11/19 Time of Service: 10:42 History of Present Illness Narrative: When I arrived in the room Argenis was watching TV. I introduced myself, she immediately said that she wanted some time to finish her show. Argenis then asked for few minutes so she could finish what she was watching. She said it was very important to her that she do this. She was not at all agreeabl e to doing anything except for completing her show. I did leave the room and then returned approximately 5 minutes later. Her nurse accompanied me as Argenis felt very comfortable with the nurse and we thought it would be more conducive for a better visit. rAgenis is a 58-year-old woman with longstanding problems due to alcoholism including cirrhosis of the liver with ascites, hep C, SBP, anemia, and bleeding disorder. She was recently admitted from [facility] with black tarry stools. She had been recently discharged from [facility] and went to [facility] for strengthening. Baseline it is very difficult to talk with Argenis due to her full-blown brenna, disorganized thoughts etc. She speaks nonstop, is pretty much on interruptible. She stated that health and rehab did not give her the medications when they were supposed to. She was doing very well and had gained 10 pounds. She went backwards after a few days. Because of the black tarry stools she returned to [facility]. I was asked by Dr. Marks to see me again to better assess her goals of care. Renata Stubbs NP a palliative care nurse practitioner had spent a lot of time during Argenis's last admission. At that time Argenis understood that she had 5 months to live, she chose to be DNR/DNI, and her goal was to get back with her 4 cats. She did not want to go on hospice which was the discharge plan. She felt that she could beat this thing Her stream of consciousness was very difficult to follow. Consults Consult date: 07/11/19 Requesting physician: Maida Marks Assessment and Plan Assessment and plan (1) Coagulopathy: Status: Chronic (2) End stage liver disease: Status: Chronic (3) Acute GI bleeding: Status: Acute (4) Severely underweight adult: Status: Acute (5) Manic behavior: Status: Acute (6) Back pain at L4-L5 level: Status: Acute (7) Palliative care patient: Status: Acute Assessment and plan: The main purpose today was to understand better Argenis's goals of care. From her recent admission she was understanding of her prognosis, that she had less than 5 months to live. She also understood that she has end-stage liver disease and is unlikely to improve. She was able to say this back to me. I gave her the option of comfort care and return to health and rehab versus more aggressive care. The nurse was in the room during our discussion. She was very clear that she wanted everything done. We did not address specifically her CODE STATUS, but she wanted to be aggressive as to the GI bleed, finding its etiology, and treating if possible. She was willing to be transferred to [facility] where she has been in the past. She did not want to go the route of comfort care. She said that is just leaving her to . She did not feel that she was going to and in fact felt that she was going to get over her multiple problems. I did discuss the above with Dr. Marks. At this point Argenis is not a candidate for further work-up at our hospital. Referral to [facility] would be appropriate. I did relay this information to Dr. Marks Await covid screen and continue precautions until this returns I have spent more than 50% of time in counseling with this patient. This document was created by [employer] software. Content was screened for misspellings, grammatical mistakes, etc. I apologize for any problems, but please contact me for further clarification if needed. Review of Systems Narrative: She states that she has lots of pain. Most of this is coming from her compression fractures in her low back. She also stated that she does not like taking pain medication because it was not natural. She prefers to take only natural products. She herself noticed the black tarry stools. She states that she did not have any rectal pain but did have some abdominal pain which is very common for her. [facility] Medical History Ascites (Acute) Bacteremia (Acute) Cirrhosis of liver with ascites (Acute) 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 COPD (chronic obstructive pulmonary disease) (Chronic) Dental caries (Acute) DNI (do not intubate) (Acute) DNR (do not resuscitate) (Acute) Emphysema of lung (Acute) Encephalopathy chronic (Acute) Encounter for hospice care discussion (Acute) Fractured tooth (Acute) Hep C w/o coma, chronic (Acute) Hepatitis C (Chronic) History of hepatitis B vaccination (Acute) Hypertension (Chronic) Manic behavior (Acute) pressured speech, tangential disordered thoughts Nicotine dependence (Acute) Palliative care patient (Acute) POLST (Physician Orders for Life-Sustaining Treatment) (Acute) Poor dentition (Acute) Protein calorie malnutrition (Chronic) PTSD (post-traumatic stress disorder) (Acute) Raynaud's disease without gangrene (Acute) Severely underweight adult (Acute) Splenic varices (Acute) Varices of other sites (Acute) liver Social History Smoking/Tobacco Use Status: Current every day Tobacco Type: cigarettes Alcohol Intake: former Drug use: Never Substance use type: does not use Do you feel safe at home: Yes Do you feel safe in your relationship?: Yes Additional Social history: Living apartment on [address] and [address]. Patient describes concern for lead and mold, but it is unclear if this is an ongoing concern. She gives a grand social history regarding status of her past and her family, but it is hard to interpret the veracity of this history. Exam Narrative Exam Narrative: She is sitting on the bed. She is speaking in full paragraphs and keeps going on and on. She is very manic, uninterruptible, and on directable regarding the conversation. During the time that I was with her she did not have any abnormalities in her vitals, specifically her O2 sats stayed in the low 90s, her heart rate was always in the 80s. Results Last Vital Signs Temp 97.9 F 07/11/19 12:00 Pulse 82 07/11/19 08:01 Resp 12 07/11/19 08:01 BP 121/41 L 07/11/19 08:01 Pulse Ox 100 07/11/19 08:01 Labs Result diagrams: 07/11/19 06:15 07/11/19 06:15 Labs: Laboratory Results - last 24 hr 07/10/19 07/10/19 07/10/19 17:54 18:10 18:10 WBC 5.90 RBC 1.84 L Hgb 5.7 L* Hct 17.2 L* D MCV 93.5 MCH 31.0 MCHC 33.1 RDW 25.7 H Plt Count 106 L MPV 11.3 H Immature Gran % 0.5 Neutrophils % 66.8 Lymphocytes % 20.0 Monocytes % 12.0 Eosinophils % 0.5 Basophils % 0.2 Absolute Neutrophils 3.94 Absolute Lymphocytes 1.18 L Absolute Monocytes 0.71 H Absolute Eosinophils 0.03 Absolute Basophils 0.01 Differential Comment Rbc morph reviewed RBC Morphology See below Polychromasia Present Hypochromasia 2+ Anisocytosis 3+ Macrocytosis 1+ PT INR APTT Sodium 124 L* Potassium 5.6 H Chloride 98 Carbon Dioxide 18.0 L Anion Gap 8.0 BUN 32 H Creatinine 1.07 H Estimated GFR/1.73 m2 52.49 Glucose 120 H Calcium 8.1 L Total Bilirubin 3.0 H AST 249 H ALT 96 H Alkaline Phosphatase 156 H Ammonia Total Protein 4.9 L Albumin 1.9 L Patient ABO/Rh O Negative Antibody Screen Negative Crossmatch See Detail 07/10/19 07/10/19 07/10/19 18:10 18:10 23:00 WBC 5.81 RBC 3.24 L Hgb 9.5 L D Hct 28.1 L D MCV 86.7 D MCH 29.3 MCHC 33.8 RDW 21.5 H Plt Count 77 L MPV Immature Gran % Neutrophils % Lymphocytes % Monocytes % Eosinophils % Basophils % Absolute Neutrophils Absolute Lymphocytes Absolute Monocytes Absolute Eosinophils Absolute Basophils Differential Comment RBC Morphology Polychromasia Hypochromasia Anisocytosis Macrocytosis PT 15.7 H INR 1.6 H APTT 34.5 H Sodium Potassium Chloride Carbon Dioxide Anion Gap BUN Creatinine Estimated GFR/1.73 m2 Glucose Calcium Total Bilirubin AST ALT Alkaline Phosphatase Ammonia < 10 L Total Protein Albumin Patient ABO/Rh Antibody Screen Crossmatch 07/11/19 07/11/19 06:15 06:15 WBC 6.87 RBC 3.28 L Hgb 9.8 L Hct 27.8 L MCV 84.8 MCH 29.9 MCHC 35.3 RDW 21.8 H Plt Count 83 L MPV 11.0 Immature Gran % Neutrophils % Lymphocytes % Monocytes % Eosinophils % Basophils % Absolute Neutrophils Absolute Lymphocytes Absolute Monocytes Absolute Eosinophils Absolute Basophils Differential Comment RBC Morphology Polychromasia Hypochromasia Anisocytosis Macrocytosis PT INR APTT Sodium 125 L Potassium 5.3 H Chloride 99 Carbon Dioxide 17.3 L Anion Gap 8.7 BUN 35 H Creatinine 1.15 H Estimated GFR/1.73 m2 48.30 Glucose 83 Calcium 7.9 L Total Bilirubin 5.1 H AST 267 H ALT 112 H Alkaline Phosphatase 154 H Ammonia Total Protein 5.0 L Albumin 2.0 L Patient ABO/Rh Antibody Screen Crossmatch
== END 2019-07-11 13:39 | DRG 377 ==
LOC: ER 19:53 → ICU 22:02
PROVIDERS: Admitting Provider Family Medicine; Emergency Provider Student in an Organized Health Care Education/Training Program; PCP Nurse Practitioner Family; Visit Provider Internal Medicine
DX: K92.2 Gastrointestinal hemorrhage, unspecified (principal); R57.8 Other shock; D62 Acute posthemorrhagic anemia; M48.56XA Collapsed vertebra, not elsewhere classified, lumbar region, initial encounter for fracture; D68.9 Coagulation defect, unspecified; K72.10 Chronic hepatic failure without coma; B18.2 Chronic viral hepatitis C; K70.31 Alcoholic cirrhosis of liver with ascites; F10.20 Alcohol dependence, uncomplicated; I86.4 Gastric varices; I85.10 Secondary esophageal varices without bleeding; J44.9 Chronic obstructive pulmonary disease, unspecified; Z51.5 Encounter for palliative care; I86.8 Varicose veins of other specified sites; F41.9 Anxiety disorder, unspecified; D69.6 Thrombocytopenia, unspecified; I10 Essential (primary) hypertension
CPT/HCPCS: 36415; 36430; 80053; 85027; 86850; 86900; 86901; 86920; 93005; 96365; 96366; 96374; 96375; 99223; 99255; 99291; U0003; 82140; 85025; 85610; 85730; 93010; J0696; J2354; J2405; P9016

== ENCOUNTER 2019-07-21 14:02 | Outpatient (REF) | payer MEDICARE, MEDICAID, SELFPAY ==
[2019-07-21 16:24] LABS: ALT 88 U/L (14-59); AST 163 U/L (15-37); Albumin 2.1 g/dL (3.4-5.0); Alkaline Phosphatase 202 U/L (46-116); Anion Gap 7.4 mmol/L (3-11); BUN 44 mg/dL (7-18); Bilirubin, Total 7.4 mg/dL (0.2-1.0); CO2 22.6 mmol/L (21.0-32.0); CREATININE 1.83 mg/dL (0.55-1.02); Calcium 8.3 mg/dL (8.5-10.1); Chloride 99 mmol/L (98-107); Estimated GFR 28.16 (mL/min/1.73m2); Glucose 132 mg/dL (74-106); Potassium 5.3 mmol/L (3.5-5.1); Sodium 129 mmol/L (136-145)
[2019-07-21 16:43] LABS: Abs Immature Grans 0.03 k/cumm (0.0-0.09); Absolute Basophil Count 0.01 k/cumm (0.0-0.2); Absolute Eosinophil Count 0.07 k/cumm (0.0-0.7); Absolute Lymphocyte Count 0.75 k/cumm (1.2-3.4); Absolute Neutrophil Count 4.17 k/cumm (1.2-6.7); Basophils % 0.2; Eosinophils % 1.3; HCT 28.9 % (36.0-46.0); HGB 9.7 g/dL (12.0-15.5); Immature Grans % 0.5 %; Lymphocytes % 13.6; Mean Corp. HGB Concentration 33.6 g/dL (32.0-36.0); Mean Corpuscular Hemoglobin 29.7 pg (27.0-33.0); Mean Corpuscular Volume 88.4 fL (80-95); Mean Platelet Volume 11.7 fL (8.0-11.0); Neutrophils % 75.4; Platelet Count 82 x1000/uL (130-400); RBC 3.27 m/cumm (4.00-5.20); RBC Distribution Width 24.3 % (11.7-14.6); White Blood Cell Count 5.53 k/cumm (4.4-10.8)
[2019-07-21 17:47] LABS: Anisocytosis 3+; Diff Comment RBC Morph Reviewed
[2019-07-21 17:48] LABS: Acanthocytes 2+; Burr Cells (echinocyte) 3+
== END 2019-07-21 14:22 ==
LOC: LBN 14:02
PROVIDERS: PCP Nurse Practitioner Family; Visit Provider Nurse Practitioner Adult Health
DX: K70.31 Alcoholic cirrhosis of liver with ascites (principal); B18.2 Chronic viral hepatitis C; B37.81 Candidal esophagitis
CPT/HCPCS: 80053; 85025

== ENCOUNTER 2019-07-22 17:17 | Outpatient (REF) | payer SELFPAY ==
[2019-07-24 18:46] LABS: COVID-19 RT-PCR UVMMC Result Negative (Negative)
== END 2019-07-22 17:37 ==
LOC: LBN 17:17
PROVIDERS: PCP Nurse Practitioner Family; Visit Provider Nurse Practitioner Adult Health
DX: Z03.818 Encounter for observation for suspected exposure to other biological agents ruled out (principal)
CPT/HCPCS: U0003; 82140

== ENCOUNTER 2019-07-30 17:23 | Outpatient (REF) | payer SELFPAY ==
[2019-07-31 15:37] LABS: COVID-19 RT-PCR Result NEGATIVE (Negative)
== END 2019-07-30 17:43 ==
LOC: LBN 17:23
PROVIDERS: PCP Nurse Practitioner Family; Visit Provider Nurse Practitioner Adult Health
DX: Z20.828 Contact with and (suspected) exposure to other viral communicable diseases (principal)
CPT/HCPCS: U0003